=== PATIENT | male | born 1945 | race Caucasian/White ===

== ENCOUNTER 2016-11-24 21:11 | Emergency (ER) | payer OTHER, MEDICARE ==
[~2016-11-24] VITALS: Ht 175.3 cm; Wt 114.3 kg
[~2016-11-24 21:11] MED LIST: ALLO100T PO; CHOL100028 PO; COR3.125 PO; CYAN250010 PO; MELO15TA13 PO; MULT-1117; SERT50TA12 PO; TAMS0.4C96 PO; [UNRECOGNIZED DRUG - CODE] PO
[2016-11-24 21:14] VITALS: BP_SYST 100
--- NOTE | 2016-11-24 21:14 | NUR ---
Patient triaged and placed in waiting room. VSS and patient appears in no acute distress at this time. Accompanied by spouse, awaiting available bed, and MD notified of need for MSE. Patient in wheelchair.
--- NOTE | 2016-11-24 21:22 | NUR ---
Patient to ER bed 4 to gown for evaluation. Side rails up. Report given to Patrick MAE.
--- NOTE | 2016-11-24 21:30 | NUR ---
Pt aayush to ED by tyrone dizziness and low blood pressure at home after his PCP increased coreg from 12.5 to 25 mg. Ambulatory, gait unstable, A&Ox4, denies SOb or chestpain, denies N/V/D. Skin intact. Will continue to monitor
--- NOTE | 2016-11-24 21:40 | NUR ---
MD Mata at bedside examining pt
[2016-11-24] MEDS ORDERED: NACL 0.9% 1,000 ML IV ONE (21:45)
[2016-11-24 22:21] LABS: BASOPHILS % (AUTO) 0.5 % (0.0-2.0); EOSINOPHILS # (AUTO) 0.4 K/uL (0.0-0.4); EOSINOPHILS % (AUTO) 3.9 % (0.0-4.0); HEMATOCRIT 37.6 % (36-54); HEMOGLOBIN 12.6 g/dL (14.0-18.0); LYMPHOCYTES # (AUTO) 1.2 K/uL (1.0-5.5); LYMPHOCYTES % (AUTO) 12.6 % (20.5-51.5); MEAN CORPUSCULAR HEMOGLOBIN 29 pg (27-31); MEAN CORPUSCULAR HGB CONC 33 % (32-36); MEAN CORPUSCULAR VOLUME 87 fL (79.0-98.0); MONOCYTES # (AUTO) 0.5 K/uL (0.0-1.0); MONOCYTES % (AUTO) 5.4 % (1.7-9.3); NEUTROPHILS # (AUTO) 7.3 K/uL (1.8-7.7); NEUTROPHILS % (AUTO) 77.6 % (40.0-70.0); PLATELET COUNT (AUTO) 265 K/uL (130-430); RED BLOOD CELL COUNT(AUTO) 4.32 MIL/uL (4.2-6.2); RED CELL DISTRIBUTION WIDTH 17.5 % (9.0-15.0); WHITE BLOOD COUNT (AUTO) 9.4 K/uL (4.8-10.8)
[2016-11-24 22:22] LABS: CALCIUM 9.3 mg/dL (8.4-11.0); CREATININE 1.98 mg/dL (0.55-1.30)
[2016-11-24 22:25] LABS: PROTHROMBIN TIME 10.6 SECS (9.5-12.5)
[2016-11-24 22:27] LABS: ALBUMIN 3.8 g/dL (3.4-4.8); TOTAL BILIRUBIN 0.4 mg/dL (0.0-1.0); TOTAL PROTEIN, SERUM 8.2 g/dL (6.4-8.3)
--- NOTE | 2016-11-24 23:15 | NUR ---
at bedside, pt appeared resting comfortably. VSS
[2016-11-25 00:40] VITALS: BP_SYST 110
--- NOTE | 2016-11-25 00:40 | NUR ---
Patient given written and verbal discharge instructions and verbalizes understanding. ER MD Mata discussed with patient the results and treatment provided. Given copies of tests performed in ER. Patient in stable condition. ID arm band removed. IV catheter removed intact and dressing applied, no active bleeding. No Rx given. Patient educated on pain management and to follow up with PMD. Pain Scale . Opportunity for questions provided and answered.
== END 2016-11-25 00:40 | disposition home or self-care (01) ==
LOC: SED 21:11
DX: I95.9 Hypotension, unspecified (principal); T44.7X5A Adverse effect of beta-adrenoreceptor antagonists, initial encounter; I50.9 Heart failure, unspecified; I10 Essential (primary) hypertension; Z96.659 Presence of unspecified artificial knee joint; Y92.89 Other specified places as the place of occurrence of the external cause
CPT/HCPCS: 36415; 71010; 80053; 84484; 85025; 85610; 85730; 87040; 93005; 96360; 96361; 99285; J7030

== ENCOUNTER 2022-03-25 14:26 | Inpatient (IN) | payer OTHER, MEDICARE ==
[2022-03-25] VITALS (8 sets, daily range): BP systolic 88–160
[~2022-03-25] VITALS: Ht 175.3 cm; Wt 117.9 kg
[~2022-03-25 14:26] MED LIST changes: +CALC-1085 PO; -CHOL100028 PO; +CHOL100034 PO; +SERT-436 PO; -SERT50TA12 PO; -[UNRECOGNIZED DRUG - CODE] PO
--- NOTE | 2022-03-25 14:30 | NUR ---
BROUGHT IN BY [facility], PLACED IN BED #2 AND TRIAGED. REPORT GIVEN TO VANNESSA
[2022-03-25] MEDS ORDERED: NACL 0.9% 1,000 ML IV ONE ×2 (14:45→15:45)
[2022-03-25 15:21] LABS: HEMATOCRIT 33.5 % (36-54); HEMOGLOBIN 10.7 g/dL (14.0-18.0); LYMPHOCYTES # (AUTO) 0.6 K/uL (1.0-5.5); LYMPHOCYTES % (AUTO) 8.2 % (20.5-51.5); MEAN CORPUSCULAR HEMOGLOBIN 30 pg (27-31); MEAN CORPUSCULAR HGB CONC 32 % (32-36); MONOCYTES # (AUTO) 0.4 K/uL (0.0-1.0); NEUTROPHILS # (AUTO) 6.1 K/uL (1.8-7.7); WHITE BLOOD COUNT (AUTO) 7.1 K/uL (4.8-10.8)
--- NOTE | 2022-03-25 15:21 | NUR ---
Pt present to ED via EMS with report of AMS, hypotension and elevated ammonia levels. Pt placed in bed 2 on monitor. ED physician at [facility]. Pressure ulcer noted to sacral region and posterior region of feet. Will continue to monitor pt
[2022-03-25 15:33] LABS: BASOPHILS % (AUTO) 0.4 % (0.0-2.0); EOSINOPHILS % (AUTO) 0.6 % (0.0-4.0); MEAN CORPUSCULAR VOLUME 95 fL (79.0-98.0); MONOCYTES % (AUTO) 5.4 % (1.7-9.3); NEUTROPHILS % (AUTO) 85.4 % (40.0-70.0); RED BLOOD CELL COUNT(AUTO) 3.52 MIL/uL (4.2-6.2); RED CELL DISTRIBUTION WIDTH 21.9 % (9.0-15.0)
[2022-03-25 15:42] LABS: PLATELET COUNT (AUTO) 70 K/uL (130-430)
[2022-03-25 15:51] LABS: ALANINE AMINOTRANSFERASE 68 U/L (12-78); ALBUMIN 2.4 g/dL (3.4-4.8); ANION GAP 13 (5-15); ASPARTATE AMINOTRANSFERASE 53 U/L (10-37); CALCIUM 10.2 mg/dL (8.4-11.0); CHLORIDE 94 mmol/L (98-107); CREATININE 4.82 mg/dL (0.55-1.30); GLUCOSE 88 mg/dL (70-99); TOTAL BILIRUBIN 1.5 mg/dL (0.0-1.0)
[2022-03-25 16:09] LABS: UREA NITROGEN, BLOOD 125 mg/dL (8-21)
[2022-03-25] MEDS ORDERED: INSULIN REGULAR, HUMAN 10 UNITS/0.1 ML, 3 ML VIAL IVP ONE (16:45)
[2022-03-25] MEDS ORDERED: DEXTROSE 50% JECT 50 ML DISP.SYRIN IVP ONE (16:45)
[2022-03-25] MEDS ORDERED: D5/0.45 NS 1,000 ML IV ONE (17:00)
--- NOTE | 2022-03-25 17:16 | NUR ---
Telephone report called to ICU. Spoke to Eli MAE.
--- NOTE | 2022-03-25 17:26 | NUR ---
Admit bed requested Patient will be admitted to care of . Admitted to ICU unit. Diagnosis METABOLIC ENCEPHALOPATHY, RENAL FAILURE, DEHYDRATION Inpatient (Yes or No) Y Observation (Yes or No) N Orientation concerns or request close to nursing station (Yes or No) Y Covid Status PENDING On vent or bipap N Isolation requirements N Needs a sitter N From Home (Yes or if No enter name of facility) [facility] Requires Dialysis (Yes or No) N Med Rec Completed (Yes of No) Y
[2022-03-25] MEDS ORDERED: CARV3.1246 PO (17:43)
[2022-03-25] MEDS ORDERED: DOCU-144 PO (17:43)
[2022-03-25] MEDS ORDERED: EPOE4000 IJ (17:43)
[2022-03-25] MEDS ORDERED: NEPH PO (17:43)
[2022-03-25] MEDS ORDERED: MIDO5TAB4 PO (17:43)
[2022-03-25] MEDS ORDERED: APIX5TAB PO (17:43)
[2022-03-25] MEDS ORDERED: LACT10SO6 PO (17:43)
[2022-03-25] MEDS ORDERED: AMIO200T66 PO (17:43)
[2022-03-25] MEDS ORDERED: LEVO50CA4 (17:43)
[2022-03-25] MEDS ORDERED: VITD400 PO (17:43)
[2022-03-25] MEDS ORDERED: BISA-79 PO (17:43)
[2022-03-25] MEDS ORDERED: ZINC50TA69 PO (17:43)
--- NOTE | 2022-03-25 17:53 | NUR ---
Pt transported to ICU by ED RN accompanied by EMT and on monitor and 02 at 3L via NC. No change in mentation from previous documentation. IV access in place. IV fluids infusing at 150mls/hr.
[2022-03-25] MEDS: D5/0.45 NS 1,000 ML IV SCH ×2 (18:00→21:22)
[2022-03-25] MEDS ORDERED: NOREPINEPHRINE BITARTRATE 4 MG in D5W 246 ML IV PRN (18:00)
--- NOTE | 2022-03-25 18:00 | NUR ---
RN NOTES ADMITTED FROM ER FOR SEPSIS, ADMISSION CARE DONE. PLACED COMFORTABLY ON BED. INITIAL VITAL SIGNS CHECKED AND RECORDED. O2 @ 4L/MIN VIA NC. IVF INFUSING VIA LEFT ARM IV LOCK. PATIENT MADE COMFORTABLE. WILL CONTINUE TO MONITOR.
--- NOTE | 2022-03-25 19:10 | NUR ---
OPENING NOTES: RECEIVED BEDSIDE REPORT FROM SWATARA. PATIENT IS LETHARGIC AND AGITATED, DOES NOT OPEN HIS EYES, WILL ANSWER TO HIS NAME BUT DOES NOT FOLLOW COMMANDS. IS AT THE BED SIDE AND INFORMED ME OF OTHER CONDITIONS. PATIENT WAS TRANSFERRED FROM ER AT 1800, CAME FROM [facility] BECAUSE OF ALOC. PATIENT IS ON 4 L NC AND STATING AT 98%. PATIENT HAS A LEFT FOREARM 20 g WITH D5 1/2 NS RUNNING AT 250 ML/HR. PATIENT HAS A WOUND ON SACRAL, DAY SHIFT CLEANED PATIENT AND PLACED A FOAM DRESSING, DID NOT TAKE PICTURES. PATIENT HAS EDEMA IN ALL EXTREMITIES, RIGHT ARM HAS SKIN TEAR THAT WAS WRAPPED, PATIENT HAS SCABS ON LEGS AND ARMS FROM PAST ISSUES STATED BY THE . DEFIBRILLATE WAS PLACED FEBRUARY 21, GOT A COPY FROM OF THE TYPE. BED IS AT THE LOWEST LEVEL, BRAKES ARE LOCKED, APPROPRIATE SIDE RAILS UP, SUCTION WORKING, AND CALL LIGHT WITHIN REACH.
[2022-03-25] MEDS ORDERED: cefTRIAXone 1 GM in D5W 50 ML IV SCH (20:00)
[2022-03-25] MEDS ORDERED: DOPamine PREMIX 250 ML IV PRN (20:15)
[2022-03-25 20:20] LABS: ANION GAP 13 (5-15); CALCIUM 9.2 mg/dL (8.4-11.0); CHLORIDE 97 mmol/L (98-107); CREATININE 4.85 mg/dL (0.55-1.30); GLUCOSE 82 mg/dL (70-99); POTASSIUM 5.4 mmol/L (3.5-5.1)
[2022-03-25] MEDS ORDERED: cefTRIAXone 1 GM VIAL ONE (20:20)
[2022-03-25 20:33] LABS: UREA NITROGEN, BLOOD 121 mg/dL (8-21)
--- NOTE | 2022-03-25 20:40 | NUR ---
CALLED DOCTOR NADEEM WITH [facility]. ORDERS GIVEN TO START DOPAMINE IF THE BP GOES BELOW 90. TO DO A BLADDER SCAN Q6 AND TO PLACE A TERRAZAS CATH IF MORE THEN 500 ML OF URINE IS FOUND, AND TO HOLD MEDICATIONS TILL THE MORNING. INFORMED THAT [facility] CALLED TO REQUEST TO HOLD ELIQUIS DUE TO LOW PLT OF 90. OK OKAYED ALL REQUESTS.
[2022-03-25] MEDS: BISACODYL 5 MG TABLET.DR (DULCOLAX) PO SCH (21:00)
[2022-03-25] MEDS ORDERED: APIXABAN 2.5 MG TABLET PO SCH ×2 (21:00)
[2022-03-25] MEDS: MIDODRINE HCL 5 MG TABLET (PROAMATINE) PO SCH (21:00)
[2022-03-25] MEDS: TAMSULOSIN HCL 0.4 MG CAP PO SCH (21:00)
[2022-03-25] MEDS: DOCUSATE SODIUM 100 MG CAPSULE PO SCH (21:00)
[2022-03-26] VITALS (32 sets, daily range): BP systolic 72–164
--- NOTE | 2022-03-26 00:19 | NUR ---
DID BLADDER SCAN ON PATIENT. ONLY 40 ML WAS FOUND, PATIENT HAS NOT URINATED IN BED.
--- NOTE | 2022-03-26 00:53 | NUR ---
DR. NADEEM MANZO MADE AWARE THAT BLADDER SCAN IN SHOWING 100CC RESIDUAL AND PT IS RECEIVING 250CC/HR IV FLUID WITH NO UOP SINCE BEGINNING OF SHIFT. PER GIVE LASIX 80 MG IVP X1 NOW AND DO NOT INSERT FC UNLESS RESIDUAL IS >200 CC. WILL CARRY OUT ORDERED. Addendum: 03/26/22 at 0056 by Emiliana Waters RN ALSO MADE AWARE THAT PT IS HAVING FREQUENT PVCS, NO NEW ORDERS RECEIVED AT THIS TIME.
[2022-03-26] MEDS ORDERED: FUROSEMIDE 40 MG/4 ML VIAL IVP ONE (01:00)
[2022-03-26] MEDS: D5/0.45 NS 1,000 ML IV SCH ×4 (02:42→14:00)
--- NOTE | 2022-03-26 05:31 | NUR ---
DR. NADEEM MANZO MADE AWARE THAT PT HAS NOT VOIDED SINCE BEGINNING OF SHIFT DESPITE RECEIVING 250 CC/HR IVF AND LASIX IVP. PER MD INSERT FC, IF NO UOP DECREASE IVF TO 100 CC/HR. WILL CARRY OUT ORDERED.
--- NOTE | 2022-03-26 06:05 | NUR ---
INSERTED TERRAZAS CATHETER AND BLOOD STARTED TO DRAIN. CALLED DR SILVER AND INFORMED FO THE BLOOD, GAVE ORDERS OF BUMEX 1 MG IV ONCE AND TO DECREASE IV FLUID TO 100 CC/HR.
--- NOTE | 2022-03-26 06:45 | NUR ---
PATIENTS CALLED AND INFORMED PATIENT WAS STABLE ALL NIGHT, WAS UNABLE TO GET URINE FROM HIM ALL NIGHT AND THE DOCTOR ORDERED FOR THE TERRAZAS TO BE INSERTED. STATED SHE WAS GETTING DRESSED AND WILL BE ON HER WAY.
[2022-03-26 06:54] LABS: BASOPHILS # (AUTO) 0.1 K/uL (0.0-0.2); BASOPHILS % (AUTO) 0.7 % (0.0-2.0); EOSINOPHILS # (AUTO) 0.2 K/uL (0.0-0.4); HEMOGLOBIN 10.1 g/dL (14.0-18.0); LYMPHOCYTES # (AUTO) 0.7 K/uL (1.0-5.5); LYMPHOCYTES % (AUTO) 9.7 % (20.5-51.5); MEAN CORPUSCULAR HEMOGLOBIN 31 pg (27-31); MEAN CORPUSCULAR HGB CONC 33 % (32-36); MEAN CORPUSCULAR VOLUME 96 fL (79.0-98.0); MONOCYTES # (AUTO) 0.5 K/uL (0.0-1.0); MONOCYTES % (AUTO) 6.9 % (1.7-9.3); NEUTROPHILS % (AUTO) 80.7 % (40.0-70.0); PLATELET COUNT (AUTO) 62 K/uL (130-430); RED BLOOD CELL COUNT(AUTO) 3.23 MIL/uL (4.2-6.2); RED CELL DISTRIBUTION WIDTH 22.5 % (9.0-15.0); WHITE BLOOD COUNT (AUTO) 7.5 K/uL (4.8-10.8)
[2022-03-26] MEDS: BUMEX 1 MG/4 ML VIAL IVP ONE ×2 (07:00→10:17)
[2022-03-26 08:45] LABS: ALANINE AMINOTRANSFERASE 56 U/L (12-78); ALBUMIN 2.1 g/dL (3.4-4.8); ANION GAP 14 (5-15); ASPARTATE AMINOTRANSFERASE 52 U/L (10-37); CALCIUM 8.8 mg/dL (8.4-11.0); CHLORIDE 93 mmol/L (98-107); CREATININE 4.95 mg/dL (0.55-1.30); GLUCOSE 109 mg/dL (70-99); PHOSPHORUS 6.6 mg/dL (2.7-4.5); POTASSIUM 5.5 mmol/L (3.5-5.1); TOTAL BILIRUBIN 1.5 mg/dL (0.0-1.0)
[2022-03-26 08:50] LABS: UREA NITROGEN, BLOOD 114 mg/dL (8-21)
[2022-03-26] MEDS: MIDODRINE HCL 5 MG TABLET (PROAMATINE) PO SCH ×4 (09:00→20:50)
[2022-03-26] MEDS ORDERED: TAMSULOSIN HCL 0.4 MG CAP PO SCH (09:00)
[2022-03-26] MEDS: AMIODARONE HCL 200 MG TABLET PO SCH (09:00)
[2022-03-26] MEDS: NEPHROVITE, (FOLIC ACID/VITAMIN B COMP W-C 1 TAB) PO SCH (09:00)
[2022-03-26] MEDS: DOCUSATE SODIUM 100 MG CAPSULE PO SCH ×2 (09:00→20:50)
[2022-03-26] MEDS: BISACODYL 5 MG TABLET.DR (DULCOLAX) PO SCH ×2 (09:00→22:05)
[2022-03-26] MEDS: CHOLECALCIFEROL (VITAMIN D3) 2,000 UNIT TABLET PO SCH (09:00)
[2022-03-26] MEDS: TAMSULOSIN HCL 0.4 MG CAP PO SCH ×2 (09:00→20:50)
[2022-03-26] MEDS ORDERED: NOREPINEPHRINE BITARTRATE 4 MG in D5W 246 ML IV PRN (10:00)
--- NOTE | 2022-03-26 11:12 | NUR ---
Dr Márquez was here at 1030 and held bumex due to low BP and ordered to start on Levophed drip and dopamine at fixed rate of 2 mcg/kg/min. Lunsford drainage remains bloody and is aware of it. Urine culture was sent. Bp is more stable
--- NOTE | 2022-03-26 11:15 | NUR ---
consent for picc line was signed by and explained the procedure
[2022-03-26] MEDS: cefTRIAXone 1 GM in D5W 50 ML IV SCH ×2 (12:00→23:51)
[2022-03-26 12:25] LABS: BILIRUBIN,URINE 3+ (NEGATIVE); BLOOD, URINE 3+ (NEGATIVE); GLUCOSE,URINE 1+ (NEGATIVE); KETONES,URINE TRACE (NEGATIVE); LEUKOCYTE ESTERASE ,URINE NEGATIVE (NEGATIVE); NITRITE, URINE NEGATIVE (NEGATIVE); PROTEIN URINE 3+ (NEGATIVE)
[2022-03-26 12:27] LABS: CLARITY/URINE BLOODY (CLEAR); COLOR,URINE RED (YELLOW)
[2022-03-26 12:31] LABS: BACTERIA,URINE RARE /HPF (None Seen); MUCUS,URINE None Seen /LPF (None Seen); RBC,URINE >100 /HPF (0-3); WBC,URINE 0-3 /HPF (0-3)
--- NOTE | 2022-03-26 13:00 | NUR ---
Right upper arm double lumen PICC line started by Bharathi PICC RN. PICC line OK to use.
[2022-03-26 14:25] LABS: BASOPHILS % (AUTO) 0.4 % (0.0-2.0); EOSINOPHILS # (AUTO) 0.2 K/uL (0.0-0.4); EOSINOPHILS % (AUTO) 2.7 % (0.0-4.0); LYMPHOCYTES # (AUTO) 0.8 K/uL (1.0-5.5); LYMPHOCYTES % (AUTO) 9.2 % (20.5-51.5); MEAN CORPUSCULAR HEMOGLOBIN 31 pg (27-31); MEAN CORPUSCULAR HGB CONC 32 % (32-36); MEAN CORPUSCULAR VOLUME 96 fL (79.0-98.0); MONOCYTES # (AUTO) 0.3 K/uL (0.0-1.0); MONOCYTES % (AUTO) 4.1 % (1.7-9.3); NEUTROPHILS % (AUTO) 83.6 % (40.0-70.0); PLATELET COUNT (AUTO) 72 K/uL (130-430); RED BLOOD CELL COUNT(AUTO) 2.04 MIL/uL (4.2-6.2); RED CELL DISTRIBUTION WIDTH 21.8 % (9.0-15.0); WHITE BLOOD COUNT (AUTO) 8.4 K/uL (4.8-10.8)
--- NOTE | 2022-03-26 14:27 | NUR ---
RN NOTES 1420 CRITICAL H&H RESULT: Hgb 6.3 , Hct 19.[address] Silver, with orders carried out. 1430 1ST UNIT PRBC OF 2 UNITS STARTED, SEE TRANSFUSION SHEET FOR DOCUMENTATION. [address]40 DR[address] CHOUDHARY CALLED FOR CONSULT, RE: VENT MANAGEMENT DR. RODRIGUEZ CALLED FOR CONSULT, RE: UROLOGY INTERVENTION/SEVERE HEMATURIA 1530 K+ 6.4, SPOKE TO DR. SILVER, WITH ORDERS CARRIED OUT. [address] DR[address] SILVER AND DR. CASTELLANO HERE TO SEE PATIENT, SPOKE TO PT FOR THE PLAN OF CARE.
[2022-03-26 14:28] LABS: HEMATOCRIT 19.6 % (36-54); HEMOGLOBIN 6.3 g/dL (14.0-18.0)
--- NOTE | 2022-03-26 14:30 | NUR ---
PATIENT INTUBATED BY DR. AHUJA, PATIENT PREMEDICATED WITH ROCURONIUM 100 MG IVP INTUBATED WITH 7.5 ET TUBE, 24cm LIP LINE. VENT SETTIN%, VT 550, AC 14, PEEP 5.
--- NOTE | 2022-03-26 14:40 | NUR ---
Called Dr. Carter with a consult,spoke with Amanda from the exchange
--- NOTE | 2022-03-26 14:40 | NUR ---
Dr. Jim Chavira is aware of consult
[2022-03-26 14:54] LABS: ANION GAP 8 (5-15); CHLORIDE 96 mmol/L (98-107); CREATININE 4.91 mg/dL (0.55-1.30); GLUCOSE 136 mg/dL (70-99)
[2022-03-26 15:06] LABS: POTASSIUM 6.4 mmol/L (3.5-5.1)
[2022-03-26 15:07] LABS: CALCIUM 6.6 mg/dL (8.4-11.0); UREA NITROGEN, BLOOD 115 mg/dL (8-21)
[2022-03-26] MEDS ORDERED: CALCIUM CHLORIDE 1 GM in NS 100 ML IV ONE (15:15)
[2022-03-26] MEDS ORDERED: CALCIUM CHLORIDE 1 GM/10 ML DISP.SYRIN (14 mEq Ca++/SYR) ONE (15:21)
[2022-03-26] MEDS ORDERED: INSULIN REGULAR, HUMAN 100 UNITS/ML, 3 ML VIAL IVP ONE (15:30)
[2022-03-26] MEDS ORDERED: DEXTROSE 50% JECT 50 ML DISP.SYRIN IVP ONE (15:30)
--- NOTE | 2022-03-26 15:30 | NUR ---
HIGH ALERT NOTE: Called Dr. Márquez back at [phone], identified within the medical roster to verify physician authenticity.
[2022-03-26] MEDS ORDERED: DEXTROSE 50% JECT 50 ML DISP.SYRIN ONE (15:36)
--- NOTE | 2022-03-26 15:37 | NUR ---
Called Dr. Harmon with a consult, spoke with Sarabjit from the exchange
[2022-03-26] MEDS ORDERED: NS IV ONE (16:00)
[2022-03-26] MEDS ORDERED: AMINOCAPROIC ACID IV ONE (16:00)
[2022-03-26] MEDS ORDERED: ROCURONIUM BROMIDE 10 MG/ML (ZEMURON) ONE (16:30)
[2022-03-26] MEDS: D5W IV PRN (16:34)
[2022-03-26] MEDS: NOREPINEPHRINE BITARTRATE IV PRN (16:34)
--- NOTE | 2022-03-26 17:26 | NUR ---
rt notes 1425Pt Hb low. Pt became unresponsive, pt BP was low, pulse unpalpable, code blue was called.CPR started and lasted for 1-3 minutes, pt came back. 1430 Pt got intubated by ER MD Reuben Tejeda, AC14,550VT, PEEP 5, 100% FIO2, 7.5/25CM LL. Pt saturating 100%. CO2 color changed, Bilateral chest rise seen. will cont to monitor pt. 1458 Per ABG results, PO2 400's. decreased FIO2 to 50%. pt saturating 99%.
[2022-03-26 18:04] LABS: INR 2.8 (0.80-1.20); PROTHROMBIN TIME 27.3 SECS (9.5-12.5)
--- NOTE | 2022-03-26 19:27 | NUR ---
Recd obtunded, on off agitation, and still moaning and restless, siderails are up. Dopamine at 2 mcg/kg/min and levophed was started after Dr. márquez called at 1 mcg/kg/min. t 1403 pt became unconscious for few mins and became bradycardeic. CPR was only performed less than a min and pt was intubated orally by ER MD and pt was placed in trendelenberg positioGisela RN communicated with Dr. Márquez always
[2022-03-26] MEDS: PANTOPRAZOLE SODIUM 40 MG/VIAL (PROTONIX) IVP SCH (20:51)
[2022-03-26 20:52] LABS: PLATELET COUNT (AUTO) 82 K/uL (130-430)
[2022-03-26 21:32] LABS: BASOPHILS % (AUTO) 0.2 % (0.0-2.0); EOSINOPHILS # (AUTO) 0.2 K/uL (0.0-0.4); EOSINOPHILS % (AUTO) 1.4 % (0.0-4.0); HEMATOCRIT 23.4 % (36-54); HEMOGLOBIN 7.7 g/dL (14.0-18.0); LYMPHOCYTES # (AUTO) 0.5 K/uL (1.0-5.5); LYMPHOCYTES % (AUTO) 4.4 % (20.5-51.5); MEAN CORPUSCULAR HEMOGLOBIN 30 pg (27-31); MEAN CORPUSCULAR HGB CONC 33 % (32-36); MEAN CORPUSCULAR VOLUME 93 fL (79.0-98.0); MONOCYTES # (AUTO) 0.4 K/uL (0.0-1.0); MONOCYTES % (AUTO) 3.3 % (1.7-9.3); NEUTROPHILS # (AUTO) 10.6 K/uL (1.8-7.7); NEUTROPHILS % (AUTO) 90.7 % (40.0-70.0); RED BLOOD CELL COUNT(AUTO) 2.52 MIL/uL (4.2-6.2); RED CELL DISTRIBUTION WIDTH 18.7 % (9.0-15.0); WHITE BLOOD COUNT (AUTO) 11.7 K/uL (4.8-10.8)
[2022-03-26] MEDS ORDERED: VASOPRESSIN 20 UNITS/ML VIAL IV ONE (22:35)
[2022-03-26 22:43] LABS: ANION GAP 11 (5-15); CHLORIDE 94 mmol/L (98-107); CREATININE 4.81 mg/dL (0.55-1.30); GLUCOSE 218 mg/dL (70-99); POTASSIUM 5.2 mmol/L (3.5-5.1)
[2022-03-26] MEDS ORDERED: ALBUMIN HUMAN 25% 150 ML IV ONE ×2 (23:00)
[2022-03-26 23:06] LABS: UREA NITROGEN, BLOOD 112 mg/dL (8-21)
[2022-03-27] VITALS (32 sets, daily range): BP systolic 43–151
[2022-03-27 06:32] LABS: BASOPHILS % (AUTO) 0.2 % (0.0-2.0); EOSINOPHILS # (AUTO) 0.1 K/uL (0.0-0.4); EOSINOPHILS % (AUTO) 0.5 % (0.0-4.0); LYMPHOCYTES # (AUTO) 0.5 K/uL (1.0-5.5); LYMPHOCYTES % (AUTO) 3.5 % (20.5-51.5); MEAN CORPUSCULAR HEMOGLOBIN 31 pg (27-31); MEAN CORPUSCULAR HGB CONC 33 % (32-36); MEAN CORPUSCULAR VOLUME 94 fL (79.0-98.0); MONOCYTES # (AUTO) 0.5 K/uL (0.0-1.0); MONOCYTES % (AUTO) 4.2 % (1.7-9.3); NEUTROPHILS # (AUTO) 11.9 K/uL (1.8-7.7); NEUTROPHILS % (AUTO) 91.6 % (40.0-70.0); PLATELET COUNT (AUTO) 93 K/uL (130-430); RED BLOOD CELL COUNT(AUTO) 2.09 MIL/uL (4.2-6.2); RED CELL DISTRIBUTION WIDTH 17.9 % (9.0-15.0)
[2022-03-27] MEDS: D5W IV PRN ×4 (07:13→23:08)
[2022-03-27] MEDS: NOREPINEPHRINE BITARTRATE IV PRN ×4 (07:13→23:08)
[2022-03-27 07:17] LABS: INR 2.1 (0.80-1.20); PROTHROMBIN TIME 21.3 SECS (9.5-12.5)
[2022-03-27 08:05] LABS: HEMATOCRIT 19.5 % (36-54); HEMOGLOBIN 6.5 g/dL (14.0-18.0)
[2022-03-27 08:26] LABS: ALANINE AMINOTRANSFERASE 27 U/L (12-78); ALBUMIN 1.8 g/dL (3.4-4.8); ANION GAP 10 (5-15); ASPARTATE AMINOTRANSFERASE 41 U/L (10-37); CALCIUM 7.9 mg/dL (8.4-11.0); CHLORIDE 98 mmol/L (98-107); CREATININE 3.59 mg/dL (0.55-1.30); GLUCOSE 182 mg/dL (70-99); PHOSPHORUS 5.2 mg/dL (2.7-4.5); POTASSIUM 4.5 mmol/L (3.5-5.1); TOTAL BILIRUBIN 1.8 mg/dL (0.0-1.0); UREA NITROGEN, BLOOD 74 mg/dL (8-21)
[2022-03-27] MEDS ORDERED: EPOETIN ALFA 4,000 UNITS/ML VIAL SUBCUT SCH (09:00)
[2022-03-27] MEDS: AMIODARONE HCL 200 MG TABLET PO SCH (09:00)
[2022-03-27] MEDS: DOCUSATE SODIUM 100 MG CAPSULE PO SCH ×2 (09:16→20:41)
[2022-03-27] MEDS: NEPHROVITE, (FOLIC ACID/VITAMIN B COMP W-C 1 TAB) PO SCH (09:16)
[2022-03-27] MEDS: CHOLECALCIFEROL (VITAMIN D3) 2,000 UNIT TABLET PO SCH (09:16)
[2022-03-27] MEDS: BISACODYL 5 MG TABLET.DR (DULCOLAX) PO SCH ×2 (09:17→20:41)
[2022-03-27] MEDS: TAMSULOSIN HCL 0.4 MG CAP PO SCH ×2 (09:22→20:41)
[2022-03-27] MEDS: PANTOPRAZOLE SODIUM 40 MG/VIAL (PROTONIX) IVP SCH ×2 (09:23→20:40)
[2022-03-27] MEDS: MIDODRINE HCL 5 MG TABLET (PROAMATINE) PO SCH ×4 (09:25→20:41)
[2022-03-27] MEDS ORDERED: PANTOPRAZOLE SODIUM 40 MG/VIAL (PROTONIX) IVP ONE (10:15)
--- NOTE | 2022-03-27 10:29 | NUR ---
received pt in bedwith hob up to 15 degree, on vasopressin and levophed drip max. observed to be responding to pain and shaking his head but no grimacing, Jonn winklerans bloody and irrigatedm with saline every 2 hours, Dr Márquez was here at 0900 and relayed the low hgb. of 6.5 and ordered 2 units of Prbc to be transfused chito
--- NOTE | 2022-03-27 11:02 | NUR ---
dr. naranjo was called and okeyed the nephro feeding as the only available instead of 2 florina HN that he ordered
--- NOTE | 2022-03-27 11:03 | NUR ---
gillian , the was called and updated of pt. condition
[2022-03-27] MEDS: ACETAMINOPHEN 650 MG/20.3 ML UDC PO PRN ×3 (11:17→23:06)
--- NOTE | 2022-03-27 11:56 | NUR ---
Dr Márquez do not want any sedation noir narcotics but only tylenol
[2022-03-27] MEDS: cefTRIAXone 1 GM in D5W 50 ML IV SCH ×2 (12:17→23:06)
--- NOTE | 2022-03-27 14:08 | NUR ---
Dialysis not done due to Resvan ordered to hold it today
[2022-03-27] MEDS: VASOPRESSIN 40 UNITS in NS 38 ML IV PRN (14:11)
--- NOTE | 2022-03-27 18:18 | NUR ---
Dr Márquez was here and saw systolic BP of 140 and oredered to call dialysis right now but when we call the dialysis they said they will do it tommorow bec pt. Bp is unstabel upp and down so Dr márquez was informed that dialysis will be done tommorow and he agreed
[2022-03-27 19:52] LABS: TOTAL IRON BIND. CAPACITY 227 ug/dL (250-450)
[2022-03-27 20:25] LABS: BASOPHILS % (AUTO) 0.1 % (0.0-2.0); EOSINOPHILS % (AUTO) 0.1 % (0.0-4.0); HEMATOCRIT 23.3 % (36-54); HEMOGLOBIN 7.5 g/dL (14.0-18.0); LYMPHOCYTES # (AUTO) 0.3 K/uL (1.0-5.5); LYMPHOCYTES % (AUTO) 1.4 % (20.5-51.5); MEAN CORPUSCULAR HEMOGLOBIN 29 pg (27-31); MEAN CORPUSCULAR HGB CONC 32 % (32-36); MONOCYTES # (AUTO) 0.8 K/uL (0.0-1.0); MONOCYTES % (AUTO) 3.5 % (1.7-9.3); NEUTROPHILS # (AUTO) 21.8 K/uL (1.8-7.7); NEUTROPHILS % (AUTO) 94.9 % (40.0-70.0); PLATELET COUNT (AUTO) 100 K/uL (130-430); RED BLOOD CELL COUNT(AUTO) 2.56 MIL/uL (4.2-6.2); RED CELL DISTRIBUTION WIDTH 16.9 % (9.0-15.0)
[2022-03-27 20:27] LABS: MEAN CORPUSCULAR VOLUME 91 fL (79.0-98.0)
[2022-03-27] MEDS ORDERED: ACETAMINOPHEN 650 MG/20.3 ML UDC ONE (22:23)
[2022-03-28] VITALS (34 sets, daily range): BP systolic 81–149
[2022-03-28] MEDS: VASOPRESSIN 40 UNITS in NS 38 ML IV PRN (06:06)
[2022-03-28 06:07] LABS: BASOPHILS % (AUTO) 0.3 % (0.0-2.0); EOSINOPHILS % (AUTO) 0.1 % (0.0-4.0); HEMATOCRIT 24.3 % (36-54); HEMOGLOBIN 8.3 g/dL (14.0-18.0); LYMPHOCYTES # (AUTO) 0.5 K/uL (1.0-5.5); LYMPHOCYTES % (AUTO) 3.1 % (20.5-51.5); MEAN CORPUSCULAR HEMOGLOBIN 30 pg (27-31); MEAN CORPUSCULAR HGB CONC 34 % (32-36); MEAN CORPUSCULAR VOLUME 89 fL (79.0-98.0); MONOCYTES # (AUTO) 0.8 K/uL (0.0-1.0); MONOCYTES % (AUTO) 4.5 % (1.7-9.3); NEUTROPHILS # (AUTO) 15.7 K/uL (1.8-7.7); PLATELET COUNT (AUTO) 112 K/uL (130-430); RED BLOOD CELL COUNT(AUTO) 2.72 MIL/uL (4.2-6.2); RED CELL DISTRIBUTION WIDTH 17.3 % (9.0-15.0); WHITE BLOOD COUNT (AUTO) 17.1 K/uL (4.8-10.8)
[2022-03-28] MEDS: NOREPINEPHRINE BITARTRATE IV PRN ×2 (07:09→14:23)
[2022-03-28] MEDS: D5W IV PRN ×2 (07:09→14:23)
[2022-03-28 07:10] LABS: ALANINE AMINOTRANSFERASE 33 U/L (12-78); ALBUMIN 1.9 g/dL (3.4-4.8); ANION GAP 12 (5-15); ASPARTATE AMINOTRANSFERASE 39 U/L (10-37); CALCIUM 7.7 mg/dL (8.4-11.0); CHLORIDE 95 mmol/L (98-107); CREATININE 4.27 mg/dL (0.55-1.30); GLUCOSE 138 mg/dL (70-99); POTASSIUM 4.6 mmol/L (3.5-5.1); TOTAL BILIRUBIN 1.2 mg/dL (0.0-1.0); UREA NITROGEN, BLOOD 80 mg/dL (8-21)
[2022-03-28] MEDS ORDERED: ALBUMIN HUMAN 25% 200 ML IV ONE (07:45)
[2022-03-28] MEDS: TAMSULOSIN HCL 0.4 MG CAP PO SCH ×2 (09:21→20:33)
[2022-03-28] MEDS: CHOLECALCIFEROL (VITAMIN D3) 2,000 UNIT TABLET PO SCH (09:21)
[2022-03-28] MEDS: PANTOPRAZOLE SODIUM 40 MG/VIAL (PROTONIX) IVP SCH ×2 (09:23→20:32)
[2022-03-28] MEDS: BISACODYL 5 MG TABLET.DR (DULCOLAX) PO SCH ×2 (09:24→20:33)
[2022-03-28] MEDS: AMIODARONE HCL 200 MG TABLET PO SCH (09:24)
[2022-03-28] MEDS: MIDODRINE HCL 5 MG TABLET (PROAMATINE) PO SCH ×4 (09:25→20:33)
[2022-03-28] MEDS: NEPHROVITE, (FOLIC ACID/VITAMIN B COMP W-C 1 TAB) PO SCH (09:26)
[2022-03-28] MEDS: cefTRIAXone 1 GM in D5W 50 ML IV SCH ×2 (12:13→12:17)
--- NOTE | 2022-03-28 14:45 | NUR ---
HIGH ALERT NOTE: Called Dr. Harmon back at [phone] for the Heparin order, identified within the medical roster to verify physician authenticity.
[2022-03-28] MEDS ORDERED: HEPARIN SODIUM,PORCINE 5,000 UNITS/ML VIAL MC ONE (15:00)
[2022-03-28] MEDS ORDERED: CEFEPIME 1 GM in D5W 50 ML IV SCH (15:00)
[2022-03-28] MEDS: ACETAMINOPHEN 650 MG/20.3 ML UDC PO PRN ×2 (15:01→16:56)
--- NOTE | 2022-03-28 15:10 | NUR ---
at 1455 John our shelter monitor paged Dr García consult for infection
--- NOTE | 2022-03-28 15:12 | NUR ---
Temp. was 100 F, warm to touch and removed all covers and applied ice packs
[2022-03-28] MEDS ORDERED: EPOETIN ALFA-EPBX 4,000 UNITS/ML VIAL SUBCUT ONE (18:00)
[2022-03-28] MEDS ORDERED: AMIODARONE HCL 200 MG TABLET ONE (18:13)
[2022-03-28] MEDS ORDERED: AMIODARONE HCL 200 MG TABLET NG ONE (18:15)
--- NOTE | 2022-03-28 19:00 | NUR ---
OPENING NOTES: RECEIVED BEDSIDE REPORT FROM [place]. PATIENT IS OBTUNDED WITH NO SEDATION, IS AT THE BEDSIDE. PATIENT IS INTUBATED AC 30%, 14, 550, 5. PATIENT HAD DIALYSIS TODAY AND 1.5 L WAS REMOVED, PATIENT IS IN RAPID A-FIB. PATIENT HAS A RIGHT NARE NG TUBE WITH NEPRO RUNNING AT 40 ML/HR. PATIENT HAS A TERRAZAS CATH THAT IS PATENT. PATIENT HAS WOUND ON LEFT SACRAL COVERED WITH FOAM DRESSING. RIGHT UPPER ARM PICC WITH LEVO RUNNING AT 1.0 MCG/KG/MIN AND VASOPRESSIN AT 0.03 MCG/KG/MIN. BED IS AT THE LOWEST LEVEL, BRAKES ARE LOCKED, SUCTION WORKING, 3 SIDE RAILS UP, AND CALL LIGHT WITHIN REACH.
--- NOTE | 2022-03-28 19:29 | NUR ---
Nutrition Assessment Nutritional Screening High Risk Screening Admitting Diagnosis: Renal Failure, Metabolic Encephalopathy, Dehydration Reviewed Pertinent Medical/Surgical Hx Medical Record Significant Other Medical History Comment: Per EMR: 76yM with pmh CHF, liver dz, CKD w/ prev brief HD. Patient completed 3hr HD today. Subjective Information Patient presented to ED on 03/27 from [facility] with concerns of altered mental status, elevated ammonia, and hypotension. Pt had cardiopulmonary arrest requiring intubation; pt was found to be severely anemic with hemorrhagic shock, metabolic acidosis, and worsening renal failure. Pt noted with severe PEM; per ED notes, pressure ulcer on sacral region and foot.Pt transferred to ICU and started on Nepro via ngt 03/27. Pt noted to have abd distention on 03/27 with no BM noted since admit 03/25. Spoke with patient's bedside. 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 stated patient was hospitalized 01/13/22 and since then pt has had poor appetite and poor PO with weight loss. Per , patient c/o taste changes causing patient to lose interest in eating. 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 denies chewing/swallowing issues mine captain and patient has normal dentition Current Diet Order/Nutrition Support: Nepro @ 40mL/hr x 24hr; 100mL FWF q8h Patient/Significant Other Able To Verbalize Education Provided Not Indicated Pertinent Medications Protonix, norepi, vasopressin, B-complex, D3, amiodarone, flomax, dulcolax Pertinent Labs WBC , RBC L, H/H L, Na L, Cl L, BUN. Cr H, Ca L, glu H, Phos H, Bili H Height (Feet) 5 feet Height (Inches) 9.00 inches Weight (Pounds) 154 pounds Weight (Calculated Kilograms) 69.728646 kilograms Patient Weight 69.853 kg Body Mass Index 22.74 kg/m2 Usual Weight 189 lbs %UBW 81 %IBW 96 [place]/Adjusted Body Weight 160lbs/ 72.7kg Recent Weight Change Yes - per , 30-40lbs/13-18kg x 2 months = 18-21% wt loss; Severe Weight Status Appropriate Gastrointestinal Symptoms None Difficulty With: Swallowing - intubated/vent Food Allergies Unable to Verify Cultural/Ethnic/Buddhist Belief Unable to Veify Usual Diet At Home Unable to Veify Skin Integrity Comment: Earle 10: Pressure Ulcer sacrum and posterior foot. 3+ pitting edema noted per patient assessment coordinator 03/27 Current % PO n/a; tube feeding Estimated Energy Expenditure (kcals/day) 8699-1763 (30-35 kcal/kg CBW d/t vent, wounds) Estimated Protein Required (g/day) 70-84 (1-1.2 g/kg CBW d/t wounds, CKD on HD) Estimated Fluid Required (l/day) per MD (d/t renal dz) Problem/Etiology/Signs/Symptoms * Altered nutrition-related lab values r/t renal dysfunction AEB elevated BUN, Glucose, Creatinine, Phosphorus; lowered RBC, Hgb, hematocrit, Calcium, Sodium * Increased energy and protein needs r/t vent, wound healing AEB 30-35 kcal/kg est energy needs; 1-1.2 g/kg est protein needs Expected Outcomes/Goals Pt tolerating EN at goal w/ EN meeting >85% est energy needs, nutrition related labs trending WNL, improvement in skin integrity, wt stable, BM q 1-3 days Dietitian Recommendations * Continue current EN regimen as tolerated: Nepro @ 40mL/hr x 24hr; 100mL FWF q8h - This provides 2208 kcal, 78g protein, and 998 total FW (698mL FW + 300mL FWF) - This regimen equals 105% lower range est energy; 93% higher range of est pro * Rec daily renavite, 250mg VIT C, 220mg zincate, for wound healing * Rec Fly BID when sepsis resolves Follow Up High Risk: F/U in 2-3days Follow Up By Mar 31, 2022 Alert Indicated Interpretation Of Weight Loss (Severe) >5% in 1 month: Pt reports ~18-21% wt loss x 2 months Fluid Accumulation (Severe) Moderate Fluid Retention: 3+ pitting edema per nursing notes Is there a minimum of two criteria selected? Yes Malnutrition Recommendations by RD Increase Calorie Intake Addendum: 03/28/22 at [address] Amended: Links added.
[2022-03-28] MEDS: SOD FERRIC GLUC COMPLEX/SUC 125 MG in NS 100 ML IV SCH (19:35)
--- NOTE | 2022-03-28 19:36 | NUR ---
Dietitian Recommendations * Continue current EN regimen as tolerated: Nepro @ 40mL/hr x 24hr; 100mL FWF q8h via NGT - This provides 2208 kcal, 78g protein, and 998 total FW (698mL FW + 300mL FWF) - This regimen equals 105% lower range est energy; 93% higher range of est pro * Rec daily renavite, 250mg VIT C, 220mg zincate, for wound healing * Rec Fly BID when sepsis resolves Please refer to Nutrition Assessment for details, thanks! CC, MPH, RDN
[2022-03-28] MEDS: DOCUSATE SODIUM 100 MG/10 ML UDC PO SCH (20:33)
[2022-03-28] MEDS: metroNIDAZOLE 500 mg/NS 100 ML IV SCH (20:33)
[2022-03-29] VITALS (49 sets, daily range): BP systolic 84–128
[2022-03-29] MEDS ORDERED: EPINEPHrine JECT 0.1 MG/ML SYR ONE
[2022-03-29] MEDS ORDERED: SODIUM BICARBONATE 8.4% JECT 50 MEQ/50 ML SYRINGE ONE
[2022-03-29] MEDS: D5W IV PRN ×2 (00:23→08:41)
[2022-03-29] MEDS: NOREPINEPHRINE BITARTRATE IV PRN ×2 (00:23→08:41)
--- NOTE | 2022-03-29 04:17 | NUR ---
Called Dr Márquez for orders in regard to increased heart rate.
[2022-03-29] MEDS: ACETAMINOPHEN 650 MG/20.3 ML UDC PO PRN ×2 (05:06→12:05)
--- NOTE | 2022-03-29 05:15 | NUR ---
Dr Márquez returned call and gave orders.
[2022-03-29] MEDS ORDERED: NS 500 ML IV ONE (05:30)
[2022-03-29] MEDS ORDERED: AMIODARONE HCL 200 MG TABLET PO ONE (05:30)
[2022-03-29] MEDS ORDERED: AMIODARONE HCL 200 MG TABLET ONE (05:30)
[2022-03-29 06:30] LABS: BASOPHILS % (AUTO) 0.2 % (0.0-2.0); EOSINOPHILS % (AUTO) 0.1 % (0.0-4.0); HEMATOCRIT 22.6 % (36-54); HEMOGLOBIN 7.6 g/dL (14.0-18.0); LYMPHOCYTES # (AUTO) 0.5 K/uL (1.0-5.5); LYMPHOCYTES % (AUTO) 5.6 % (20.5-51.5); MEAN CORPUSCULAR HEMOGLOBIN 30 pg (27-31); MEAN CORPUSCULAR HGB CONC 34 % (32-36); MEAN CORPUSCULAR VOLUME 90 fL (79.0-98.0); MONOCYTES # (AUTO) 0.8 K/uL (0.0-1.0); NEUTROPHILS # (AUTO) 8.2 K/uL (1.8-7.7); NEUTROPHILS % (AUTO) 86.1 % (40.0-70.0); PLATELET COUNT (AUTO) 102 K/uL (130-430); WHITE BLOOD COUNT (AUTO) 9.5 K/uL (4.8-10.8)
[2022-03-29 06:41] LABS: ALANINE AMINOTRANSFERASE 27 U/L (12-78); ALBUMIN 2.5 g/dL (3.4-4.8); ANION GAP 13 (5-15); ASPARTATE AMINOTRANSFERASE 41 U/L (10-37); CALCIUM 7.8 mg/dL (8.4-11.0); CHLORIDE 97 mmol/L (98-107); CREATININE 3.57 mg/dL (0.55-1.30); GLUCOSE 139 mg/dL (70-99); POTASSIUM 3.9 mmol/L (3.5-5.1); TOTAL BILIRUBIN 1.2 mg/dL (0.0-1.0); UREA NITROGEN, BLOOD 58 mg/dL (8-21)
[2022-03-29] MEDS ORDERED: NS 1000 ML IV.SOLN IV ONE (08:00)
[2022-03-29] MEDS: PHENYLEPHRINE HCL 100 MG in NS 240 ML IV PRN (08:38)
[2022-03-29] MEDS: BISACODYL 5 MG TABLET.DR (DULCOLAX) PO SCH ×2 (09:00→20:41)
[2022-03-29] MEDS: NACL 0.9% 1,000 ML IV SCH (09:30)
[2022-03-29] MEDS ORDERED: AMIODARONE HCL 450 MG in D5W 241 ML IV SCH (09:30)
[2022-03-29] MEDS: CHOLECALCIFEROL (VITAMIN D3) 2,000 UNIT TABLET PO SCH (11:56)
[2022-03-29] MEDS: MIDODRINE HCL 5 MG TABLET (PROAMATINE) PO SCH ×4 (11:57→20:41)
[2022-03-29] MEDS: NEPHROVITE, (FOLIC ACID/VITAMIN B COMP W-C 1 TAB) PO SCH (11:57)
[2022-03-29] MEDS: TAMSULOSIN HCL 0.4 MG CAP PO SCH ×2 (11:57→20:41)
[2022-03-29] MEDS: PANTOPRAZOLE SODIUM 40 MG/VIAL (PROTONIX) IVP SCH ×2 (11:57→20:41)
[2022-03-29] MEDS: AMIODARONE HCL 200 MG TABLET PO SCH (11:58)
[2022-03-29] MEDS: DOCUSATE SODIUM 100 MG/10 ML UDC PO SCH ×2 (11:58→20:41)
[2022-03-29] MEDS ORDERED: CEFEPIME 2 GM in D5W 100 ML IV SCH (12:00)
--- NOTE | 2022-03-29 12:34 | NUR ---
CORRECTED Nutrition F/U Admitting Diagnosis: Renal Failure, Metabolic Encephalopathy, Dehydration Reviewed Pertinent Medical/Surgical Hx Medical Record; Significant Other; ICU Rounds Medical Hx: Per EMR - 76yM with pmh CHF, liver dz, CKD w/ prev brief HD. Patient completed 3hr HD 03/28 with 1.5L removed. Per ICU rounds, HD scheduled for 03/30. Subjective Information 03/29: Spoke with primary RN during ICU rounds. Per RN, patient is on max levo and vasopressin @ 0.03 so TF currently held d/t high bowel ischemia risk. Verbally discussed with RN switching TF formulary to Vital AF, only holding TF if head of pt bed reqd below 30 degrees/ flat. While reviewing patient chart, RD noticed a discrepancy between chart wt (152lb/ 69kg) and patient appearance. A new bed scale wt was obtained from patient room with RN (290lb/ 132kg). Nutrition F/U assessment completed to adjust wt and to correct nutrition calculations and enteral recommendations. 03/28: Patient presented to ED on 03/27 from [facility] with concerns of altered mental status, elevated ammonia, and hypotension. Pt had cardiopulmonary arrest requiring intubation; pt was found to be severely anemic with hemorrhagic shock, metabolic acidosis, and worsening renal failure. Pt noted with severe PEM; per ED notes, pressure ulcer on sacral region and foot. Pt transferred to ICU and started on Nepro @ 40mL via ngt 03/27. Pt noted to have abd distention on 03/27 with no BM noted since admit 03/25. Spoke with patient's bedside. 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 stated patient was hospitalized 01/13/22 and since then pt has had poor appetite, poor PO and weight loss. Per , patient c/o taste changes causing patient to lose interest in eating. 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 denies chewing/swallowing issues group captain and patient has normal dentition. Current Diet Order/Nutrition Support NPO: Nepro @ 40mL/hr x 24hr; 100mL FWF q8h via NGT Patient/Significant Other : Able to Verbalize. Education Provided Not Indicated Pertinent Medications Protonix, norepi, vasopressin, B-complex, D3, amiodarone, flomax, dulcolax Pertinent Labs WBC H, RBC L, H/H L, Na L, Cl L, BUN. Cr H, Ca L, glu H, Phos H, Bili H Height (Feet) 5 feet Height (Inches) 9.00 inches NEW* Weight (Pounds) - 290lbs (bed scale 03/29) - Calculating wt used: 270 pounds; fluid overload; per 270lbs last known wt NEW* Weight (Calculated Kilograms) 122.727 kilograms NEW* Patient Weight 122.7 kg NEW* Body Mass Index 39.9 kg/m2 NEW* Usual Weight 295lbs/ 134kg %UBW 91.5 %IBW 169 [place]/Adjusted Body Weight 160lbs/ 72.7kg Recent Weight Change Yes - per , 30-40lbs/13-18kg x 2 months = 9-13% wt loss; Severe NEW* Weight Status Obese Gastrointestinal Symptoms None Difficulty With: Swallowing - intubated Food Allergies Unable to Verify Cultural/Ethnic/Quaker Belief Unable to Veify Usual Diet At Home Regular Skin Integrity Comment: Earle 10: Pressure Ulcer sacrum and posterior foot. 3+ pitting edema noted per inbound telemarketer 03/27 Current % PO n/a; tube feeding NEW* Estimated Energy Expenditure (kcals/day) 2314 (Modified PSU d/t obese BMI; >60y; on vent) - RD recd [id number] (25-30 kcal/kg IBW d/t vent, wounds) NEW* Estimated Protein Required (g/day) 87-109 (1.2-1.5 g/kg IBW d/t wounds, CKD on HD) NEW* Estimated Fluid Required (l/day) per MD (d/t renal dz) Problem/Etiology/Signs/Symptoms * Altered nutrition-related lab values r/t renal dysfunction AEB elevated BUN, Glucose, Creatinine, Phosphorus; lowered RBC, Hgb, hematocrit, Calcium, Sodium (Ongoing) * Increased energy and protein needs r/t vent, wound healing AEB 25-30 kcal/kg estimated energy needs; 1.2-1.5 g/kg estimated protein needs (Ongoing) Expected Outcomes/Goals Pt tolerating EN at goal w/ EN meeting at least 80% estimated energy needs, nutrition related labs trending WNL, improvement in skin integrity, wt stable, BM q 1-3 days NEW* Dietitian Recommendations * Adjust EN regimen to better support pt needs: Vital AF @ 60mL x 24h; 100mL FWF q8h via NGT - This provides 1728 kcal, 108g protein, and 1467 total FW (1167mL FW + 300mL FWF) - This regimen equals 92% lower range est energy; 99% higher range of est pro * Rec daily renavite, 250mg VIT C, 220mg zincate, for wound healing * Rec Fly BID when sepsis resolves High Risk: F/U in 2-3days; Apr 01, 2022
--- NOTE | 2022-03-29 12:42 | NUR ---
Dietitian Recommendations * Adjust EN regimen to better support pt needs: Vital AF @ 60mL x 24h; 100mL FWF q8h via NGT - This provides 1728 kcal, 108g protein, and 1467 total FW (1167mL FW + 300mL FWF) - This regimen equals 92% lower range est energy; 99% higher range of est pro * Rec daily renavite, 250mg VIT C, 220mg zincate, for wound healing * Rec Fly BID when sepsis resolves Please refer to corrected Nutrition F/U for details, thanks! CC, MPH, RDN
[2022-03-29] MEDS: metroNIDAZOLE 500 mg/NS 100 ML IV SCH ×2 (15:24→20:41)
[2022-03-29] MEDS: FLUCONAZOLE 200 mg/ NS 100 ML IV SCH (15:25)
--- NOTE | 2022-03-29 17:35 | NUR ---
RT NOTES Pt appears agitated now, is currently holding his hand since his right hand came close to the ET tube. Pt appears to be pushing ET tube with his tongue. Rn made aware.
[2022-03-29] MEDS: EPOETIN ALFA 4,000 UNITS/ML VIAL SUBCUT SCH (18:00)
[2022-03-29] MEDS: PIPERACILLIN/TAZO 2.25G/DEX-IS 50 ML IV SCH (18:00)
[2022-03-29] MEDS ORDERED: LACTULOSE 20 GM/30 ML UDC PO ONE (18:15)
[2022-03-29] MEDS: MIDAZOLAM IN NACL,ISO-OSMOT/PF 100 ML IV PRN (18:52)
--- NOTE | 2022-03-29 19:05 | NUR ---
OPENING NOTES: RECEIVED BEDSIDE REPORT FROM MARK. PATIENT IS OBTUNDED. PATIENT IS INTUBATED AC 30%, 14, 500, 5. PATIENT WILL HAVE DIALYSIS TOMORROW. PATIENT HAS A RIGHT NARE NG TUBE WITH NO TUBE FEEDING RUNNING, MARK STATED THE PATIENT WAS SWITCHED TO VITAL AF AND DID NOT HAVE THE TIME TO HANG IT. PATIENT HAS A TERRAZAS CATH THAT IS PATENT. PATIENT HAS WOUND ON LEFT SACRAL COVERED WITH FOAM DRESSING. RIGHT UPPER ARM PICC WITH LEVO RUNNING AT 0.07 MCG/KG/MIN, VASOPRESSIN AT 0.03 MCG/KG/MIN, NORSYNEPHRINE AT 3 MCG/KG/MIN, AND NS AT 50 ML/HR. MARK JUST STARTED VERSED AT 0.25. BED IS AT THE LOWEST LEVEL, BRAKES ARE LOCKED, SUCTION WORKING, 3 SIDE RAILS UP, AND CALL LIGHT WITHIN REACH.
[2022-03-29] MEDS: SOD FERRIC GLUC COMPLEX/SUC 125 MG in NS 100 ML IV SCH (19:54)
[2022-03-29] MEDS: LACTULOSE 20 GM/30 ML UDC PO SCH (20:42)
[2022-03-29] MEDS ORDERED: LACTULOSE 20 GM/30 ML UDC ONE (20:42)
[2022-03-30] VITALS (39 sets, daily range): BP systolic 84–127
[2022-03-30] MEDS: PIPERACILLIN/TAZO 2.25G/DEX-IS 50 ML IV SCH ×5 (00:01→23:44)
[2022-03-30] MEDS: PHENYLEPHRINE HCL 100 MG in NS 240 ML IV PRN ×3 (04:26→18:16)
[2022-03-30] MEDS: NACL 0.9% 1,000 ML IV SCH (05:12)
[2022-03-30 06:31] LABS: BASOPHILS % (AUTO) 0.4 % (0.0-2.0); EOSINOPHILS # (AUTO) 0.1 K/uL (0.0-0.4); EOSINOPHILS % (AUTO) 0.5 % (0.0-4.0); HEMATOCRIT 24.5 % (36-54); HEMOGLOBIN 8.3 g/dL (14.0-18.0); LYMPHOCYTES # (AUTO) 0.7 K/uL (1.0-5.5); LYMPHOCYTES % (AUTO) 5.9 % (20.5-51.5); MEAN CORPUSCULAR HEMOGLOBIN 31 pg (27-31); MEAN CORPUSCULAR HGB CONC 34 % (32-36); MEAN CORPUSCULAR VOLUME 91 fL (79.0-98.0); MONOCYTES # (AUTO) 0.9 K/uL (0.0-1.0); MONOCYTES % (AUTO) 7.6 % (1.7-9.3); NEUTROPHILS % (AUTO) 85.6 % (40.0-70.0); PLATELET COUNT (AUTO) 97 K/uL (130-430); RED BLOOD CELL COUNT(AUTO) 2.69 MIL/uL (4.2-6.2); RED CELL DISTRIBUTION WIDTH 18.8 % (9.0-15.0); WHITE BLOOD COUNT (AUTO) 11.7 K/uL (4.8-10.8)
[2022-03-30 06:45] LABS: ALANINE AMINOTRANSFERASE 26 U/L (12-78); ALBUMIN 2.1 g/dL (3.4-4.8); ANION GAP 13 (5-15); ASPARTATE AMINOTRANSFERASE 50 U/L (10-37); CALCIUM 7.5 mg/dL (8.4-11.0); CHLORIDE 101 mmol/L (98-107); GLUCOSE 111 mg/dL (70-99); PHOSPHORUS 4.5 mg/dL (2.7-4.5); TOTAL BILIRUBIN 1.3 mg/dL (0.0-1.0); UREA NITROGEN, BLOOD 58 mg/dL (8-21)
[2022-03-30] MEDS ORDERED: KCL 40 mEq in 100 mL (PREMIX) 100 ML IV ONE (08:30)
[2022-03-30] MEDS: VASOPRESSIN 40 UNITS in NS 38 ML IV PRN (08:41)
[2022-03-30] MEDS: TAMSULOSIN HCL 0.4 MG CAP PO SCH ×2 (09:00→20:39)
[2022-03-30] MEDS: AMIODARONE HCL 200 MG TABLET PO SCH (09:00)
[2022-03-30] MEDS: LACTULOSE 20 GM/30 ML UDC PO SCH ×2 (09:00→20:36)
[2022-03-30] MEDS: BISACODYL 5 MG TABLET.DR (DULCOLAX) PO SCH ×2 (09:00→20:39)
[2022-03-30] MEDS: metroNIDAZOLE 500 mg/NS 100 ML IV SCH (09:56)
[2022-03-30] MEDS: NEPHROVITE, (FOLIC ACID/VITAMIN B COMP W-C 1 TAB) PO SCH (10:00)
[2022-03-30] MEDS: DOCUSATE SODIUM 100 MG/10 ML UDC PO SCH ×2 (10:00→20:38)
[2022-03-30] MEDS: MIDODRINE HCL 5 MG TABLET (PROAMATINE) PO SCH ×4 (10:00→20:39)
[2022-03-30] MEDS: PANTOPRAZOLE SODIUM 40 MG/VIAL (PROTONIX) IVP SCH ×2 (11:46→20:38)
[2022-03-30] MEDS: CHOLECALCIFEROL (VITAMIN D3) 2,000 UNIT TABLET PO SCH (11:46)
[2022-03-30] MEDS: FLUCONAZOLE 200 mg/ NS 100 ML IV SCH (12:00)
--- NOTE | 2022-03-30 12:34 | NUR ---
Dietitian Recommendations * Vital AF @ 60mL x 24h; 100mL FWF q8h via NGT - This provides 1728 kcal, 108g protein, and 1467 total FW (1167mL FW + 300mL FWF) - This regimen equals 92% lower range est energy; 99% higher range of est pro * Rec daily renavite, 250mg VIT C, 220mg zincate, for wound healing * Rec Fly BID when sepsis resolves Please refer to corrected Nutrition F/U for details, thanks! LP, MS, RD
[2022-03-30 13:51] LABS: BASOPHILS % (AUTO) 0.4 % (0.0-2.0); EOSINOPHILS # (AUTO) 0.3 K/uL (0.0-0.4); EOSINOPHILS % (AUTO) 2.2 % (0.0-4.0); HEMATOCRIT 26.1 % (36-54); HEMOGLOBIN 8.7 g/dL (14.0-18.0); LYMPHOCYTES # (AUTO) 0.6 K/uL (1.0-5.5); LYMPHOCYTES % (AUTO) 5.3 % (20.5-51.5); MEAN CORPUSCULAR HEMOGLOBIN 30 pg (27-31); MEAN CORPUSCULAR HGB CONC 33 % (32-36); MEAN CORPUSCULAR VOLUME 91 fL (79.0-98.0); MONOCYTES # (AUTO) 0.6 K/uL (0.0-1.0); MONOCYTES % (AUTO) 5.3 % (1.7-9.3); NEUTROPHILS # (AUTO) 10.4 K/uL (1.8-7.7); NEUTROPHILS % (AUTO) 86.8 % (40.0-70.0); PLATELET COUNT (AUTO) 82 K/uL (130-430); RED BLOOD CELL COUNT(AUTO) 2.87 MIL/uL (4.2-6.2); RED CELL DISTRIBUTION WIDTH 18.4 % (9.0-15.0); WHITE BLOOD COUNT (AUTO) 11.9 K/uL (4.8-10.8)
[2022-03-30 14:08] LABS: INR 1.6 (0.80-1.20); PROTHROMBIN TIME 16.2 SECS (9.5-12.5)
[2022-03-30 14:15] LABS: ANION GAP 9 (5-15); CALCIUM 7.5 mg/dL (8.4-11.0); CHLORIDE 103 mmol/L (98-107); GLUCOSE 100 mg/dL (70-99); POTASSIUM 3.6 mmol/L (3.5-5.1); UREA NITROGEN, BLOOD 40 mg/dL (8-21)
--- NOTE | 2022-03-30 15:06 | NUR ---
Called and spoke to Dr Márquez to update him with critical PTT >150 and the rest of the blood works resulted. Orders noted and carried out.
[2022-03-30] MEDS ORDERED: PHYTONADIONE 10 MG/ML AMP SUBCUT ONE (15:15)
[2022-03-30] MEDS ORDERED: HEPARIN SODIUM,PORCINE 5,000 UNITS/ML VIAL ONE (15:26)
[2022-03-30] MEDS ORDERED: HEPARIN SODIUM,PORCINE 5,000 UNITS/ML VIAL SUBCUT ONE (15:30)
--- NOTE | 2022-03-30 19:05 | NUR ---
OPENING NOTES: RECEIVED BEDSIDE REPORT FROM MARK. PATIENT IS OBTUNDED, IS AT THE BEDSIDE. PATIENT IS INTUBATED AC 30%, 14, 500, 5. PATIENT HAD DIALYSIS TODAY AND 2 L WAS REMOVED. PATIENT HAS A RIGHT NARE NG TUBE WITH NEPRO RUNNING AT 20 ML/HR. PATIENT HAS A TERRAZAS CATH AND FLEXSEAL THAT ARE PATENT. PATIENT HAS WOUND ON LEFT SACRAL BUTTOCKS COVERED WITH FOAM DRESSING, RIGHT ARM SKIN TEARS ALL COVERED WITH FOAM DRESSING, RIGHT LEG WHERE PATIENT HAS SURGERY FOR HIS BROKEN LEG WAS CLEANED AND DRESSED BY MARK. RIGHT UPPER ARM PICC WITH LEVO RUNNING AT 0.07 MCG/KG/MIN VASOPRESSIN AT 0.03 MCG/KG/MIN, NORSYNEPHRINE AT 3MCH/KG/MIN, AND VERSED AT 3 MG/HR . BED IS AT THE LOWEST LEVEL, BRAKES ARE LOCKED, SUCTION WORKING, 3 SIDE RAILS UP, AND CALL LIGHT WITHIN REACH.
[2022-03-30] MEDS: SOD FERRIC GLUC COMPLEX/SUC 125 MG in NS 100 ML IV SCH (19:35)
[2022-03-30] MEDS: MICAFUNGIN SODIUM 100 MG in NS 100 ML IV SCH (20:36)
[2022-03-30] MEDS: MIDAZOLAM IN NACL,ISO-OSMOT/PF 100 ML IV PRN (23:06)
[2022-03-31] VITALS (31 sets, daily range): BP systolic 87–142
[2022-03-31] MEDS: NACL 0.9% 1,000 ML IV SCH ×2 (01:30→11:20)
[2022-03-31] MEDS: PIPERACILLIN/TAZO 2.25G/DEX-IS 50 ML IV SCH ×3 (05:07→17:30)
[2022-03-31] MEDS: PHENYLEPHRINE HCL 100 MG in NS 240 ML IV PRN ×3 (05:08→18:46)
[2022-03-31] MEDS: VASOPRESSIN 40 UNITS in NS 38 ML IV PRN (05:29)
[2022-03-31 06:23] LABS: BASOPHILS % (AUTO) 0.3 % (0.0-2.0); EOSINOPHILS # (AUTO) 0.2 K/uL (0.0-0.4); EOSINOPHILS % (AUTO) 1.9 % (0.0-4.0); HEMATOCRIT 24.8 % (36-54); HEMOGLOBIN 8.5 g/dL (14.0-18.0); LYMPHOCYTES # (AUTO) 0.7 K/uL (1.0-5.5); LYMPHOCYTES % (AUTO) 7.1 % (20.5-51.5); MEAN CORPUSCULAR HEMOGLOBIN 31 pg (27-31); MEAN CORPUSCULAR HGB CONC 34 % (32-36); MEAN CORPUSCULAR VOLUME 91 fL (79.0-98.0); MONOCYTES # (AUTO) 0.7 K/uL (0.0-1.0); MONOCYTES % (AUTO) 7.3 % (1.7-9.3); NEUTROPHILS # (AUTO) 7.9 K/uL (1.8-7.7); NEUTROPHILS % (AUTO) 83.4 % (40.0-70.0); PLATELET COUNT (AUTO) 88 K/uL (130-430); RED BLOOD CELL COUNT(AUTO) 2.72 MIL/uL (4.2-6.2); WHITE BLOOD COUNT (AUTO) 9.5 K/uL (4.8-10.8)
[2022-03-31 07:56] LABS: ALANINE AMINOTRANSFERASE 26 U/L (12-78); ANION GAP 13 (5-15); ASPARTATE AMINOTRANSFERASE 45 U/L (10-37); CALCIUM 7.2 mg/dL (8.4-11.0); CHLORIDE 103 mmol/L (98-107); CREATININE 2.75 mg/dL (0.55-1.30); GLUCOSE 147 mg/dL (70-99); PHOSPHORUS 3.6 mg/dL (2.7-4.5); POTASSIUM 3.1 mmol/L (3.5-5.1); TOTAL BILIRUBIN 1.2 mg/dL (0.0-1.0); UREA NITROGEN, BLOOD 38 mg/dL (8-21)
[2022-03-31] MEDS: LACTULOSE 20 GM/30 ML UDC PO SCH ×2 (08:48→21:02)
[2022-03-31] MEDS: DOCUSATE SODIUM 100 MG/10 ML UDC PO SCH ×2 (08:48→21:01)
[2022-03-31] MEDS: BISACODYL 5 MG TABLET.DR (DULCOLAX) PO SCH ×2 (08:48→21:02)
[2022-03-31] MEDS: PANTOPRAZOLE SODIUM 40 MG/VIAL (PROTONIX) IVP SCH ×2 (09:09→21:01)
[2022-03-31] MEDS: AMIODARONE HCL 200 MG TABLET PO SCH (09:10)
[2022-03-31] MEDS: NEPHROVITE, (FOLIC ACID/VITAMIN B COMP W-C 1 TAB) PO SCH (09:10)
[2022-03-31] MEDS: MIDODRINE HCL 5 MG TABLET (PROAMATINE) PO SCH ×4 (09:10→21:05)
[2022-03-31] MEDS: TAMSULOSIN HCL 0.4 MG CAP PO SCH ×2 (09:10→21:02)
[2022-03-31] MEDS: CHOLECALCIFEROL (VITAMIN D3) 2,000 UNIT TABLET PO SCH (09:10)
[2022-03-31] MEDS ORDERED: POTASSIUM CHLORIDE 20 MEQ/PKT PACKET PO ONE (09:15)
[2022-03-31] MEDS ORDERED: FLUCONAZOLE 100 mg/ NS 50 ML IV SCH (09:30)
--- NOTE | 2022-03-31 13:40 | NUR ---
LOC PT MECHANICALLY INTUBATED, ORAL ARE DONE, EDEMA TO ALL EXTREMITIES, ARMS WITH SOILED FOAM DRESSINGS AND REMOVED, SKIN TEARS, WASHED WITH SALINE PAT DRY, COVERED WITH ABD PADS TO ABSORB MOISTURE, ARMS ELEVATED ON PILLOWS. RIGHT LEG WITH DRESSINGS AND REMOVED. WOUND TO RIGHT BLACKMON/KNEE, RIGHT LATERAL KNEE, RIGHT LOWER LEG, RIGHT ANKLE. WOUNDS WASHED WITH SALINE. PAT DRY.
--- NOTE | 2022-03-31 15:45 | NUR ---
WOUND EVALUATION: Wound Consult received from Dr. Márquez. Thank you, Dr. Márquez, for the consult. Patient received in a Lor Bed with an IsoFlex FELICIA mattress, nonverbal, nonresponsive to verbal commands. Patient is unable to turn in bed independently. Earle Score is an 11. Past Medical History: Chronic Atrial-Fibrillation, liver disease, recent AICD Implant, chronic anticoagulation, chronic CHF, chronic kidney disease, morbid obesity, recent compound fracture of right ankle (status post ORIF), bilateral Total Knee Replacement. Recent Labs: WBC 9.5, RBC 2.72, hemoglobin 8.5, hematocrit 24.8, potassium 3.1, BUN 38, creatinine 2.75, glucose 147, calcium 7.2, AST 45, BNP 3340, serum total protein 4.7, albumin 2.0, PT 16.2, INR 1.6, PTT > 150, D-dimer 645. Microbiology: Blood culture results x2 negative. Urine culture results negative. Endotracheal sputum culture results positive for Acinetobacter Baumannii/Haemol (MDRO/CORONARY CLINICAL SPECIALIST). Urine culture results positive for yeast. Second blood culture results x2 in progress. Second urine culture results in progress. Wound culture results in progress. Intrinsic factors that delay wound healing: Chronic Atrial-Fibrillation, liver disease, chronic CHF, chronic kidney disease. Extrinsic factors that delay wound healing: Decreased mobility. Wound Assessment: 1. Left Sacral area: Unstageable pressure ulcer, present on admission. Wound bed has 80% black leathery eschar, 10% red tissue, 10% pink tissue at perimeters of periwound. No odor, scant sanguineous drainage. Wound measures 7.3 cm x 6.5 cm. 2. Right Sacral area: Stage II pressure ulcer, present on admission. Wound bed has 90% red tissue, 10% pink tissue. No odor, scant sanguineous drainage. Periwound intact. Wound measures 1.4 cm x 0.5. 3. Right Sacral area, Right Lateral to Site 2: Stage II pressure ulcer, present on admission. Wound bed has 90% pink tissue, 10% red tissue. No odor, scant sanguineous drainage. Periwound intact. Wound measures 0.5 cm x 1.0 cm. Recommend: Cleanse wounds with normal saline. Apply moisture barrier cream to periwounds. Apply Venelex ointment to wound beds. Cover with Sacral foam dressing. Perform wound care daily, and as needed for dressing soiling or dislodgment. 4. Sacral and outer Sacral/Buttocks areas: Multiple areas of scar tissue, present on admission. Recommend: No dressings needed. Continue to monitor sites every shift. 5. Right Posterior Heel: Unstageable pressure ulcer, present on admission. Wound bed has 70% light brown leathery eschar, 30% hard brown eschar. No odor, no drainage. Periwound intact. Wound measures 1.5 cm x 3.3 cm. Recommend: [place] site with Betadine. Allow Betadine to air dry. Cover site with foam dressing. Do not allow heels or feet to touch bed or other surfaces at any time. Float heels at all times. 6. Right Lateral Malleolus: Unstageable pressure ulcer, present on admission. Wound bed has 90% yellow slough, 10% black eschar. No odor, no drainage. Periwound intact. Wound measures 2.4 cm x 0.9 cm x 0.5 cm. Recommend: Cleanse wound with normal saline. Apply moisture barrier cream to periwound. Apply Venelex ointment to wound bed. Cover with foam dressing. Perform wound care daily, and as needed for dressing soiling or dislodgment. 7. Right Medial Heel: Unstageable pressure ulcer, present on admission. Wound bed has 80% yellow slough, 10% red tissue, 10% black tissue. No odor, scant yellow drainage. Periwound intact. Wound measures 1.8 cm x 2.8 cm. Recommend: Cleanse wound with normal saline. Apply moisture barrier cream to periwound. Apply Venelex ointment to wound bed. Cover with foam dressing. Perform wound care daily, and as needed for dressing soiling or dislodgment. 8. Left Dorsal Foot over Fifth Metatarsal Bone: Area of nonblanchable red skin, present on admission. Reddened area has a circular shape. No odor, no drainage. Recommend: No dressing needed. Continue to monitor site every shift. 9. Right Distal Lateral Lower Extremity: Stage II pressure ulcer, present on admission. Wound bed has 100% red tissue. No odor, no drainage. Periwound intact. Dark discoloration present superior to wound site. Wound measures 0.8 cm x 0.5 cm. Recommend: Cleanse wound with normal saline. Apply moisture barrier cream to periwound. Apply Venelex ointment to wound bed. Cover with foam dressing. Perform wound care daily, and as needed for dressing soiling or dislodgment. 10. Right Lateral Proximal Lower Extremity, Lateral and Inferior to Knee: Unstageable pressure ulcer, present on admission. Wound bed has 100% yellow slough. No odor, no drainage. Periwound intact. Wound measures 2.5 cm x 0.6 cm x 0.5 cm. Recommend: Cleanse wound with normal saline. Apply moisture barrier cream to periwound. Apply Venelex ointment to wound bed. Cover with foam dressing. Perform wound care daily, and as needed for dressing soiling or dislodgment. 11. Right Anterior Knee: Stage III pressure ulcer, present on admission. Wound bed has 90% pink tissue, 10% red tissue. No odor, no drainage. Periwound intact. Wound measures 4.6 cm x 5.7 cm. Recommend: Cleanse wound with normal saline. Apply moisture barrier cream to periwound. Apply Venelex ointment to wound bed. Cover with foam dressing. Perform wound care daily, and as needed for dressing soiling or dislodgment. 12. Right Third Toe, Dorsal Aspect: Chronic wound of unknown etiology, present on admission. Wound bed has 100% black eschar. No odor, no drainage. Periwound intact. Wound measures 1.0 cm x 0.8 cm. Recommend: [place] site with Betadine daily. No dressing needed. 13. Right Medial AC Joint: Skin tear. Skin tear has 100% pink tissue. No odor, no drainage. Perimeter of skin tear intact. Skin tear measures 3.5 cm x 0.7 cm. 14. Right Distal Posterior Forearm: Skin tear. Skin tear has 90% pink tissue, 10% red tissue. No odor, no drainage. Perimeter of skin tear intact. Skin tear measures 1.2 cm x 1.4 cm. 15. Left Proximal Forearm: Skin tear. Skin tear has 90% light red tissue, 10% red scab. No odor, no drainage. Perimeter of skin tear intact. Skin tear measures 1.9 cm x 1.8 cm. Recommend: Cleanse skin tears with normal saline. Apply Sureprep to periwounds. Cover skin tears with oil emulsion dressings, then foam dressings. Perform skin tear care daily, and as needed for dressing soiling or dislodgment. 16. Right Upper Extremity: Multiple areas of ecchymosis, present on admission. 16. Left Upper Extremity: Multiple areas of ecchymosis, present on admission. Recommend: No dressings needed. Continue to monitor sites every shift. Also recommend: Reposition patient side to side only every 2 hours with one pillow underneath trunk and 1 pillow underneath pelvis, and off-load pressure areas with pillows for pressure re-distribution. Offload, elevate and float bilateral heels with 1 pillow lengthwise under each extremity at all times. Perform skin care and monitor skin integrity Q shift. Use moisture barrier cream on buttocks and other moisture susceptible areas QID and as needed for soiling. Place patient on a P500 low air-loss mattress.
[2022-03-31] MEDS: EPOETIN ALFA 4,000 UNITS/ML VIAL SUBCUT SCH (17:00)
[2022-03-31] MEDS: SOD FERRIC GLUC COMPLEX/SUC 125 MG in NS 100 ML IV SCH (18:39)
[2022-03-31] MEDS: MICAFUNGIN SODIUM 100 MG in NS 100 ML IV SCH (21:01)
[2022-04-01] VITALS (34 sets, daily range): BP systolic 94–143
[2022-04-01] MEDS: PIPERACILLIN/TAZO 2.25G/DEX-IS 50 ML IV SCH ×4 (00:48→18:22)
[2022-04-01 07:04] LABS: BASOPHILS % (AUTO) 0.4 % (0.0-2.0); EOSINOPHILS # (AUTO) 0.3 K/uL (0.0-0.4); EOSINOPHILS % (AUTO) 3.1 % (0.0-4.0); HEMATOCRIT 25.1 % (36-54); HEMOGLOBIN 8.5 g/dL (14.0-18.0); LYMPHOCYTES % (AUTO) 11.4 % (20.5-51.5); MEAN CORPUSCULAR HEMOGLOBIN 31 pg (27-31); MEAN CORPUSCULAR HGB CONC 34 % (32-36); MEAN CORPUSCULAR VOLUME 93 fL (79.0-98.0); MONOCYTES # (AUTO) 0.5 K/uL (0.0-1.0); MONOCYTES % (AUTO) 6.4 % (1.7-9.3); NEUTROPHILS # (AUTO) 6.6 K/uL (1.8-7.7); NEUTROPHILS % (AUTO) 78.7 % (40.0-70.0); PLATELET COUNT (AUTO) 93 K/uL (130-430); RED BLOOD CELL COUNT(AUTO) 2.71 MIL/uL (4.2-6.2); RED CELL DISTRIBUTION WIDTH 20.1 % (9.0-15.0); WHITE BLOOD COUNT (AUTO) 8.4 K/uL (4.8-10.8)
[2022-04-01 07:09] LABS: INR 1.3 (0.80-1.20); PROTHROMBIN TIME 13.5 SECS (9.5-12.5)
[2022-04-01 07:29] LABS: ALANINE AMINOTRANSFERASE 25 U/L (12-78); ALBUMIN 1.8 g/dL (3.4-4.8); ANION GAP 11 (5-15); ASPARTATE AMINOTRANSFERASE 35 U/L (10-37); CALCIUM 7.6 mg/dL (8.4-11.0); CHLORIDE 104 mmol/L (98-107); GLUCOSE 113 mg/dL (70-99); PHOSPHORUS 3.4 mg/dL (2.7-4.5); POTASSIUM 3.1 mmol/L (3.5-5.1); TOTAL BILIRUBIN 1.1 mg/dL (0.0-1.0); UREA NITROGEN, BLOOD 43 mg/dL (8-21)
[2022-04-01] MEDS: MIDAZOLAM IN NACL,ISO-OSMOT/PF 100 ML IV PRN (08:16)
[2022-04-01] MEDS: AMIODARONE HCL 200 MG TABLET PO SCH (09:36)
[2022-04-01] MEDS: CHOLECALCIFEROL (VITAMIN D3) 2,000 UNIT TABLET PO SCH (09:36)
[2022-04-01] MEDS: NEPHROVITE, (FOLIC ACID/VITAMIN B COMP W-C 1 TAB) PO SCH (09:36)
[2022-04-01] MEDS: MIDODRINE HCL 5 MG TABLET (PROAMATINE) PO SCH ×4 (09:36→21:57)
[2022-04-01] MEDS: BISACODYL 5 MG TABLET.DR (DULCOLAX) PO SCH ×2 (09:36→21:57)
[2022-04-01] MEDS: LACTULOSE 20 GM/30 ML UDC PO SCH ×2 (09:36→21:57)
[2022-04-01] MEDS: DOCUSATE SODIUM 100 MG/10 ML UDC PO SCH ×2 (09:36→21:57)
[2022-04-01] MEDS: TAMSULOSIN HCL 0.4 MG CAP PO SCH ×2 (09:36→21:57)
[2022-04-01] MEDS: PANTOPRAZOLE SODIUM 40 MG/VIAL (PROTONIX) IVP SCH ×2 (09:36→21:56)
[2022-04-01] MEDS: BALSAM PERU/CASTOR OIL 56.7 GM OINT...G. TP SCH (09:36)
--- NOTE | 2022-04-01 10:00 | NUR ---
Nutrition F/U Nutrition consult generated 03/31/22 at 1745 as part of wound RN consultation for multiple pressure ulcers. Admitting Diagnosis: Renal Failure, Metabolic Encephalopathy, Dehydration Reviewed Pertinent Medical/Surgical Hx Medical record, primary RN, patient (RD visual assessment) Medical Hx: Per EMR - 76yM with pmh CHF, liver dz, CKD w/ prev brief HD Subjective Information The patient remains in ICU, intubated, sedated (Versed), 1 pressor for pressure support. The patient was having HD at time of visit. NGTF of Vital AF infusing @ 20 ml/h (total TF volume provided 03/31 260 ml). Discussed w/ primary RN and plan is to increase TF, tolerating well, no GRV on 04/01. Per EMR review, abdomen is soft/nondistended, LBM 03/30 x2. Per wound director of medical education, multiple wounds identified (see note below). Previous RD assessment note on 03/29: Spoke with primary RN during ICU rounds. Per RN, patient is on max levo and vasopressin @ 0.03 so TF currently held d/t high bowel ischemia risk. Verbally discussed with RN switching TF formulary to Vital AF, only holding TF if head of pt bed reqd below 30 degrees/ flat. While reviewing patient chart, RD noticed a discrepancy between, chart wt (152lb/ 69kg) and patient appearance. A new bed scale wt was obtained from patient room with RN (290lb/ 132kg). Nutrition F/U assessment completed to adjust wt and to correct nutrition calculations and enteral recommendations. Per previous RD assessment/note on 03/28: Patient presented to ED on 03/27 from [facility] with concerns of altered mental status, elevated ammonia, and hypotension. Pt had cardiopulmonary arrest requiring intubation; pt was found to be severely anemic with hemorrhagic shock, metabolic acidosis, and worsening renal failure. Pt noted with severe PEM; per ED notes, pressure ulcer on sacral region and foot. Pt transferred to ICU and started on Nepro @ 40mL via ngt 03/27. Pt noted to have abd distention on 03/27 with no BM noted since admit 03/25. Spoke with patient's bedside. 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 stated patient was hospitalized 01/13/22 and since then pt has had poor appetite, poor PO and weight loss. Per , patient c/o taste changes causing patient to lose interest in eating. explained patient c/o stomach pain x 1 week it application administrator. denies chewing/swallowing issues it application administrator and patient has normal dentition. Current Diet Order/Nutrition Support 03/30 NGTF Vital AF 1.2 @ 20 ml/h per MD order; 100mL FWF q8h via NGT per MD order - TF order x2 days Education Provided: not Indicated Pertinent Medications Protonix, levophed, Nephrovite, B-complex, D3, Colace, Lactulose, Dulcolax Pertinent Labs BUN 43(H), creatinine 2.8(H), glucose 113(H), K+ 3.1(L) Height (Feet) 5 feet Height (Inches) 9.00 inches Weight (Pounds) - 290lbs (bed scale 03/29) - Calculating wt used: 270 pounds; fluid overload; per (03/28) 270lbs last known wt Weight (Calculated Kilograms) 122.727 kilograms Patient Weight 122.7 kg Body Mass Index 39.9 kg/m2 Usual Weight 295lbs/ 134kg %UBW 91.5 %IBW 169 [place]/Adjusted Body Weight 160lbs/ 72.7kg Recent Weight Change Yes - per (03/28), 30-40lbs/13-18kg x 2 months = 9-13% wt loss; Severe Weight Status Obese Gastrointestinal Symptoms None Difficulty With: Swallowing - intubated Food Allergies Unable to Verify Usual Diet At Home Regular Skin Integrity Comment: Earle Rivas 04/01/22 @ 0800 Per wound RN note on 03/31/22 @ 1545: Wound Assessment 1. Left Sacral area: Unstageable pressure ulcer, present on admission. Wound bed has 80% black leathery eschar, 10% red tissue, 10% pink tissue at perimeters of periwound. No odor, scant sanguineous drainage. Wound measures 7.3 cm x 6.5 cm. 2. Right Sacral area: Stage II pressure ulcer, present on admission. Wound bed has 90% red tissue, 10% pink tissue. No odor, scant sanguineous drainage. Periwound intact. Wound measures 1.4 cm x 0.5. 3. Right Sacral area, Right Lateral to Site 2: Stage II pressure ulcer, present on admission. Wound bed has 90% pink tissue, 10% red tissue. No odor, scant sanguineous drainage. Periwound intact. Wound measures 0.5 cm x 1.0 cm. 4. Sacral and outer Sacral/Buttocks areas: Multiple areas of scar tissue, present on admission. 5. Right Posterior Heel: Unstageable pressure ulcer, present on admission. Wound bed has 70% light brown leathery eschar, 30% hard brown eschar. No odor, no drainage. Periwound intact. Wound measures 1.5 cm x 3.3 cm. 6. Right Lateral Malleolus: Unstageable pressure ulcer, present on admission. Wound bed has 90% yellow slough, 10% black eschar. No odor, no drainage. Periwound intact. Wound measures 2.4 cm x 0.9 cm x 0.5 cm. 7. Right Medial Heel: Unstageable pressure ulcer, present on admission. Wound bed has 80% yellow slough, 10% red tissue, 10% black tissue. No odor, scant yellow drainage. Periwound intact. Wound measures 1.8 cm x 2.8 cm. 8. Left Dorsal Foot over Fifth Metatarsal Bone: Area of nonblanchable red skin, present on admission. Reddened area has a circular shape. No odor, no drainage. 9. Right Distal Lateral Lower Extremity: Stage II pressure ulcer, present on admission. Wound bed has 100% red tissue. No odor, no drainage. Periwound intact. Dark discoloration present superior to wound site. Wound measures 0.8 cm x 0.5 cm. 10. Right Lateral Proximal Lower Extremity, Lateral and Inferior to Knee: Unstageable pressure ulcer, present on admission. Wound bed has 100% yellow slough. No odor, no drainage. Periwound intact. Wound measures 2.5 cm x 0.6 cm x 0.5 cm. 11. Right Anterior Knee: Stage III pressure ulcer, present on admission. Wound bed has 90% pink tissue, 10% red tissue. No odor, no drainage. Periwound intact. Wound measures 4.6 cm x 5.7 cm. 12. Right Third Toe, Dorsal Aspect: Chronic wound of unknown etiology, present on admission. Wound bed has 100% black eschar. No odor, no drainage. Periwound intact. Wound measures 1.0 cm x 0.8 cm. 13. Right Medial AC Joint: Skin tear. Skin tear has 100% pink tissue. No odor, no drainage. Perimeter of skin tear intact. Skin tear measures 3.5 cm x 0.7 cm. 14. Right Distal Posterior Forearm: Skin tear. Skin tear has 90% pink tissue, 10% red tissue. No odor, no drainage. Perimeter of skin tear intact. Skin tear measures 1.2 cm x 1.4 cm. 15. Left Proximal Forearm: Skin tear. Skin tear has 90% light red tissue, 10% red scab. No odor, no drainage. Perimeter of skin tear intact. Skin tear measures 1.9 cm x 1.8 cm. 16. Right Upper Extremity: Multiple areas of ecchymosis, present on admission. 16. Left Upper Extremity: Multiple areas of ecchymosis, present on admission. Estimated Energy Expenditure (kcals/day) 2314 (Modified PSU d/t obese BMI; >60y; on vent) - RD recd 4137-1718 (25-30 kcal/kg IBW d/t vent, wounds) Estimated Protein Required (g/day) 87-109 (1.2-1.5 g/kg IBW d/t wounds, CKD on HD) Estimated Fluid Required (l/day) per MD (d/t renal dz) Problem/Etiology/Signs/Symptoms * Altered nutrition-related lab values r/t renal dysfunction AEB elevated BUN, Glucose, Creatinine, Phosphorus; lowered RBC, Hgb, hematocrit, Calcium, Sodium (Ongoing) * Increased energy and protein needs r/t vent, wound healing AEB 25-30 kcal/kg estimated energy needs; 1.2-1.5 g/kg estimated protein needs (Ongoing) * Inadequate enteral nutrition provision AEB NGTF infusing @ 20 ml/h Expected Outcomes/Goals Pt tolerating EN at goal w/ EN meeting at least 80% estimated energy needs, nutrition related labs trending WNL, improvement in skin integrity, wt stable, BM q 1-3 days Dietitian Recommendations * Continue to progress NGTF of Vital AF to goal rate of 60mL x 24h; 100mL FWF q8h via NGT - This provides 1728 kcal, 108g protein, and 1467 total FW (1167mL FW + 300mL FWF) - This regimen equals 92% lower range est energy; 99% higher range of est pro * Continue Nephrovite 250mg VIT C, 220mg zincate, for wound healing * Rec Fly BID when sepsis resolves High Risk: F/U in 2-3days; Apr 04, 2022 Addendum: 04/01/22 at [address] Dietitian Recommendations * Continue to progress NGTF of Vital AF to goal rate of 60mL x 24h; 100mL FWF q8h via NGT - This provides 1728 kcal, 108g protein, and 1467 total FW (1167mL FW + 300mL FWF) - This regimen equals 92% lower range est energy; 99% higher range of est pro * Continue Nephrovite * Suggest 250mg VIT C, 220mg zincate, for wound healing * Rec Fly BID when sepsis resolves
--- NOTE | 2022-04-01 10:34 | NUR ---
Dietitian Recommendations * Continue to progress NGTF of Vital AF to goal rate of 60mL x 24h; 100mL FWF q8h via NGT - This provides 1728 kcal, 108g protein, and 1467 total FW (1167mL FW + 300mL FWF) - This regimen equals 92% lower range est energy; 99% higher range of est pro * Continue Nephrovite * Suggest 250mg VIT C, 220mg zincate, for wound healing * Rec Fly BID when sepsis resolves PS, RD
[2022-04-01] MEDS ORDERED: HEPARIN SODIUM,PORCINE 5,000 UNITS/ML VIAL MC ONE ×2 (10:45→11:00)
[2022-04-01] MEDS ORDERED: PHYTONADIONE 10 MG/ML AMP SUBCUT ONE (15:15)
--- NOTE | 2022-04-01 15:38 | NUR ---
RT NOTES Per CPAP trial, vent to cpap 5 ps 10, low spontaneous Vt and tachypnea noted almost immediately after the change. Pt did not follow any commands at this time. Rn titrated versed, will try again later.
[2022-04-01] MEDS: NACL 0.9% 1,000 ML IV SCH (18:21)
[2022-04-01] MEDS: SOD FERRIC GLUC COMPLEX/SUC 125 MG in NS 100 ML IV SCH (18:22)
[2022-04-01] MEDS: MICAFUNGIN SODIUM 100 MG in NS 100 ML IV SCH (21:56)
[2022-04-02] VITALS (32 sets, daily range): BP systolic 84–123
[2022-04-02] MEDS: PIPERACILLIN/TAZO 2.25G/DEX-IS 50 ML IV SCH ×5 (05:00→17:50)
[2022-04-02 06:47] LABS: INR 1.2 (0.80-1.20); PROTHROMBIN TIME 12.1 SECS (9.5-12.5)
[2022-04-02 07:00] LABS: BASOPHILS % (AUTO) 0.4 % (0.0-2.0); EOSINOPHILS # (AUTO) 0.4 K/uL (0.0-0.4); EOSINOPHILS % (AUTO) 3.9 % (0.0-4.0); HEMATOCRIT 25.5 % (36-54); HEMOGLOBIN 8.5 g/dL (14.0-18.0); LYMPHOCYTES % (AUTO) 11.2 % (20.5-51.5); MEAN CORPUSCULAR HEMOGLOBIN 31 pg (27-31); MEAN CORPUSCULAR HGB CONC 33 % (32-36); MEAN CORPUSCULAR VOLUME 94 fL (79.0-98.0); MONOCYTES # (AUTO) 0.4 K/uL (0.0-1.0); MONOCYTES % (AUTO) 4.2 % (1.7-9.3); NEUTROPHILS # (AUTO) 7.4 K/uL (1.8-7.7); NEUTROPHILS % (AUTO) 80.3 % (40.0-70.0); PLATELET COUNT (AUTO) 69 K/uL (130-430); RED BLOOD CELL COUNT(AUTO) 2.72 MIL/uL (4.2-6.2); RED CELL DISTRIBUTION WIDTH 22.4 % (9.0-15.0); WHITE BLOOD COUNT (AUTO) 9.2 K/uL (4.8-10.8)
[2022-04-02 07:02] LABS: ALANINE AMINOTRANSFERASE 19 U/L (12-78); ALBUMIN 1.6 g/dL (3.4-4.8); ANION GAP 7 (5-15); ASPARTATE AMINOTRANSFERASE 32 U/L (10-37); CALCIUM 7.7 mg/dL (8.4-11.0); CHLORIDE 106 mmol/L (98-107); CREATININE 2.35 mg/dL (0.55-1.30); GLUCOSE 99 mg/dL (70-99); PHOSPHORUS 2.4 mg/dL (2.7-4.5); POTASSIUM 3.2 mmol/L (3.5-5.1); TOTAL BILIRUBIN 1.1 mg/dL (0.0-1.0); UREA NITROGEN, BLOOD 31 mg/dL (8-21)
--- NOTE | 2022-04-02 08:00 | NUR ---
RT NOTES Cpap trials to be tried once pt is awake, RN will turn versed off.
[2022-04-02] MEDS: LACTULOSE 20 GM/30 ML UDC PO SCH ×2 (09:01→20:39)
[2022-04-02] MEDS: DOCUSATE SODIUM 100 MG/10 ML UDC PO SCH ×2 (09:02→20:38)
[2022-04-02] MEDS: NEPHROVITE, (FOLIC ACID/VITAMIN B COMP W-C 1 TAB) PO SCH (09:02)
[2022-04-02] MEDS: BISACODYL 5 MG TABLET.DR (DULCOLAX) PO SCH ×2 (09:02→20:39)
[2022-04-02] MEDS: PANTOPRAZOLE SODIUM 40 MG/VIAL (PROTONIX) IVP SCH ×2 (09:02→20:38)
[2022-04-02] MEDS: CHOLECALCIFEROL (VITAMIN D3) 2,000 UNIT TABLET PO SCH (09:03)
[2022-04-02] MEDS: TAMSULOSIN HCL 0.4 MG CAP PO SCH ×2 (09:03→20:39)
[2022-04-02] MEDS: AMIODARONE HCL 200 MG TABLET PO SCH (09:03)
[2022-04-02] MEDS: BALSAM PERU/CASTOR OIL 56.7 GM OINT...G. TP SCH (09:04)
[2022-04-02] MEDS: MIDODRINE HCL 5 MG TABLET (PROAMATINE) PO SCH ×4 (09:05→20:39)
--- NOTE | 2022-04-02 09:30 | NUR ---
RT NOTES Pt. is more awake, versed had been off for about an hour per RN. Vent to CPAP 5 PS 15. No adverse reactions noted. @ 0940 exh. CO2 27 H.R 90 R.R 21 Spontaneous Vt 478. No distress noted. Will monitor pt.
--- NOTE | 2022-04-02 10:59 | NUR ---
dr naranjo made aware of potassium 3.2 , no new orders.
--- NOTE | 2022-04-02 11:30 | NUR ---
RT NOTES Pt is about to undergo wound care, vent back to AC to avoid possible hypoventilation and tachypnea. Will switch back to cpap later.
[2022-04-02] MEDS: NACL 0.9% 1,000 ML IV SCH (12:50)
--- NOTE | 2022-04-02 12:50 | NUR ---
NOTIFIED OF CONSULT ORDERING PHY: REASON FOR CONSULT: AF SPOKE TO: EMERALD
[2022-04-02] MEDS ORDERED: COLISTIMETHATE SODIUM 150 MG VIAL INH ONE (13:00)
--- NOTE | 2022-04-02 13:27 | NUR ---
RT NOTES Per RN ok to put vent back to CPAP 5 PS 15. No distress noted. Will monitor pt. exh. CO2 on AC is 26.
[2022-04-02] MEDS ORDERED: ALBUMIN HUMAN 25% 200 ML IV ONE (14:00)
[2022-04-02] MEDS: SOD FERRIC GLUC COMPLEX/SUC 125 MG in NS 100 ML IV SCH (20:05)
[2022-04-02] MEDS: MICAFUNGIN SODIUM 100 MG in NS 100 ML IV SCH (20:38)
[2022-04-02] MEDS: APIXABAN 2.5 MG TABLET PO SCH (20:40)
[2022-04-03] VITALS (33 sets, daily range): BP systolic 78–115
[2022-04-03 06:26] LABS: BASOPHILS # (AUTO) 0.1 K/uL (0.0-0.2); BASOPHILS % (AUTO) 1.4 % (0.0-2.0); EOSINOPHILS # (AUTO) 0.4 K/uL (0.0-0.4); EOSINOPHILS % (AUTO) 4.8 % (0.0-4.0); HEMATOCRIT 24.5 % (36-54); HEMOGLOBIN 8.4 g/dL (14.0-18.0); LYMPHOCYTES # (AUTO) 1.2 K/uL (1.0-5.5); LYMPHOCYTES % (AUTO) 12.7 % (20.5-51.5); MEAN CORPUSCULAR HEMOGLOBIN 32 pg (27-31); MEAN CORPUSCULAR HGB CONC 34 % (32-36); MEAN CORPUSCULAR VOLUME 94 fL (79.0-98.0); MONOCYTES # (AUTO) 0.3 K/uL (0.0-1.0); MONOCYTES % (AUTO) 3.6 % (1.7-9.3); NEUTROPHILS # (AUTO) 7.2 K/uL (1.8-7.7); NEUTROPHILS % (AUTO) 77.5 % (40.0-70.0); PLATELET COUNT (AUTO) 96 K/uL (130-430); RED CELL DISTRIBUTION WIDTH 22.9 % (9.0-15.0); RETICULOCYTE COUNT 10.2 % (0.5-1.5); WHITE BLOOD COUNT (AUTO) 9.3 K/uL (4.8-10.8)
[2022-04-03] MEDS: PIPERACILLIN/TAZO 2.25G/DEX-IS 50 ML IV SCH ×2 (06:26)
[2022-04-03] MEDS: COLISTIMETHATE SODIUM 150 MG VIAL INH SCH ×2 (07:31→20:24)
--- NOTE | 2022-04-03 07:48 | NUR ---
rt notes 0748 Pt placed to CPAP 5, PS15, 35% FIO2. pt saturating 99%. CARMELITA baez.
[2022-04-03 07:49] LABS: ALANINE AMINOTRANSFERASE 19 U/L (12-78); ALBUMIN 2.2 g/dL (3.4-4.8); ANION GAP 10 (5-15); ASPARTATE AMINOTRANSFERASE 34 U/L (10-37); CHLORIDE 106 mmol/L (98-107); CREATININE 2.57 mg/dL (0.55-1.30); GLUCOSE 121 mg/dL (70-99); TOTAL BILIRUBIN 1.2 mg/dL (0.0-1.0); UREA NITROGEN, BLOOD 34 mg/dL (8-21)
[2022-04-03 08:00] LABS: POTASSIUM 2.9 mmol/L (3.5-5.1)
--- NOTE | 2022-04-03 08:00 | NUR ---
Received a critical value potassium 2. 9. Dr Tinsley at bedside. I updated MD of the potassium value. Orders noted and carried out.
[2022-04-03] MEDS: BISACODYL 5 MG TABLET.DR (DULCOLAX) PO SCH ×2 (09:00→20:38)
[2022-04-03] MEDS: DOCUSATE SODIUM 100 MG/10 ML UDC PO SCH ×2 (09:00→20:38)
[2022-04-03] MEDS ORDERED: KCL 40 mEq in 100 mL (PREMIX) 100 ML IV ONE (09:10)
[2022-04-03] MEDS: NACL 0.9% 1,000 ML IV SCH (09:30)
[2022-04-03] MEDS ORDERED: DEXMEDETOMIDINE HCL 200 MCG in NS 48 ML IV PRN (09:30)
[2022-04-03] MEDS: BALSAM PERU/CASTOR OIL 56.7 GM OINT...G. TP SCH (09:30)
[2022-04-03] MEDS: LACTULOSE 20 GM/30 ML UDC PO SCH ×2 (10:07→20:38)
[2022-04-03] MEDS: CHOLECALCIFEROL (VITAMIN D3) 2,000 UNIT TABLET PO SCH (10:07)
[2022-04-03] MEDS: TAMSULOSIN HCL 0.4 MG CAP PO SCH ×2 (10:07→20:38)
[2022-04-03] MEDS: PANTOPRAZOLE SODIUM 40 MG/VIAL (PROTONIX) IVP SCH ×2 (10:07→20:39)
[2022-04-03] MEDS: NEPHROVITE, (FOLIC ACID/VITAMIN B COMP W-C 1 TAB) PO SCH (10:08)
[2022-04-03] MEDS: AMIODARONE HCL 200 MG TABLET PO SCH (10:08)
[2022-04-03] MEDS: APIXABAN 2.5 MG TABLET PO SCH (10:08)
[2022-04-03] MEDS: MIDODRINE HCL 5 MG TABLET (PROAMATINE) PO SCH ×4 (10:21→20:34)
--- NOTE | 2022-04-03 10:30 | NUR ---
RT NOTES 1030 Placed pt back AC mode, pt volume was 200s and pt started to get tachypneic. RN Wilton baez.
[2022-04-03] MEDS ORDERED: HEPARIN SODIUM,PORCINE 5,000 UNITS/ML VIAL MC ONE (11:30)
[2022-04-03] MEDS ORDERED: TIGECYCLINE 100 MG in NS 100 ML IV ONE (12:00)
[2022-04-03] MEDS ORDERED: ALBUMIN HUMAN 25% 200 ML IV ONE (12:00)
[2022-04-03] MEDS: EPOETIN ALFA 4,000 UNITS/ML VIAL SUBCUT SCH (18:11)
--- NOTE | 2022-04-03 18:15 | NUR ---
HIGH ALERT NOTE: Called Dr. Rios back at the number identified within the medical roster to verify physician authenticity for Heparin intrcatheter dwell for HD cath.
--- NOTE | 2022-04-03 19:00 | NUR ---
Received pt RESP:ventilated settings A/C 14 V-500 FIO2-30% PEEP -5.0.VS Bps 108/54 HR-100 RR-20 SPO2-100% Temp 97.7.compliance monitor in AFIB.Neuro awake ,pupils reactive to light.skin :Has wounds to left lower leg ,oozing on bilateral arms and sacral region dressing applied. Vital .AF @60CC Via rt nare NG tube .RT upper PICC line is patent with N/S@50CC and Levo @0.07 mcg/kg/min running.[place] catheter and a R tube in place.Galo to rt IJ for dialysis.
[2022-04-03] MEDS: SOD FERRIC GLUC COMPLEX/SUC 125 MG in NS 100 ML IV SCH (20:09)
[2022-04-03] MEDS: MICAFUNGIN SODIUM 100 MG in NS 100 ML IV SCH (20:35)
[2022-04-03] MEDS: TIGECYCLINE 50 MG in NS 100 ML IV SCH (20:41)
--- NOTE | 2022-04-03 22:00 | NUR ---
patient sponge bathed, has small BM, linen changed and positioned to left side.vitals done see flow sheet
[2022-04-03] MEDS: NOREPINEPHRINE BITARTRATE 32 MG in D5W 218 ML IV PRN (23:50)
[2022-04-04] VITALS (56 sets, daily range): BP systolic 81–130
--- NOTE | 2022-04-04 | NUR ---
Accucheck done.100. positioned to left side.suctioned maintained hourly and prn Addendum: 04/04/22 at 0707 by One RegistryCARMELITA RN wrong accu check report
[2022-04-04] MEDS: NACL 0.9% 1,000 ML IV SCH (05:51)
--- NOTE | 2022-04-04 06:00 | NUR ---
bed bath given and linen changed.oral cares and suction done has thick white secretions .positioned on the right side
[2022-04-04 06:31] LABS: INR 1.3 (0.80-1.20); PROTHROMBIN TIME 13.3 SECS (9.5-12.5)
[2022-04-04 06:32] LABS: BASOPHILS # (AUTO) 0.1 K/uL (0.0-0.2); BASOPHILS % (AUTO) 1.2 % (0.0-2.0); EOSINOPHILS # (AUTO) 0.3 K/uL (0.0-0.4); EOSINOPHILS % (AUTO) 3.5 % (0.0-4.0); HEMATOCRIT 24.7 % (36-54); HEMOGLOBIN 8.3 g/dL (14.0-18.0); LYMPHOCYTES % (AUTO) 10.8 % (20.5-51.5); MEAN CORPUSCULAR HEMOGLOBIN 32 pg (27-31); MEAN CORPUSCULAR HGB CONC 34 % (32-36); MEAN CORPUSCULAR VOLUME 95 fL (79.0-98.0); MONOCYTES # (AUTO) 0.2 K/uL (0.0-1.0); MONOCYTES % (AUTO) 2.7 % (1.7-9.3); NEUTROPHILS # (AUTO) 7.7 K/uL (1.8-7.7); NEUTROPHILS % (AUTO) 81.8 % (40.0-70.0); RED BLOOD CELL COUNT(AUTO) 2.61 MIL/uL (4.2-6.2); RED CELL DISTRIBUTION WIDTH 23.4 % (9.0-15.0); WHITE BLOOD COUNT (AUTO) 9.4 K/uL (4.8-10.8)
[2022-04-04 06:42] LABS: ALANINE AMINOTRANSFERASE 21 U/L (12-78); ALBUMIN 2.5 g/dL (3.4-4.8); ANION GAP 7 (5-15); ASPARTATE AMINOTRANSFERASE 35 U/L (10-37); CALCIUM 8.1 mg/dL (8.4-11.0); CHLORIDE 106 mmol/L (98-107); CREATININE 2.31 mg/dL (0.55-1.30); FREE T4 (FREE THYROXINE) 0.9 ng/dl (0.8-1.5); GLUCOSE 135 mg/dL (70-99); POTASSIUM 3.9 mmol/L (3.5-5.1); THYROID STIMULATING HORMONE 10.05 uIu/mL (0.36-3.74); UREA NITROGEN, BLOOD 30 mg/dL (8-21)
[2022-04-04 07:40] LABS: PLATELET COUNT (AUTO) 41 K/uL (130-430)
[2022-04-04] MEDS: TIGECYCLINE 50 MG in NS 100 ML IV SCH ×2 (09:00→21:26)
[2022-04-04] MEDS: LACTULOSE 20 GM/30 ML UDC PO SCH ×3 (09:00→21:27)
[2022-04-04] MEDS: PANTOPRAZOLE SODIUM 40 MG/VIAL (PROTONIX) IVP SCH ×2 (09:00→21:27)
[2022-04-04] MEDS: CHOLECALCIFEROL (VITAMIN D3) 2,000 UNIT TABLET PO SCH (09:00)
[2022-04-04] MEDS: BALSAM PERU/CASTOR OIL 56.7 GM OINT...G. TP SCH (09:00)
[2022-04-04] MEDS: NEPHROVITE, (FOLIC ACID/VITAMIN B COMP W-C 1 TAB) PO SCH (09:00)
[2022-04-04] MEDS: MIDODRINE HCL 5 MG TABLET (PROAMATINE) PO SCH ×4 (09:00→21:28)
[2022-04-04] MEDS: AMIODARONE HCL 200 MG TABLET PO SCH (09:00)
[2022-04-04] MEDS: DOCUSATE SODIUM 100 MG/10 ML UDC PO SCH ×2 (09:00→21:27)
[2022-04-04] MEDS: BISACODYL 5 MG TABLET.DR (DULCOLAX) PO SCH ×2 (09:00→21:27)
[2022-04-04] MEDS: TAMSULOSIN HCL 0.4 MG CAP PO SCH ×2 (09:00→21:27)
[2022-04-04] MEDS ORDERED: ALBUMIN HUMAN 25% 100 ML IV ONE (10:15)
[2022-04-04] MEDS ORDERED: HEPARIN SODIUM,PORCINE 5,000 UNITS/ML VIAL SUBCUT ONE (10:30)
--- NOTE | 2022-04-04 10:48 | NUR ---
[id number] TRIED PT ON CPAP TRIAL. CPAP5 PS 15. PT TACHYPNEIC. PLACED BACK TO , WILL TRY CPAP POST DIALYSIS. Addendum: 04/04/22 at 1050 by Eva Moe RT Amended: Links added.
--- NOTE | 2022-04-04 12:43 | NUR ---
NOTIFIED OF CONSULT ORDERING PHY: REASON: LOW PLATELETS DIALED: [phone] SPOKE TO: PETRA
--- NOTE | 2022-04-04 15:14 | NUR ---
Pts sister Florence Yañez called to ask if her sister has been educated on the consequences of her declining to be turned or have hygeine performed. I asked the pts nurse, Jose and he said he spoke to her and he felt she was more awake and that she understood the consequences of her decisions. Florence informed.
[2022-04-04] MEDS: COLISTIMETHATE SODIUM 150 MG VIAL INH SCH ×2 (16:34→20:26)
--- NOTE | 2022-04-04 19:25 | NUR ---
Assumed pt care bedside report received from Wicho MAE, met pt with the at bedside, introduction education at the bedside she verbalized understanding, pt unable to follow, unresponsive, traces of movement in all extremities, oral care suctioned, ETT to Ventilator Fio2 30% TV 500 peep5, O2 sat 100% tolerating, NGT right nares,placement verified by auscultation ongoing tube feeding Vital 1.2 @60ml/hr no residual noted. Flexiseal rectal tube in place liquid stool and mendoza care done. Will continue to monitor and treat as per care plan.
[2022-04-04] MEDS: SOD FERRIC GLUC COMPLEX/SUC 125 MG in NS 100 ML IV SCH (21:24)
[2022-04-04] MEDS: MICAFUNGIN SODIUM 100 MG in NS 100 ML IV SCH (21:25)
--- NOTE | 2022-04-04 22:46 | NUR ---
ALLERGIES During chart review discovered that patient is allergic to some medicines DOXYCYCLINE, FENTANYL AND DILAUDID added to pt's profile and witnessed/verified by second RN GONZALES.
[2022-04-05] VITALS (33 sets, daily range): BP systolic 91–142
--- NOTE | 2022-04-05 03:30 | NUR ---
Complete bed bath with CHG, skin and wound care done. Oral, mendoza care suction and repositioned for comfort.
[2022-04-05] MEDS: NACL 0.9% 1,000 ML IV SCH ×2 (04:08→15:00)
[2022-04-05 06:28] LABS: BASOPHILS # (AUTO) 0.1 K/uL (0.0-0.2); EOSINOPHILS # (AUTO) 0.2 K/uL (0.0-0.4); EOSINOPHILS % (AUTO) 2.8 % (0.0-4.0); HEMATOCRIT 25.2 % (36-54); HEMOGLOBIN 8.2 g/dL (14.0-18.0); LYMPHOCYTES # (AUTO) 1.4 K/uL (1.0-5.5); LYMPHOCYTES % (AUTO) 16.2 % (20.5-51.5); MEAN CORPUSCULAR HEMOGLOBIN 31 pg (27-31); MEAN CORPUSCULAR HGB CONC 32 % (32-36); MEAN CORPUSCULAR VOLUME 96 fL (79.0-98.0); MONOCYTES # (AUTO) 0.3 K/uL (0.0-1.0); MONOCYTES % (AUTO) 3.1 % (1.7-9.3); NEUTROPHILS # (AUTO) 6.6 K/uL (1.8-7.7); NEUTROPHILS % (AUTO) 76.9 % (40.0-70.0); PLATELET COUNT (AUTO) 94 K/uL (130-430); RED BLOOD CELL COUNT(AUTO) 2.62 MIL/uL (4.2-6.2); WHITE BLOOD COUNT (AUTO) 8.6 K/uL (4.8-10.8)
[2022-04-05 06:54] LABS: ALANINE AMINOTRANSFERASE 17 U/L (12-78); ALBUMIN 2.5 g/dL (3.4-4.8); ANION GAP 12 (5-15); ASPARTATE AMINOTRANSFERASE 37 U/L (10-37); CALCIUM 8.6 mg/dL (8.4-11.0); CHLORIDE 107 mmol/L (98-107); CREATININE 2.85 mg/dL (0.55-1.30); GLUCOSE 100 mg/dL (70-99); TOTAL BILIRUBIN 1.1 mg/dL (0.0-1.0); UREA NITROGEN, BLOOD 40 mg/dL (8-21)
--- NOTE | 2022-04-05 07:25 | NUR ---
Change of shift report given to Eli RN as at this time pt's vitals signs stable, no changes in care plan and condition
[2022-04-05] MEDS: TIGECYCLINE 50 MG in NS 100 ML IV SCH ×2 (08:13→21:33)
[2022-04-05 08:45] LABS: TOTAL IRON BIND. CAPACITY 113 ug/dL (250-450)
[2022-04-05] MEDS: ACETAMINOPHEN 650 MG/20.3 ML UDC PO PRN ×2 (09:28→15:33)
[2022-04-05] MEDS: DOCUSATE SODIUM 100 MG/10 ML UDC PO SCH ×2 (09:29→21:33)
[2022-04-05] MEDS: LACTULOSE 20 GM/30 ML UDC PO SCH ×3 (09:29→21:33)
[2022-04-05] MEDS: PANTOPRAZOLE SODIUM 40 MG/VIAL (PROTONIX) IVP SCH ×2 (09:29→21:33)
[2022-04-05] MEDS: NEPHROVITE, (FOLIC ACID/VITAMIN B COMP W-C 1 TAB) PO SCH (09:30)
[2022-04-05] MEDS: TAMSULOSIN HCL 0.4 MG CAP PO SCH ×2 (09:30→21:34)
[2022-04-05] MEDS: CHOLECALCIFEROL (VITAMIN D3) 2,000 UNIT TABLET PO SCH (09:30)
[2022-04-05] MEDS: BISACODYL 5 MG TABLET.DR (DULCOLAX) PO SCH ×2 (09:30→21:33)
[2022-04-05] MEDS: COLISTIMETHATE SODIUM 150 MG VIAL INH SCH ×2 (09:56→20:31)
[2022-04-05] MEDS: AMIODARONE HCL 200 MG TABLET PO SCH (10:22)
[2022-04-05] MEDS: MIDODRINE HCL 5 MG TABLET (PROAMATINE) PO SCH ×4 (10:23→21:33)
[2022-04-05] MEDS: BALSAM PERU/CASTOR OIL 56.7 GM OINT...G. TP SCH (10:25)
[2022-04-05] MEDS: ALBUMIN HUMAN 25% 50 ML IV SCH ×3 (10:30→15:32)
[2022-04-05] MEDS: NOREPINEPHRINE BITARTRATE 32 MG in D5W 218 ML IV PRN (15:04)
--- NOTE | 2022-04-05 15:30 | NUR ---
UNABLE TO TRY DAILY CPAP TRIAL DUE TO PATIENT LOW B/P, RN CLEANING PATIENT, AND PATIENT ON DIALYSIS TODAY.
[2022-04-05] MEDS ORDERED: ALBUMIN HUMAN 25% 100 ML IV ONE (16:00)
[2022-04-05] MEDS ORDERED: HEPARIN SODIUM,PORCINE 5,000 UNITS/ML VIAL MC ONE (16:00)
--- NOTE | 2022-04-05 17:00 | NUR ---
HIGH ALERT NOTE: Called back at [phone], identified within the medical roster to verify physician authenticity.
[2022-04-05] MEDS: EPOETIN ALFA 4,000 UNITS/ML VIAL SUBCUT SCH (17:47)
[2022-04-05] MEDS: MICAFUNGIN SODIUM 100 MG in NS 100 ML IV SCH (21:32)
[2022-04-06] VITALS (33 sets, daily range): BP systolic 86–147
[2022-04-06] MEDS: NACL 0.9% 1,000 ML IV SCH (00:39)
[2022-04-06 06:07] LABS: HEMATOCRIT 26.8 % (36-54); HEMOGLOBIN 8.8 g/dL (14.0-18.0); MEAN CORPUSCULAR HEMOGLOBIN 32 pg (27-31); MEAN CORPUSCULAR HGB CONC 33 % (32-36); MEAN CORPUSCULAR VOLUME 97 fL (79.0-98.0); PLATELET COUNT (AUTO) 131 K/uL (130-430); RED BLOOD CELL COUNT(AUTO) 2.77 MIL/uL (4.2-6.2); RED CELL DISTRIBUTION WIDTH 24.9 % (9.0-15.0); WHITE BLOOD COUNT (AUTO) 8.2 K/uL (4.8-10.8)
[2022-04-06 07:23] LABS: ALANINE AMINOTRANSFERASE 17 U/L (12-78); ANION GAP 12 (5-15); ASPARTATE AMINOTRANSFERASE 35 U/L (10-37); CALCIUM 8.6 mg/dL (8.4-11.0); CHLORIDE 104 mmol/L (98-107); CREATININE 2.29 mg/dL (0.55-1.30); GLUCOSE 81 mg/dL (70-99); PHOSPHORUS 3.3 mg/dL (2.7-4.5); TOTAL BILIRUBIN 1.7 mg/dL (0.0-1.0); UREA NITROGEN, BLOOD 33 mg/dL (8-21)
--- NOTE | 2022-04-06 08:00 | NUR ---
PER MD GRANADOS, WANTS TO TITRATE PATIENT'S LEVOPHED DRIP. CURRENTLY AT 2MCG/KG/MIN, WANTS TITRATION AT 1.5MCG/KG/MIN AND IN 4 HOURS, ATTEMPT TO TITRATE DOWN TO 1MCG/KG/MIN AND SO FORTH. PT VSS. NAD NOTED. WILL CONT TO MONITOR PT.
[2022-04-06] MEDS: COLISTIMETHATE SODIUM 150 MG VIAL INH SCH ×2 (08:02→20:05)
[2022-04-06] MEDS: NOREPINEPHRINE BITARTRATE 32 MG in D5W 218 ML IV PRN (08:23)
[2022-04-06] MEDS: TIGECYCLINE 50 MG in NS 100 ML IV SCH ×2 (08:23→20:18)
[2022-04-06] MEDS: AMIODARONE HCL 200 MG TABLET PO SCH (08:24)
[2022-04-06] MEDS: BISACODYL 5 MG TABLET.DR (DULCOLAX) PO SCH ×2 (08:24→20:12)
[2022-04-06] MEDS: PANTOPRAZOLE SODIUM 40 MG/VIAL (PROTONIX) IVP SCH ×2 (08:24→20:18)
[2022-04-06] MEDS: DOCUSATE SODIUM 100 MG/10 ML UDC PO SCH ×2 (08:24→20:13)
[2022-04-06] MEDS: LACTULOSE 20 GM/30 ML UDC PO SCH ×3 (08:24→20:12)
[2022-04-06] MEDS: CHOLECALCIFEROL (VITAMIN D3) 2,000 UNIT TABLET PO SCH (08:25)
[2022-04-06] MEDS: NEPHROVITE, (FOLIC ACID/VITAMIN B COMP W-C 1 TAB) PO SCH (08:25)
[2022-04-06] MEDS: BALSAM PERU/CASTOR OIL 56.7 GM OINT...G. TP SCH (08:25)
[2022-04-06] MEDS: TAMSULOSIN HCL 0.4 MG CAP PO SCH ×2 (08:25→20:12)
[2022-04-06] MEDS: MIDODRINE HCL 5 MG TABLET (PROAMATINE) PO SCH ×4 (08:26→20:12)
--- NOTE | 2022-04-06 09:45 | NUR ---
MD SERRANO AT BEDSIDE, WANTS TO ATTEMPT SBT TODAY. RIGO DON ALSO AT BEDSIDE AND WILL ATTEMPT. ALSO, MD SERRANO D/C'D IVF NS@100CC/HR DUE TO ESRD AND ON HD. ALSO WANTS LEVOPHED CONVERTED TO VASOPRESSIN AT 0.03U/MIN. INSTRUCTED DOCTOR ON MD GRANADOS'S PLAN TO TITRATE PT OFF OF LEVOPHED. MD SERRANO STATES OK TO ATTEMPT BUT IF UNABLE TO, TRANSITION TO VASOPRESSIN TO "HELP PATIENTS HEART RATE LOWER."
--- NOTE | 2022-04-06 09:55 | NUR ---
RT NOTES Pt opens eyes when asked, but did not squeeze hand as instructed, tried CPAP for 5 minutes, pt. remained tachypneic with low spontaneous Vt. despite coaching. Vent back to AC, RN made aware. Will attempt CPAP again.
[2022-04-06] MEDS: MICAFUNGIN SODIUM 100 MG in NS 100 ML IV SCH (11:20)
--- NOTE | 2022-04-06 11:43 | NUR ---
RT NOTES Tried CPAP again, for the 5 minute on CPAP, pt was tachypneic with low spontaneous Vt. Vent back on AC @1148. RN aware.
--- NOTE | 2022-04-06 16:40 | NUR ---
Nutrition F/U Nutrition consult generated 03/31/22 at 1745 as part of wound RN consultation for multiple pressure ulcers. Admitting Diagnosis: Renal Failure, Metabolic Encephalopathy, Dehydration Reviewed Pertinent Medical/Surgical Hx Medical record, primary RN, patient (RD visual assessment) Medical Hx: Per EMR - 76yM with pmh CHF, liver dz, CKD w/ prev brief HD Subjective Information: RD attended ICU rounds this morning. Primary RN reported that pt will be undergoing CPAP trials today, tolerating TF Vital 1.2 at 60 ml/hr. Bedside visit deferred d/t high workload. 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 Current TF rate reflects RD rec from previous Nutrition F/Us 04/01 and 03/29, however, active TF order has not yet been changed to reflect this recommendation. Current Diet Order/Nutrition Support: Vital AF 1.2 at 20 ml/hr, Free Water Flush: 100 ml Q8h via NGT x7 days Education Provided: Not Indicated Pertinent Medications: lactulose, colace, protonix IV, nephrovite, VIT D3, dulcolax Pertinent Labs: BUN 33 H, CRE 2.29 H, BG 81 WNL, K 4 WNL, ALB 3 L, Ammonia 49 H Height (Feet) 5 feet Height (Inches) 9.00 inches Weight (Pounds) - 290# (bed scale 03/29) - Calculating wt used: 270#; fluid overload; per (03/28) 270# last known wt Patient Weight 122.7 kg Body Mass Index 39.9 kg/m2 Usual Weight 295#/134kg %UBW 91.5 %IBW [address] [place]/Adjusted Body Weight 160#/72.7kg; 188#/85.2 kg Recent Weight Change Yes - per (03/28), 30-40lbs/13-18kg x 2 months = 9-13% wt loss; Severe Weight Status Obese Gastrointestinal Symptoms None Difficulty With: Swallowing - intubated Food Allergies Unable to Verify Usual Diet At Home Regular Skin Integrity Comment: Earle 11; per Court Liaison note 03/31 --1. Left Sacral area: Unstageable pressure ulcer, present on admission. 2. Right Sacral area: Stage II pressure ulcer, present on admission. 3. Right Sacral area, Right Lateral to Site 2: Stage II pressure ulcer, present on admission. 4. Sacral and outer Sacral/Buttocks areas: Multiple areas of scar tissue, present on admission. 5. Right Posterior Heel: Unstageable pressure ulcer, present on admission. 6. Right Lateral Malleolus: Unstageable pressure ulcer, present on admission. 7. Right Medial Heel: Unstageable pressure ulcer, present on admission. 8. Left Dorsal Foot over Fifth Metatarsal Bone: Area of nonblanchable red skin, present on admission. 9. Right Distal Lateral Lower Extremity: Stage II pressure ulcer, present on admission. 10. Right Lateral Proximal Lower Extremity, Lateral and Inferior to Knee: Unstageable pressure ulcer, present on admission. 11. Right Anterior Knee: Stage III pressure ulcer, present on admission. 12. Right Third Toe, Dorsal Aspect: Chronic wound of unknown etiology, present on admission. 13. Right Medial AC Joint: Skin tear. Skin tear has 100% pink tissue. 14. Right Distal Posterior Forearm: Skin tear. 15. Left Proximal Forearm: Skin tear. 16. Right Upper Extremity: Multiple areas of ecchymosis, present on admission. 17. Left Upper Extremity: Multiple areas of ecchymosis, present on admission. Estimated Energy Expenditure (kcals/day) 8962-0239 (25-30 kcal/kg IBW d/t vent, wounds) Estimated Protein Required (g/day) 87-109 (1.2-1.5 g/kg IBW d/t wounds, CKD on HD) Estimated Fluid Required (l/day) per MD (d/t renal dz) Problem/Etiology/Signs/Symptoms Altered nutrition-related lab values r/t renal dysfunction AEB elevated BUN, Glucose, Creatinine, Phosphorus; lowered RBC, Hgb, hematocrit, Calcium, Sodium. *Ongoing Increased energy and protein needs r/t vent, wound healing AEB 25-30 kcal/kg estimated energy needs; 1.2-1.5 g/kg estimated protein needs. *Ongoing Inadequate enteral nutrition provision AEB NGTF infusing @ 20 ml/hr. *No longer applicable Expected Outcomes/Goals Pt tolerating EN at goal w/ EN meeting at least 80% estimated energy needs, nutrition related labs trending WNL, improvement in skin integrity, wt stable, BM q 1-3 days Dietitian Recommendations * Vital AF at 60 ml/hr, Fly BID, Water Flush: 100 ml Q8h via NGT Provides 1888 kcal/day, 113 gm protein/day, and 1467 ml free water/day Meets: 101% lower end of estimated caloric needs and 104% of upper end of estimated protein needs * Continue Nephrovite * Consider VIT C and zincate for wound healing High Risk: F/U in 2-3 days
--- NOTE | 2022-04-06 16:52 | NUR ---
Dietitian Recommendations * Vital AF at 60 ml/hr, Fly BID, Water Flush: 100 ml Q8h via NGT Provides 1888 kcal/day, 113 gm protein/day, and 1467 ml free water/day Meets: 101% lower end of estimated caloric needs and 104% of upper end of estimated protein needs * Continue Nephrovite * Consider VIT C and zincate for wound healing LP, MS, RD Please refer to Nutrition F/U for details.
[2022-04-07] VITALS (32 sets, daily range): BP systolic 86–153
[2022-04-07 00:08] LABS: BAND % (MANUAL) 1 % (0-6); LYMPHOCYTES % (MANUAL) 18 % (20-46)
[2022-04-07 00:09] LABS: ATYPICAL LYMPHOCYTES % 4 % (0-0); BASOPHILS % (MANUAL) 0 % (0-2); CORRECTED WHITE BLOOD COUNT 7.1 K/uL (4.5-11.0); EOSINOPHILS % (MANUAL) 0 % (0-7); MONOCYTES % (MANUAL) 5 % (0-11)
[2022-04-07 06:42] LABS: BASOPHILS # (AUTO) 0.1 K/uL (0.0-0.2); BASOPHILS % (AUTO) 1.4 % (0.0-2.0); EOSINOPHILS # (AUTO) 0.1 K/uL (0.0-0.4); EOSINOPHILS % (AUTO) 1.2 % (0.0-4.0); HEMATOCRIT 28.9 % (36-54); HEMOGLOBIN 9.3 g/dL (14.0-18.0); LYMPHOCYTES # (AUTO) 1.4 K/uL (1.0-5.5); LYMPHOCYTES % (AUTO) 18.6 % (20.5-51.5); MEAN CORPUSCULAR HEMOGLOBIN 32 pg (27-31); MEAN CORPUSCULAR HGB CONC 32 % (32-36); MEAN CORPUSCULAR VOLUME 99 fL (79.0-98.0); MONOCYTES # (AUTO) 0.5 K/uL (0.0-1.0); MONOCYTES % (AUTO) 6.9 % (1.7-9.3); NEUTROPHILS # (AUTO) 5.4 K/uL (1.8-7.7); NEUTROPHILS % (AUTO) 71.9 % (40.0-70.0); PLATELET COUNT (AUTO) 118 K/uL (130-430); RED BLOOD CELL COUNT(AUTO) 2.92 MIL/uL (4.2-6.2); RED CELL DISTRIBUTION WIDTH 26.1 % (9.0-15.0); WHITE BLOOD COUNT (AUTO) 7.6 K/uL (4.8-10.8)
--- NOTE | 2022-04-07 07:30 | NUR ---
Opening Received report on pt. Pt intubated on vent fiO2 30%. Pt drowsy, able to sometimes follow simple commands. Pt on levophed drip currently to right PICC line. Unknown NGT placement, CXR ordered to check placement. Lunsford in place with urine draining to gravity. Flexiseal in place with liquid brown stool.
--- NOTE | 2022-04-07 07:45 | NUR ---
RT NOTES Per daily trial, vent to CPAP 5 PS 10. No immediate adverse reactions noted. Will monitor pt. RN aware.
[2022-04-07 07:56] LABS: ALANINE AMINOTRANSFERASE 21 U/L (12-78); ALBUMIN 2.9 g/dL (3.4-4.8); ANION GAP 13 (5-15); ASPARTATE AMINOTRANSFERASE 53 U/L (10-37); CALCIUM 9.2 mg/dL (8.4-11.0); CHLORIDE 105 mmol/L (98-107); CREATININE 2.55 mg/dL (0.55-1.30); GLUCOSE 76 mg/dL (70-99); POTASSIUM 4.3 mmol/L (3.5-5.1); TOTAL BILIRUBIN 1.8 mg/dL (0.0-1.0); UREA NITROGEN, BLOOD 43 mg/dL (8-21)
--- NOTE | 2022-04-07 08:00 | NUR ---
Pt's at bedside
[2022-04-07] MEDS: BISACODYL 5 MG TABLET.DR (DULCOLAX) PO SCH ×2 (08:16→21:03)
[2022-04-07] MEDS: NEPHROVITE, (FOLIC ACID/VITAMIN B COMP W-C 1 TAB) PO SCH (08:16)
[2022-04-07] MEDS: DOCUSATE SODIUM 100 MG/10 ML UDC PO SCH ×2 (08:16→21:03)
[2022-04-07] MEDS: CHOLECALCIFEROL (VITAMIN D3) 2,000 UNIT TABLET PO SCH (08:16)
[2022-04-07] MEDS: LACTULOSE 20 GM/30 ML UDC PO SCH ×3 (08:16→21:04)
[2022-04-07] MEDS: AMIODARONE HCL 200 MG TABLET PO SCH (08:17)
[2022-04-07] MEDS: BALSAM PERU/CASTOR OIL 56.7 GM OINT...G. TP SCH (08:18)
[2022-04-07] MEDS: MIDODRINE HCL 5 MG TABLET (PROAMATINE) PO SCH ×4 (08:18→21:04)
[2022-04-07] MEDS: TAMSULOSIN HCL 0.4 MG CAP PO SCH ×2 (08:23→21:04)
[2022-04-07] MEDS: PANTOPRAZOLE SODIUM 40 MG/VIAL (PROTONIX) IVP SCH ×2 (08:23→21:03)
--- NOTE | 2022-04-07 09:25 | NUR ---
RT NOTES Tachypnea and low spont. Vt noted, vent back to AC. Rn made aware.
[2022-04-07] MEDS: TIGECYCLINE 50 MG in NS 100 ML IV SCH ×2 (09:34→21:03)
[2022-04-07] MEDS: COLISTIMETHATE SODIUM 150 MG VIAL INH SCH ×2 (09:39→21:06)
[2022-04-07 09:46] LABS: FERRITIN 2660 ng/mL (30-400)
--- NOTE | 2022-04-07 10:00 | NUR ---
Dr. Tinsley rounding on pt.
[2022-04-07] MEDS ORDERED: DIGOXIN 0.5 MG/2 ML AMP IVP ONE ×2 (10:45→20:45)
--- NOTE | 2022-04-07 11:25 | NUR ---
Pt off unit to CT with continuous O2 and monitoring
--- NOTE | 2022-04-07 11:40 | NUR ---
RT NOTES Back in ICU and vent. @1127 Took pt to and from CT, bagged with 100% O2 via BV to ETT during transport, once in the CT @1130, placed pt on vent with same AC settings. A/w remains secure/patent.
--- NOTE | 2022-04-07 11:40 | NUR ---
Pt return from CT, situated to room. Tolerated well
[2022-04-07] MEDS: MICAFUNGIN SODIUM 100 MG in NS 100 ML IV SCH (11:52)
--- NOTE | 2022-04-07 12:27 | NUR ---
Hemodialysis being done at bedside.
[2022-04-07] MEDS ORDERED: HEPARIN SODIUM,PORCINE 5,000 UNITS/ML VIAL ONE (14:12)
[2022-04-07] MEDS ORDERED: HEPARIN SODIUM,PORCINE 5,000 UNITS/ML VIAL IVP ONE (14:15)
--- NOTE | 2022-04-07 17:30 | NUR ---
CHG bath and wound dressing change done on pt. Advanced NGT 25 cm per MD order, waiting for confirmation of placement
--- NOTE | 2022-04-07 18:00 | NUR ---
Pt's at bedside, updated with plan of care
[2022-04-07] MEDS: EPOETIN ALFA 4,000 UNITS/ML VIAL SUBCUT SCH (18:06)
[2022-04-08] VITALS (28 sets, daily range): BP systolic 93–128
[2022-04-08 06:50] LABS: BASOPHILS # (AUTO) 0.1 K/uL (0.0-0.2); BASOPHILS % (AUTO) 1.3 % (0.0-2.0); EOSINOPHILS # (AUTO) 0.1 K/uL (0.0-0.4); EOSINOPHILS % (AUTO) 1.3 % (0.0-4.0); HEMATOCRIT 27.4 % (36-54); HEMOGLOBIN 8.9 g/dL (14.0-18.0); LYMPHOCYTES # (AUTO) 1.1 K/uL (1.0-5.5); MEAN CORPUSCULAR HEMOGLOBIN 32 pg (27-31); MEAN CORPUSCULAR HGB CONC 33 % (32-36); MEAN CORPUSCULAR VOLUME 99 fL (79.0-98.0); MONOCYTES # (AUTO) 0.5 K/uL (0.0-1.0); MONOCYTES % (AUTO) 7.6 % (1.7-9.3); NEUTROPHILS # (AUTO) 4.2 K/uL (1.8-7.7); NEUTROPHILS % (AUTO) 70.8 % (40.0-70.0); PLATELET COUNT (AUTO) 118 K/uL (130-430); RED BLOOD CELL COUNT(AUTO) 2.77 MIL/uL (4.2-6.2); RED CELL DISTRIBUTION WIDTH 25.5 % (9.0-15.0)
[2022-04-08 07:14] LABS: ALANINE AMINOTRANSFERASE 19 U/L (12-78); ALBUMIN 2.5 g/dL (3.4-4.8); ANION GAP 11 (5-15); ASPARTATE AMINOTRANSFERASE 44 U/L (10-37); CALCIUM 8.8 mg/dL (8.4-11.0); CHLORIDE 106 mmol/L (98-107); CREATININE 2.42 mg/dL (0.55-1.30); GLUCOSE 75 mg/dL (70-99); PHOSPHORUS 4.4 mg/dL (2.7-4.5); POTASSIUM 4.1 mmol/L (3.5-5.1); TOTAL BILIRUBIN 1.9 mg/dL (0.0-1.0); UREA NITROGEN, BLOOD 45 mg/dL (8-21)
[2022-04-08 07:15] LABS: INR 1.4 (0.80-1.20); PROTHROMBIN TIME 14.1 SECS (9.5-12.5)
[2022-04-08] MEDS: COLISTIMETHATE SODIUM 150 MG VIAL INH SCH ×2 (09:00→20:00)
[2022-04-08] MEDS: DOCUSATE SODIUM 100 MG/10 ML UDC PO SCH ×2 (09:29→21:19)
[2022-04-08] MEDS: TIGECYCLINE 50 MG in NS 100 ML IV SCH ×2 (09:29→21:19)
[2022-04-08] MEDS: PANTOPRAZOLE SODIUM 40 MG/VIAL (PROTONIX) IVP SCH ×2 (09:29→21:19)
[2022-04-08] MEDS: NEPHROVITE, (FOLIC ACID/VITAMIN B COMP W-C 1 TAB) PO SCH (09:30)
[2022-04-08] MEDS: LACTULOSE 20 GM/30 ML UDC PO SCH ×3 (09:30→21:19)
[2022-04-08] MEDS: BISACODYL 5 MG TABLET.DR (DULCOLAX) PO SCH ×2 (09:30→21:19)
[2022-04-08] MEDS: TAMSULOSIN HCL 0.4 MG CAP PO SCH ×2 (09:30→21:19)
[2022-04-08] MEDS: MIDODRINE HCL 5 MG TABLET (PROAMATINE) PO SCH ×4 (09:30→21:21)
[2022-04-08] MEDS: BALSAM PERU/CASTOR OIL 56.7 GM OINT...G. TP SCH (09:30)
[2022-04-08] MEDS: CHOLECALCIFEROL (VITAMIN D3) 2,000 UNIT TABLET PO SCH (09:30)
--- NOTE | 2022-04-08 09:40 | NUR ---
0838 PT PLACED ON CPAP TRIAL . CPAP5 PS 10 RN AWARE. WILL MONITOR. Addendum: 04/08/22 at 0941 by Eva Moe RT Amended: Links added.
[2022-04-08] MEDS ORDERED: NS 500 ML IV ONE (11:00)
[2022-04-08] MEDS: ACETAMINOPHEN 650 MG/20.3 ML UDC PO PRN (11:14)
[2022-04-08] MEDS: AMIODARONE HCL 200 MG TABLET PO SCH (11:15)
[2022-04-08] MEDS: MICAFUNGIN SODIUM 100 MG in NS 100 ML IV SCH (11:17)
[2022-04-08] MEDS ORDERED: HEPARIN SODIUM,PORCINE 5,000 UNITS/ML VIAL ONE ×2 (12:13→12:39)
--- NOTE | 2022-04-08 13:04 | NUR ---
PT PLACED ON CPAP AT 0838. TOLERATED WELL WITHOUT RESP DISTRESS. PT AT TIMES WITH RR 31-32, BUT OVERALL TOLERATING CPAP. DR. SERRANO ROUNDED AND WANTS PT TO BE PLACED BACK ON FULL SUPPORT. PAGED RT.
--- NOTE | 2022-04-08 14:01 | NUR ---
1310 PT PLACED BACK TO AC. PER DR. ORDER. MAE AWARE. Addendum: 04/08/22 at 1402 by Eva Moe RT Amended: Links added.
[2022-04-08] MEDS ORDERED: DIGOXIN 0.5 MG/2 ML AMP IVP ONE (16:30)
[2022-04-09] VITALS (34 sets, daily range): BP systolic 100–135
[2022-04-09 06:42] LABS: BASOPHILS # (AUTO) 0.1 K/uL (0.0-0.2); BASOPHILS % (AUTO) 0.9 % (0.0-2.0); EOSINOPHILS # (AUTO) 0.1 K/uL (0.0-0.4); EOSINOPHILS % (AUTO) 1.9 % (0.0-4.0); HEMOGLOBIN 9.4 g/dL (14.0-18.0); LYMPHOCYTES # (AUTO) 0.9 K/uL (1.0-5.5); LYMPHOCYTES % (AUTO) 13.7 % (20.5-51.5); MEAN CORPUSCULAR HEMOGLOBIN 33 pg (27-31); MEAN CORPUSCULAR HGB CONC 33 % (32-36); MEAN CORPUSCULAR VOLUME 101 fL (79.0-98.0); MONOCYTES # (AUTO) 0.5 K/uL (0.0-1.0); MONOCYTES % (AUTO) 8.2 % (1.7-9.3); NEUTROPHILS # (AUTO) 4.9 K/uL (1.8-7.7); NEUTROPHILS % (AUTO) 75.3 % (40.0-70.0); PLATELET COUNT (AUTO) 85 K/uL (130-430); RED BLOOD CELL COUNT(AUTO) 2.88 MIL/uL (4.2-6.2); RED CELL DISTRIBUTION WIDTH 27.7 % (9.0-15.0); WHITE BLOOD COUNT (AUTO) 6.5 K/uL (4.8-10.8)
--- NOTE | 2022-04-09 07:30 | NUR ---
Opening Received report on pt. Pt awake and alert, follows commands. Pt indicated no pain, no signs of distress noted, intubated on ventilator. Remains on levophed drip. Multiple skin issues present. On low air loss mattress, heels offloaded with pillows. Lunsford in place draining urine to gravity. Rectal tube with large amount of brown liquid stool.
[2022-04-09 07:33] LABS: ALANINE AMINOTRANSFERASE 18 U/L (12-78); ALBUMIN 2.4 g/dL (3.4-4.8); ANION GAP 6 (5-15); ASPARTATE AMINOTRANSFERASE 52 U/L (10-37); CALCIUM 8.6 mg/dL (8.4-11.0); CHLORIDE 107 mmol/L (98-107); CREATININE 2.08 mg/dL (0.55-1.30); GLUCOSE 105 mg/dL (70-99); POTASSIUM 3.6 mmol/L (3.5-5.1); TOTAL BILIRUBIN 1.9 mg/dL (0.0-1.0); UREA NITROGEN, BLOOD 37 mg/dL (8-21)
[2022-04-09] MEDS: COLISTIMETHATE SODIUM 150 MG VIAL INH SCH ×2 (07:50→20:00)
--- NOTE | 2022-04-09 08:15 | NUR ---
Vent setting change to CPAP by RT
[2022-04-09] MEDS: TIGECYCLINE 50 MG in NS 100 ML IV SCH ×2 (08:42→20:42)
[2022-04-09] MEDS: CHOLECALCIFEROL (VITAMIN D3) 2,000 UNIT TABLET PO SCH (08:43)
[2022-04-09] MEDS: AMIODARONE HCL 200 MG TABLET PO SCH (08:43)
[2022-04-09] MEDS: LACTULOSE 20 GM/30 ML UDC PO SCH ×3 (08:43→20:41)
[2022-04-09] MEDS: NEPHROVITE, (FOLIC ACID/VITAMIN B COMP W-C 1 TAB) PO SCH (08:43)
[2022-04-09] MEDS: PANTOPRAZOLE SODIUM 40 MG/VIAL (PROTONIX) IVP SCH ×2 (08:43→20:41)
[2022-04-09] MEDS: BISACODYL 5 MG TABLET.DR (DULCOLAX) PO SCH ×2 (08:43→20:40)
[2022-04-09] MEDS: DOCUSATE SODIUM 100 MG/10 ML UDC PO SCH ×2 (08:43→20:41)
[2022-04-09] MEDS: TAMSULOSIN HCL 0.4 MG CAP PO SCH ×2 (08:43→20:40)
[2022-04-09] MEDS: MIDODRINE HCL 5 MG TABLET (PROAMATINE) PO SCH ×4 (08:44→20:40)
--- NOTE | 2022-04-09 08:48 | NUR ---
Nutrition F/U Nutrition consult generated 03/31/22 at 1745 as part of wound RN consultation for multiple pressure ulcers. Admitting Diagnosis: Renal Failure, Metabolic Encephalopathy, Dehydration Reviewed Pertinent Medical/Surgical Hx EMR review Medical Hx: Per EMR - 76yM with pmh CHF, liver dz, CKD w/ prev brief HD Subjective Information: Per EMR review, the patient remains intubated (03/26- ), not sedated, pressors for pressure support, following some commands per MD note although likely not able to extubate. Also per MD note, pt's has declined tracheostomy. S/p CT head (04/07): per radiologist note: no acute abnormalities. TF Vital 1.2 at 60 ml/hr (goal) + Fly BID, (04/08) total intake of TF: 840 ml, no GRV; stool output: 500 ml 04/08; last HD 04/08. Current Diet Order/Nutrition Support: Vital AF 1.2 at 60 ml/hr, Fly BID, Free Water Flush: 100 ml Q8h via NGT x3 days Education Provided: Not Indicated Pertinent Medications: lactulose, colace, dulcolax, protonix IV, nephrovite, VIT D3, levophed, vasopressin Pertinent Labs: BUN 37 H, CRE 2.08 H, BG 105 H Height (Feet) 5 feet Height (Inches) 9.00 inches Weight (Pounds) - 290# (bed scale 03/29) - Calculating wt used: 270#; fluid overload; per (03/28) 270# last known wt Patient Weight 122.7 kg Body Mass Index 39.9 kg/m2 Usual Weight 295#/134kg %UBW 91.5 %IBW 169 [place]/Adjusted Body Weight 160#/72.7kg; 188#/85.2 kg Recent Weight Change Yes - per (03/28), 30-40lbs/13-18kg x 2 months = 9-13% wt loss; Severe Weight Status Obese Gastrointestinal Symptoms None Difficulty With: Swallowing - intubated Food Allergies Unable to Verify Usual Diet At Home Regular Skin Integrity Comment: Earle Pimentel ON 04/09 @ 0400. Per Pre Parole Counseling Aide note 03/31: 1. Left Sacral area:Unstageable pressure ulcer, present on admission. 2. Right Sacral area: Stage II pressure ulcer, present on admission. 3. Right Sacral area, Right Lateral to Site 2: Stage II pressure ulcer, present on admission. 4. Sacral and outer Sacral/Buttocks areas: Multiple areas of scar tissue, present on admission. 5. Right Posterior Heel: Unstageable pressure ulcer, present on admission. 6. Right Lateral Malleolus: Unstageable pressure ulcer, present on admission. 7. Right Medial Heel: Unstageable pressure ulcer, present on admission. 8. Left Dorsal Foot over Fifth Metatarsal Bone: Area of nonblanchable red skin, present on admission. 9. Right Distal Lateral Lower Extremity: Stage II pressure ulcer, present on admission. 10. Right Lateral Proximal Lower Extremity, Lateral and Inferior to Knee: Unstageable pressure ulcer, present on admission. 11. Right Anterior Knee: Stage III pressure ulcer, present on admission. 12. Right Third Toe, Dorsal Aspect: Chronic wound of unknown etiology, present on admission. 13. Right Medial AC Joint: Skin tear. Skin tear has 100% pink tissue. 14. Right Distal Posterior Forearm: Skin tear. 15. Left Proximal Forearm: Skin tear. 16. Right Upper Extremity: Multiple areas of ecchymosis, present on admission. 17. Left Upper Extremity: Multiple areas of ecchymosis, present on admission. Estimated Energy Expenditure (kcals/day) 3765-8880 (25-30 kcal/kg IBW d/t vent, wounds) Estimated Protein Required (g/day) 87-109 (1.2-1.5 g/kg IBW d/t wounds, CKD on HD) Estimated Fluid Required (l/day) per MD (d/t renal dz) Problem/Etiology/Signs/Symptoms Altered nutrition-related lab values r/t renal dysfunction AEB elevated BUN, Glucose, Creatinine, Phosphorus; lowered RBC, Hgb, hematocrit, Calcium, Sodium. *Ongoing Increased energy and protein needs r/t HD, vent, wound healing AEB 25-30 kcal/kg estimated energy needs; 1.2-1.5 g/kg estimated protein needs. *Ongoing Inadequate enteral nutrition provision AEB NGTF infusing @ 20 ml/hr. *Resolved, TF ordered @ goal rate of 60 ml/h on 04/06 Expected Outcomes/Goals Pt tolerating EN at goal w/ EN meeting at least 80% estimated energy needs, nutrition related labs trending WNL, improvement in skin integrity, wt stable, BM q 1-3 days Dietitian Recommendations * Vital AF at 60 ml/hr, Fly BID, Water Flush: 100 ml Q8h via NGT Provides 1888 kcal/day, 113 gm protein/day, and 1467 ml free water/day Meets: 101% lower end of estimated caloric needs and 104% of upper end of estimated protein needs * Continue Nephrovite * Consider VIT C and zincate x14 days for wound healing High Risk: F/U in 2-3 days
--- NOTE | 2022-04-09 09:11 | NUR ---
Dietitian Recommendations * Continue Vital AF at 60 ml/hr, Fly BID, Water Flush: 100 ml Q8h via NGT Provides 1888 kcal/day, 113 gm protein/day, and 1467 ml free water/day Meets: 101% lower end of estimated caloric needs and 104% of upper end of estimated protein needs * Continue Nephrovite * Consider VIT C and zincate x14 days for wound healing Please refer to nutrition follow up for details. LINH RD
[2022-04-09] MEDS: BALSAM PERU/CASTOR OIL 56.7 GM OINT...G. TP SCH (09:32)
[2022-04-09] MEDS: MICAFUNGIN SODIUM 100 MG in NS 100 ML IV SCH (12:19)
[2022-04-09] MEDS: ACETAMINOPHEN 650 MG/20.3 ML UDC PO PRN ×2 (12:34→15:48)
--- NOTE | 2022-04-09 16:12 | NUR ---
rt notes 1612 Per MD Márquez, placed pt back to CPAP 5, PS10 30% FIO2. Pt saturating 100%. Goal is pt to be on CPAP trial as tolerated til 1900 tonight. will cont to monitor pt.
[2022-04-10] VITALS (40 sets, daily range): BP systolic 48–137
[2022-04-10 07:06] LABS: BASOPHILS # (AUTO) 0.1 K/uL (0.0-0.2); BASOPHILS % (AUTO) 1.1 % (0.0-2.0); EOSINOPHILS # (AUTO) 0.1 K/uL (0.0-0.4); EOSINOPHILS % (AUTO) 1.6 % (0.0-4.0); HEMATOCRIT 29.4 % (36-54); HEMOGLOBIN 9.5 g/dL (14.0-18.0); LYMPHOCYTES # (AUTO) 0.8 K/uL (1.0-5.5); LYMPHOCYTES % (AUTO) 12.1 % (20.5-51.5); MEAN CORPUSCULAR HEMOGLOBIN 33 pg (27-31); MEAN CORPUSCULAR HGB CONC 32 % (32-36); MEAN CORPUSCULAR VOLUME 102 fL (79.0-98.0); MONOCYTES # (AUTO) 0.5 K/uL (0.0-1.0); MONOCYTES % (AUTO) 7.5 % (1.7-9.3); NEUTROPHILS # (AUTO) 5.2 K/uL (1.8-7.7); NEUTROPHILS % (AUTO) 77.7 % (40.0-70.0); PLATELET COUNT (AUTO) 80 K/uL (130-430); RED BLOOD CELL COUNT(AUTO) 2.88 MIL/uL (4.2-6.2); RED CELL DISTRIBUTION WIDTH 28.2 % (9.0-15.0); WHITE BLOOD COUNT (AUTO) 6.6 K/uL (4.8-10.8)
[2022-04-10 07:53] LABS: ANION GAP 7 (5-15); CALCIUM 8.6 mg/dL (8.4-11.0); CHLORIDE 111 mmol/L (98-107); CREATININE 2.29 mg/dL (0.55-1.30); GLUCOSE 103 mg/dL (70-99); PHOSPHORUS 4.1 mg/dL (2.7-4.5); POTASSIUM 3.7 mmol/L (3.5-5.1); UREA NITROGEN, BLOOD 47 mg/dL (8-21)
[2022-04-10] MEDS: COLISTIMETHATE SODIUM 150 MG VIAL INH SCH ×2 (07:58→20:05)
[2022-04-10] MEDS: TIGECYCLINE 50 MG in NS 100 ML IV SCH ×2 (10:59→21:55)
[2022-04-10] MEDS: PANTOPRAZOLE SODIUM 40 MG/VIAL (PROTONIX) IVP SCH (11:00)
[2022-04-10] MEDS: DOCUSATE SODIUM 100 MG/10 ML UDC PO SCH ×2 (11:02→21:54)
[2022-04-10] MEDS: AMIODARONE HCL 200 MG TABLET PO SCH (11:02)
[2022-04-10] MEDS: LACTULOSE 20 GM/30 ML UDC PO SCH ×3 (11:03→21:54)
[2022-04-10] MEDS: TAMSULOSIN HCL 0.4 MG CAP PO SCH ×2 (11:03→21:56)
[2022-04-10] MEDS: BISACODYL 5 MG TABLET.DR (DULCOLAX) PO SCH ×2 (11:03→21:56)
[2022-04-10] MEDS: MIDODRINE HCL 5 MG TABLET (PROAMATINE) PO SCH ×4 (11:04→21:56)
[2022-04-10] MEDS: NEPHROVITE, (FOLIC ACID/VITAMIN B COMP W-C 1 TAB) PO SCH (11:04)
[2022-04-10] MEDS: CHOLECALCIFEROL (VITAMIN D3) 2,000 UNIT TABLET PO SCH (11:05)
[2022-04-10] MEDS: BALSAM PERU/CASTOR OIL 56.7 GM OINT...G. TP SCH (11:05)
[2022-04-10] MEDS: MICAFUNGIN SODIUM 100 MG in NS 100 ML IV SCH (11:07)
[2022-04-10] MEDS ORDERED: HEPARIN SODIUM,PORCINE 5,000 UNITS/ML VIAL ONE (13:06)
[2022-04-10 15:48] LABS: INR 1.3 (0.80-1.20); PROTHROMBIN TIME 13.3 SECS (9.5-12.5)
--- NOTE | 2022-04-10 15:51 | NUR ---
WE ARE OUT OF DRESSINGS SO I AM USING 4X4S ETC. TO DRESS HIS WOUNDS//PT STILL DOING WELL ON CPAP ALL DAY/RR IS 25, SAT 98//MW
[2022-04-10] MEDS: EPOETIN ALFA 4,000 UNITS/ML VIAL SUBCUT SCH (17:01)
[2022-04-10] MEDS ORDERED: DIGOXIN 0.5 MG/2 ML AMP IVP ONE (17:30)
[2022-04-10] MEDS ORDERED: DIGOXIN 0.5 MG/2 ML AMP ONE (17:33)
[2022-04-10] MEDS: ACETAMINOPHEN 650 MG/20.3 ML UDC PO PRN (17:33)
--- NOTE | 2022-04-10 19:33 | NUR ---
RECEIVED PATIENT FROM DAY SHIFT RN MARIA DEL CARMEN. PATIENT TACHYCARDIC AT 106, AFEBRILE 98.3F TEMPORAL, ON AC RATE 14 PEEP 5 VOLUME 500 30% RESPIRATIONS EASY AND UNLABORED SATURATION 100% BLOOD PRESSURE 102/66 (73) AT BEDSIDE. INFORMED PATIENT WAS NOT EXTUBATED TODAY PULMONOLOGY DID NOT FEEL HE WAS READY, DIALYSIS WAS COMPLETED WITH 2L REMOVED, PATIENT HAD 1L OF URINE OUT AND ANOTHER 2L OF EFFLUENT IN HIS DIGNISHIELD RECTAL TUBE. WILL CONTINUE TO MONITOR PATIENT PRESENTS MILDLY STABLE AT THIS TIME.
--- NOTE | 2022-04-10 20:35 | NUR ---
RT NOTES PT IS AWAKE AND ALERT. PLACED PT ON CPAP PER DR SILVER. PT LOOKS COMFORTABLE WITH NO SIGNS OF DISTRESS. 30 MINUTES POST VENT CHANGE PT IS LETHARGIC AND BRADYPNIC AT 8 BREATHS PER MINUTE AND SETTING OFF APNEIC ALARM. PT IS AROUSABLE BUT LETHARGIC. PLACED BACK ON AC PT DID NOT TOLERATE CPAP TRIAL AT THIS TIME. RN GONZALES, CARMELITA STEPHENSON
--- NOTE | 2022-04-10 20:37 | NUR ---
PATIENT PLACED ON CPAP TRIAL STARTING AT [address] SILVER BY RESPIRATORY RICHARD BRAVO. AT 2030 RICHARD FOXP INFORMED THIS RN THAT PATIENT WAS BRADYPNEIC/APNEIC AT 8 BREATHS PER MINUTE AND NOT TOLERATING THIS SPONTANEOUS BREATHING TRIAL. PATIENT ALERT TO VERBAL STIMULUS AND SHOOK HEAD "YES" TO BEING TIRED AND BEING PUT BACK ON AC MODE FOR THE NIGHT. VITAL SIGNS STABLE, NO SIGNS OR SYMPTOMS OF DISTRESS. WILL CONTINUE TO MONITOR.
[2022-04-10] MEDS: NOREPINEPHRINE BITARTRATE 32 MG in D5W 218 ML IV PRN (23:22)
--- NOTE | 2022-04-10 23:25 | NUR ---
ENTERED PATIENTS ROOM FOUND HIS BLOOD 2300 PRESSURE READING AT 48/25 (28) HEART RATE 89 OXYGEN SATURATION 99% AND UNAROUSABLE. RECHECKED BLOOD PRESSURE AND REPEAT READING WAS 86/61 (72) HEART RATE 94 OXYGEN SATURATION 100%, PATIENT INITIALLY NOT RESPONDING TO COMMANDS BUT SHAKING HEAD BACK AND FORTH. THIS RN PERFORMED STERNAL RUB AND PATIENT BECAME ALERT AND LOOKED AT THIS RN TO HIS NAME. PATIENT MORE RESPONSIVE. THIS RN RESTARTED PATIENT ON LEVOPHED AT STARTING DOSE OF 0.1MCG/KG/MIN REPEAT PRESSURE 105/44 (86) HEART RATE 77 OXYGEN SATURATION 100% PATIENT MORE ALERT AND RESPONSIVE AT THIS TIME THAN PRIOR, OPENING EYES TO NAME AND GIVING THUMBS UP. WILL CONTINUE TO CLOSELY MONITOR AND TITRATE MEDICATION TO ORDERED PARAMETERS.
[2022-04-11] VITALS (29 sets, daily range): BP systolic 84–126
[2022-04-11 07:35] LABS: BASOPHILS % (AUTO) 0.2 % (0.0-2.0); EOSINOPHILS # (AUTO) 0.2 K/uL (0.0-0.4); HEMATOCRIT 28.3 % (36-54); HEMOGLOBIN 9.4 g/dL (14.0-18.0); LYMPHOCYTES % (AUTO) 15.8 % (20.5-51.5); MEAN CORPUSCULAR HEMOGLOBIN 33 pg (27-31); MEAN CORPUSCULAR HGB CONC 33 % (32-36); MEAN CORPUSCULAR VOLUME 101 fL (79.0-98.0); MONOCYTES # (AUTO) 0.6 K/uL (0.0-1.0); MONOCYTES % (AUTO) 9.1 % (1.7-9.3); NEUTROPHILS # (AUTO) 4.4 K/uL (1.8-7.7); NEUTROPHILS % (AUTO) 71.9 % (40.0-70.0); PLATELET COUNT (AUTO) 81 K/uL (130-430); RED BLOOD CELL COUNT(AUTO) 2.81 MIL/uL (4.2-6.2); RED CELL DISTRIBUTION WIDTH 27.8 % (9.0-15.0); WHITE BLOOD COUNT (AUTO) 6.2 K/uL (4.8-10.8)
[2022-04-11 08:04] LABS: ALANINE AMINOTRANSFERASE 20 U/L (12-78); ALBUMIN 2.1 g/dL (3.4-4.8); ANION GAP 9 (5-15); ASPARTATE AMINOTRANSFERASE 47 U/L (10-37); CALCIUM 8.5 mg/dL (8.4-11.0); CHLORIDE 109 mmol/L (98-107); CREATININE 2.05 mg/dL (0.55-1.30); GLUCOSE 116 mg/dL (70-99); TOTAL BILIRUBIN 1.9 mg/dL (0.0-1.0); UREA NITROGEN, BLOOD 43 mg/dL (8-21)
[2022-04-11] MEDS: BISACODYL 5 MG TABLET.DR (DULCOLAX) PO SCH ×2 (08:37→20:58)
[2022-04-11] MEDS: PANTOPRAZOLE SODIUM 40 MG/VIAL (PROTONIX) IVP SCH (08:37)
[2022-04-11] MEDS: DOCUSATE SODIUM 100 MG/10 ML UDC PO SCH ×2 (08:37→20:58)
[2022-04-11] MEDS: LACTULOSE 20 GM/30 ML UDC PO SCH ×3 (08:37→20:59)
[2022-04-11] MEDS: NEPHROVITE, (FOLIC ACID/VITAMIN B COMP W-C 1 TAB) PO SCH (08:38)
[2022-04-11] MEDS: TAMSULOSIN HCL 0.4 MG CAP PO SCH ×2 (08:38→20:58)
[2022-04-11] MEDS: BALSAM PERU/CASTOR OIL 56.7 GM OINT...G. TP SCH (08:38)
[2022-04-11] MEDS: CHOLECALCIFEROL (VITAMIN D3) 2,000 UNIT TABLET PO SCH (08:38)
[2022-04-11] MEDS: MIDODRINE HCL 5 MG TABLET (PROAMATINE) PO SCH ×4 (08:40→21:01)
--- NOTE | 2022-04-11 08:49 | NUR ---
RT NOTES Per daily CPAP, vent to CPAP 5 PS 10. No adverse reactions noted. Pt. is awake, reeducated on CPAP trials. Will monitor pt.
[2022-04-11] MEDS: COLISTIMETHATE SODIUM 150 MG VIAL INH SCH ×2 (08:52→19:52)
[2022-04-11] MEDS: TIGECYCLINE 50 MG in NS 100 ML IV SCH ×2 (09:20→21:00)
[2022-04-11] MEDS: AMIODARONE HCL 200 MG TABLET PO SCH (09:50)
[2022-04-11] MEDS: MICAFUNGIN SODIUM 100 MG in NS 100 ML IV SCH (10:52)
--- NOTE | 2022-04-11 14:45 | NUR ---
RT NOTES NIF 20.66
--- NOTE | 2022-04-11 15:19 | NUR ---
RT NOTES Pt was extubated and placed on 3L NC. Oral sxn was performed before cuff deflation. Pt. was re-educated on deep breathing exercises.
--- NOTE | 2022-04-11 15:59 | NUR ---
RT NOTES Pt cont. to tolerated O2 via NC, sat 99% RR 24 HR 103. No distress noted. at bedside.
[2022-04-11] MEDS: ACETAMINOPHEN 650 MG/20.3 ML UDC PO PRN (18:58)
--- NOTE | 2022-04-11 19:30 | NUR ---
Opening Received report on pt. Pt AAOx3, on 2L O2 nasal cannula. Pt states no pain or distress at this time. NGT in place with tube feeding. Lunsford and flexiseal in place.
[2022-04-11] MEDS: NOREPINEPHRINE BITARTRATE 32 MG in D5W 218 ML IV PRN (22:00)
--- NOTE | 2022-04-11 22:40 | NUR ---
Updates given to pt's Edel
[2022-04-12] VITALS (22 sets, daily range): BP systolic 101–144
[2022-04-12 07:06] LABS: ALANINE AMINOTRANSFERASE 18 U/L (12-78); ANION GAP 8 (5-15); ASPARTATE AMINOTRANSFERASE 38 U/L (10-37); CALCIUM 8.5 mg/dL (8.4-11.0); CHLORIDE 110 mmol/L (98-107); GLUCOSE 121 mg/dL (70-99); POTASSIUM 3.8 mmol/L (3.5-5.1); TOTAL BILIRUBIN 1.6 mg/dL (0.0-1.0); UREA NITROGEN, BLOOD 57 mg/dL (8-21)
--- NOTE | 2022-04-12 07:12 | NUR ---
Endorsement Pt in no signs of acute distress. Pt also on levophed for BP support. Endorsed plan of care to RN.
--- NOTE | 2022-04-12 07:14 | NUR ---
received report from endorsing cage shift manager RN for continuity of care, patient lying on bed awake, on Levophed at 0.1 mcg/kg/min= 5.15 ml/hr, on Tube feeding of vital AF @ 60 ml/hr .mendoza catheter in place, draining to gravity and rectal tube @ 100 cc. no signs of acute distress noted at this time, will continue to monitor.
[2022-04-12] MEDS: COLISTIMETHATE SODIUM 150 MG VIAL INH SCH ×2 (07:24→20:42)
[2022-04-12 07:50] LABS: BASOPHILS # (AUTO) 0.1 K/uL (0.0-0.2); EOSINOPHILS # (AUTO) 0.1 K/uL (0.0-0.4); EOSINOPHILS % (AUTO) 1.5 % (0.0-4.0); HEMOGLOBIN 9.9 g/dL (14.0-18.0); LYMPHOCYTES # (AUTO) 0.9 K/uL (1.0-5.5); LYMPHOCYTES % (AUTO) 14.9 % (20.5-51.5); MEAN CORPUSCULAR HEMOGLOBIN 33 pg (27-31); MEAN CORPUSCULAR HGB CONC 33 % (32-36); MEAN CORPUSCULAR VOLUME 101 fL (79.0-98.0); MONOCYTES # (AUTO) 0.5 K/uL (0.0-1.0); MONOCYTES % (AUTO) 8.7 % (1.7-9.3); NEUTROPHILS # (AUTO) 4.7 K/uL (1.8-7.7); NEUTROPHILS % (AUTO) 73.9 % (40.0-70.0); PLATELET COUNT (AUTO) 101 K/uL (130-430); RED BLOOD CELL COUNT(AUTO) 2.96 MIL/uL (4.2-6.2); RED CELL DISTRIBUTION WIDTH 27.7 % (9.0-15.0); WHITE BLOOD COUNT (AUTO) 6.3 K/uL (4.8-10.8)
[2022-04-12] MEDS: LACTULOSE 20 GM/30 ML UDC PO SCH ×3 (09:52→21:25)
[2022-04-12] MEDS: TIGECYCLINE 50 MG in NS 100 ML IV SCH ×2 (09:52→21:25)
[2022-04-12] MEDS: BISACODYL 5 MG TABLET.DR (DULCOLAX) PO SCH ×2 (09:53→21:25)
[2022-04-12] MEDS: NEPHROVITE, (FOLIC ACID/VITAMIN B COMP W-C 1 TAB) PO SCH (09:53)
[2022-04-12] MEDS: CHOLECALCIFEROL (VITAMIN D3) 2,000 UNIT TABLET PO SCH (09:53)
[2022-04-12] MEDS: DOCUSATE SODIUM 100 MG/10 ML UDC PO SCH ×2 (09:53→21:25)
[2022-04-12] MEDS: TAMSULOSIN HCL 0.4 MG CAP PO SCH ×2 (09:53→21:25)
[2022-04-12] MEDS: AMIODARONE HCL 200 MG TABLET PO SCH (09:54)
[2022-04-12] MEDS: PANTOPRAZOLE SODIUM 40 MG/VIAL (PROTONIX) IVP SCH (09:54)
[2022-04-12] MEDS: MIDODRINE HCL 5 MG TABLET (PROAMATINE) PO SCH ×3 (10:00→21:25)
[2022-04-12] MEDS: MICAFUNGIN SODIUM 100 MG in NS 100 ML IV SCH (11:15)
[2022-04-12] MEDS: BALSAM PERU/CASTOR OIL 56.7 GM OINT...G. TP SCH (11:29)
--- NOTE | 2022-04-12 13:00 | NUR ---
bedside care rendered, oral care given , wound dressings changed and wound pictures taken.
[2022-04-12] MEDS: ACETAMINOPHEN 650 MG/20.3 ML UDC PO PRN (14:10)
--- NOTE | 2022-04-12 16:19 | NUR ---
Nutrition F/U RDN reviewed pt's current EMR including diet hx, phsyician notes, nursing notes, pertinent labs/meds/procedures, care trends, and care activity. Shortened note d/t high workload. Current Diet Order/ Nutrition Support: Vital AF @ 60 mL/hr, Fly BID, free water flush: 100mL Q8h via NGT x 6 days Subjective Information: Per chart review/ ICU rounds/ RN: Patient was successfully extubated 04/10. Pt tolerating TF @ goal rate with 0mL residuals. Pt seen at bedside receiving HD; last HD 04/10 with 2L removed. LBM 04/12 - 200mL via rectal tube. Pt with multiple wounds, RN endorses providing Fly BID. 2+ BLE putting present 04/12. Earle 12 04/12 Estimated Energy Expenditure (kcal/day): 5299-6904 (25-30 kcal/kg IBW d/t CKD on HD, wounds) Estimated Protein Required (g/day) 87-109 (1.2-1.5 g/kg IBW d/t CKD on HD, wounds) Estimated Fluid Required (L/day) per MD d/t CKD Dietitian Recommendations * If/ when medically appropriate, consider advance diet per MD or RUBBING BED OPERATOR/ST * If patient unable to tolerate PO and is stable, consider adjusting TF order: Nepro @ 50mL x 24h + fwf per MD - This provides 2160 kcal, 97g protein, and 872mL * Continue Nephrovite; consider 220mg ZnSO4 BID x 14d and 250mg VIT C for wound healing High Risk F/U: 2-3 days - 04/15/22
--- NOTE | 2022-04-12 16:37 | NUR ---
Dietitian Recommendations * If/ when medically appropriate, consider advance diet per MD or BUS MONITOR/ST * If patient unable to tolerate PO and is stable, consider adjusting TF order: Nepro @ 50mL x 24h + fwf per MD - This provides 2160 kcal, 97g protein, and 872mL; 99% upper end of kcal and 114% lower end of protein needs * Continue Nephrovite; consider 220mg ZnSO4 BID x 14d and 250mg VIT C for wound healing Please refer to Nutrition F/U for details, thanks! CC, MPH, RDN
[2022-04-12] MEDS ORDERED: HEPARIN SODIUM, PORCINE 10,000 UNITS/ 10 ML VIAL MC ONE (17:15)
--- NOTE | 2022-04-12 18:07 | NUR ---
HD ended at 1807, 2.1L out. Heparin 5000 in each port with a total of 10,000 units given by the HD RN.
[2022-04-12] MEDS: EPOETIN ALFA 4,000 UNITS/ML VIAL SUBCUT SCH (18:10)
[2022-04-13] VITALS (23 sets, daily range): BP systolic 90–123
[2022-04-13] MEDS: ACETAMINOPHEN 650 MG/20.3 ML UDC PO PRN (06:31)
[2022-04-13 06:40] LABS: BASOPHILS # (AUTO) 0.1 K/uL (0.0-0.2); BASOPHILS % (AUTO) 1.3 % (0.0-2.0); EOSINOPHILS # (AUTO) 0.1 K/uL (0.0-0.4); EOSINOPHILS % (AUTO) 1.1 % (0.0-4.0); HEMATOCRIT 31.7 % (36-54); HEMOGLOBIN 10.4 g/dL (14.0-18.0); LYMPHOCYTES # (AUTO) 1.3 K/uL (1.0-5.5); LYMPHOCYTES % (AUTO) 19.1 % (20.5-51.5); MEAN CORPUSCULAR HEMOGLOBIN 33 pg (27-31); MEAN CORPUSCULAR HGB CONC 33 % (32-36); MEAN CORPUSCULAR VOLUME 101 fL (79.0-98.0); MONOCYTES # (AUTO) 0.7 K/uL (0.0-1.0); MONOCYTES % (AUTO) 9.8 % (1.7-9.3); NEUTROPHILS # (AUTO) 4.6 K/uL (1.8-7.7); NEUTROPHILS % (AUTO) 68.7 % (40.0-70.0); PLATELET COUNT (AUTO) 107 K/uL (130-430); RED BLOOD CELL COUNT(AUTO) 3.15 MIL/uL (4.2-6.2); RED CELL DISTRIBUTION WIDTH 26.6 % (9.0-15.0); WHITE BLOOD COUNT (AUTO) 6.7 K/uL (4.8-10.8)
[2022-04-13 06:50] LABS: ALANINE AMINOTRANSFERASE 18 U/L (12-78); ANION GAP 9 (5-15); ASPARTATE AMINOTRANSFERASE 43 U/L (10-37); CALCIUM 8.7 mg/dL (8.4-11.0); CHLORIDE 108 mmol/L (98-107); CREATININE 1.71 mg/dL (0.55-1.30); GLUCOSE 106 mg/dL (70-99); PHOSPHORUS 3.8 mg/dL (2.7-4.5); POTASSIUM 3.8 mmol/L (3.5-5.1); UREA NITROGEN, BLOOD 45 mg/dL (8-21)
--- NOTE | 2022-04-13 07:03 | NUR ---
received report from endorsing mold shifter RN for continuity of care, patient lying on bed on Levophed @ 0.1 mcg/kg/min, on NC 2L of oxygen, mendoza catheter in place, wiley urine in color draining to gravity rectal tube in place. no signs of acute distress noted at this time, patient is at bedside. will continue to monitor.
[2022-04-13] MEDS: COLISTIMETHATE SODIUM 150 MG VIAL INH SCH ×2 (07:12→21:00)
[2022-04-13] MEDS: PANTOPRAZOLE SODIUM 40 MG/VIAL (PROTONIX) IVP SCH (08:14)
[2022-04-13] MEDS: TAMSULOSIN HCL 0.4 MG CAP PO SCH ×2 (08:15→21:02)
[2022-04-13] MEDS: LACTULOSE 20 GM/30 ML UDC PO SCH ×3 (08:16→21:02)
[2022-04-13] MEDS: BISACODYL 5 MG TABLET.DR (DULCOLAX) PO SCH ×2 (08:18→21:02)
[2022-04-13] MEDS: NEPHROVITE, (FOLIC ACID/VITAMIN B COMP W-C 1 TAB) PO SCH (08:18)
[2022-04-13] MEDS: CHOLECALCIFEROL (VITAMIN D3) 2,000 UNIT TABLET PO SCH (08:18)
[2022-04-13] MEDS: AMIODARONE HCL 200 MG TABLET PO SCH (08:18)
[2022-04-13] MEDS: DOCUSATE SODIUM 100 MG/10 ML UDC PO SCH ×2 (08:19→21:01)
[2022-04-13] MEDS: MIDODRINE HCL 5 MG TABLET (PROAMATINE) PO SCH ×3 (08:22→21:02)
[2022-04-13] MEDS: BALSAM PERU/CASTOR OIL 56.7 GM OINT...G. TP SCH (10:12)
[2022-04-13] MEDS: MICAFUNGIN SODIUM 100 MG in NS 100 ML IV SCH (10:12)
[2022-04-13] MEDS: NOREPINEPHRINE BITARTRATE 32 MG in D5W 218 ML IV PRN (10:15)
[2022-04-13] MEDS: TIGECYCLINE 50 MG in NS 100 ML IV SCH ×2 (10:25→21:01)
--- NOTE | 2022-04-13 15:30 | NUR ---
patient pulls out NG tube, Dr. Schmidt and Dr. Márquez is at the bedisde assessing the patient. will continue to monitor.
--- NOTE | 2022-04-13 16:28 | NUR ---
ST EVALUATION COMPLETED. ST TX NOT INDICATED AT THIS TIME. RECOMMEND PO DIET OF PUREE/NECTAR THICK LIQUID WITH 1:1 FEEDER AND FULL ASPIRATION PRECAUTIONS.
--- NOTE | 2022-04-13 18:22 | NUR ---
patient is at the bedside, informed her that the patient removed the NG tube , swallow evaluation is done and explained to the patient refused meds. patient heart rate 104, respiratory rate 24, oxygen saturation 100 and blood pressure 100/41.
[2022-04-13] MEDS ORDERED: APIXABAN 2.5 MG TABLET PO SCH (21:00)
[2022-04-14] VITALS (23 sets, daily range): BP systolic 90–124
[2022-04-14] MEDS: COLISTIMETHATE SODIUM 150 MG VIAL INH SCH ×2 (07:45→20:51)
[2022-04-14 07:53] LABS: BASOPHILS # (AUTO) 0.1 K/uL (0.0-0.2); BASOPHILS % (AUTO) 2.1 % (0.0-2.0); EOSINOPHILS # (AUTO) 0.1 K/uL (0.0-0.4); EOSINOPHILS % (AUTO) 1.1 % (0.0-4.0); HEMATOCRIT 29.7 % (36-54); HEMOGLOBIN 9.5 g/dL (14.0-18.0); LYMPHOCYTES # (AUTO) 1.2 K/uL (1.0-5.5); LYMPHOCYTES % (AUTO) 20.1 % (20.5-51.5); MEAN CORPUSCULAR HEMOGLOBIN 33 pg (27-31); MEAN CORPUSCULAR HGB CONC 32 % (32-36); MEAN CORPUSCULAR VOLUME 102 fL (79.0-98.0); MONOCYTES # (AUTO) 0.5 K/uL (0.0-1.0); NEUTROPHILS # (AUTO) 3.9 K/uL (1.8-7.7); NEUTROPHILS % (AUTO) 67.7 % (40.0-70.0); PLATELET COUNT (AUTO) 97 K/uL (130-430); RED BLOOD CELL COUNT(AUTO) 2.91 MIL/uL (4.2-6.2); RED CELL DISTRIBUTION WIDTH 26.1 % (9.0-15.0); WHITE BLOOD COUNT (AUTO) 5.7 K/uL (4.8-10.8)
[2022-04-14] MEDS: CHOLECALCIFEROL (VITAMIN D3) 2,000 UNIT TABLET PO SCH (08:24)
[2022-04-14 08:25] LABS: ALANINE AMINOTRANSFERASE 23 U/L (12-78); ALBUMIN 1.7 g/dL (3.4-4.8); ANION GAP 9 (5-15); CALCIUM 8.6 mg/dL (8.4-11.0); CHLORIDE 112 mmol/L (98-107); CREATININE 2.05 mg/dL (0.55-1.30); GLUCOSE 67 mg/dL (70-99); PHOSPHORUS 3.9 mg/dL (2.7-4.5); POTASSIUM 3.9 mmol/L (3.5-5.1); TOTAL BILIRUBIN 1.7 mg/dL (0.0-1.0); UREA NITROGEN, BLOOD 56 mg/dL (8-21)
[2022-04-14] MEDS: NEPHROVITE, (FOLIC ACID/VITAMIN B COMP W-C 1 TAB) PO SCH (08:25)
[2022-04-14] MEDS: DOCUSATE SODIUM 100 MG/10 ML UDC PO SCH ×2 (08:25→20:38)
[2022-04-14] MEDS: BISACODYL 5 MG TABLET.DR (DULCOLAX) PO SCH ×2 (08:25→20:38)
[2022-04-14] MEDS: LACTULOSE 20 GM/30 ML UDC PO SCH ×3 (08:25→20:39)
[2022-04-14] MEDS: AMIODARONE HCL 200 MG TABLET PO SCH (08:25)
[2022-04-14] MEDS: TAMSULOSIN HCL 0.4 MG CAP PO SCH ×2 (08:25→20:38)
[2022-04-14] MEDS: MIDODRINE HCL 5 MG TABLET (PROAMATINE) PO SCH ×3 (08:27→20:39)
[2022-04-14] MEDS: PANTOPRAZOLE SODIUM 40 MG/VIAL (PROTONIX) IVP SCH (08:43)
--- NOTE | 2022-04-14 09:00 | NUR ---
Transfer order on hold per Dr. Craft, patient blood pressure is still unstable.
[2022-04-14] MEDS ORDERED: NACL 0.9% 1,000 ML IV SCH (09:15)
[2022-04-14 09:43] LABS: ASPARTATE AMINOTRANSFERASE 51 U/L (10-37)
[2022-04-14] MEDS: BALSAM PERU/CASTOR OIL 56.7 GM OINT...G. TP SCH (10:15)
[2022-04-14] MEDS: TIGECYCLINE 50 MG in NS 100 ML IV SCH ×2 (10:16→20:38)
--- NOTE | 2022-04-14 10:30 | NUR ---
DR. Márquez is at the bedside assessing the patient, asked me if the patient is receiving an IV fluids and told him only TKO. There is an order from Dr. Mcguire of NS @ 50 ml/hr and Dr. Márquez told me to DC it.Patient still on 1L of oxygen via nasal cannula saturating 100 percent.Lunsford catheter in place wiley urine in color draining to gravity. Rectal tube in place.no signs of acute distress . will continue to monitor.
[2022-04-14] MEDS: MICAFUNGIN SODIUM 100 MG in NS 100 ML IV SCH (11:45)
[2022-04-14] MEDS ORDERED: ALBUMIN HUMAN 25% 100 ML IV ONE ×2 (16:38→16:45)
--- NOTE | 2022-04-14 16:45 | NUR ---
dialysis nurse communicated with Dr. Harmon requesting order of albumin 25% 100 ml. for Blood pressure support during hemodialysis.
[2022-04-14] MEDS: EPOETIN ALFA-EPBX 4,000 UNITS/ML VIAL SUBCUT SCH (17:03)
[2022-04-15] VITALS (18 sets, daily range): BP systolic 90–120
[2022-04-15 08:14] LABS: INR 1.4 (0.80-1.20); PROTHROMBIN TIME 14.2 SECS (9.5-12.5)
[2022-04-15 08:34] LABS: ALANINE AMINOTRANSFERASE 21 U/L (12-78); ALBUMIN 2.2 g/dL (3.4-4.8); ANION GAP 7 (5-15); ASPARTATE AMINOTRANSFERASE 51 U/L (10-37); CALCIUM 8.8 mg/dL (8.4-11.0); CHLORIDE 110 mmol/L (98-107); CREATININE 1.76 mg/dL (0.55-1.30); GLUCOSE 71 mg/dL (70-99); PHOSPHORUS 3.2 mg/dL (2.7-4.5); POTASSIUM 4.1 mmol/L (3.5-5.1); TOTAL BILIRUBIN 2.1 mg/dL (0.0-1.0); UREA NITROGEN, BLOOD 41 mg/dL (8-21)
[2022-04-15 08:58] LABS: BASOPHILS # (AUTO) 0.1 K/uL (0.0-0.2); BASOPHILS % (AUTO) 2.3 % (0.0-2.0); EOSINOPHILS # (AUTO) 0.1 K/uL (0.0-0.4); EOSINOPHILS % (AUTO) 1.2 % (0.0-4.0); HEMATOCRIT 29.7 % (36-54); HEMOGLOBIN 9.7 g/dL (14.0-18.0); LYMPHOCYTES # (AUTO) 0.8 K/uL (1.0-5.5); LYMPHOCYTES % (AUTO) 15.8 % (20.5-51.5); MEAN CORPUSCULAR HEMOGLOBIN 33 pg (27-31); MEAN CORPUSCULAR HGB CONC 33 % (32-36); MEAN CORPUSCULAR VOLUME 102 fL (79.0-98.0); MONOCYTES # (AUTO) 0.5 K/uL (0.0-1.0); MONOCYTES % (AUTO) 10.2 % (1.7-9.3); NEUTROPHILS # (AUTO) 3.4 K/uL (1.8-7.7); NEUTROPHILS % (AUTO) 70.5 % (40.0-70.0); PLATELET COUNT (AUTO) 138 K/uL (130-430); RED BLOOD CELL COUNT(AUTO) 2.91 MIL/uL (4.2-6.2); RED CELL DISTRIBUTION WIDTH 25.9 % (9.0-15.0); WHITE BLOOD COUNT (AUTO) 4.8 K/uL (4.8-10.8)
[2022-04-15] MEDS: COLISTIMETHATE SODIUM 150 MG VIAL INH SCH (10:08)
[2022-04-15] MEDS: CHOLECALCIFEROL (VITAMIN D3) 2,000 UNIT TABLET PO SCH ×2 (10:09→11:19)
[2022-04-15] MEDS: TAMSULOSIN HCL 0.4 MG CAP PO SCH ×4 (10:09→21:31)
[2022-04-15] MEDS: TIGECYCLINE 50 MG in NS 100 ML IV SCH ×2 (10:09→21:30)
[2022-04-15] MEDS: DOCUSATE SODIUM 100 MG/10 ML UDC PO SCH ×4 (10:09→21:29)
[2022-04-15] MEDS: BISACODYL 5 MG TABLET.DR (DULCOLAX) PO SCH ×4 (10:09→21:31)
[2022-04-15] MEDS: NEPHROVITE, (FOLIC ACID/VITAMIN B COMP W-C 1 TAB) PO SCH ×2 (10:09→11:19)
[2022-04-15] MEDS: AMIODARONE HCL 200 MG TABLET PO SCH ×2 (10:10→11:18)
[2022-04-15] MEDS: PANTOPRAZOLE SODIUM 40 MG/VIAL (PROTONIX) IVP SCH (10:11)
[2022-04-15] MEDS: MIDODRINE HCL 5 MG TABLET (PROAMATINE) PO SCH ×4 (10:11→21:29)
[2022-04-15] MEDS: LACTULOSE 20 GM/30 ML UDC PO SCH ×4 (10:11→21:30)
[2022-04-15] MEDS: MICAFUNGIN SODIUM 100 MG in NS 100 ML IV SCH (10:12)
[2022-04-15] MEDS: NACL 0.9% 1,000 ML IV SCH (10:56)
[2022-04-15] MEDS: BALSAM PERU/CASTOR OIL 56.7 GM OINT...G. TP SCH (11:20)
[2022-04-15] MEDS: ACETAMINOPHEN 650 MG/20.3 ML UDC PO PRN ×2 (12:24→18:26)
--- NOTE | 2022-04-15 16:15 | NUR ---
ICU TRANSFER NOTE Received patient from ICU, vital sign within normal limits of patient's, denies pain, noted patient on oxygen at 1 liter, multiple wound noted with intact dressing to right lower leg, Patient noted with central line to right jugular, states it's the dialysis access, last dialysis 04/14/2022, 1500ml out per , patient does not have scheduled dialysis day, states Doctor inform that he could get one tomorrow or Sunday04/17/2022, Patient also noted with Mendoza catheter, scant dark yellow urine noted of about 50 cc, mendoza draining by gravity, patient also noted with Flexiseal pouch connected with loose fecal matter, Patient also has sacral wound with intact dressing. Picc line double lumen to right arm with NS infusing at 40cc/ hour. In no acute distress, able to make needs known, call light and belonging to reach, bed in low position. Addendum: 04/15/22 at 1708 by [employer] CARMELITA Rice RN patient is oriented x 3, able to make needs known.
--- NOTE | 2022-04-15 19:40 | NUR ---
INITIAL NOTE AT INITIAL ASSESSMENT, PATIENT IS RESTING IN BED, STABLE, NO SIGNS OF RESPIRATORY DISTRESS. PATIENT VERBALIZES NO PAIN. PLAN OF CARE FOR THE EVENING IS COMMUNICATED WITH THE PATIENT, ALTHOUGH HE IS CONFUSED. HE IS ON 1L NASAL CANNULA WITH OXYGEN SATURATION AT 98%, HE IS TOLERATING THE OXYGEN WELL. BED IS LOCKED, ALARMED, AND AT THE LOWEST LEVEL. ASPIRATION, RESPIRATORY, FALL, AND SAFETY PRECAUTIONS WILL BE IN PLACE THROUGHOUT THE SHIFT. PATIENT WILL BE TURNED [id number] DURING THE SHIFT.
--- NOTE | 2022-04-15 22:05 | NUR ---
HYGIENE CARE HYGIENE CARE PROVIDED AT THIS TIME. HE IS PROVIDED WITH FRESH LINENS AND REPOSITIONED FOR COMFORT.
[2022-04-16] VITALS: BP_SYST 96
--- NOTE | 2022-04-16 05:20 | NUR ---
HYGIENE CARE HYGIENE CARE PROVIDED AT THIS TIME. HE IS PROVIDED WITH FRESH LINENS AND REPOSITIONED FOR COMFORT. PATIENT TOLERATED WELL.
--- NOTE | 2022-04-16 07:25 | NUR ---
CLOSING NOTE PATIENT TITRATED DOWN TO ROOM AIR WITH OXYGEN SATURATION AT 100%. HE REMAINS CONFUSED AND REFUSES MEDICATIONS AND CARE AT TIMES. HE SLEPT WELL DURING THE SHIFT, AND STATED HE HAD NO PAIN. FALL, SAFETY, RESPIRATORY, AND ASPIRATION PRECAUTIONS HAVE BEEN IN PLACE THROUGHOUT THE SHIFT. WILL CONTINUE TO MONITOR UNTIL SHIFT REPORT IS GIVEN AT BEDSIDE TO AM NURSE.
--- NOTE | 2022-04-16 08:20 | NUR ---
Received patient in bed aaox2, patient's vital signs taken, HR noted in the low 100's, patient appear irritated, offered to feed patient, patient declines at this time, offered to turn patient, patient declined, offered pain medication, patient decline, bed , Picc line intact infusing Normal Saline at 40cc/hour, central line to right jugular intact,patient flexiseal in place with minimal fecal matter, Lunsford catheter in place with scant yellow urine, made comfortable, RN and team will continue to make patient comfortable. Call light placed to reach, belongings also at the reach of patient, bed l=in low position, will continue to monitor.
[2022-04-16 09:01] VITALS: BP_SYST 115
[2022-04-16 11:32] VITALS: BP_SYST 104
--- NOTE | 2022-04-16 12:00 | NUR ---
Patient refused medication, wound care and care earlier before arrived, [atient was uncooperative, patient meds was passed late when came, patient was reported agitated last night and also non cooperative this morning. RN passed meds and helped CHEESE SUPERVISOR to change patient. made aware of patient's progress. Call light placed to reach.
[2022-04-16] MEDS: LACTULOSE 20 GM/30 ML UDC PO SCH ×2 (12:50→22:52)
[2022-04-16] MEDS: ACETAMINOPHEN 650 MG/20.3 ML UDC PO PRN (12:51)
[2022-04-16] MEDS: DOCUSATE SODIUM 100 MG/10 ML UDC PO SCH ×2 (12:51→22:52)
[2022-04-16] MEDS: TAMSULOSIN HCL 0.4 MG CAP PO SCH (12:52)
[2022-04-16] MEDS: MIDODRINE HCL 5 MG TABLET (PROAMATINE) PO SCH ×2 (12:52→22:52)
[2022-04-16] MEDS: NEPHROVITE, (FOLIC ACID/VITAMIN B COMP W-C 1 TAB) PO SCH (12:53)
[2022-04-16] MEDS: CHOLECALCIFEROL (VITAMIN D3) 2,000 UNIT TABLET PO SCH (12:53)
[2022-04-16] MEDS: BISACODYL 5 MG TABLET.DR (DULCOLAX) PO SCH ×2 (12:53→22:53)
[2022-04-16] MEDS: BALSAM PERU/CASTOR OIL 56.7 GM OINT...G. TP SCH (12:54)
[2022-04-16] MEDS: TIGECYCLINE 50 MG in NS 100 ML IV SCH (13:23)
[2022-04-16] MEDS: AMIODARONE HCL 200 MG TABLET PO SCH (13:46)
[2022-04-16] MEDS: MICAFUNGIN SODIUM 100 MG in NS 100 ML IV SCH (13:47)
[2022-04-16] MEDS: NACL 0.9% 1,000 ML IV SCH (13:49)
--- NOTE | 2022-04-16 16:00 | NUR ---
patient in bed with , in no acute distress, patient in better mood and cooperative, in no acute distress, will continue to monitor.
[2022-04-16 16:02] VITALS: BP_SYST 108
[2022-04-16] MEDS ORDERED: DIGOXIN 0.25 MG TABLET PO ONE (17:00)
[2022-04-16] MEDS ORDERED: MEGESTROL ACETATE 400 MG/10 ML UDC PO ONE (17:15)
[2022-04-16 20:00] VITALS: BP_SYST 107
[2022-04-17] VITALS: BP_SYST 110
[2022-04-17 01:25] VITALS: BP_SYST 96
[2022-04-17 08:00] VITALS: BP_SYST 116
[2022-04-17] MEDS: PANTOPRAZOLE SODIUM 40 MG/VIAL (PROTONIX) IVP SCH (09:49)
[2022-04-17] MEDS: AMIODARONE HCL 200 MG TABLET PO SCH (09:50)
[2022-04-17] MEDS: NEPHROVITE, (FOLIC ACID/VITAMIN B COMP W-C 1 TAB) PO SCH (09:51)
[2022-04-17] MEDS: BISACODYL 5 MG TABLET.DR (DULCOLAX) PO SCH ×2 (09:51→21:43)
[2022-04-17] MEDS: TAMSULOSIN HCL 0.4 MG CAP PO SCH (09:51)
[2022-04-17] MEDS: MIDODRINE HCL 5 MG TABLET (PROAMATINE) PO SCH ×3 (09:51→21:44)
[2022-04-17] MEDS: LACTULOSE 20 GM/30 ML UDC PO SCH ×2 (09:52→21:45)
[2022-04-17] MEDS: CHOLECALCIFEROL (VITAMIN D3) 2,000 UNIT TABLET PO SCH (09:53)
[2022-04-17] MEDS: DOCUSATE SODIUM 100 MG/10 ML UDC PO SCH ×2 (09:53→21:44)
[2022-04-17] MEDS: MEGESTROL ACETATE 400 MG/10 ML UDC PO SCH (10:00)
[2022-04-17] MEDS: BALSAM PERU/CASTOR OIL 56.7 GM OINT...G. TP SCH (11:00)
[2022-04-17 11:36] VITALS: BP_SYST 100
[2022-04-17] MEDS: MICAFUNGIN SODIUM 100 MG in NS 100 ML IV SCH (12:02)
[2022-04-17 14:50] LABS: BASOPHILS # (AUTO) 0.1 K/uL (0.0-0.2); BASOPHILS % (AUTO) 1.5 % (0.0-2.0); EOSINOPHILS # (AUTO) 0.1 K/uL (0.0-0.4); HEMATOCRIT 31.2 % (36-54); HEMOGLOBIN 9.8 g/dL (14.0-18.0); LYMPHOCYTES % (AUTO) 13.7 % (20.5-51.5); MEAN CORPUSCULAR HEMOGLOBIN 32 pg (27-31); MEAN CORPUSCULAR HGB CONC 32 % (32-36); MEAN CORPUSCULAR VOLUME 102 fL (79.0-98.0); MONOCYTES # (AUTO) 0.2 K/uL (0.0-1.0); MONOCYTES % (AUTO) 3.4 % (1.7-9.3); NEUTROPHILS # (AUTO) 5.5 K/uL (1.8-7.7); NEUTROPHILS % (AUTO) 79.4 % (40.0-70.0); PLATELET COUNT (AUTO) 220 K/uL (130-430); RED BLOOD CELL COUNT(AUTO) 3.05 MIL/uL (4.2-6.2)
[2022-04-17 14:58] LABS: RED CELL DISTRIBUTION WIDTH 25.6 % (9.0-15.0)
[2022-04-17 15:40] LABS: ALANINE AMINOTRANSFERASE 20 U/L (12-78); ALBUMIN 1.7 g/dL (3.4-4.8); ANION GAP 10 (5-15); ASPARTATE AMINOTRANSFERASE 50 U/L (10-37); CHLORIDE 112 mmol/L (98-107); CREATININE 2.35 mg/dL (0.55-1.30); GLUCOSE 106 mg/dL (70-99); POTASSIUM 3.5 mmol/L (3.5-5.1); TOTAL BILIRUBIN 2.1 mg/dL (0.0-1.0); UREA NITROGEN, BLOOD 55 mg/dL (8-21)
[2022-04-17] MEDS ORDERED: ALBUMIN HUMAN 25% 200 ML IV ONE (16:30)
[2022-04-17 17:32] VITALS: BP_SYST 104
[2022-04-17] MEDS: EPOETIN ALFA-EPBX 4,000 UNITS/ML VIAL SUBCUT SCH (18:03)
[2022-04-17] MEDS ORDERED: DIGOXIN 0.125 MG TABLET PO ONE (19:30)
--- NOTE | 2022-04-17 19:30 | NUR ---
OPENING NOTES: Patient received from AM shift. Patient is resting with no s/s of distress noted at this time. Chest rise is even and unlabored. Normal heart sounds present on auscultation. BS active x4 and no pain noted with palpation. Call light is within reach and safety protocol is in place. Will resume care and continue to monitor throughout the shift.
[2022-04-17 20:00] VITALS: BP_SYST 90
--- NOTE | 2022-04-18 | NUR ---
PATIENT RESTING: Patient resting quietly. No acute distress noted. Vital signs within normal range.
[2022-04-18 01:18] VITALS: BP_SYST 105
--- NOTE | 2022-04-18 07:05 | NUR ---
OPENING NOTE RECEIVED SBAR FROM NIGHT RN, PATIENT IN BED, RESPIRATIONS EVEN, NON LABORED BED IN LOW AND LOCKED POSITION CALL LIGHT WITHIN REACH. BED ALARM ON.
[2022-04-18 08:00] VITALS: BP_SYST 90
[2022-04-18] MEDS: PANTOPRAZOLE SODIUM 40 MG/VIAL (PROTONIX) IVP SCH (09:00)
[2022-04-18] MEDS: AMIODARONE HCL 200 MG TABLET PO SCH (09:00)
[2022-04-18] MEDS: BALSAM PERU/CASTOR OIL 56.7 GM OINT...G. TP SCH (09:00)
--- NOTE | 2022-04-18 09:56 | NUR ---
pain patient is complaining of pain in abdomen. 05/22. paged Dr Márquez
[2022-04-18] MEDS: LACTULOSE 20 GM/30 ML UDC PO SCH ×2 (09:58→21:47)
[2022-04-18] MEDS: DOCUSATE SODIUM 100 MG/10 ML UDC PO SCH ×2 (09:58→21:47)
[2022-04-18] MEDS: MEGESTROL ACETATE 400 MG/10 ML UDC PO SCH (09:58)
[2022-04-18 10:00] VITALS: BP_SYST 118
[2022-04-18] MEDS: MIDODRINE HCL 5 MG TABLET (PROAMATINE) PO SCH ×3 (10:00→21:47)
[2022-04-18] MEDS: NEPHROVITE, (FOLIC ACID/VITAMIN B COMP W-C 1 TAB) PO SCH (10:00)
[2022-04-18] MEDS: TAMSULOSIN HCL 0.4 MG CAP PO SCH (10:00)
[2022-04-18] MEDS: CHOLECALCIFEROL (VITAMIN D3) 2,000 UNIT TABLET PO SCH (10:00)
[2022-04-18] MEDS: BISACODYL 5 MG TABLET.DR (DULCOLAX) PO SCH ×2 (10:00→21:47)
--- NOTE | 2022-04-18 10:00 | NUR ---
informed Dr Márquez of patients pain per dr Márquez give tylenol as ordered
[2022-04-18] MEDS: ACETAMINOPHEN 650 MG/20.3 ML UDC PO PRN (10:06)
--- NOTE | 2022-04-18 11:58 | NUR ---
I spoke to Dr Harmon-Patient to dialyze at [facility]-out patient- Order for TB Gold and Hepatitis panel entered.
--- NOTE | 2022-04-18 12:08 | NUR ---
INFORMED DR SILVER THAT PATIENT IS VOMITING. NEW ORDERS RECEIVED
--- NOTE | 2022-04-18 12:55 | NUR ---
Discharge Planning: DCP faxed pt referral to [facility] [phone] DCP to follow up
[2022-04-18] MEDS: ONDANSETRON HCL 4 MG/2 ML VIAL IVP PRN (12:58)
[2022-04-18] MEDS: MICAFUNGIN SODIUM 100 MG in NS 100 ML IV SCH (12:59)
[2022-04-18] MEDS ORDERED: D5W 500 ML IV ONE (14:15)
[2022-04-18 15:25] LABS: AMYLASE 38 U/L (0-100); LIPASE 112 U/L (73-393)
--- NOTE | 2022-04-18 15:45 | NUR ---
BED BATH PROVIDED BED BATH FOR PATIENT , CHANGED LINENS, PROVIDED ABI CARE REPOSTIONED WITH PILLOWS
[2022-04-18] MEDS ORDERED: METOCLOPRAMIDE HCL 10 MG/2 ML VIAL IVP ONE ×2 (16:15→22:00)
[2022-04-18] MEDS ORDERED: QUEtiapine FUMARATE 25 MG TABLET PO SCH ×2 (18:00)
[2022-04-18 18:59] VITALS: BP_SYST 103
--- NOTE | 2022-04-18 19:10 | NUR ---
CLOSING NOTE PROVIDED SBAR TO NIGHT RN. PATIENT IN BED, RESPIRATIONS EVEN, NON LABORED, BED IN LOW AND LOCKED POSITION, CALL LIGHT WITHIN REACH. BED ALARM ON. ENDORSED WOUND CARE TO NIGHT RN
[2022-04-18 20:00] VITALS: BP_SYST 86
[2022-04-19] VITALS (16 sets, daily range): BP systolic 87–129
--- NOTE | 2022-04-19 05:37 | NUR ---
CONSULTATION PAGED/CALLED Reason for Consultation: WEAKNESS AND ALOC Person Who was Notified: DR ALCANTARA Consulting Physician: DR ALCANTARA Shipmaster Specialty: Ordering Physician: NADEEM
[2022-04-19 06:59] LABS: BASOPHILS # (AUTO) 0.1 K/uL (0.0-0.2); BASOPHILS % (AUTO) 0.5 % (0.0-2.0); EOSINOPHILS % (AUTO) 0.1 % (0.0-4.0); HEMATOCRIT 30.5 % (36-54); HEMOGLOBIN 9.7 g/dL (14.0-18.0); LYMPHOCYTES # (AUTO) 0.9 K/uL (1.0-5.5); LYMPHOCYTES % (AUTO) 5.4 % (20.5-51.5); MEAN CORPUSCULAR HEMOGLOBIN 32 pg (27-31); MEAN CORPUSCULAR HGB CONC 32 % (32-36); MEAN CORPUSCULAR VOLUME 101 fL (79.0-98.0); MONOCYTES # (AUTO) 0.6 K/uL (0.0-1.0); MONOCYTES % (AUTO) 3.8 % (1.7-9.3); NEUTROPHILS # (AUTO) 14.9 K/uL (1.8-7.7); NEUTROPHILS % (AUTO) 90.2 % (40.0-70.0); PLATELET COUNT (AUTO) 227 K/uL (130-430); RED BLOOD CELL COUNT(AUTO) 3.01 MIL/uL (4.2-6.2); RED CELL DISTRIBUTION WIDTH 24.3 % (9.0-15.0); RETICULOCYTE COUNT 2.1 % (0.5-1.5); WHITE BLOOD COUNT (AUTO) 16.6 K/uL (4.8-10.8)
[2022-04-19 07:13] LABS: ALANINE AMINOTRANSFERASE 19 U/L (12-78); ALBUMIN 2.1 g/dL (3.4-4.8); ANION GAP 7 (5-15); ASPARTATE AMINOTRANSFERASE 52 U/L (10-37); CALCIUM 9.1 mg/dL (8.4-11.0); CHLORIDE 109 mmol/L (98-107); CREATININE 2.53 mg/dL (0.55-1.30); GLUCOSE 99 mg/dL (70-99); PHOSPHORUS 2.8 mg/dL (2.7-4.5); POTASSIUM 3.5 mmol/L (3.5-5.1); TOTAL BILIRUBIN 2.9 mg/dL (0.0-1.0); UREA NITROGEN, BLOOD 40 mg/dL (8-21)
--- NOTE | 2022-04-19 07:38 | NUR ---
OPENING NOTE RECEIVED SBAR FROM NIGHT RN. PATIENT IN BED, RESPIRATIONS EVEN, NON LABORED. BED IN LOW AND LOCKED POSITION, CALL LIGHT WITHIN REACH. IV RUNNING ORDERED, TERRAZAS DRAINING BY GRAVITY. FLEXASEAL DRAINING.
--- NOTE | 2022-04-19 08:00 | NUR ---
DIALYSIS DIALYSIS STARTED
--- NOTE | 2022-04-19 08:09 | NUR ---
DECREASED BP INFORMED DR SILVER THAT BP IS 87/41 NO NEW ORDERS
[2022-04-19] MEDS ORDERED: ALBUMIN HUMAN 25% 100 ML IV ONE (08:30)
--- NOTE | 2022-04-19 08:56 | NUR ---
MD DR CABRERA CONSULT DR CONNOR REGARDING DIALYSIS PORT INFECTION. TOLD OPERATIONS ENGINEER TO REMOVE AFTER TODAYS DIALYSIS, POSSIBLE REPLACEMENT WHEN WBC GOES DOWN
[2022-04-19] MEDS: DOCUSATE SODIUM 100 MG/10 ML UDC PO SCH ×2 (09:00→20:56)
[2022-04-19] MEDS: PANTOPRAZOLE SODIUM 40 MG/VIAL (PROTONIX) IVP SCH (09:00)
[2022-04-19] MEDS: MIDODRINE HCL 5 MG TABLET (PROAMATINE) PO SCH ×3 (09:00→20:56)
[2022-04-19] MEDS: AMIODARONE HCL 200 MG TABLET PO SCH (09:00)
[2022-04-19] MEDS: CHOLECALCIFEROL (VITAMIN D3) 2,000 UNIT TABLET PO SCH (09:00)
[2022-04-19] MEDS: BALSAM PERU/CASTOR OIL 56.7 GM OINT...G. TP SCH (09:00)
[2022-04-19] MEDS: BISACODYL 5 MG TABLET.DR (DULCOLAX) PO SCH ×2 (09:00→20:56)
[2022-04-19] MEDS: TAMSULOSIN HCL 0.4 MG CAP PO SCH (09:00)
[2022-04-19] MEDS: NEPHROVITE, (FOLIC ACID/VITAMIN B COMP W-C 1 TAB) PO SCH (09:00)
[2022-04-19] MEDS: LACTULOSE 20 GM/30 ML UDC PO SCH ×2 (09:00→20:55)
[2022-04-19] MEDS: MEGESTROL ACETATE 400 MG/10 ML UDC PO SCH (09:00)
[2022-04-19 09:06] LABS: HEPATITIS A AB, IgM Negative (Negative); HEPATITIS B CORE AB, IgM Negative (Negative); HEPATITIS B SURFACE AG Negative (Negative)
--- NOTE | 2022-04-19 09:50 | NUR ---
TRANSFER INFORMED DR SILVER OF DECREASED BP. NEW ORDERS RECEIVED TO TRANSFER PATIENT TO ICU
[2022-04-19] MEDS ORDERED: NOREPINEPHRINE 4 MG/4 ML VIAL IV ONE (10:13)
--- NOTE | 2022-04-19 10:15 | NUR ---
FAMILY INFORMED THAT PATIENT IS BEING TRANSFERED TO ICU. VERBALIZED UNDERSTANDING
--- NOTE | 2022-04-19 10:20 | NUR ---
RN NOTES TRANSFER FROM [facility] DUE TO LOW BP WHILE ON DIALYSIS. PATIENT IS NOT IN ANY DISTRESS, A. FIB OON THE MONITOR. VITALS CHECKED AND RECORDED. BP - 79/34 , STARTED ON LEVOPHED DRIP @ 0.1 mcg/Kg/ min. O2 @ 3L/MIN VIA NC
--- NOTE | 2022-04-19 10:25 | NUR ---
TRANSFER OF CARE SBAR GIVEN TO STATIONARY ENGINEER. PATIENT TRANSFERRED TO ICU ENDORSED CARE TO RN
[2022-04-19] MEDS: NOREPINEPHRINE BITARTRATE 4 MG in D5W 246 ML IV PRN ×3 (10:38→19:00)
[2022-04-19] MEDS: MICAFUNGIN SODIUM 100 MG in NS 100 ML IV SCH (11:02)
[2022-04-19] MEDS: ACETAMINOPHEN 650 MG/20.3 ML UDC PO PRN (11:16)
[2022-04-19] MEDS ORDERED: ACETAMINOPHEN 650 MG/20.3 ML UDC ONE (11:18)
--- NOTE | 2022-04-19 11:30 | NUR ---
received report from charge Nurse using SBAR method, patient lying on bed,on Levophed @ 0.13 mcg/kg/min.no signs of acute distress noted at this time, heart rate 119, respiratory rate 37, blood pressure 129/82. Mendoza on 3 L of oxygen via nasal cannula saturating at 96 %, mendoza catheter in place wiley urine in color draining to gravity, rectal tube in place, patient is at the bedside. will continue to monitor.
--- NOTE | 2022-04-19 12:06 | NUR ---
Physical Therapy was held today because the patient was transferred to the ICU. Plan: await order to resume treatment.
--- NOTE | 2022-04-19 12:49 | NUR ---
Nutrition F/U RDN reviewed pt's current EMR including diet hx, phsyician notes, nursing notes, pertinent labs/meds/procedures, care trends, and care activity. Shortened note d/t high RD workload. Current Diet Order/ Nutrition Support: Mechanical soft + Ensure High Protein TID (Provides additional 480kcal + 48g protein per day) x 3 days Subjective Information: Per chart review/ ICU rounds/ RN: Patient was successfully extubated on 04/10. On 04/18, RD visit patient room and patient was seen at bedside with present. Patient appeared confused/ disoriented. Per , patient appetite has not been well, she endorses altered taste causing patient not to want foods. On 04/18 patient was receiving HD and became hypotensive so was transferred back to ICU. Patient currently on levo @ 0.07 and D5w @ 60mL/hr (provides additional 245 kcal/day). Patient noted with +3 pitting edema BLE/ BUE. Multiple wounds still present, (stage2 coccyx; skin tear; r-arm, geiger, and low r-leg wounds per EMR). Average PO very poor at 21% x 4 meals. LBM 04/19 +rectal tube: 300mL output Estimated Energy Expenditure (kcal/day): 2495-5743 (25-30 kcal/kg IBW d/t CKD on HD, wounds) Estimated Protein Required (g/day) 87-109 (1.2-1.5 g/kg IBW d/t CKD on HD, wounds) Estimated Fluid Required (L/day) per MD d/t CKD Dietitian Recommendations * Continue mechanical soft diet, as tolerated. Limit diet restrictions for now d/t altered taste and poor PO * Rec adjust ONS: Nepro TID * Continue MVI * Hold Fly until sepsis resolves * Consult RD if nutrition support is necessary High Risk F/U: 2-3 days - 04/22/22
--- NOTE | 2022-04-19 13:16 | NUR ---
Dietitian Recommendations * Continue mechanical soft diet, as tolerated. Limit diet restrictions for now d/t altered taste and poor PO * Rec adjust ONS: Nepro TID * Continue MVI * Hold Fly until sepsis resolves * Consult RD if nutrition support is necessary Please refer to Nutritional Assessment for details, thanks! CC, MPH, RDN
--- NOTE | 2022-04-19 16:23 | NUR ---
wound dressings changed and wound pictures taken.
[2022-04-19] MEDS: EPOETIN ALFA-EPBX 4,000 UNITS/ML VIAL SUBCUT SCH (17:16)
[2022-04-19] MEDS: D5W 1,000 ML IV SCH (19:21)
[2022-04-19] MEDS ORDERED: VANCOMYCIN HCL 1,000 MG in NS 250 ML IV SCH ×2 (20:00→21:00)
[2022-04-19] MEDS: PIPERACILLIN/TAZO 2.25G/DEX-IS 50 ML IV SCH (20:54)
[2022-04-20] VITALS (24 sets, daily range): BP systolic 78–133
--- NOTE | 2022-04-20 07:04 | NUR ---
received report from endorsing warehouse worker 2nd shift RN for continuity of care, patient lying on bed with an IVF of D5 @ 60 mls/hr, on Levophed drip @ 0.07 mcg/kg/min, 5L of oxygen via nasal cannula saturation 87%, heart rate 103, respiratory rate 28, blood pressure 122/54, temperature 97.8.Lunsford catheter in place, wiley urine in color draining to gravity, rectal tube in place. no signs of acute distress noted at this time. will continue to monitor.
--- NOTE | 2022-04-20 07:20 | NUR ---
Pt report given to CARMELITA Eli. Pt easily awakened, no change in cognitive status. O2 at 5 LPM/NC, respirations even and non-labored. Levophed at 0.07 mcg/kg/min and D5W at 60 mL/hr to VANDANA PICC. Weeping to VANDANA noted, generalized 3+ pitting edema. F/C draining wiley urine and flexiseal secure draining dark brown and loose stool to bag. Dsgs remain clean, dry, intact to wounds. VSS, NAD.
[2022-04-20 07:36] LABS: ALANINE AMINOTRANSFERASE 21 U/L (12-78); ALBUMIN 2.3 g/dL (3.4-4.8); ANION GAP 11 (5-15); ASPARTATE AMINOTRANSFERASE 36 U/L (10-37); CALCIUM 8.5 mg/dL (8.4-11.0); CHLORIDE 99 mmol/L (98-107); GLUCOSE 290 mg/dL (70-99); PHOSPHORUS 2.4 mg/dL (2.7-4.5); POTASSIUM 3.2 mmol/L (3.5-5.1); TOTAL BILIRUBIN 3.1 mg/dL (0.0-1.0); UREA NITROGEN, BLOOD 31 mg/dL (8-21)
[2022-04-20] MEDS: BISACODYL 5 MG TABLET.DR (DULCOLAX) PO SCH ×2 (08:42→20:58)
[2022-04-20] MEDS: NEPHROVITE, (FOLIC ACID/VITAMIN B COMP W-C 1 TAB) PO SCH (08:42)
[2022-04-20] MEDS: AMIODARONE HCL 200 MG TABLET PO SCH (08:42)
[2022-04-20] MEDS: MEGESTROL ACETATE 400 MG/10 ML UDC PO SCH (08:43)
[2022-04-20] MEDS: LACTULOSE 20 GM/30 ML UDC PO SCH ×2 (08:43→20:58)
[2022-04-20] MEDS: DOCUSATE SODIUM 100 MG/10 ML UDC PO SCH ×2 (08:43→20:58)
[2022-04-20] MEDS: TAMSULOSIN HCL 0.4 MG CAP PO SCH (08:43)
[2022-04-20] MEDS: CHOLECALCIFEROL (VITAMIN D3) 2,000 UNIT TABLET PO SCH (08:43)
[2022-04-20] MEDS: PANTOPRAZOLE SODIUM 40 MG/VIAL (PROTONIX) IVP SCH (08:44)
[2022-04-20] MEDS: MIDODRINE HCL 5 MG TABLET (PROAMATINE) PO SCH ×3 (08:46→21:42)
[2022-04-20] MEDS: PIPERACILLIN/TAZO 2.25G/DEX-IS 50 ML IV SCH ×4 (09:04→19:49)
[2022-04-20] MEDS ORDERED: FUROSEMIDE 20 MG/2 ML VIAL IVP ONE (10:00)
--- NOTE | 2022-04-20 10:11 | NUR ---
Dr. Harmon is at the unit, informed him that the patient wants to discussed with him relating about the catheter placement. @ [id number]. Dr Moncada is at the unit also around 1011 and informed him also that the patient wants to talk to him pertaining to the catheter placement, able to talk to the patient thru phone call.
[2022-04-20] MEDS: BALSAM PERU/CASTOR OIL 56.7 GM OINT...G. TP SCH (10:15)
[2022-04-20] MEDS: KCL 20 mEq in 100 mL (PREMIX) 100 ML IV SCH ×2 (10:16→12:35)
[2022-04-20] MEDS: D5W 1,000 ML IV SCH (10:46)
[2022-04-20 11:48] LABS: HEMATOCRIT 27.5 % (36-54); HEMOGLOBIN 8.6 g/dL (14.0-18.0); MEAN CORPUSCULAR VOLUME 102 fL (79.0-98.0); RED BLOOD CELL COUNT(AUTO) 2.69 MIL/uL (4.2-6.2)
[2022-04-20 11:49] LABS: BASOPHILS % (AUTO) 0.6 % (0.0-2.0); EOSINOPHILS # (AUTO) 0.1 K/uL (0.0-0.4); EOSINOPHILS % (AUTO) 0.6 % (0.0-4.0); LYMPHOCYTES % (AUTO) 7.2 % (20.5-51.5); MEAN CORPUSCULAR HEMOGLOBIN 32 pg (27-31); MEAN CORPUSCULAR HGB CONC 31 % (32-36); MONOCYTES # (AUTO) 0.8 K/uL (0.0-1.0); MONOCYTES % (AUTO) 5.5 % (1.7-9.3); NEUTROPHILS % (AUTO) 86.1 % (40.0-70.0); PLATELET COUNT (AUTO) 212 K/uL (130-430); RED CELL DISTRIBUTION WIDTH 23.9 % (9.0-15.0)
[2022-04-20 11:50] LABS: WHITE BLOOD COUNT (AUTO) 13.9 K/uL (4.8-10.8)
[2022-04-20] MEDS: ACETAMINOPHEN 650 MG/20.3 ML UDC PO PRN (13:17)
[2022-04-20] MEDS: ONDANSETRON HCL 4 MG/2 ML VIAL IVP PRN ×2 (13:17→13:42)
[2022-04-20] MEDS ORDERED: METOCLOPRAMIDE HCL 10 MG/2 ML VIAL IVP ONE (13:30)
[2022-04-20] MEDS: NOREPINEPHRINE BITARTRATE 4 MG in D5W 246 ML IV PRN (14:47)
--- NOTE | 2022-04-20 16:00 | NUR ---
CHANGED WOUND DRESSING AND PROVIDED PARTIAL BED BATH.
--- NOTE | 2022-04-20 16:11 | NUR ---
RECEIVED A CALL FROM DR. LOZADA AND INFORMED HIM ABOUT THE BLOOD CULTURE RESULT (POSITIVE BLOOD CULTURE gRAM - rODS) AND HE ORDERED TO D/C THE VANCOMYCIN.
[2022-04-20] MEDS: FUROSEMIDE 20 MG/2 ML VIAL IVP SCH (21:45)
[2022-04-21] VITALS (32 sets, daily range): BP systolic 90–131
[2022-04-21] MEDS: PIPERACILLIN/TAZO 2.25G/DEX-IS 50 ML IV SCH ×4 (02:37→20:33)
[2022-04-21] MEDS: NOREPINEPHRINE BITARTRATE 4 MG in D5W 246 ML IV PRN (06:55)
[2022-04-21 07:30] LABS: BASOPHILS % (AUTO) 0.2 % (0.0-2.0); EOSINOPHILS # (AUTO) 0.2 K/uL (0.0-0.4); EOSINOPHILS % (AUTO) 1.8 % (0.0-4.0); HEMATOCRIT 27.1 % (36-54); LYMPHOCYTES # (AUTO) 1.2 K/uL (1.0-5.5); MEAN CORPUSCULAR VOLUME 102 fL (79.0-98.0); MONOCYTES # (AUTO) 0.7 K/uL (0.0-1.0); MONOCYTES % (AUTO) 4.9 % (1.7-9.3); NEUTROPHILS # (AUTO) 11.5 K/uL (1.8-7.7); NEUTROPHILS % (AUTO) 84.1 % (40.0-70.0); PLATELET COUNT (AUTO) 192 K/uL (130-430); RED BLOOD CELL COUNT(AUTO) 2.65 MIL/uL (4.2-6.2); RED CELL DISTRIBUTION WIDTH 23.9 % (9.0-15.0); WHITE BLOOD COUNT (AUTO) 13.7 K/uL (4.8-10.8)
[2022-04-21 07:50] LABS: ALANINE AMINOTRANSFERASE 21 U/L (12-78); ALBUMIN 1.9 g/dL (3.4-4.8); ANION GAP 10 (5-15); ASPARTATE AMINOTRANSFERASE 45 U/L (10-37); CALCIUM 9.2 mg/dL (8.4-11.0); CHLORIDE 102 mmol/L (98-107); GLUCOSE 200 mg/dL (70-99); TOTAL BILIRUBIN 2.6 mg/dL (0.0-1.0); UREA NITROGEN, BLOOD 36 mg/dL (8-21)
[2022-04-21] MEDS: CHOLECALCIFEROL (VITAMIN D3) 2,000 UNIT TABLET PO SCH (08:44)
[2022-04-21] MEDS: MIDODRINE HCL 5 MG TABLET (PROAMATINE) PO SCH ×3 (08:44→20:35)
[2022-04-21] MEDS: NEPHROVITE, (FOLIC ACID/VITAMIN B COMP W-C 1 TAB) PO SCH (08:44)
[2022-04-21] MEDS: PANTOPRAZOLE SODIUM 40 MG/VIAL (PROTONIX) IVP SCH (08:44)
[2022-04-21] MEDS: TAMSULOSIN HCL 0.4 MG CAP PO SCH (08:45)
[2022-04-21] MEDS: AMIODARONE HCL 200 MG TABLET PO SCH (08:45)
[2022-04-21] MEDS: BISACODYL 5 MG TABLET.DR (DULCOLAX) PO SCH ×2 (08:45→20:33)
[2022-04-21] MEDS: DOCUSATE SODIUM 100 MG/10 ML UDC PO SCH ×2 (08:46→20:33)
[2022-04-21] MEDS: MEGESTROL ACETATE 400 MG/10 ML UDC PO SCH (08:46)
[2022-04-21] MEDS: LACTULOSE 20 GM/30 ML UDC PO SCH ×2 (08:46→20:35)
[2022-04-21] MEDS: BALSAM PERU/CASTOR OIL 56.7 GM OINT...G. TP SCH (08:47)
[2022-04-21 09:07] LABS: INR 1.3 (0.80-1.20); PROTHROMBIN TIME 13.1 SECS (9.5-12.5)
[2022-04-21] MEDS: FUROSEMIDE 20 MG/2 ML VIAL IVP SCH ×2 (09:12→20:36)
[2022-04-21] MEDS ORDERED: POTASSIUM CHLORIDE 40 MEQ in NS 250 ML IV ONE (11:30)
[2022-04-21 12:45] LABS: HEMOGLOBIN 8.6 g/dL (14.0-18.0); MEAN CORPUSCULAR HEMOGLOBIN 32 pg (27-31); MEAN CORPUSCULAR HGB CONC 32 % (32-36)
--- NOTE | 2022-04-21 14:32 | NUR ---
dr tenorio aware about hgb7.1 and ordered to transfuse 1 unit prbc. Addendum: 04/21/22 at 1445 by oRzina iRce RN RN above entry is entered in wrong patient and is an error.
--- NOTE | 2022-04-21 14:38 | NUR ---
0900 spoke to at bedside and refused to sign a consent for hemodialysis access because she said she will only sign when the patient is clear with fungus and yeast then the will sign the consent and the she only want dr Patel to insert the HD cath she said she doesn't want DR CONNOR to do it.
[2022-04-21] MEDS: EPOETIN ALFA-EPBX 4,000 UNITS/ML VIAL SUBCUT SCH (16:29)
[2022-04-21] MEDS: D5W 1,000 ML IV SCH (20:36)
[2022-04-22] VITALS (23 sets, daily range): BP systolic 77–122
[2022-04-22] MEDS: PIPERACILLIN/TAZO 2.25G/DEX-IS 50 ML IV SCH ×4 (01:23→20:22)
--- NOTE | 2022-04-22 07:20 | NUR ---
received report from endorsing rn night RN for continuity of care, patient lying on bed with an IVF of D5 @ 30,Levophed @ 0.01 mcg/kg/min, 3L of oxygen via nasal cannula saturating at 98%. Lunsford catheter in place draining to gravity, rectal tube in place. vital signs heart rate 107, respiratory rate 13, saturation at 98 , blood pressure 103/57. temperature 95.7. no signs of acute distress noted at this time. will continue to monitor.
[2022-04-22 07:53] LABS: BASOPHILS # (AUTO) 0.1 K/uL (0.0-0.2); BASOPHILS % (AUTO) 0.8 % (0.0-2.0); EOSINOPHILS # (AUTO) 0.2 K/uL (0.0-0.4); EOSINOPHILS % (AUTO) 1.8 % (0.0-4.0); HEMATOCRIT 27.5 % (36-54); LYMPHOCYTES # (AUTO) 1.3 K/uL (1.0-5.5); LYMPHOCYTES % (AUTO) 10.3 % (20.5-51.5); MEAN CORPUSCULAR VOLUME 99 fL (79.0-98.0); MONOCYTES # (AUTO) 0.6 K/uL (0.0-1.0); MONOCYTES % (AUTO) 4.6 % (1.7-9.3); NEUTROPHILS # (AUTO) 10.3 K/uL (1.8-7.7); NEUTROPHILS % (AUTO) 82.5 % (40.0-70.0); PLATELET COUNT (AUTO) 233 K/uL (130-430); RED BLOOD CELL COUNT(AUTO) 2.77 MIL/uL (4.2-6.2); RED CELL DISTRIBUTION WIDTH 22.8 % (9.0-15.0); WHITE BLOOD COUNT (AUTO) 12.5 K/uL (4.8-10.8)
[2022-04-22 08:02] LABS: ALANINE AMINOTRANSFERASE 22 U/L (12-78); ALBUMIN 1.9 g/dL (3.4-4.8); ANION GAP 11 (5-15); ASPARTATE AMINOTRANSFERASE 40 U/L (10-37); CALCIUM 9.2 mg/dL (8.4-11.0); CHLORIDE 104 mmol/L (98-107); CREATININE 2.66 mg/dL (0.55-1.30); GLUCOSE 87 mg/dL (70-99); PHOSPHORUS 2.2 mg/dL (2.7-4.5); POTASSIUM 3.5 mmol/L (3.5-5.1); TOTAL BILIRUBIN 2.9 mg/dL (0.0-1.0); UREA NITROGEN, BLOOD 39 mg/dL (8-21)
[2022-04-22] MEDS: FUROSEMIDE 20 MG/2 ML VIAL IVP SCH ×2 (08:12→20:23)
[2022-04-22] MEDS: PANTOPRAZOLE SODIUM 40 MG/VIAL (PROTONIX) IVP SCH (09:09)
[2022-04-22] MEDS: TAMSULOSIN HCL 0.4 MG CAP PO SCH (09:13)
[2022-04-22] MEDS: MEGESTROL ACETATE 400 MG/10 ML UDC PO SCH (09:13)
[2022-04-22] MEDS: DOCUSATE SODIUM 100 MG/10 ML UDC PO SCH ×2 (09:13→20:23)
[2022-04-22] MEDS: LACTULOSE 20 GM/30 ML UDC PO SCH ×2 (09:13→20:23)
[2022-04-22] MEDS: CHOLECALCIFEROL (VITAMIN D3) 2,000 UNIT TABLET PO SCH (09:14)
[2022-04-22] MEDS: NEPHROVITE, (FOLIC ACID/VITAMIN B COMP W-C 1 TAB) PO SCH (09:14)
[2022-04-22] MEDS: BISACODYL 5 MG TABLET.DR (DULCOLAX) PO SCH ×2 (09:14→20:23)
[2022-04-22] MEDS: AMIODARONE HCL 200 MG TABLET PO SCH (09:15)
[2022-04-22] MEDS: MIDODRINE HCL 5 MG TABLET (PROAMATINE) PO SCH ×3 (09:19→20:23)
[2022-04-22] MEDS: BALSAM PERU/CASTOR OIL 56.7 GM OINT...G. TP SCH (09:20)
[2022-04-22] MEDS: D5W 1,000 ML IV SCH ×2 (10:46→17:17)
[2022-04-22] MEDS ORDERED: FOLIC ACID 1 MG TABLET PO ONE (12:45)
[2022-04-22] MEDS ORDERED: MAGNESIUM SULFATE/D5W 100 ML IV ONE (13:00)
--- NOTE | 2022-04-22 14:39 | NUR ---
wound dressing and bed linen changed, provided partial bed bath.
--- NOTE | 2022-04-22 17:00 | NUR ---
Nutrition F/U RDN reviewed pt's current EMR including diet hx, phsyician notes, nursing notes, pertinent labs/meds/procedures, care trends, and care activity. Shortened note d/t high RD workload. Current Diet Order/ Nutrition Support: Mechanical soft + Ensure High Protein TID (Provides additional 480kcal + 48g protein per day) x 3 days Subjective Information: RD rounded to ICU this afternoon. Primary RN reported pt is not eating much, and prefers an alternative flavor of Ensure -- tired of strawberry. RD visited pt at bedside. Pt was awake and present at bedside. reported pt does not want to eat and this has been an ongoing issues for the past 3 mo. She stated pt's UBW: 275-300# -- RD weighed pt w/ bedscale: 267#. She reported that she encourages pt to eat/drink, but pt takes minimal sips/bites. She also reported that pt does not want to chew and prefers softer foods/liquids like yogurt and ice cream (vanilla). RD offered texture-modified diet/downgrade to finely chopped or pureed, however, declined, stating pt will not want to eat that either. Per EMR review, refusing consent for HD access placement; negligible PO intakes noted; flexiseal in place w/ 500 ml stool output noted today; Earle scale: 10 -- Telephonic Case Manager note 03/31 revealed: 1. Left Sacral area:Unstageable pressure ulcer, present on admission. 2. Right Sacral area: Stage II pressure ulcer, present on admission. 3. Right Sacral area, Right Lateral to Site 2: Stage II pressure ulcer, present on admission. 4. Sacral and outer Sacral/Buttocks areas: Multiple areas of scar tissue, present on admission. 5. Right Posterior Heel: Unstageable pressure ulcer, present on admission. 6. Right Lateral Malleolus: Unstageable pressure ulcer, present on admission. 7. Right Medial Heel: Unstageable pressure ulcer, present on admission. 8. Left Dorsal Foot over Fifth Metatarsal Bone: Area of nonblanchable red skin, present on admission. 9. Right Distal Lateral Lower Extremity: Stage II pressure ulcer, present on admission. 10. Right Lateral Proximal Lower Extremity, Lateral and Inferior to Knee: Unstageable pressure ulcer, present on admission. 11. Right Anterior Knee: Stage III pressure ulcer, present on admission. 12. Right Third Toe, Dorsal Aspect: Chronic wound of unknown etiology, present on admission. 13. Right Medial AC Joint: Skin tear. Skin tear has 100% pink tissue. 14. Right Distal Posterior Forearm: Skin tear. 15. Left Proximal Forearm: Skin tear. 16. Right Upper Extremity: Multiple areas of ecchymosis, present on admission. 17. Left Upper Extremity: Multiple areas of ecchymosis, present on admission. Estimated Energy Expenditure (kcals/day) 4566-1375 (25-30 kcal/kg IBW d/t vent, wounds) Estimated Protein Required (g/day) 87-109 (1.2-1.5 g/kg IBW d/t wounds, CKD on HD) Estimated Fluid Required (l/day) per MD (d/t renal dz) Problem/Etiology/Signs/Symptoms Altered nutrition-related lab values r/t renal dysfunction AEB elevated BUN, Glucose, Creatinine, Phosphorus; lowered RBC, Hgb, hematocrit, Calcium, Sodium. *Ongoing Increased energy and protein needs r/t HD, vent, wound healing AEB 25-30 kcal/kg estimated energy needs; 1.2-1.5 g/kg estimated protein needs. *Ongoing Inadequate enteral nutrition provision AEB NGTF infusing @ 20 ml/hr. *Resolved, now on PO diet Dietitian Recommendations * Mechanical Soft diet, Nepro TID (ONS yields 1260 kcal/day, 57 gm protein/day) * Continue MVI * Consider Fly when sepsis resolves * Consult RD if nutrition support warranted High Risk F/U: 2-3 days
[2022-04-23] VITALS (24 sets, daily range): BP systolic 94–134
[2022-04-23] MEDS: PIPERACILLIN/TAZO 2.25G/DEX-IS 50 ML IV SCH ×4 (02:25→20:39)
[2022-04-23 06:56] LABS: BASOPHILS # (AUTO) 0.1 K/uL (0.0-0.2); BASOPHILS % (AUTO) 0.8 % (0.0-2.0); EOSINOPHILS # (AUTO) 0.3 K/uL (0.0-0.4); EOSINOPHILS % (AUTO) 2.2 % (0.0-4.0); HEMATOCRIT 27.6 % (36-54); LYMPHOCYTES # (AUTO) 1.4 K/uL (1.0-5.5); LYMPHOCYTES % (AUTO) 11.5 % (20.5-51.5); MEAN CORPUSCULAR VOLUME 99 fL (79.0-98.0); MONOCYTES % (AUTO) 8.3 % (1.7-9.3); NEUTROPHILS # (AUTO) 9.2 K/uL (1.8-7.7); NEUTROPHILS % (AUTO) 77.2 % (40.0-70.0); PLATELET COUNT (AUTO) 234 K/uL (130-430); RED BLOOD CELL COUNT(AUTO) 2.78 MIL/uL (4.2-6.2); RED CELL DISTRIBUTION WIDTH 22.6 % (9.0-15.0)
--- NOTE | 2022-04-23 07:13 | NUR ---
received report from endorsing third shift lieutenant RN for continuity of care,patient lying on bed with an IVF of D5 @ 30 ml/hr, on levophed at 0.01 mcg/kg/min.on room air, on room air saturating at 96. Lunsford catheter in place wiley urine in color draining to gravity, rectal tube in place, heart rate 114, respiratory rate 23, blood pressure 123/77 and temperature 97.1, no signs of acute distress noted at this time, will continue to monitor.
[2022-04-23 07:18] LABS: ALANINE AMINOTRANSFERASE 23 U/L (12-78); ALBUMIN 1.8 g/dL (3.4-4.8); ANION GAP 9 (5-15); ASPARTATE AMINOTRANSFERASE 50 U/L (10-37); CALCIUM 9.6 mg/dL (8.4-11.0); CHLORIDE 104 mmol/L (98-107); CREATININE 2.94 mg/dL (0.55-1.30); GLUCOSE 94 mg/dL (70-99); PHOSPHORUS 2.5 mg/dL (2.7-4.5); POTASSIUM 3.7 mmol/L (3.5-5.1); TOTAL BILIRUBIN 2.7 mg/dL (0.0-1.0); UREA NITROGEN, BLOOD 41 mg/dL (8-21)
[2022-04-23] MEDS: MEGESTROL ACETATE 400 MG/10 ML UDC PO SCH (09:00)
[2022-04-23] MEDS: FUROSEMIDE 20 MG/2 ML VIAL IVP SCH ×2 (09:00→21:14)
[2022-04-23] MEDS: LACTULOSE 20 GM/30 ML UDC PO SCH ×2 (09:04→21:12)
[2022-04-23] MEDS: NEPHROVITE, (FOLIC ACID/VITAMIN B COMP W-C 1 TAB) PO SCH (09:04)
[2022-04-23] MEDS: PANTOPRAZOLE SODIUM 40 MG/VIAL (PROTONIX) IVP SCH (09:04)
[2022-04-23] MEDS: FOLIC ACID 1 MG TABLET PO SCH (09:04)
[2022-04-23] MEDS: DOCUSATE SODIUM 100 MG/10 ML UDC PO SCH ×2 (09:05→21:12)
[2022-04-23] MEDS: BISACODYL 5 MG TABLET.DR (DULCOLAX) PO SCH ×2 (09:05→21:12)
[2022-04-23] MEDS: CHOLECALCIFEROL (VITAMIN D3) 2,000 UNIT TABLET PO SCH (09:05)
[2022-04-23] MEDS: AMIODARONE HCL 200 MG TABLET PO SCH (09:05)
[2022-04-23] MEDS: TAMSULOSIN HCL 0.4 MG CAP PO SCH (09:06)
[2022-04-23] MEDS: MIDODRINE HCL 5 MG TABLET (PROAMATINE) PO SCH ×3 (09:08→21:12)
[2022-04-23] MEDS: BALSAM PERU/CASTOR OIL 56.7 GM OINT...G. TP SCH (09:19)
[2022-04-23] MEDS ORDERED: NS 500 ML IV ONE (10:00)
[2022-04-23] MEDS: ACETAMINOPHEN 650 MG/20.3 ML UDC PO PRN (14:53)
--- NOTE | 2022-04-23 16:45 | NUR ---
Doctors Notes: Dr. Márquez is in the unit talking to the .Notes to change the dressing daily and ask Dr. Márquez first about the Galo cath.
[2022-04-24] VITALS (23 sets, daily range): BP systolic 91–126
[2022-04-24] MEDS: PIPERACILLIN/TAZO 2.25G/DEX-IS 50 ML IV SCH ×2 (02:07→08:34)
[2022-04-24] MEDS: D5W 1,000 ML IV SCH (06:00)
--- NOTE | 2022-04-24 06:25 | NUR ---
Pt resting quietly in bed. Afebrile overnight. Neurologically unchanged. 2lnc, 24RR, 100%SpO2. AF with VR 90s-100s, BP stable. Levo remains off. PO intake tolerated. Rectal tube in place -500ml watery brown stools. -305ml UOP after lasix 20mg IVP. RA BRAVO PICC, site unremarkable. Safety/aspiration precautions cont.
[2022-04-24 07:16] LABS: BASOPHILS # (AUTO) 0.1 K/uL (0.0-0.2); BASOPHILS % (AUTO) 0.7 % (0.0-2.0); EOSINOPHILS # (AUTO) 0.3 K/uL (0.0-0.4); EOSINOPHILS % (AUTO) 2.6 % (0.0-4.0); HEMATOCRIT 26.2 % (36-54); LYMPHOCYTES # (AUTO) 1.4 K/uL (1.0-5.5); LYMPHOCYTES % (AUTO) 13.7 % (20.5-51.5); MEAN CORPUSCULAR VOLUME 99 fL (79.0-98.0); MONOCYTES # (AUTO) 0.9 K/uL (0.0-1.0); MONOCYTES % (AUTO) 8.5 % (1.7-9.3); NEUTROPHILS # (AUTO) 7.7 K/uL (1.8-7.7); NEUTROPHILS % (AUTO) 74.5 % (40.0-70.0); PLATELET COUNT (AUTO) 248 K/uL (130-430); RED BLOOD CELL COUNT(AUTO) 2.64 MIL/uL (4.2-6.2); RED CELL DISTRIBUTION WIDTH 21.9 % (9.0-15.0); WHITE BLOOD COUNT (AUTO) 10.3 K/uL (4.8-10.8)
[2022-04-24 07:41] LABS: ALANINE AMINOTRANSFERASE 23 U/L (12-78); ALBUMIN 1.8 g/dL (3.4-4.8); ANION GAP 11 (5-15); ASPARTATE AMINOTRANSFERASE 46 U/L (10-37); CALCIUM 9.6 mg/dL (8.4-11.0); CHLORIDE 103 mmol/L (98-107); CREATININE 3.03 mg/dL (0.55-1.30); GLUCOSE 87 mg/dL (70-99); TOTAL BILIRUBIN 2.2 mg/dL (0.0-1.0); UREA NITROGEN, BLOOD 43 mg/dL (8-21)
[2022-04-24] MEDS: PANTOPRAZOLE SODIUM 40 MG/VIAL (PROTONIX) IVP SCH (08:30)
[2022-04-24] MEDS: NEPHROVITE, (FOLIC ACID/VITAMIN B COMP W-C 1 TAB) PO SCH (08:31)
[2022-04-24] MEDS: FUROSEMIDE 20 MG/2 ML VIAL IVP SCH ×2 (08:31→20:40)
[2022-04-24] MEDS: CHOLECALCIFEROL (VITAMIN D3) 2,000 UNIT TABLET PO SCH (08:32)
[2022-04-24] MEDS: TAMSULOSIN HCL 0.4 MG CAP PO SCH (08:32)
[2022-04-24] MEDS: MEGESTROL ACETATE 400 MG/10 ML UDC PO SCH (08:33)
[2022-04-24] MEDS: LACTULOSE 20 GM/30 ML UDC PO SCH ×2 (08:33→20:40)
[2022-04-24] MEDS: ACETAMINOPHEN 650 MG/20.3 ML UDC PO PRN (08:34)
[2022-04-24] MEDS: FOLIC ACID 1 MG TABLET PO SCH (08:36)
[2022-04-24] MEDS: MIDODRINE HCL 5 MG TABLET (PROAMATINE) PO SCH ×3 (08:36→20:40)
[2022-04-24] MEDS: AMIODARONE HCL 200 MG TABLET PO SCH (08:37)
[2022-04-24] MEDS: DOCUSATE SODIUM 100 MG/10 ML UDC PO SCH ×2 (08:40→20:40)
[2022-04-24] MEDS: BALSAM PERU/CASTOR OIL 56.7 GM OINT...G. TP SCH (08:41)
[2022-04-24] MEDS: BISACODYL 5 MG TABLET.DR (DULCOLAX) PO SCH ×2 (08:41→20:40)
--- NOTE | 2022-04-24 08:45 | NUR ---
AT 0800 , FED BY WITH POOR APPETITE , NO RESP DISTRESS, VITALS STABLE
[2022-04-24 10:14] LABS: POTASSIUM 2.9 mmol/L (3.5-5.1)
--- NOTE | 2022-04-24 10:32 | NUR ---
dR Miranda WAS PAGED FOR k2.9
[2022-04-24] MEDS ORDERED: POTASSIUM CHLORIDE 40 MEQ in D5W 250 ML IV ONE (13:00)
[2022-04-24] MEDS: metroNIDAZOLE 250 mg/NS 50 ML IV SCH ×2 (14:00→21:54)
[2022-04-24] MEDS: EPOETIN ALFA-EPBX 4,000 UNITS/ML VIAL SUBCUT SCH (17:17)
--- NOTE | 2022-04-24 19:00 | NUR ---
OPENING NOTES: RECEIVED BEDSIDE REPORT FROM WOOD. PATIENT IS A&O X1 ONLY RESPONDS TO NAME. GAMBLED SPEECH WHEN ASKED QUESTIONS, DOES NOT FOLLOW COMMANDS. PATIENT HAS A VANDANA PICC WITH 5% DEXTROSE RUNNING AT 30. PATIENT HAS A TERRAZAS CATHETER AND A FLEXSEAL. ON 2 L NC AND SR WITH CONTROLLED A FIB. PATIENT HAS SKIN ISSUES ON COCCYX AND BUTTOCK. PATIENT IS ON REG DIET BUT REFUSED TO EAT TONIGHT PER WOOD. PATIENT IS SCHEDULED FOR A HIDA SCAN TOMORROW. BED IS AT THE LOWEST LEVEL, SUCTION IS WORKING, BRAKES ARE LOCKED, APPROPRIATE SIDE RAILS UP, AND CALL LIGHT WITHIN REACH.
[2022-04-24] MEDS ORDERED: LIDOCAINE 1% 10 MG/ML, 20 ML MDV INJ ONE (19:30)
--- NOTE | 2022-04-24 22:20 | NUR ---
PATIENT CALLED AND I INFORMED HER THAT THE PATIENT WILL BE DOWNGRADED TONIGHT. SHE STATED SHE LOOKED UP A HIDA SCAN AND THAT MORPHIN IS USED FOR PAIN MANAGEMENT. SHE DOES NOT WANT THE PATIENT TO HAVE MORPHINE DUE TO SEVERE REACTIONS. IF ANY ALTERNATIVE MEDICATION IS TO BE GIVEN TO FIRST ALL DR. SILVER FOR APPROVAL.
--- NOTE | 2022-04-24 23:30 | NUR ---
Transfer patient to room 119-A. Gave report to Raphael. All questions answered at bedside.
--- NOTE | 2022-04-24 23:42 | NUR ---
2802 Late entry due to patient care Received transfer fro ICU. Awake, non-verbal. On 2l via nasal canula. No apparent distress. No s/s of pain noted.
[2022-04-25] MEDS: metroNIDAZOLE 250 mg/NS 50 ML IV SCH ×3 (06:00→21:37)
--- NOTE | 2022-04-25 07:55 | NUR ---
Flagyl is not available. Went to ICU and looked for the medication but could not find it. Checked pyxis medication is not listed on the patient profile. Will endorse.
[2022-04-25] MEDS: LACTULOSE 20 GM/30 ML UDC PO SCH ×2 (09:00→21:21)
[2022-04-25] MEDS: D5W 1,000 ML IV SCH (09:50)
[2022-04-25] MEDS: FUROSEMIDE 20 MG/2 ML VIAL IVP SCH ×2 (10:10→21:30)
[2022-04-25] MEDS: PANTOPRAZOLE SODIUM 40 MG/VIAL (PROTONIX) IVP SCH (10:11)
[2022-04-25] MEDS ORDERED: ACETAMINOPHEN 650 MG/20.3 ML UDC ONE (10:50)
[2022-04-25 13:25] VITALS: BP_SYST 118
--- NOTE | 2022-04-25 14:56 | NUR ---
1000 hour patient awake oxygen inhalation @ 3l/min. tolerated well patientonnpofor hida scan . but badly refused. medication ,po refused by patient. refused tuopen his mouth . heda will done@ bed side, requested.
--- NOTE | 2022-04-25 15:03 | NUR ---
Twitch. RECEIVED CALL BACK FROM [facility]. ESTIMATED TIME FOR HIDA IS BETWEEN 8316-5062
[2022-04-25 16:00] VITALS: BP_SYST 129
--- NOTE | 2022-04-25 18:13 | NUR ---
1700 hour-hida scan started.
[2022-04-25] MEDS ORDERED: LACTOBACILLUS RHAMNOSUS GG 1 CAP CAPSULE PO ONE (18:30)
[2022-04-25] MEDS: BISACODYL 5 MG TABLET.DR (DULCOLAX) PO SCH ×2 (21:22→21:33)
[2022-04-25] MEDS: DOCUSATE SODIUM 100 MG/10 ML UDC PO SCH (21:32)
[2022-04-26 01:15] VITALS: BP_SYST 118
[2022-04-26] MEDS: MIDODRINE HCL 5 MG TABLET (PROAMATINE) PO SCH ×3 (09:00→21:00)
[2022-04-26] MEDS: DOCUSATE SODIUM 100 MG/10 ML UDC PO SCH ×2 (10:32→21:00)
[2022-04-26] MEDS: LACTULOSE 20 GM/30 ML UDC PO SCH ×2 (10:33→21:00)
[2022-04-26] MEDS: BISACODYL 5 MG TABLET.DR (DULCOLAX) PO SCH ×2 (10:35→21:00)
[2022-04-26] MEDS: FUROSEMIDE 20 MG/2 ML VIAL IVP SCH ×2 (10:36→21:51)
[2022-04-26] MEDS: PANTOPRAZOLE SODIUM 40 MG/VIAL (PROTONIX) IVP SCH (10:36)
[2022-04-26] MEDS: NEPHROVITE, (FOLIC ACID/VITAMIN B COMP W-C 1 TAB) PO SCH (11:53)
[2022-04-26] MEDS: CHOLECALCIFEROL (VITAMIN D3) 2,000 UNIT TABLET PO SCH (11:53)
[2022-04-26] MEDS: FOLIC ACID 1 MG TABLET PO SCH (11:53)
[2022-04-26] MEDS: MEGESTROL ACETATE 400 MG/10 ML UDC PO SCH (11:53)
[2022-04-26] MEDS: LACTOBACILLUS RHAMNOSUS GG 1 CAP CAPSULE PO SCH ×3 (11:54→21:00)
[2022-04-26] MEDS: TAMSULOSIN HCL 0.4 MG CAP PO SCH (11:54)
[2022-04-26] MEDS: AMIODARONE HCL 200 MG TABLET PO SCH (11:55)
[2022-04-26] MEDS: BALSAM PERU/CASTOR OIL 56.7 GM OINT...G. TP SCH (11:56)
[2022-04-26 12:00] VITALS: BP_SYST 96
[2022-04-26] MEDS: ACETAMINOPHEN 650 MG/20.3 ML UDC PO PRN (12:25)
[2022-04-26] MEDS: D5W 1,000 ML IV SCH (12:26)
[2022-04-26 13:54] LABS: BASOPHILS # (AUTO) 0.1 K/uL (0.0-0.2); BASOPHILS % (AUTO) 0.7 % (0.0-2.0); EOSINOPHILS # (AUTO) 0.1 K/uL (0.0-0.4); EOSINOPHILS % (AUTO) 1.7 % (0.0-4.0); LYMPHOCYTES # (AUTO) 1.2 K/uL (1.0-5.5); LYMPHOCYTES % (AUTO) 14.1 % (20.5-51.5); MEAN CORPUSCULAR VOLUME 100 fL (79.0-98.0); MONOCYTES # (AUTO) 0.8 K/uL (0.0-1.0); MONOCYTES % (AUTO) 9.7 % (1.7-9.3); NEUTROPHILS # (AUTO) 6.3 K/uL (1.8-7.7); NEUTROPHILS % (AUTO) 73.8 % (40.0-70.0); PLATELET COUNT (AUTO) 304 K/uL (130-430); RED BLOOD CELL COUNT(AUTO) 2.79 MIL/uL (4.2-6.2); WHITE BLOOD COUNT (AUTO) 8.6 K/uL (4.8-10.8)
[2022-04-26 14:03] LABS: ANION GAP 10 (5-15); CALCIUM 9.4 mg/dL (8.4-11.0); CHLORIDE 101 mmol/L (98-107); CREATININE 2.93 mg/dL (0.55-1.30); GLUCOSE 97 mg/dL (70-99); POTASSIUM 3.1 mmol/L (3.5-5.1); UREA NITROGEN, BLOOD 42 mg/dL (8-21)
[2022-04-26 14:09] LABS: ALANINE AMINOTRANSFERASE 18 U/L (12-78); ALBUMIN 1.7 g/dL (3.4-4.8); ASPARTATE AMINOTRANSFERASE 29 U/L (10-37); PHOSPHORUS 3.6 mg/dL (2.7-4.5); TOTAL BILIRUBIN 1.4 mg/dL (0.0-1.0)
--- NOTE | 2022-04-26 15:20 | NUR ---
Nutrition F/U RDN reviewed pt's current EMR including diet hx, phsyician notes, nursing notes, pertinent labs/meds/procedures, care trends, and care activity. Shortened note d/t high RD workload. Current Diet Order/ Nutrition Support: Mechanical soft + Nepro TID (Provides additional 1300 kcal + 57g protein per day) x 4 days Subjective Information: -- 04/26: RDN rounded to patient room. Patient seen in bed awake and alert, but confused. Patient seen at bedside. Per , PO intake and appetite continues to be poor and patient is being uncooperative/ agitated with most meals. states patient is even having a hard time wanting the Nepro ONS. Per RD chart review, only 1 x documented meal this week: 25% breakfast on 04/24. Patient was transferred out of ICU on 04/24. LBM documented 04/26 x 1 and patient noted with a tender abdomen. Per EMR, Patient noted with coccyx wound - pink with no drainage or odor; Skin tears on lower right leg, right knee, and right geiger; dry scab noted on right arm. Earle score is 14. RDN discussed nutrition support with , however is unsure if patient would be cooperative as he previously pulled out NGT. -- 04/22: reported pt does not want to eat and this has been an ongoing issues for the past 3 mo. She stated pt's UBW: 275-300#. RD weighed pt w/ bedscale: 267#. She reported that she encourages pt to eat/drink, but pt takes minimal sips/bites. She also reported that pt does not want to chew and prefers softer foods/liquids like yogurt and ice cream (vanilla). RD offered texture-modified diet/downgrade to finely chopped or pureed, however, declined, stating pt will not want to eat that either. Per EMR review, refusing consent for HD access placement; negligible PO intakes noted Estimated Energy Expenditure (kcals/day) 8034-7502 (25-30 kcal/kg IBW d/t CKD on HD, wounds) Estimated Protein Required (g/day) 87-109 (1.2-1.5 g/kg IBW d/t wounds, CKD on HD) Estimated Fluid Required (l/day) per MD (d/t renal dz) Problem/Etiology/Signs/Symptoms Inadequate oral intake r/t agitation, lack of appetite a/e/b 25% po intake x 8 days * New Altered nutrition-related lab values r/t renal dysfunction AEB elevated BUN, Glucose, Creatinine, Phosphorus; lowered RBC, Hgb, hematocrit, Calcium, Sodium. *Ongoing Increased energy and protein needs r/t HD, vent, wound healing AEB 25-30 kcal/kg estimated energy needs; 1.2-1.5 g/kg estimated protein needs. *Ongoing Inadequate enteral nutrition provision AEB NGTF infusing @ 20 ml/hr. *Resolved, now on PO diet Dietitian Recommendations * Mechanical Soft diet, Nepro TID (ONS yields 1300 kcal + 57g protein/day) * Encourage good PO intake * Consider need for EN/PPN support -- consult RD if warranted High Risk F/U: 2-3 days
--- NOTE | 2022-04-26 15:30 | NUR ---
Dietitian Recommendations * Mechanical Soft diet, Nepro TID (ONS yields 1300 kcal + 57g protein/day) * Encourage good PO intake * Consider need for EN/PPN support -- consult RD if warranted Please refer to nutrition f/u for details, thanks! CC, MPH, RDN
[2022-04-26] MEDS: metroNIDAZOLE 250 mg/NS 50 ML IV SCH ×2 (16:01→21:52)
[2022-04-26] MEDS ORDERED: POTASSIUM CHLORIDE 40 MEQ in D5W 250 ML IV ONE (18:30)
[2022-04-26] MEDS: EPOETIN ALFA-EPBX 4,000 UNITS/ML VIAL SUBCUT SCH (18:40)
--- NOTE | 2022-04-26 20:00 | NUR ---
OPENING NOTES: PATIENT IS A&O X1 ONLY RESPONDS TO NAME. GAMBLED SPEECH WHEN ASKED QUESTIONS, DOES NOT FOLLOW COMMANDS. PATIENT HAS A R U/A PICC WITH 5% DEXTROSE RUNNING AT 30. PATIENT HAS A TERRAZAS CATHETER AND A FLEXSEAL. ON 3 L NC AND SR WITH CONTROLLED A FIB. PATIENT HAS SKIN ISSUES ON COCCYX AND BUTTOCK. PATIENT IS ON [facility] SOFT DIET. PATIENT REFUSED TO LET NURSE TOUCH FOR ASSESSMENT AND PT SWINGING AND PUSHING NURSE HAND. BED IS AT THE LOWEST LEVEL, SUCTION IS WORKING, BRAKES ARE LOCKED, APPROPRIATE SIDE RAILS UP, AND CALL LIGHT WITHIN REACH.
--- NOTE | 2022-04-26 21:30 | NUR ---
PT REFUSED MEDS CALLED TO ASK IF THERE WAS ANYTHING TO DO R/T PT REFUSING TO OPEN HIS MEDICATION. REPORTED DO NOT GIVE PT AN OPTION AND JUST TELL HIM HE HAS TO TAKE HIS MEDS.
--- NOTE | 2022-04-26 21:45 | NUR ---
PT REFUSED MEDICATIONS PT STILL REFUSED HIS MEDICSTION. PT WOULD NOT OPEN HIS MOUTH TO TAKE THE MEDICATIONS
--- NOTE | 2022-04-26 22:30 | NUR ---
WOUND CHANGED PT REFUSED WOUNDS CHANGED NURSE AND OPTOMETRIST ASSISTANT ATTEMPTED TO CHANGE WOUND DRESSING. PT YELLED SCREAMED AND WHEN TURNING PT OVER TO ATTEMPTED TO CHANGE THE COCCYX DRESSING PT WOULD CONTINUED TO PUSH BACK AGAINST THE BOTH OF US AND IT BECAME TO PHYSICALLY CHALLENGING TO CHANGE THE COCCYX DRESSING WITH CAUSING INJURY TO EITHER OF THE 2 NURSES.
[2022-04-27 00:42] VITALS: BP_SYST 111
--- NOTE | 2022-04-27 07:30 | NUR ---
OPENING NOTE PT IN BED RESPIRATIONS NON-LABORED AND REGULAR WITH O2 NC. IV RUNNING ORDERED, IV SITE REMAIN NO S/S INFILTRATION OR INFECTION. TERRAZAS CATHETER DRAINING BY GRAVITY. BED IS LOCK AND AT LOW POSITION. WILL CONT TO MONITOR Addendum: 04/27/22 at 1433 by Wilmar Barron RN RECTAL TUBE INTACT WITHOUT BLOCKAGE/KINK
[2022-04-27 08:00] VITALS: BP_SYST 110
[2022-04-27] MEDS: MEGESTROL ACETATE 400 MG/10 ML UDC PO SCH (08:54)
[2022-04-27] MEDS: LACTULOSE 20 GM/30 ML UDC PO SCH (08:54)
[2022-04-27] MEDS: DOCUSATE SODIUM 100 MG/10 ML UDC PO SCH ×2 (08:54→21:20)
[2022-04-27] MEDS: PANTOPRAZOLE SODIUM 40 MG/VIAL (PROTONIX) IVP SCH (08:55)
[2022-04-27] MEDS: TAMSULOSIN HCL 0.4 MG CAP PO SCH (08:55)
[2022-04-27] MEDS: CHOLECALCIFEROL (VITAMIN D3) 2,000 UNIT TABLET PO SCH (08:55)
[2022-04-27] MEDS: NEPHROVITE, (FOLIC ACID/VITAMIN B COMP W-C 1 TAB) PO SCH (08:56)
[2022-04-27] MEDS: LACTOBACILLUS RHAMNOSUS GG 1 CAP CAPSULE PO SCH ×4 (08:56→21:20)
[2022-04-27] MEDS: BISACODYL 5 MG TABLET.DR (DULCOLAX) PO SCH ×2 (08:56→21:19)
[2022-04-27] MEDS: FOLIC ACID 1 MG TABLET PO SCH (08:57)
[2022-04-27] MEDS: MIDODRINE HCL 5 MG TABLET (PROAMATINE) PO SCH ×4 (08:57→21:20)
[2022-04-27] MEDS: AMIODARONE HCL 200 MG TABLET PO SCH (08:58)
[2022-04-27] MEDS: FUROSEMIDE 20 MG/2 ML VIAL IVP SCH ×2 (08:59→21:24)
--- NOTE | 2022-04-27 09:00 | NUR ---
LOW AIR MATTRESS LOW AIR MATTRESS IS NOT WORKING. NOTIFIED CHANNEL LIP WETTER.
[2022-04-27] MEDS ORDERED: KCL 20 mEq in 100 mL (PREMIX) 100 ML IV SCH ×2 (09:45→13:00)
[2022-04-27 10:26] LABS: ALANINE AMINOTRANSFERASE 21 U/L (12-78); ALBUMIN 1.7 g/dL (3.4-4.8); ANION GAP 10 (5-15); ASPARTATE AMINOTRANSFERASE 22 U/L (10-37); CALCIUM 9.3 mg/dL (8.4-11.0); CHLORIDE 102 mmol/L (98-107); CREATININE 2.91 mg/dL (0.55-1.30); GLUCOSE 102 mg/dL (70-99); POTASSIUM 3.1 mmol/L (3.5-5.1); TOTAL BILIRUBIN 1.3 mg/dL (0.0-1.0); UREA NITROGEN, BLOOD 39 mg/dL (8-21)
[2022-04-27] MEDS: D5W 1,000 ML IV SCH ×2 (10:46→15:31)
[2022-04-27 10:58] LABS: BASOPHILS # (AUTO) 0.1 K/uL (0.0-0.2); BASOPHILS % (AUTO) 1.1 % (0.0-2.0); EOSINOPHILS # (AUTO) 0.2 K/uL (0.0-0.4); EOSINOPHILS % (AUTO) 1.7 % (0.0-4.0); HEMATOCRIT 30.3 % (36-54); LYMPHOCYTES # (AUTO) 1.5 K/uL (1.0-5.5); LYMPHOCYTES % (AUTO) 14.6 % (20.5-51.5); MEAN CORPUSCULAR VOLUME 101 fL (79.0-98.0); MONOCYTES # (AUTO) 1.1 K/uL (0.0-1.0); MONOCYTES % (AUTO) 11.2 % (1.7-9.3); NEUTROPHILS # (AUTO) 7.2 K/uL (1.8-7.7); NEUTROPHILS % (AUTO) 71.4 % (40.0-70.0); PLATELET COUNT (AUTO) 279 K/uL (130-430); RED BLOOD CELL COUNT(AUTO) 3.01 MIL/uL (4.2-6.2); RED CELL DISTRIBUTION WIDTH 21.7 % (9.0-15.0); WHITE BLOOD COUNT (AUTO) 10.1 K/uL (4.8-10.8)
[2022-04-27] MEDS: BALSAM PERU/CASTOR OIL 56.7 GM OINT...G. TP SCH (11:22)
[2022-04-27] MEDS ORDERED: POTASSIUM CHLORIDE 40 MEQ in D5W 250 ML IV ONE (11:30)
--- NOTE | 2022-04-27 11:30 | NUR ---
WOUND CARE PROVIDED WOUND TREATMENT. SEE MST SHIFT ASSESSMENT. PT TOLERATED WELL
[2022-04-27] MEDS: metroNIDAZOLE 250 mg/NS 50 ML IV SCH ×3 (13:59→21:38)
[2022-04-27 14:09] VITALS: BP_SYST 119
--- NOTE | 2022-04-27 16:00 | NUR ---
PICC LINE DRESSING CHANGE CHANGED PICC LINE TO RIGHT UPPER ARM CHANGED WITH USING STERILE TECHNIQUE. PT TOLERATED WELL. PICC REMIANS PATENT AND SECURELY ATTACHED. CONTINUE TO MONITOR ANY S/S OF INFECTION
--- NOTE | 2022-04-27 18:16 | NUR ---
LAB LAB CALLED FOR POSITIVE BLOOD CULTURE FOR YEAST. WAITING FOR THE RESULT TO BE SHOWN IN THE SYSTEM.
[2022-04-27 18:28] VITALS: BP_SYST 111
--- NOTE | 2022-04-27 19:19 | NUR ---
CLOSING NOTE PT IN BED, REFUSING DINNER. NO S/S PAIN OR DISCOMFORT. TERRAZAS CATHETER DRAINING BY GRAVITY. PICC LINE REMAIN PATENT AND CLEAN NO S/S IV RELATED COMPLICATION NOTED. RECTAL TUBE IS INTACT AND CHANGED THE BAG. ENDORSED BLOOD CULTURE POSITIVE FOR YEAST. ENDORSED CARE
[2022-04-27 20:00] VITALS: BP_SYST 119
--- NOTE | 2022-04-27 20:00 | NUR ---
OPENING NOTE Patient in bed awake. A&O x1. Patient mumbling incoherently and unable to answer questions. Patient on tele monitor with no events. Patient is on oxygen via NC 3L sats 97. Patient has rectal tube in place and draining to gravity. Patient has mendoza catheter draining to gravity. Dark wiley colored urine. Patient has R U/A PICC double lumen. Patient has infusing fluids in one line. Second line does not flush or withdraw blood. All safety measures in place. Will continue to monitor.
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
[2022-04-28 00:33] VITALS: BP_SYST 106
[2022-04-28] MEDS: metroNIDAZOLE 250 mg/NS 50 ML IV SCH ×3 (04:58→22:24)
[2022-04-28 08:04] VITALS: BP_SYST 116
[2022-04-28 08:34] LABS: BASOPHILS % (AUTO) 0.5 % (0.0-2.0); EOSINOPHILS # (AUTO) 0.1 K/uL (0.0-0.4); EOSINOPHILS % (AUTO) 0.8 % (0.0-4.0); HEMATOCRIT 27.4 % (36-54); LYMPHOCYTES # (AUTO) 1.1 K/uL (1.0-5.5); LYMPHOCYTES % (AUTO) 10.6 % (20.5-51.5); MEAN CORPUSCULAR VOLUME 101 fL (79.0-98.0); MONOCYTES # (AUTO) 0.8 K/uL (0.0-1.0); MONOCYTES % (AUTO) 7.3 % (1.7-9.3); NEUTROPHILS # (AUTO) 8.4 K/uL (1.8-7.7); NEUTROPHILS % (AUTO) 80.8 % (40.0-70.0); PLATELET COUNT (AUTO) 303 K/uL (130-430); RED BLOOD CELL COUNT(AUTO) 2.71 MIL/uL (4.2-6.2); RED CELL DISTRIBUTION WIDTH 21.4 % (9.0-15.0); WHITE BLOOD COUNT (AUTO) 10.4 K/uL (4.8-10.8)
[2022-04-28 08:47] LABS: ALANINE AMINOTRANSFERASE 19 U/L (12-78); ALBUMIN 1.7 g/dL (3.4-4.8); ANION GAP 12 (5-15); ASPARTATE AMINOTRANSFERASE 33 U/L (10-37); CALCIUM 9.5 mg/dL (8.4-11.0); CHLORIDE 102 mmol/L (98-107); GLUCOSE 91 mg/dL (70-99); POTASSIUM 3.6 mmol/L (3.5-5.1); TOTAL BILIRUBIN 1.4 mg/dL (0.0-1.0); UREA NITROGEN, BLOOD 39 mg/dL (8-21)
[2022-04-28] MEDS: LACTULOSE 20 GM/30 ML UDC PO SCH (09:07)
[2022-04-28] MEDS: MEGESTROL ACETATE 400 MG/10 ML UDC PO SCH (09:08)
[2022-04-28] MEDS: DOCUSATE SODIUM 100 MG/10 ML UDC PO SCH ×2 (09:08→20:26)
[2022-04-28] MEDS: FOLIC ACID 1 MG TABLET PO SCH (09:08)
[2022-04-28] MEDS: LACTOBACILLUS RHAMNOSUS GG 1 CAP CAPSULE PO SCH ×3 (09:09→20:34)
[2022-04-28] MEDS: AMIODARONE HCL 200 MG TABLET PO SCH (09:09)
[2022-04-28] MEDS: MIDODRINE HCL 5 MG TABLET (PROAMATINE) PO SCH ×3 (09:10→20:25)
[2022-04-28] MEDS: TAMSULOSIN HCL 0.4 MG CAP PO SCH (09:10)
[2022-04-28] MEDS: CHOLECALCIFEROL (VITAMIN D3) 2,000 UNIT TABLET PO SCH (09:10)
[2022-04-28] MEDS: BISACODYL 5 MG TABLET.DR (DULCOLAX) PO SCH ×2 (09:10→20:25)
[2022-04-28] MEDS: NEPHROVITE, (FOLIC ACID/VITAMIN B COMP W-C 1 TAB) PO SCH (09:10)
[2022-04-28] MEDS: FUROSEMIDE 20 MG/2 ML VIAL IVP SCH ×2 (09:11→20:33)
[2022-04-28] MEDS: PANTOPRAZOLE SODIUM 40 MG/VIAL (PROTONIX) IVP SCH (09:11)
--- NOTE | 2022-04-28 09:12 | NUR ---
NOTES; called Dr. Pickering exchange per nurse Richardson and left message.
--- NOTE | 2022-04-28 09:40 | NUR ---
DR BLANCHARD WAS HERE AND SEEN PT.
[2022-04-28] MEDS: MICAFUNGIN SODIUM 150 MG in NS 100 ML IV SCH (12:48)
--- NOTE | 2022-04-28 13:03 | NUR ---
PT GIVEN I SPOON OF YOGURT, PT DOES NOT WANT TO SWALLOW FOOD. OFFERED WATER OF SUPPLEMENT. REFUSED AGAIN.
--- NOTE | 2022-04-28 14:34 | NUR ---
WOUND CARE DONE, PT TOLERATED WELL.
[2022-04-28 17:18] VITALS: BP_SYST 101
[2022-04-28] MEDS: EPOETIN ALFA-EPBX 4,000 UNITS/ML VIAL SUBCUT SCH (17:34)
[2022-04-28 20:01] VITALS: BP_SYST 136
[2022-04-28 23:18] VITALS: BP_SYST 105
[2022-04-29] MEDS: metroNIDAZOLE 250 mg/NS 50 ML IV SCH ×3 (06:00→21:17)
[2022-04-29 07:44] VITALS: BP_SYST 123
[2022-04-29 08:42] LABS: BASOPHILS # (AUTO) 0.1 K/uL (0.0-0.2); BASOPHILS % (AUTO) 0.5 % (0.0-2.0); EOSINOPHILS # (AUTO) 0.2 K/uL (0.0-0.4); EOSINOPHILS % (AUTO) 1.5 % (0.0-4.0); HEMATOCRIT 26.3 % (36-54); LYMPHOCYTES # (AUTO) 1.2 K/uL (1.0-5.5); LYMPHOCYTES % (AUTO) 11.4 % (20.5-51.5); MEAN CORPUSCULAR VOLUME 100 fL (79.0-98.0); MONOCYTES # (AUTO) 0.8 K/uL (0.0-1.0); MONOCYTES % (AUTO) 7.9 % (1.7-9.3); NEUTROPHILS % (AUTO) 78.7 % (40.0-70.0); PLATELET COUNT (AUTO) 280 K/uL (130-430); RED BLOOD CELL COUNT(AUTO) 2.62 MIL/uL (4.2-6.2); RED CELL DISTRIBUTION WIDTH 21.5 % (9.0-15.0); WHITE BLOOD COUNT (AUTO) 10.2 K/uL (4.8-10.8)
[2022-04-29 09:07] LABS: ALANINE AMINOTRANSFERASE 16 U/L (12-78); ALBUMIN 1.6 g/dL (3.4-4.8); ANION GAP 11 (5-15); ASPARTATE AMINOTRANSFERASE 30 U/L (10-37); CALCIUM 9.1 mg/dL (8.4-11.0); CHLORIDE 105 mmol/L (98-107); CREATININE 2.96 mg/dL (0.55-1.30); GLUCOSE 95 mg/dL (70-99); TOTAL BILIRUBIN 1.2 mg/dL (0.0-1.0); UREA NITROGEN, BLOOD 38 mg/dL (8-21)
[2022-04-29] MEDS: FOLIC ACID 1 MG TABLET PO SCH (09:26)
[2022-04-29] MEDS: BISACODYL 5 MG TABLET.DR (DULCOLAX) PO SCH ×2 (09:26→21:15)
[2022-04-29] MEDS: TAMSULOSIN HCL 0.4 MG CAP PO SCH (09:26)
[2022-04-29] MEDS: MEGESTROL ACETATE 400 MG/10 ML UDC PO SCH (09:26)
[2022-04-29] MEDS: NEPHROVITE, (FOLIC ACID/VITAMIN B COMP W-C 1 TAB) PO SCH (09:26)
[2022-04-29] MEDS: PANTOPRAZOLE SODIUM 40 MG/VIAL (PROTONIX) IVP SCH (09:26)
[2022-04-29] MEDS: LACTOBACILLUS RHAMNOSUS GG 1 CAP CAPSULE PO SCH ×3 (09:26→21:15)
[2022-04-29] MEDS: LACTULOSE 20 GM/30 ML UDC PO SCH (09:26)
[2022-04-29] MEDS: CHOLECALCIFEROL (VITAMIN D3) 2,000 UNIT TABLET PO SCH (09:27)
[2022-04-29] MEDS: DOCUSATE SODIUM 100 MG/10 ML UDC PO SCH ×2 (09:27→21:15)
[2022-04-29] MEDS: MIDODRINE HCL 5 MG TABLET (PROAMATINE) PO SCH ×3 (09:27→21:16)
[2022-04-29] MEDS: AMIODARONE HCL 200 MG TABLET PO SCH (09:27)
[2022-04-29] MEDS: FUROSEMIDE 20 MG/2 ML VIAL IVP SCH ×2 (09:28→21:16)
[2022-04-29] MEDS ORDERED: POTASSIUM CHLORIDE 40 MEQ in D5W 250 ML IV ONE (11:30)
[2022-04-29] MEDS: MICAFUNGIN SODIUM 150 MG in NS 100 ML IV SCH (11:53)
[2022-04-29] MEDS: D5W 1,000 ML IV SCH (11:54)
[2022-04-29 12:00] VITALS: BP_SYST 99
[2022-04-29 16:00] VITALS: BP_SYST 81
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
--- NOTE | 2022-04-29 17:00 | NUR ---
WOUND CARE DONE, PT TOLERATED WELL. FAMILY AT BEDSIDE.
--- NOTE | 2022-04-29 18:16 | NUR ---
CONSULT: SURGERY REASON: WOUND DEBRIMENT DR. CASTELLANO [phone] S/W: EXCHANGE CHASTITY
--- NOTE | 2022-04-29 19:40 | NUR ---
ROUNDS PATIENT RESTING COMFORTABLY IN BED, CONFUSED, VITALS STABLE, NO SIGNS OF ANY PAIN NOTED. ASSESSMENT DONE AND DOCUMENTED. NEEDS ATTENDED TO. SAFETY MEASURES IN PLACED. CALL LIGHT WITHIN REACH.
[2022-04-29 20:00] VITALS: BP_SYST 107
--- NOTE | 2022-04-30 00:15 | NUR ---
ROUNDS PATIENT ASLEEP, VITALS STABLE, WILL CONTINUE TO MONITOR.
[2022-04-30 00:22] VITALS: BP_SYST 107
[2022-04-30] MEDS: metroNIDAZOLE 250 mg/NS 50 ML IV SCH ×3 (05:05→21:11)
[2022-04-30 07:00] VITALS: BP_SYST 122
[2022-04-30 07:27] LABS: ANION GAP 9 (5-15); CALCIUM 9.3 mg/dL (8.4-11.0); CHLORIDE 104 mmol/L (98-107); CREATININE 2.95 mg/dL (0.55-1.30); GLUCOSE 99 mg/dL (70-99); POTASSIUM 3.3 mmol/L (3.5-5.1); UREA NITROGEN, BLOOD 39 mg/dL (8-21)
[2022-04-30 08:00] VITALS: BP_SYST 122
[2022-04-30] MEDS: FUROSEMIDE 20 MG/2 ML VIAL IVP SCH ×2 (09:39→21:17)
[2022-04-30] MEDS: PANTOPRAZOLE SODIUM 40 MG/VIAL (PROTONIX) IVP SCH (09:39)
[2022-04-30] MEDS: AMIODARONE HCL 200 MG TABLET PO SCH (09:40)
[2022-04-30] MEDS: LACTULOSE 20 GM/30 ML UDC PO SCH (09:41)
[2022-04-30] MEDS: LACTOBACILLUS RHAMNOSUS GG 1 CAP CAPSULE PO SCH ×3 (09:41→21:10)
[2022-04-30] MEDS: TAMSULOSIN HCL 0.4 MG CAP PO SCH (09:41)
[2022-04-30] MEDS: DOCUSATE SODIUM 100 MG/10 ML UDC PO SCH ×2 (09:41→21:10)
[2022-04-30] MEDS: BISACODYL 5 MG TABLET.DR (DULCOLAX) PO SCH ×2 (09:41→21:10)
[2022-04-30] MEDS: MIDODRINE HCL 5 MG TABLET (PROAMATINE) PO SCH ×3 (09:42→21:10)
[2022-04-30] MEDS: NEPHROVITE, (FOLIC ACID/VITAMIN B COMP W-C 1 TAB) PO SCH (09:42)
[2022-04-30] MEDS: MEGESTROL ACETATE 400 MG/10 ML UDC PO SCH (09:42)
[2022-04-30] MEDS: FOLIC ACID 1 MG TABLET PO SCH (09:42)
[2022-04-30] MEDS: CHOLECALCIFEROL (VITAMIN D3) 2,000 UNIT TABLET PO SCH (09:43)
[2022-04-30] MEDS: MICAFUNGIN SODIUM 150 MG in NS 100 ML IV SCH (10:39)
[2022-04-30 11:38] VITALS: BP_SYST 106
[2022-04-30] MEDS ORDERED: KCL 40 mEq in 100 mL (PREMIX) 100 ML IV ONE (17:00)
[2022-04-30] MEDS ORDERED: *TPN PER PHARMACY XX PRN (17:00)
[2022-04-30 17:10] VITALS: BP_SYST 137
[2022-04-30] MEDS: ACETAMINOPHEN 650 MG/20.3 ML UDC PO PRN (18:24)
[2022-04-30 20:00] VITALS: BP_SYST 105
[2022-05-01 00:47] VITALS: BP_SYST 140
[2022-05-01] MEDS: D5W 1,000 ML IV SCH ×2 (02:51→10:46)
[2022-05-01] MEDS: metroNIDAZOLE 250 mg/NS 50 ML IV SCH ×3 (05:46→21:50)
--- NOTE | 2022-05-01 06:19 | NUR ---
TERRAZAS CATHETER TERRAZAS CATHETER CHANGED ORDERED, TOLERATED PROCEDURE WELL. WILL CONTINUE TO MONITOR.
[2022-05-01] MEDS: MIDODRINE HCL 5 MG TABLET (PROAMATINE) PO SCH ×3 (09:00→21:00)
[2022-05-01] MEDS: LACTOBACILLUS RHAMNOSUS GG 1 CAP CAPSULE PO SCH ×3 (09:00→21:00)
[2022-05-01] MEDS: FOLIC ACID 1 MG TABLET PO SCH (09:00)
[2022-05-01] MEDS: CHOLECALCIFEROL (VITAMIN D3) 2,000 UNIT TABLET PO SCH (09:00)
[2022-05-01] MEDS: LACTULOSE 20 GM/30 ML UDC PO SCH (09:00)
[2022-05-01] MEDS: AMIODARONE HCL 200 MG TABLET PO SCH (09:00)
[2022-05-01] MEDS: MEGESTROL ACETATE 400 MG/10 ML UDC PO SCH (09:00)
[2022-05-01] MEDS: DOCUSATE SODIUM 100 MG/10 ML UDC PO SCH ×2 (09:00→21:00)
[2022-05-01] MEDS: FUROSEMIDE 20 MG/2 ML VIAL IVP SCH ×2 (09:00→21:00)
[2022-05-01] MEDS: NEPHROVITE, (FOLIC ACID/VITAMIN B COMP W-C 1 TAB) PO SCH (09:00)
[2022-05-01] MEDS: BISACODYL 5 MG TABLET.DR (DULCOLAX) PO SCH ×2 (09:00→21:00)
[2022-05-01] MEDS: TAMSULOSIN HCL 0.4 MG CAP PO SCH (09:00)
[2022-05-01] MEDS: PANTOPRAZOLE SODIUM 40 MG/VIAL (PROTONIX) IVP SCH (09:49)
[2022-05-01 11:45] VITALS: BP_SYST 92
[2022-05-01 12:00] VITALS: BP_SYST 92
[2022-05-01] MEDS: MICAFUNGIN SODIUM 150 MG in NS 100 ML IV SCH (12:38)
[2022-05-01] MEDS: EPOETIN ALFA-EPBX 4,000 UNITS/ML VIAL SUBCUT SCH (16:08)
--- NOTE | 2022-05-01 16:09 | NUR ---
Pt refused AM V/S, and PO meds. Dr. Schmidt aware
[2022-05-01 16:15] VITALS: BP_SYST 94
--- NOTE | 2022-05-01 17:30 | NUR ---
at bedside, wound care done.
--- NOTE | 2022-05-01 19:30 | NUR ---
Opening note Received report from day nurse. Pt is awake lying in bed, on 3L nasal cannula. IVF infusing. Pt is refusing vital signs, keeps flailing arms around when RN attempts to put BP cuff on. Will try again later. Fall and safety precautions in place with bed in lowest position, bed alarm on, and call light within reach
[2022-05-01 20:00] VITALS: BP_SYST 93
--- NOTE | 2022-05-01 21:45 | NUR ---
Pt refused all PO meds. Was able to get vital signs. TPN started
[2022-05-01] MEDS: TPN CENTRAL 0.0001 ML, SODIUM ACETATE 40 MEQ, POTASSIUM CHLORIDE 30 MEQ, K PHOS 9 MM, M... IV SCH ×9 (21:53)
[2022-05-02] VITALS: BP_SYST 120
--- NOTE | 2022-05-02 00:15 | NUR ---
Rounds Pt lying in bed, eyes closed. No s/s of acute distress. Fall and safety checks in place
[2022-05-02 07:00] VITALS: BP_SYST 116
[2022-05-02 08:00] VITALS: BP_SYST 116
[2022-05-02] MEDS: TAMSULOSIN HCL 0.4 MG CAP PO SCH (09:00)
[2022-05-02] MEDS: FOLIC ACID 1 MG TABLET PO SCH (09:00)
[2022-05-02] MEDS: NEPHROVITE, (FOLIC ACID/VITAMIN B COMP W-C 1 TAB) PO SCH (09:00)
[2022-05-02] MEDS: AMIODARONE HCL 200 MG TABLET PO SCH (09:00)
[2022-05-02] MEDS: LACTOBACILLUS RHAMNOSUS GG 1 CAP CAPSULE PO SCH ×3 (09:00→21:00)
[2022-05-02] MEDS: CHOLECALCIFEROL (VITAMIN D3) 2,000 UNIT TABLET PO SCH (09:00)
[2022-05-02] MEDS: BISACODYL 5 MG TABLET.DR (DULCOLAX) PO SCH ×2 (09:00→21:00)
[2022-05-02] MEDS: MEGESTROL ACETATE 400 MG/10 ML UDC PO SCH (09:00)
[2022-05-02] MEDS: LACTULOSE 20 GM/30 ML UDC PO SCH (09:00)
[2022-05-02] MEDS: MIDODRINE HCL 5 MG TABLET (PROAMATINE) PO SCH ×3 (09:00→21:00)
[2022-05-02] MEDS: DOCUSATE SODIUM 100 MG/10 ML UDC PO SCH ×2 (09:00→21:00)
[2022-05-02] MEDS: FUROSEMIDE 20 MG/2 ML VIAL IVP SCH ×2 (09:10→21:15)
[2022-05-02] MEDS: PANTOPRAZOLE SODIUM 40 MG/VIAL (PROTONIX) IVP SCH (09:10)
[2022-05-02] MEDS: D5W 1,000 ML IV SCH (11:06)
[2022-05-02] MEDS: MICAFUNGIN SODIUM 150 MG in NS 100 ML IV SCH (11:11)
[2022-05-02 11:43] VITALS: BP_SYST 120
--- NOTE | 2022-05-02 17:55 | NUR ---
WOUND EVALUATION: Wound Consult received from Dr. Márquez. Thank you, Dr. Márquez, for the consult. Patient received in a Lor Bed with a P500 low air-loss mattress, awake, alert, talkative, gets upset quickly, confused. Patient is unable to turn in bed independently. Earle Score is a 13. Past Medical History: Chronic Atrial-Fibrillation, liver disease, recent AICD Implant, chronic anticoagulation, chronic CHF, chronic kidney disease, morbid obesity, recent compound fracture of right ankle (status post ORIF), bilateral Total Knee Replacement. Recent Labs: WBC 9.5, RBC 2.72, hemoglobin 8.5, hematocrit 24.8, potassium 3.1, BUN 38, creatinine 2.75, glucose 147, calcium 7.2, AST 45, BNP 3340, serum total protein 4.7, albumin 2.0, PT 16.2, INR 1.6, PTT > 150, D-dimer 645. Microbiology: Blood culture results x2 negative. Urine culture results negative. 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 Urine culture results positive for yeast. Second blood culture results x2 in progress. Second urine culture results in progress. Wound culture results in progress. Intrinsic factors that delay wound healing: Chronic Atrial-Fibrillation, liver disease, chronic CHF, chronic kidney disease. Extrinsic factors that delay wound healing: Decreased mobility. Per assessment by Dr. Schmidt: 1. COMPLICATED UTI 2. SEPTICEMIA 3. METABOLIC ENCEPHALOPATHY. 4. ESRF. 5. DEC ULCER OF COCCYX 6. SEVER MALNUTRITION Wound Assessment: 1. Left Sacral area: Unstageable pressure ulcer, present on admission. Site has merged with two right Sacral wounds and surrounding scar tissue. Wound bed has 20% black leathery eschar, 30% pink tissue, 50% yellow tissue. No odor, scant sanguineous drainage. Wound measures 10.9 cm x 16.0 cm x 2.0. Recommend: Cleanse wound with normal saline. Apply moisture barrier cream to periwound. Apply Venelex ointment to wound beds. Cover with Sacral foam dressing. Perform wound care daily, and as needed for dressing soiling or dislodgment. 2. Sacral and outer Sacral/Buttocks areas: Multiple areas of scar tissue, present on admission. Recommend: No dressings needed. Continue to monitor sites every shift. 3. Right Outer Buttock: Skin tear. Site has 100% pink tissue. No odor, no drainage. Perimeter of skin tear intact. Skin tear measures 1.0 cm x 1.5 cm. Commend: Cleanse site with normal saline. Gently pat dry. Apply Calmoseptine cream to site. Cover with foam dressing for protection. Perform site care daily, and as needed for dressing soiling or dislodgment. 4. 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 Open area has 80% red tissue, 20% yellow tissue. No odor, no drainage. No undermining or tunneling. Site measures 9.0 cm 8.0 cm. Cleanse site with normal saline. Apply Calmoseptine cream to site. Apply Venelex ointment to any open area not covered by Calmoseptine cream. Cover with foam dressing. Perform site care daily, and as needed for dressing soiling or dislodgment. 5. Left Tiana-Anal area: IAD/MASD. Open area has 100% pink tissue. No odor, no drainage. No undermining or tunneling. Site measures 1.5 cm 1.0 cm. Cleanse site with normal saline. Apply Calmoseptine cream to site. Apply Venelex ointment to any open area not covered by Calmoseptine cream. Cover with foam dressing. Perform site care daily, and as needed for dressing soiling or dislodgment. 6. Right Posterior Heel: Unstageable pressure ulcer, present on admission. Wound bed has 70% light brown leathery eschar, 30% hard brown eschar.. No odor, no drainage. Periwound intact. Wound measures 1.7 cm x 3.4 cm. Recommend: [place] site with Betadine. Allow Betadine to air dry. Cover site with foam dressing. Do not allow heels or feet to touch bed or other surfaces at any time. Float heels at all times. 7. Right Posterior Medial Heel: Unstageable pressure ulcer, present on admission. Wound bed has 80% yellow slough, 10% red tissue, 10% black tissue. No odor, scant yellow drainage. Periwound intact. Wound measures 1.8 cm x 2.8 cm. Recommend: Cleanse wound with normal saline. Apply Calmoseptine cream to periwound. Apply Venelex ointment to wound bed. Cover site with foam dressing. Perform wound care daily, and as needed for dressing soiling. Do not allow heels or feet to touch bed or other surfaces at any time. Float heels at all times. 8. Right Dorsal Foot over Fifth Metatarsal Bone: Area of nonblanchable red skin, present on admission. Site has now opened and has 100% dull red tissue. No odor, no drainage. Periwound intact. Site measures 2.0 cm x 0.4 cm. Recommend: Cleanse site with normal saline. Apply Calmoseptine cream to site. Cover site with foam dressing. Perform site care daily, and as needed for dressing soiling. 9. Right Distal Lateral Lower Extremity: Stage II pressure ulcer, present on admission, now a stage III. Wound bed has 75% red tissue, 25% yellow tissue. No odor, no drainage. Periwound intact. Dark discoloration present superior to wound site. Wound measures 2.3 cm x 1.5 cm x 0.5 cm. Recommend: Cleanse wound with normal saline. Apply Calmoseptine cream to periwound. Apply Venelex ointment to wound bed. Cover with foam dressing. Perform wound care daily, and as needed for dressing soiling or dislodgment. 10. Right Lateral Proximal Lower Extremity, Lateral and Inferior to Knee: Unstageable pressure ulcer, present on admission. Wound bed has 100% yellow slough. No odor, no drainage. Periwound intact. Wound measures 1.2 cm x 1.1 cm. Recommend: Cleanse wound with normal saline. Apply moisture barrier cream to periwound. Apply Venelex ointment to wound bed. Cover with foam dressing. Perform wound care daily, and as needed for dressing soiling or dislodgment. 11. Right Lateral Lower Extremity, Superior to Site 9: Chronic wound of unknown etiology. Site has 100% yellow eschar. No odor, no drainage. Periwound intact. Dry, stable. Wound measures 1.0 cm x 0.5 cm. 12. Right Lateral Lower Extremity, Superior to Site 10: Area of red discoloration. Site is not open. No odor, no drainage. Site measures 1.5 cm x 0.9 cm. Recommend: Cover sites with foam dressing for protection. Offload sites at all times. 13. Right Anterior Knee: Stage III pressure ulcer, present on admission. Wound bed has 85% pink tissue, 10% yellow tissue, 5% red tissue. No odor, no drainage. Periwound intact. Wound measures 1.4 cm x 2.0 cm. Recommend: Cleanse wound with normal saline. Apply moisture barrier cream to periwound. Apply Venelex ointment to wound bed. Cover with foam dressing. Perform wound care daily, and as needed for dressing soiling or dislodgment. 14. Left Medial Malleolus: Unstageable pressure ulcer, present on admission. Wound bed has 85% red tissue, 15% yellow slough. No odor, no drainage. Periwound intact. Wound measures 1.6 cm x 2.5 cm x 2.3 cm. Recommend: Cleanse wound with normal saline. Apply moisture barrier cream to periwound. Apply Venelex ointment to wound bed. Cover with foam dressing. Perform wound care daily, and as needed for dressing soiling or dislodgment. 15. Right Third Toe, Dorsal Aspect: Chronic wound of unknown etiology, present on admission. Wound bed has 100% black eschar. No odor, no drainage. Periwound intact. Wound measures 0.9 cm x 0.8 cm. Recommend continue: [place] site with Betadine daily. No dressing needed. 16. Left Medial Forearm, near AC Joint: Skin tear. Skin tear has 90% pink tissue, 10% red tissue. No odor, no drainage. Perimeter of skin tear intact. Ecchymosis present on surrounding tissue. Skin tear measures 6.0 cm x 2.5 cm. 17. Right Upper Extremity: Multiple areas of ecchymosis, present on admission. 18. Left Upper Extremity: Multiple areas of ecchymosis, present on admission. Recommend: No dressings needed. Continue to monitor sites every shift. Also recommend: Reposition patient side to side only every 2 hours with one pillow underneath trunk and 1 pillow underneath pelvis, and off-load pressure areas with pillows for pressure re-distribution. Offload, elevate and float bilateral heels with 1 pillow lengthwise under each extremity at all times. Perform skin care and monitor skin integrity Q shift. Use moisture barrier cream on buttocks and other moisture susceptible areas QID and as needed for soiling. Maintain patient on a P500 low air-loss mattress.
[2022-05-02] MEDS ORDERED: MENTHOL/ZINC OXIDE 113 GM OINT. TP PRN (19:00)
--- NOTE | 2022-05-02 20:30 | NUR ---
Opening notes Pt sleeping, easily awakens. VSS. O2 sat 99% on 3L O2 via NC. IVF infusing VANDANA PICC line dressing C/D/I. Lunsford catheter draining to gravity and flexiseal intact. Pt repositioned with pillow support. Call light within reach. Contact isolation maintained. To monitor.
[2022-05-02 20:35] VITALS: BP_SYST 100
--- NOTE | 2022-05-02 21:10 | NUR ---
Med pass/refused PO meds Pt asleep, easily awakens, no s/s distress. Pt refused PO meds, shaking head back and forth. New bag of TPN administered VANDANA PICC line, good blood return. Call light within within reach. To monitor
[2022-05-02] MEDS: metroNIDAZOLE 250 mg/NS 50 ML IV SCH (21:15)
[2022-05-02] MEDS: TPN CENTRAL 0.0001 ML, SODIUM ACETATE 40 MEQ, POTASSIUM CHLORIDE 30 MEQ, K PHOS 9 MM, M... IV SCH ×9 (21:40)
[2022-05-03 00:16] VITALS: BP_SYST 108
[2022-05-03] MEDS: metroNIDAZOLE 250 mg/NS 50 ML IV SCH ×3 (06:08→21:19)
--- NOTE | 2022-05-03 06:47 | NUR ---
Closing notes Pt sleeping, easily awakens. VSS. O2 sat 99% on 3L O2 via NC. IVF/antibiotic infusing VANDANA PICC line dressing C/D/I. Lunsford catheter draining to gravity and flexiseal intact. Pt repositioned with pillow support. Call light within reach. Contact isolation maintained. To endorse to AM nurse.
--- NOTE | 2022-05-03 07:18 | NUR ---
PHYSICAL THERAPY CO-SIGN The Physical Therapy Progress Notes documented by Continuous Crusher Operator have been reviewed. Reviewed/Co-Signed by: Oscar Pride Documentation Done by: ATUL HAIRSTON PTA Addendum: 05/03/22 at 0718 by Oscar Pride PT Amended: Links added.
[2022-05-03 07:57] LABS: BASOPHILS # (AUTO) 0.1 K/uL (0.0-0.2); BASOPHILS % (AUTO) 0.5 % (0.0-2.0); EOSINOPHILS # (AUTO) 0.4 K/uL (0.0-0.4); EOSINOPHILS % (AUTO) 3.4 % (0.0-4.0); HEMATOCRIT 26.1 % (36-54); LYMPHOCYTES # (AUTO) 1.1 K/uL (1.0-5.5); LYMPHOCYTES % (AUTO) 10.4 % (20.5-51.5); MEAN CORPUSCULAR VOLUME 99 fL (79.0-98.0); MONOCYTES # (AUTO) 0.9 K/uL (0.0-1.0); MONOCYTES % (AUTO) 8.6 % (1.7-9.3); NEUTROPHILS # (AUTO) 8.1 K/uL (1.8-7.7); NEUTROPHILS % (AUTO) 77.1 % (40.0-70.0); PLATELET COUNT (AUTO) 162 K/uL (130-430); RED BLOOD CELL COUNT(AUTO) 2.63 MIL/uL (4.2-6.2); RED CELL DISTRIBUTION WIDTH 20.5 % (9.0-15.0); WHITE BLOOD COUNT (AUTO) 10.6 K/uL (4.8-10.8)
[2022-05-03 08:00] VITALS: BP_SYST 89
[2022-05-03] MEDS: AMIODARONE HCL 200 MG TABLET PO SCH ×2 (08:03→16:20)
[2022-05-03 08:12] LABS: ANION GAP 9 (5-15); CHLORIDE 104 mmol/L (98-107)
[2022-05-03 08:34] LABS: ALBUMIN 1.5 g/dL (3.4-4.8); PHOSPHORUS 3.1 mg/dL (2.7-4.5); UREA NITROGEN, BLOOD 37 mg/dL (8-21)
[2022-05-03 08:39] LABS: ALANINE AMINOTRANSFERASE 14 U/L (12-78); ASPARTATE AMINOTRANSFERASE 28 U/L (10-37); CALCIUM 8.6 mg/dL (8.4-11.0); CREATININE 2.62 mg/dL (0.55-1.30); GLUCOSE 127 mg/dL (70-99); TOTAL BILIRUBIN 0.9 mg/dL (0.0-1.0)
[2022-05-03] MEDS: BISACODYL 5 MG TABLET.DR (DULCOLAX) PO SCH ×2 (09:00→20:50)
[2022-05-03] MEDS: NEPHROVITE, (FOLIC ACID/VITAMIN B COMP W-C 1 TAB) PO SCH (09:00)
[2022-05-03] MEDS: LACTOBACILLUS RHAMNOSUS GG 1 CAP CAPSULE PO SCH ×3 (09:00→20:50)
[2022-05-03] MEDS: MIDODRINE HCL 5 MG TABLET (PROAMATINE) PO SCH ×3 (09:00→20:50)
[2022-05-03] MEDS: TAMSULOSIN HCL 0.4 MG CAP PO SCH (09:00)
[2022-05-03] MEDS: FUROSEMIDE 20 MG/2 ML VIAL IVP SCH ×2 (09:00→20:49)
[2022-05-03] MEDS: LACTULOSE 20 GM/30 ML UDC PO SCH (09:00)
[2022-05-03] MEDS: DOCUSATE SODIUM 100 MG/10 ML UDC PO SCH ×2 (09:00→20:50)
[2022-05-03] MEDS: FOLIC ACID 1 MG TABLET PO SCH (09:00)
[2022-05-03] MEDS: CHOLECALCIFEROL (VITAMIN D3) 2,000 UNIT TABLET PO SCH (09:00)
[2022-05-03] MEDS: MEGESTROL ACETATE 400 MG/10 ML UDC PO SCH (09:00)
[2022-05-03] MEDS: PANTOPRAZOLE SODIUM 40 MG/VIAL (PROTONIX) IVP SCH (09:05)
[2022-05-03 09:29] LABS: POTASSIUM 2.9 mmol/L (3.5-5.1)
[2022-05-03] MEDS ORDERED: POTASSIUM CHLORIDE 20 MEQ/PKT PACKET PO ONE (10:30)
[2022-05-03] MEDS: D5W 1,000 ML IV SCH (10:46)
[2022-05-03] MEDS ORDERED: KCL 40 mEq in 100 mL (PREMIX) 100 ML IV ONE (11:00)
[2022-05-03 12:00] VITALS: BP_SYST 101
[2022-05-03] MEDS: MICAFUNGIN SODIUM 150 MG in NS 100 ML IV SCH (12:51)
[2022-05-03] MEDS: ACETAMINOPHEN 650 MG/20.3 ML UDC PO PRN (14:33)
[2022-05-03 16:00] VITALS: BP_SYST 96
[2022-05-03] MEDS: EPOETIN ALFA-EPBX 4,000 UNITS/ML VIAL SUBCUT SCH (16:59)
[2022-05-03 20:00] VITALS: BP_SYST 88
--- NOTE | 2022-05-03 20:49 | NUR ---
Pt refused all PO meds Explained to pt what medication is for and Pt yelled and stated "I don't want to take anything down!"
[2022-05-03] MEDS ORDERED: K PHOS IV SCH ×9 (21:00)
[2022-05-03] MEDS ORDERED: SODIUM ACETATE IV SCH ×9 (21:00)
[2022-05-03] MEDS ORDERED: TPN CENTRAL IV SCH ×9 (21:00)
[2022-05-03] MEDS ORDERED: POTASSIUM CHLORIDE IV SCH ×9 (21:00)
[2022-05-03] MEDS ORDERED: [UNRECOGNIZED DRUG - OTHER] IV SCH ×9 (21:00)
[2022-05-04] VITALS: BP_SYST 99
[2022-05-04] MEDS: D5W 1,000 ML IV SCH (04:01)
[2022-05-04] MEDS: metroNIDAZOLE 250 mg/NS 50 ML IV SCH ×3 (06:31→21:17)
[2022-05-04 07:34] LABS: ALANINE AMINOTRANSFERASE 15 U/L (12-78); ALBUMIN 1.5 g/dL (3.4-4.8); ANION GAP 6 (5-15); ASPARTATE AMINOTRANSFERASE 25 U/L (10-37); CALCIUM 9.3 mg/dL (8.4-11.0); CHLORIDE 105 mmol/L (98-107); CREATININE 2.53 mg/dL (0.55-1.30); GLUCOSE 124 mg/dL (70-99); PHOSPHORUS 2.2 mg/dL (2.7-4.5); POTASSIUM 4.5 mmol/L (3.5-5.1); TOTAL BILIRUBIN 0.9 mg/dL (0.0-1.0); UREA NITROGEN, BLOOD 40 mg/dL (8-21)
[2022-05-04 07:47] LABS: BASOPHILS # (AUTO) 0.1 K/uL (0.0-0.2); BASOPHILS % (AUTO) 0.8 % (0.0-2.0); EOSINOPHILS # (AUTO) 0.2 K/uL (0.0-0.4); EOSINOPHILS % (AUTO) 2.1 % (0.0-4.0); HEMATOCRIT 27.9 % (36-54); LYMPHOCYTES # (AUTO) 1.4 K/uL (1.0-5.5); LYMPHOCYTES % (AUTO) 12.4 % (20.5-51.5); MEAN CORPUSCULAR VOLUME 100 fL (79.0-98.0); MONOCYTES # (AUTO) 1.2 K/uL (0.0-1.0); MONOCYTES % (AUTO) 10.6 % (1.7-9.3); NEUTROPHILS # (AUTO) 8.5 K/uL (1.8-7.7); NEUTROPHILS % (AUTO) 74.1 % (40.0-70.0); PLATELET COUNT (AUTO) 194 K/uL (130-430); RED BLOOD CELL COUNT(AUTO) 2.78 MIL/uL (4.2-6.2); WHITE BLOOD COUNT (AUTO) 11.5 K/uL (4.8-10.8)
--- NOTE | 2022-05-04 07:53 | NUR ---
PHYSICAL THERAPY CO-SIGN The Physical Therapy Progress Notes documented by Founder And Chief Technical Officer have been reviewed. Reviewed/Co-Signed by: Oscar Pride Documentation Done by: ATUL HAIRSTON PTA Addendum: 05/04/22 at 0753 by Oscar Pride PT Amended: Links added.
[2022-05-04] MEDS: DOCUSATE SODIUM 100 MG/10 ML UDC PO SCH ×2 (09:00→21:00)
[2022-05-04] MEDS: LACTULOSE 20 GM/30 ML UDC PO SCH ×2 (09:00→12:58)
[2022-05-04] MEDS: FUROSEMIDE 20 MG/2 ML VIAL IVP SCH ×2 (09:00→21:16)
[2022-05-04] MEDS: BISACODYL 5 MG TABLET.DR (DULCOLAX) PO SCH ×2 (09:00→21:00)
[2022-05-04] MEDS: PANTOPRAZOLE SODIUM 40 MG/VIAL (PROTONIX) IVP SCH (10:26)
[2022-05-04] MEDS: LACTOBACILLUS RHAMNOSUS GG 1 CAP CAPSULE PO SCH ×3 (10:37→21:17)
[2022-05-04] MEDS: FOLIC ACID 1 MG TABLET PO SCH (10:37)
[2022-05-04] MEDS: MEGESTROL ACETATE 400 MG/10 ML UDC PO SCH (10:37)
[2022-05-04] MEDS: AMIODARONE HCL 200 MG TABLET PO SCH (10:38)
[2022-05-04] MEDS: TAMSULOSIN HCL 0.4 MG CAP PO SCH (10:39)
[2022-05-04] MEDS: CHOLECALCIFEROL (VITAMIN D3) 2,000 UNIT TABLET PO SCH (10:39)
[2022-05-04] MEDS: MIDODRINE HCL 5 MG TABLET (PROAMATINE) PO SCH ×3 (10:40→21:17)
[2022-05-04] MEDS: NEPHROVITE, (FOLIC ACID/VITAMIN B COMP W-C 1 TAB) PO SCH (10:41)
[2022-05-04] MEDS: MICAFUNGIN SODIUM 150 MG in NS 100 ML IV SCH (10:54)
[2022-05-04 13:23] VITALS: BP_SYST 156
--- NOTE | 2022-05-04 15:00 | NUR ---
DR CASTELLANO ROUNDPRANAV IN ROOM STATES POSSIBLE PLAN TO DEBRIDE WOUND ON COCCYX ON SUNDAY.
[2022-05-04 16:45] VITALS: BP_SYST 130
--- NOTE | 2022-05-04 16:55 | NUR ---
PT WITH MULTIPLE WOUNDS, WOUND CARE PERFORMED WITH THE EXCEPTION OF OINTMENTS DUE TO BEING REPORTED BY STAFF THAT PTS DOES NOT WANT OINTMENTS APPLIED TO WOUND WOULD PREFER ALGINATE INSTEAD. REQUEST NOTED AND WOUND CARE NOTIFIED OF REQUEST. WILL CONTINUE TO MONITOR PT.
[2022-05-04] MEDS: ACETAMINOPHEN 650 MG/20.3 ML UDC PO PRN (18:27)
[2022-05-04] MEDS ORDERED: [UNRECOGNIZED DRUG - OTHER] IV SCH ×9 (21:00)
[2022-05-04] MEDS ORDERED: K PHOS IV SCH ×9 (21:00)
[2022-05-04] MEDS ORDERED: SODIUM ACETATE IV SCH ×9 (21:00)
[2022-05-04] MEDS ORDERED: POTASSIUM CHLORIDE IV SCH ×9 (21:00)
[2022-05-04] MEDS ORDERED: TPN CENTRAL IV SCH ×9 (21:00)
[2022-05-05 01:14] VITALS: BP_SYST 105
[2022-05-05 08:00] VITALS: BP_SYST 106
[2022-05-05] MEDS: NEPHROVITE, (FOLIC ACID/VITAMIN B COMP W-C 1 TAB) PO SCH ×2 (09:00→09:17)
[2022-05-05] MEDS: FOLIC ACID 1 MG TABLET PO SCH ×2 (09:00→09:16)
[2022-05-05] MEDS: CHOLECALCIFEROL (VITAMIN D3) 2,000 UNIT TABLET PO SCH ×2 (09:00→09:17)
[2022-05-05] MEDS: MEGESTROL ACETATE 400 MG/10 ML UDC PO SCH ×2 (09:00→09:16)
[2022-05-05] MEDS: LACTULOSE 20 GM/30 ML UDC PO SCH ×2 (09:00→09:16)
[2022-05-05] MEDS: BISACODYL 5 MG TABLET.DR (DULCOLAX) PO SCH ×3 (09:00→21:00)
[2022-05-05] MEDS: LACTOBACILLUS RHAMNOSUS GG 1 CAP CAPSULE PO SCH ×4 (09:00→21:00)
[2022-05-05] MEDS: TAMSULOSIN HCL 0.4 MG CAP PO SCH ×2 (09:00→09:17)
[2022-05-05] MEDS: DOCUSATE SODIUM 100 MG/10 ML UDC PO SCH ×3 (09:00→21:00)
[2022-05-05] MEDS: FUROSEMIDE 20 MG/2 ML VIAL IVP SCH ×2 (09:14→21:00)
[2022-05-05] MEDS: PANTOPRAZOLE SODIUM 40 MG/VIAL (PROTONIX) IVP SCH (09:15)
[2022-05-05] MEDS: MIDODRINE HCL 5 MG TABLET (PROAMATINE) PO SCH ×3 (09:17→21:00)
[2022-05-05 09:48] LABS: ALANINE AMINOTRANSFERASE 14 U/L (12-78); ALBUMIN 1.3 g/dL (3.4-4.8); ANION GAP 6 (5-15); ASPARTATE AMINOTRANSFERASE 20 U/L (10-37); CHLORIDE 105 mmol/L (98-107); CREATININE 2.35 mg/dL (0.55-1.30); GLUCOSE 113 mg/dL (70-99); PHOSPHORUS 2.2 mg/dL (2.7-4.5); POTASSIUM 4.3 mmol/L (3.5-5.1); TOTAL BILIRUBIN 0.9 mg/dL (0.0-1.0); UREA NITROGEN, BLOOD 40 mg/dL (8-21)
[2022-05-05 12:00] VITALS: BP_SYST 99
[2022-05-05] MEDS: MICAFUNGIN SODIUM 150 MG in NS 100 ML IV SCH (15:50)
[2022-05-05] MEDS: D5W 1,000 ML IV SCH (15:52)
[2022-05-05 16:00] VITALS: BP_SYST 95
[2022-05-05] MEDS: EPOETIN ALFA-EPBX 4,000 UNITS/ML VIAL SUBCUT SCH (18:51)
[2022-05-05 19:41] LABS: BILIRUBIN,URINE NEGATIVE (NEGATIVE); BLOOD, URINE 1+ (NEGATIVE); COLOR,URINE YELLOW (YELLOW); GLUCOSE,URINE NEGATIVE (NEGATIVE); KETONES,URINE NEGATIVE (NEGATIVE); LEUKOCYTE ESTERASE ,URINE 2+ (NEGATIVE); NITRITE, URINE NEGATIVE (NEGATIVE); PH,URINE 5.5 (5.0-8.0); PROTEIN URINE NEGATIVE (NEGATIVE); UROBILINOGEN,URINE 0.2 (0.2-1.0)
[2022-05-05 20:04] LABS: CLARITY/URINE HAZY (CLEAR)
[2022-05-05 20:10] LABS: BACTERIA,URINE FEW /HPF (None Seen); MUCUS,URINE None Seen /LPF (None Seen); RBC,URINE 0-3 /HPF (0-3); YEAST,URINE Few /HPF (None Seen)
[2022-05-05] MEDS ORDERED: [UNRECOGNIZED DRUG - OTHER] IV SCH ×9 (21:00)
[2022-05-05] MEDS ORDERED: SODIUM ACETATE IV SCH ×9 (21:00)
[2022-05-05] MEDS ORDERED: TPN CENTRAL IV SCH ×9 (21:00)
[2022-05-05] MEDS ORDERED: POTASSIUM CHLORIDE IV SCH ×9 (21:00)
[2022-05-05] MEDS ORDERED: K PHOS IV SCH ×9 (21:00)
--- NOTE | 2022-05-05 21:20 | NUR ---
Refused vital signs to be taken Pt yelled and stated "Don't touch me!" while lifting up his left arm.
[2022-05-06 00:36] VITALS: BP_SYST 114
--- NOTE | 2022-05-06 06:45 | NUR ---
Closing notes Pt asleep, no s/s distress. IVF/TPN infusing at ordered rate VANDANA PICC line. Lunsford catheter draining to gravity. Call light within reach. Safety/isolation maintained. To endorse to AM nurse.
[2022-05-06 07:45] VITALS: BP_SYST 102
--- NOTE | 2022-05-06 08:00 | NUR ---
INITIAL NOTE RECEIVED PATIENT SLEEPING, AROUSE BY MILD CHEST STIMULATION, NO C/O DISTRESS. PICC LINE X2 LUMEN PATIENT WITH IVF/TPN INFUSING. TERRAZAS CATHETER DRAINING WITH BETO COLOR URINE, AND NOTED BROWN COLOR STOOL IN RECTAL TUBE DRANIAGE BAG. CONTINUE TO MAINTAIN SAFETY AND ISOLATION PRECAUTION.
[2022-05-06 08:32] LABS: ALANINE AMINOTRANSFERASE 9 U/L (12-78); ALBUMIN 1.3 g/dL (3.4-4.8); ANION GAP 8 (5-15); ASPARTATE AMINOTRANSFERASE 22 U/L (10-37); CALCIUM 8.9 mg/dL (8.4-11.0); CHLORIDE 104 mmol/L (98-107); CREATININE 2.23 mg/dL (0.55-1.30); GLUCOSE 119 mg/dL (70-99); PHOSPHORUS 2.4 mg/dL (2.7-4.5); POTASSIUM 4.2 mmol/L (3.5-5.1); UREA NITROGEN, BLOOD 39 mg/dL (8-21)
[2022-05-06] MEDS: FUROSEMIDE 20 MG/2 ML VIAL IVP SCH ×2 (09:00→21:00)
[2022-05-06] MEDS: AMIODARONE HCL 200 MG TABLET PO SCH (09:00)
[2022-05-06] MEDS: PANTOPRAZOLE SODIUM 40 MG/VIAL (PROTONIX) IVP SCH (09:47)
[2022-05-06] MEDS: FOLIC ACID 1 MG TABLET PO SCH (09:49)
[2022-05-06] MEDS: CHOLECALCIFEROL (VITAMIN D3) 2,000 UNIT TABLET PO SCH (09:49)
[2022-05-06] MEDS: MIDODRINE HCL 5 MG TABLET (PROAMATINE) PO SCH ×3 (09:49→21:29)
[2022-05-06] MEDS: NEPHROVITE, (FOLIC ACID/VITAMIN B COMP W-C 1 TAB) PO SCH (09:49)
[2022-05-06] MEDS: TAMSULOSIN HCL 0.4 MG CAP PO SCH (09:49)
[2022-05-06] MEDS: LACTOBACILLUS RHAMNOSUS GG 1 CAP CAPSULE PO SCH ×3 (09:49→21:29)
[2022-05-06] MEDS: DOCUSATE SODIUM 100 MG/10 ML UDC PO SCH ×2 (09:50→21:28)
[2022-05-06] MEDS: LACTULOSE 20 GM/30 ML UDC PO SCH (09:50)
[2022-05-06] MEDS: MEGESTROL ACETATE 400 MG/10 ML UDC PO SCH (09:50)
[2022-05-06] MEDS: BISACODYL 5 MG TABLET.DR (DULCOLAX) PO SCH ×2 (09:50→21:29)
[2022-05-06] MEDS: D5W 1,000 ML IV SCH (10:46)
[2022-05-06 11:26] VITALS: BP_SYST 91
[2022-05-06] MEDS: MICAFUNGIN SODIUM 150 MG in NS 100 ML IV SCH (11:45)
--- NOTE | 2022-05-06 12:00 | NUR ---
ROUNDING PATIENT AWAKE, NO SIGNS OF DISTRESS, CONTINUE TO MAINTAIN SAFETY AND ISOLATION PRECAUTION.
[2022-05-06 14:20] LABS: BASOPHILS # (AUTO) 0.1 K/uL (0.0-0.2); EOSINOPHILS # (AUTO) 0.3 K/uL (0.0-0.4); HEMATOCRIT 27.2 % (36-54); LYMPHOCYTES # (AUTO) 1.1 K/uL (1.0-5.5); LYMPHOCYTES % (AUTO) 12.1 % (20.5-51.5); MEAN CORPUSCULAR VOLUME 99 fL (79.0-98.0); MONOCYTES # (AUTO) 0.9 K/uL (0.0-1.0); MONOCYTES % (AUTO) 9.8 % (1.7-9.3); NEUTROPHILS # (AUTO) 6.5 K/uL (1.8-7.7); NEUTROPHILS % (AUTO) 74.1 % (40.0-70.0); PLATELET COUNT (AUTO) 179 K/uL (130-430); RED BLOOD CELL COUNT(AUTO) 2.75 MIL/uL (4.2-6.2); RED CELL DISTRIBUTION WIDTH 20.1 % (9.0-15.0); WHITE BLOOD COUNT (AUTO) 8.8 K/uL (4.8-10.8)
[2022-05-06 15:25] LABS: TRIGLYCERIDES 100 mg/dL (30-150)
[2022-05-06 15:36] VITALS: BP_SYST 101
--- NOTE | 2022-05-06 15:40 | NUR ---
Nutrition F/U RDN reviewed pt's current EMR including diet hx, phsyician notes, nursing notes, pertinent labs/meds/procedures, care trends, and care activity. Shortened note d/t high RD workload. Admitting Dx: Renal failure, metabolic encephalopathy, dehydration Current Diet Order/ Nutrition Support: Mechanical soft, Nepro TID x13 days & TPN D40%, AA8.5% at 52.792 ml/hr via central line TPN Provides: 1077 kcal/day, 54 gm protein/day, 1267 ml total volume/day, and GIR: 1.4 mg CHO/kg/min TPN Meets: 57% of lower end of estimated caloric needs and 62% of lower end of estimated protein needs Subjective Information: TPN notification received 04/30/[address] rounded to pt's bedside. Pt seen asleep w/ TPN infusing as per physician/pharmacy order. present. Evidence of lunch tray seen uneaten at bedside. attested to pt's consistent lack of appetite, drinking at most 1 container of Nepro/day. She stated she is also bringing in Pro-Stat and adding it to pt's water. Per EMR review, PO intakes reveal consistent negligible PO intakes since last RD visit 04/26; Earle scale: 12, Incident Response Analyst note 05/02 reviewed -- multiple wounds/skin breakdown noted. Additional supplementation warranted. Consider appetite stimulant. TPN support continues appropriate at this time. Estimated Energy Expenditure (kcals/day) 4813-3030 (25-30 kcal/kg IBW d/t CKD on HD, wounds) Estimated Protein Required (g/day) 87-109 (1.2-1.5 g/kg IBW d/t wounds, CKD on HD) Estimated Fluid Required (l/day) per MD (d/t renal dz) Problem/Etiology/Signs/Symptoms Inadequate oral intake r/t agitation, lack of appetite a/e/b persistent low PO intakes *Ongoing Altered nutrition-related lab values r/t renal dysfunction AEB elevated BUN, Glucose, Creatinine, Phosphorus; lowered RBC, Hgb, hematocrit, Calcium, Sodium. *Ongoing Increased energy and protein needs r/t HD, vent, wound healing AEB 25-30 kcal/kg estimated energy needs; 1.2-1.5 g/kg estimated protein needs. *Ongoing Inadequate enteral nutrition provision AEB NGTF infusing @ 20 ml/hr. *Resolved, now on PO diet and TPN support Dietitian Recommendations * Mechanical Soft diet, Nepro TID, Fly BID * Encourage good PO intake * TPN D40%, AA8.5% at 70 ml/hr (goal rate), IL20% at 10 ml/hr via central line Provides: 1908 kcal/day, 71 gm protein/day, 1920 ml total volume/day, and GIR: 2 mg CHO/kg/min Meets: 87% of upper end of estimated caloric needs and 82% of lower end of estimated protein needs High Risk F/U: 2-3 days
--- NOTE | 2022-05-06 15:50 | NUR ---
Dietitian Recommendations * Mechanical Soft diet, Nepro TID, Fly BID * Encourage good PO intake * TPN D40%, AA8.5% at 70 ml/hr (goal rate), IL20% at 10 ml/hr via central line Provides: 1908 kcal/day, 71 gm protein/day, 1920 ml total volume/day, and GIR: 2 mg CHO/kg/min Meets: 87% of upper end of estimated caloric needs and 82% of lower end of estimated protein needs LP, MS, RD Please refer to Nutrition F/U for details.
--- NOTE | 2022-05-06 18:12 | NUR ---
CLOSING NOTES Patient sleeping throughout shift intermittently, at bedside for support. Complain of generalizes pain medicated as requested by . Vital signs stable, 3L oxygen nasal cannula. IVF/TPN infusing to right upper arm PICC line. Catheter and rectal tube intact. Repositioned every 2 hours with pillows for comfort/support. Call light w/in reached, and bed in low position.
--- NOTE | 2022-05-06 19:00 | NUR ---
opening received pt from day nurse. pt in bed awake and stable at this time. pt able to make needs known and follow simple answers. vitals taken and within normal limits. resp even. skin warm to touch and clean and dry. pt has multiple wounds dressing intact and non draining at this time. picc line to right upper arm dressing intact with TPN running pt tolerating well. mendoza in place and patent with wiley color urine. rectal tube patent and intact. florina l light in reach bed to lowest position.
[2022-05-06 20:12] VITALS: BP_SYST 101
[2022-05-06] MEDS: POTASSIUM CHLORIDE IV SCH ×10 (22:08)
[2022-05-06] MEDS: K PHOS IV SCH ×10 (22:08)
[2022-05-06] MEDS: SODIUM ACETATE IV SCH ×10 (22:08)
[2022-05-06] MEDS: [UNRECOGNIZED DRUG - OTHER] IV SCH ×10 (22:08)
[2022-05-06] MEDS: TPN CENTRAL IV SCH ×10 (22:08)
[2022-05-07] VITALS: BP_SYST 112
[2022-05-07 08:00] VITALS: BP_SYST 103
--- NOTE | 2022-05-07 08:00 | NUR ---
INITIAL NOTE RECEIVED PATIENT SLEEPING EASILY AROUSED, ABLE TO VERBALIZES NEEDS AND FOLLOW SIMPLE DIRECTION. VITAL SIGNS WITHIN NORMAL LIMITS. RESPIRATION EVEN AND UNLABORED. SKIN CLEAN AND WARM TO TOUCH, AND REPOSITION Q2 HOURS. PICC LINE TO RIGHT UPPER ARM DRESSING PATENT WITH TPN INFUSING. TERRAZAS CATHETER AND RECTAL TUBE PATENT. CONTINUE TO MONITOR PATENT, CALL LIGHT W/IN REACHED AND BED IN LOW POSITION.
[2022-05-07] MEDS: MEGESTROL ACETATE 400 MG/10 ML UDC PO SCH (09:00)
[2022-05-07] MEDS: FUROSEMIDE 20 MG/2 ML VIAL IVP SCH ×2 (09:00→21:28)
[2022-05-07] MEDS: LACTULOSE 20 GM/30 ML UDC PO SCH (09:22)
[2022-05-07] MEDS: DOCUSATE SODIUM 100 MG/10 ML UDC PO SCH ×2 (09:23→21:27)
[2022-05-07] MEDS: AMIODARONE HCL 200 MG TABLET PO SCH (09:24)
[2022-05-07] MEDS: FOLIC ACID 1 MG TABLET PO SCH (09:25)
[2022-05-07] MEDS: TAMSULOSIN HCL 0.4 MG CAP PO SCH (09:25)
[2022-05-07] MEDS: NEPHROVITE, (FOLIC ACID/VITAMIN B COMP W-C 1 TAB) PO SCH (09:25)
[2022-05-07] MEDS: MIDODRINE HCL 5 MG TABLET (PROAMATINE) PO SCH ×3 (09:26→21:28)
[2022-05-07] MEDS: LACTOBACILLUS RHAMNOSUS GG 1 CAP CAPSULE PO SCH ×3 (09:26→21:27)
[2022-05-07] MEDS: BISACODYL 5 MG TABLET.DR (DULCOLAX) PO SCH ×2 (09:27→21:28)
[2022-05-07] MEDS: CHOLECALCIFEROL (VITAMIN D3) 2,000 UNIT TABLET PO SCH (09:27)
[2022-05-07] MEDS: PANTOPRAZOLE SODIUM 40 MG/VIAL (PROTONIX) IVP SCH (09:34)
--- NOTE | 2022-05-07 10:00 | NUR ---
ROUNDING PATIENT REPOSITIONED, LINEN CHANGED, NO C/O SOB
[2022-05-07 10:16] LABS: INR 1.2 (0.80-1.20); PROTHROMBIN TIME 11.6 SECS (9.5-12.5)
[2022-05-07 11:39] VITALS: BP_SYST 116
[2022-05-07] MEDS: MICAFUNGIN SODIUM 150 MG in NS 100 ML IV SCH (11:49)
[2022-05-07] MEDS: D5W 1,000 ML IV SCH (11:50)
[2022-05-07 11:56] LABS: ALBUMIN 1.3 g/dL (3.4-4.8); PHOSPHORUS 2.8 mg/dL (2.7-4.5)
--- NOTE | 2022-05-07 13:46 | NUR ---
ROUNDING PATIENT REPOSITIONED, NO C/O PAIN OR SOB. BED IN LOW POSITION AND CALL LIGHT W/IN REACHED
--- NOTE | 2022-05-07 14:40 | NUR ---
NOTIFIED BY DUMPSTER DRIVER (ASHLEY) PATIENT HAD ONE EPISODE OF EMESIS. ASSESS PATIENT, NO C/O N/V. AT BEDSIDE STATE "PATIENT VOMITED BUT FEEL BETTER". WILL CONTINUE TO MONITOR.
[2022-05-07 15:35] LABS: BASOPHILS # (AUTO) 0.1 K/uL (0.0-0.2); BASOPHILS % (AUTO) 0.8 % (0.0-2.0); EOSINOPHILS # (AUTO) 0.4 K/uL (0.0-0.4); EOSINOPHILS % (AUTO) 4.7 % (0.0-4.0); HEMATOCRIT 26.6 % (36-54); LYMPHOCYTES # (AUTO) 1.6 K/uL (1.0-5.5); LYMPHOCYTES % (AUTO) 17.2 % (20.5-51.5); MEAN CORPUSCULAR VOLUME 102 fL (79.0-98.0); MONOCYTES # (AUTO) 0.9 K/uL (0.0-1.0); MONOCYTES % (AUTO) 9.7 % (1.7-9.3); NEUTROPHILS # (AUTO) 6.3 K/uL (1.8-7.7); NEUTROPHILS % (AUTO) 67.6 % (40.0-70.0); PLATELET COUNT (AUTO) 180 K/uL (130-430); RED BLOOD CELL COUNT(AUTO) 2.62 MIL/uL (4.2-6.2); RED CELL DISTRIBUTION WIDTH 20.3 % (9.0-15.0); WHITE BLOOD COUNT (AUTO) 9.4 K/uL (4.8-10.8)
[2022-05-07 15:36] VITALS: BP_SYST 101
[2022-05-07] MEDS: ACETAMINOPHEN 650 MG/20.3 ML UDC PO PRN ×2 (15:49→15:53)
[2022-05-07 16:01] VITALS: BP_SYST 113
--- NOTE | 2022-05-07 16:15 | NUR ---
REPOSITION CHANGE RECTAL TUBE, PREVIOUS RECTAL TUBE LEAKING.
[2022-05-07 16:47] LABS: ALANINE AMINOTRANSFERASE 14 U/L (12-78); ANION GAP 12 (5-15); ASPARTATE AMINOTRANSFERASE 27 U/L (10-37); CALCIUM 9.1 mg/dL (8.4-11.0); CHLORIDE 102 mmol/L (98-107); CREATININE 1.99 mg/dL (0.55-1.30); GLUCOSE 110 mg/dL (70-99); POTASSIUM 4.3 mmol/L (3.5-5.1); TOTAL BILIRUBIN 0.9 mg/dL (0.0-1.0); UREA NITROGEN, BLOOD 40 mg/dL (8-21)
--- NOTE | 2022-05-07 17:30 | NUR ---
CLOSING NOTE PATIENT AWAKE RESTING COMFORTABLE IN BED, REPOSITION EVERY 2 HOURS WITH NO DISTRESS. VITAL SIGNS W/IN NORMAL LIMITS, SATURATION AT 100% ON 3L NC. PICC LINE X2 LUMEN PATENT, RECTAL TUBE PATENT. CALL LIGHT W/IN REACHED, BED IN LOW POSITION, WILL ENDORSE TO ONCOMING NURSE.
[2022-05-07] MEDS: METOCLOPRAMIDE HCL 10 MG/2 ML VIAL IVP SCH (18:04)
--- NOTE | 2022-05-07 18:53 | NUR ---
Patient is for 24 hour urine collection. Endorsed.
[2022-05-07 20:00] VITALS: BP_SYST 99
[2022-05-07] MEDS: [UNRECOGNIZED DRUG - OTHER] IV SCH ×10 (21:30)
[2022-05-07] MEDS: TPN CENTRAL IV SCH ×10 (21:30)
[2022-05-07] MEDS: POTASSIUM CHLORIDE IV SCH ×10 (21:30)
[2022-05-07] MEDS: SODIUM ACETATE IV SCH ×10 (21:30)
[2022-05-07] MEDS: K PHOS IV SCH ×10 (21:30)
[2022-05-08] VITALS: BP_SYST 121
[2022-05-08] MEDS: METOCLOPRAMIDE HCL 10 MG/2 ML VIAL IVP SCH ×3 (01:06→18:12)
[2022-05-08] MEDS: ACETAMINOPHEN 650 MG/20.3 ML UDC PO PRN ×2 (05:08→15:01)
--- NOTE | 2022-05-08 07:30 | NUR ---
OPENING NOTE: PATIENT RESTING IN BED. BREATHING EVEN AND UNLABORED TO O2 AT 3L/NC. PICC LINE PATENT AND IVF INFUSING WELL. FLEXI SEAL AND TERRAZAS CATHETER IN PLACED AND DRAINING BY GRAVITY. 24 HOUR URINE CONTAINER IN THE BUCKET W/ ICE AT BEDSIDE. FALL AND SAFETY MEASURES REINFORCED. CALL LIGHT WITHIN REACH.
[2022-05-08 08:00] VITALS: BP_SYST 107
[2022-05-08] MEDS: FUROSEMIDE 20 MG/2 ML VIAL IVP SCH ×2 (08:46→21:13)
[2022-05-08] MEDS: MEGESTROL ACETATE 400 MG/10 ML UDC PO SCH (08:47)
[2022-05-08] MEDS: DOCUSATE SODIUM 100 MG/10 ML UDC PO SCH ×3 (08:47→21:13)
[2022-05-08] MEDS: PANTOPRAZOLE SODIUM 40 MG/VIAL (PROTONIX) IVP SCH (08:47)
[2022-05-08] MEDS: AMIODARONE HCL 200 MG TABLET PO SCH (08:48)
[2022-05-08] MEDS: FOLIC ACID 1 MG TABLET PO SCH (08:48)
[2022-05-08] MEDS: TAMSULOSIN HCL 0.4 MG CAP PO SCH (08:48)
[2022-05-08] MEDS: NEPHROVITE, (FOLIC ACID/VITAMIN B COMP W-C 1 TAB) PO SCH (08:48)
[2022-05-08] MEDS: MIDODRINE HCL 5 MG TABLET (PROAMATINE) PO SCH ×3 (08:48→21:12)
[2022-05-08] MEDS: LACTOBACILLUS RHAMNOSUS GG 1 CAP CAPSULE PO SCH ×3 (08:49→21:12)
[2022-05-08] MEDS: LACTULOSE 20 GM/30 ML UDC PO SCH ×2 (08:49→09:00)
[2022-05-08] MEDS: BISACODYL 5 MG TABLET.DR (DULCOLAX) PO SCH ×2 (08:49→21:12)
[2022-05-08] MEDS: CHOLECALCIFEROL (VITAMIN D3) 2,000 UNIT TABLET PO SCH (08:49)
[2022-05-08] MEDS: D5W 1,000 ML IV SCH (09:47)
[2022-05-08] MEDS: MICAFUNGIN SODIUM 150 MG in NS 100 ML IV SCH (10:08)
[2022-05-08 12:14] LABS: ANION GAP 6 (5-15); CALCIUM 8.6 mg/dL (8.4-11.0); CHLORIDE 102 mmol/L (98-107); CREATININE 1.98 mg/dL (0.55-1.30); GLUCOSE 110 mg/dL (70-99); POTASSIUM 4.4 mmol/L (3.5-5.1); UREA NITROGEN, BLOOD 44 mg/dL (8-21)
[2022-05-08 12:28] LABS: ALANINE AMINOTRANSFERASE 15 U/L (12-78); ALBUMIN 1.3 g/dL (3.4-4.8); ASPARTATE AMINOTRANSFERASE 21 U/L (10-37); PHOSPHORUS 3.2 mg/dL (2.7-4.5); TOTAL BILIRUBIN 0.8 mg/dL (0.0-1.0)
[2022-05-08 12:30] VITALS: BP_SYST 117
--- NOTE | 2022-05-08 16:00 | NUR ---
RN NOTE: PATIENT RESTING IN BED. WOUND DRESSING DONE AT THE EXTREMITIES. DR. SILVER AT BEDSIDE. PATIENT IS CONFUSED. FALL AND SAFETY MEASURES PROVIDED.
[2022-05-08 16:30] VITALS: BP_SYST 108
[2022-05-08] MEDS: EPOETIN ALFA-EPBX 4,000 UNITS/ML VIAL SUBCUT SCH (18:20)
--- NOTE | 2022-05-08 19:05 | NUR ---
CLOSING NOTES: PATIENT RESTING IN BED. NO S/S OF ACUTE DISTRESS NOTED. NEEDS MET THROUGHOUT SHIFT. ENDORSED TO PSYCHOLOGIST COUNSELING RN.
[2022-05-08] MEDS ORDERED: NYSTATIN 500,000 UNITS/5 ML UDC PO ONE (19:15)
[2022-05-08 20:00] VITALS: BP_SYST 121
[2022-05-08 20:11] LABS: CREATININE 1.98 mg/dL (0.55-1.30); PATIENT WEIGHT 255 LBS
[2022-05-08] MEDS ORDERED: SODIUM ACETATE IV SCH ×10 (21:00)
[2022-05-08] MEDS ORDERED: TPN CENTRAL IV SCH ×10 (21:00)
[2022-05-08] MEDS ORDERED: POTASSIUM CHLORIDE IV SCH ×10 (21:00)
[2022-05-08] MEDS ORDERED: K PHOS IV SCH ×10 (21:00)
[2022-05-08] MEDS ORDERED: [UNRECOGNIZED DRUG - OTHER] IV SCH ×10 (21:00)
[2022-05-08] MEDS: NYSTATIN 15 GM TOPICAL POWDER TP SCH (21:13)
[2022-05-09] VITALS: BP_SYST 86
[2022-05-09] MEDS: METOCLOPRAMIDE HCL 10 MG/2 ML VIAL IVP SCH ×3 (01:07→17:18)
[2022-05-09] MEDS: ACETAMINOPHEN 650 MG/20.3 ML UDC PO PRN (01:07)
[2022-05-09 04:00] VITALS: BP_SYST 83
[2022-05-09] MEDS: NYSTATIN 500,000 UNITS/5 ML UDC PO SCH ×5 (06:00→23:20)
[2022-05-09 07:27] LABS: ALANINE AMINOTRANSFERASE 15 U/L (12-78); ALBUMIN 1.3 g/dL (3.4-4.8); ANION GAP 9 (5-15); ASPARTATE AMINOTRANSFERASE 31 U/L (10-37); CALCIUM 8.8 mg/dL (8.4-11.0); CHLORIDE 100 mmol/L (98-107); CREATININE 1.97 mg/dL (0.55-1.30); GLUCOSE 113 mg/dL (70-99); PHOSPHORUS 3.5 mg/dL (2.7-4.5); POTASSIUM 4.5 mmol/L (3.5-5.1); TOTAL BILIRUBIN 0.7 mg/dL (0.0-1.0); UREA NITROGEN, BLOOD 46 mg/dL (8-21)
[2022-05-09 08:00] VITALS: BP_SYST 108
[2022-05-09] MEDS: FOLIC ACID 1 MG TABLET PO SCH (09:50)
[2022-05-09] MEDS: NEPHROVITE, (FOLIC ACID/VITAMIN B COMP W-C 1 TAB) PO SCH (09:50)
[2022-05-09] MEDS: MIDODRINE HCL 5 MG TABLET (PROAMATINE) PO SCH ×3 (09:50→20:30)
[2022-05-09] MEDS: DOCUSATE SODIUM 100 MG/10 ML UDC PO SCH ×2 (09:50→20:29)
[2022-05-09] MEDS: AMIODARONE HCL 200 MG TABLET PO SCH (09:51)
[2022-05-09] MEDS: CHOLECALCIFEROL (VITAMIN D3) 2,000 UNIT TABLET PO SCH (09:51)
[2022-05-09] MEDS: TAMSULOSIN HCL 0.4 MG CAP PO SCH (09:51)
[2022-05-09] MEDS: MEGESTROL ACETATE 400 MG/10 ML UDC PO SCH (09:52)
[2022-05-09] MEDS: BISACODYL 5 MG TABLET.DR (DULCOLAX) PO SCH ×2 (09:52→20:29)
[2022-05-09] MEDS: LACTULOSE 20 GM/30 ML UDC PO SCH (09:52)
[2022-05-09] MEDS: PANTOPRAZOLE SODIUM 40 MG/VIAL (PROTONIX) IVP SCH (09:52)
[2022-05-09] MEDS: FUROSEMIDE 20 MG/2 ML VIAL IVP SCH ×2 (09:54→20:14)
[2022-05-09] MEDS: LACTOBACILLUS RHAMNOSUS GG 1 CAP CAPSULE PO SCH ×3 (10:01→20:29)
[2022-05-09] MEDS: MICAFUNGIN SODIUM 150 MG in NS 100 ML IV SCH (11:54)
[2022-05-09] MEDS: NYSTATIN 15 GM TOPICAL POWDER TP SCH ×2 (11:54→20:30)
--- NOTE | 2022-05-09 14:47 | NUR ---
DISCHARGE PLANNING Discussed dc planning with Dr Márquez, plan for dc back to [facility] tomorrow. Called & updated pt's Maryann Torres, ph [phone], is agreeable with plan to dc back to [facility], informed plan for tomorrow and agreeable.
[2022-05-09 15:06] VITALS: BP_SYST 96
[2022-05-09 15:40] LABS: TOTAL VOLUME 24HRS,URINE 500 mL
[2022-05-09 15:41] LABS: CREATININE CLEARANCE,URINE 8.4 ml/min (80-120); CREATININE,URINE 63.4 MG/DL (30-125); TPROTEIN U,24HR 373.5 mg/24HR (0-130)
[2022-05-09 18:39] VITALS: BP_SYST 96
[2022-05-09] MEDS ORDERED: METOCLOPRAMIDE HCL 10 MG/2 ML VIAL IVP ONE (18:45)
--- NOTE | 2022-05-09 19:30 | NUR ---
Opening note Received report from day shift. Pt is awake lying in bed, at bedside. No s/s of respiratory distress. Breathing even and unlabored on 3L nasal cannula, saturating 98-100%. VANDANA picc line dressing intact with TPN running at ordered rate. Lunsford catheter and flexiseal intact and draining by gravity. Fall and safety precautions in place with bed in lowest position, bed alarm on, and call light within reach
[2022-05-09 20:00] VITALS: BP_SYST 127
[2022-05-09] MEDS: SOD FERRIC GLUC COMPLEX/SUC 125 MG in NS 100 ML IV SCH (20:15)
[2022-05-09] MEDS ORDERED: POTASSIUM CHLORIDE IV SCH ×9 (21:00)
[2022-05-09] MEDS ORDERED: TPN CENTRAL IV SCH ×9 (21:00)
[2022-05-09] MEDS ORDERED: SODIUM ACETATE IV SCH ×9 (21:00)
[2022-05-09] MEDS ORDERED: [UNRECOGNIZED DRUG - OTHER] IV SCH ×9 (21:00)
[2022-05-09] MEDS ORDERED: K PHOS IV SCH ×9 (21:00)
--- NOTE | 2022-05-10 00:15 | NUR ---
Rounds Pt lying in bed watching tv. No s/s of acute distress. VSS. Fall and safety checks in place
[2022-05-10] MEDS: NYSTATIN 500,000 UNITS/5 ML UDC PO SCH ×3 (06:00→18:00)
[2022-05-10] MEDS: METOCLOPRAMIDE HCL 10 MG/2 ML VIAL IVP SCH ×3 (06:52→16:19)
--- NOTE | 2022-05-10 06:58 | NUR ---
Closing note Pt is awake lying in bed. No s/s of respiratory distress. Breathing even and unlabored on 3L nasal cannula, saturating 98-100%. VANDANA picc line dressing intact with TPN running at ordered rate. Lunsford catheter and flexiseal intact and draining by gravity. All needs met throughout shift. Fall and safety precautions in place with bed in lowest position, bed alarm on, and call light within reach.
--- NOTE | 2022-05-10 07:34 | NUR ---
PHYSICAL THERAPY CO-SIGN The Physical Therapy Progress Notes documented by Front End Loader Driver have been reviewed. Reviewed/Co-Signed by: Oscar Pride Documentation Done by: ATUL HAIRSTON PTA Addendum: 05/10/22 at 3534 by Oscar Pride PT Amended: Links added.
[2022-05-10 07:37] LABS: BASOPHILS # (AUTO) 0.1 K/uL (0.0-0.2); BASOPHILS % (AUTO) 0.8 % (0.0-2.0); EOSINOPHILS # (AUTO) 0.2 K/uL (0.0-0.4); EOSINOPHILS % (AUTO) 1.9 % (0.0-4.0); HEMATOCRIT 28.4 % (36-54); LYMPHOCYTES # (AUTO) 1.2 K/uL (1.0-5.5); LYMPHOCYTES % (AUTO) 14.7 % (20.5-51.5); MEAN CORPUSCULAR VOLUME 100 fL (79.0-98.0); MONOCYTES # (AUTO) 0.8 K/uL (0.0-1.0); MONOCYTES % (AUTO) 9.6 % (1.7-9.3); NEUTROPHILS # (AUTO) 6.1 K/uL (1.8-7.7); PLATELET COUNT (AUTO) 215 K/uL (130-430); RED BLOOD CELL COUNT(AUTO) 2.84 MIL/uL (4.2-6.2); RED CELL DISTRIBUTION WIDTH 19.7 % (9.0-15.0); WHITE BLOOD COUNT (AUTO) 8.4 K/uL (4.8-10.8)
[2022-05-10 08:28] LABS: INR 1.1 (0.80-1.20); PROTHROMBIN TIME 10.7 SECS (9.5-12.5)
--- NOTE | 2022-05-10 08:57 | NUR ---
Discharge Planning: [facility] faxed updated clinicals to [facility] DCP to follow up. Addendum: 05/10/22 at 1613 by Kia Leblanc DP DCP arrange transport with [facility] [phone] BLS 8:00pm to [facility] Acute/Rehab [phone] Rm 109. DCP made charge nurse and CM aware. Patient packet taken to nurse station. is okay with patient going to [facility].
[2022-05-10 08:58] LABS: ALANINE AMINOTRANSFERASE 14 U/L (12-78); ALBUMIN 1.3 g/dL (3.4-4.8); ANION GAP 10 (5-15); ASPARTATE AMINOTRANSFERASE 33 U/L (10-37); CALCIUM 9.3 mg/dL (8.4-11.0); CHLORIDE 100 mmol/L (98-107); CREATININE 2.01 mg/dL (0.55-1.30); GLUCOSE 97 mg/dL (70-99); PHOSPHORUS 3.6 mg/dL (2.7-4.5); POTASSIUM 4.6 mmol/L (3.5-5.1); TOTAL BILIRUBIN 0.9 mg/dL (0.0-1.0); UREA NITROGEN, BLOOD 47 mg/dL (8-21)
[2022-05-10] MEDS: FUROSEMIDE 20 MG/2 ML VIAL IVP SCH ×2 (09:00→21:00)
[2022-05-10 09:21] VITALS: BP_SYST 104
[2022-05-10] MEDS: MIDODRINE HCL 5 MG TABLET (PROAMATINE) PO SCH ×3 (09:23→22:08)
[2022-05-10] MEDS: NEPHROVITE, (FOLIC ACID/VITAMIN B COMP W-C 1 TAB) PO SCH (09:23)
[2022-05-10] MEDS: TAMSULOSIN HCL 0.4 MG CAP PO SCH (09:23)
[2022-05-10] MEDS: PANTOPRAZOLE SODIUM 40 MG/VIAL (PROTONIX) IVP SCH (09:23)
[2022-05-10] MEDS: LACTULOSE 20 GM/30 ML UDC PO SCH (09:24)
[2022-05-10] MEDS: BISACODYL 5 MG TABLET.DR (DULCOLAX) PO SCH ×2 (09:24→22:07)
[2022-05-10] MEDS: CHOLECALCIFEROL (VITAMIN D3) 2,000 UNIT TABLET PO SCH (09:24)
[2022-05-10] MEDS: DOCUSATE SODIUM 100 MG/10 ML UDC PO SCH ×2 (09:24→22:07)
[2022-05-10] MEDS: AMIODARONE HCL 200 MG TABLET PO SCH (09:24)
[2022-05-10] MEDS: MEGESTROL ACETATE 400 MG/10 ML UDC PO SCH (09:24)
[2022-05-10] MEDS: LACTOBACILLUS RHAMNOSUS GG 1 CAP CAPSULE PO SCH ×3 (09:24→22:07)
[2022-05-10] MEDS: NYSTATIN 15 GM TOPICAL POWDER TP SCH ×2 (09:25→22:09)
[2022-05-10] MEDS: FOLIC ACID 1 MG TABLET PO SCH (09:30)
[2022-05-10] MEDS: MICAFUNGIN SODIUM 150 MG in NS 100 ML IV SCH (10:55)
[2022-05-10 12:00] VITALS: BP_SYST 115; BP_SYST 117
--- NOTE | 2022-05-10 12:00 | NUR ---
ATTEMPTED TO TURN PT. PT CLINCHED FIST YELLING AND SCREAMING AT MYSELF AND HARNESS BUILDER TO NOT TURN HIM. WE ATTEMPTED TO REPOSITION PT AND HE BECAME MORE UPSET. WE LEFT PT ALONE AND DID NOT TURN PT. PT REFUSED TURN MULTIPLE TIMES
[2022-05-10 16:00] VITALS: BP_SYST 115
[2022-05-10] MEDS: EPOETIN ALFA-EPBX 4,000 UNITS/ML VIAL SUBCUT SCH (16:22)
--- NOTE | 2022-05-10 17:10 | NUR ---
PICTURES TAKEN FOR DC. NEW DRESSINGS PLACED ON DRESSINGS
--- NOTE | 2022-05-10 19:28 | NUR ---
PER DR SILVER PT NOT BEING DC. WILL DC PT TO [facility] MAYBE TOMORROW. PT MADE AWARE WHILE AT BEDSIDE
[2022-05-10 20:05] VITALS: BP_SYST 108
[2022-05-10] MEDS ORDERED: [UNRECOGNIZED DRUG - OTHER] IV SCH ×8 (21:00)
[2022-05-10] MEDS ORDERED: TPN CENTRAL IV SCH ×8 (21:00)
[2022-05-10] MEDS ORDERED: SODIUM ACETATE IV SCH ×8 (21:00)
[2022-05-10] MEDS ORDERED: K PHOS IV SCH ×8 (21:00)
[2022-05-10] MEDS ORDERED: POTASSIUM CHLORIDE IV SCH ×8 (21:00)
[2022-05-10] MEDS: SOD FERRIC GLUC COMPLEX/SUC 125 MG in NS 100 ML IV SCH (22:09)
[2022-05-11 01:28] VITALS: BP_SYST 99
[2022-05-11] MEDS: NYSTATIN 500,000 UNITS/5 ML UDC PO SCH ×4 (05:34→17:23)
[2022-05-11] MEDS: METOCLOPRAMIDE HCL 10 MG/2 ML VIAL IVP SCH ×3 (06:54→17:24)
[2022-05-11 07:11] LABS: ALANINE AMINOTRANSFERASE 15 U/L (12-78); ALBUMIN 1.4 g/dL (3.4-4.8); ANION GAP 8 (5-15); ASPARTATE AMINOTRANSFERASE 44 U/L (10-37); CALCIUM 9.6 mg/dL (8.4-11.0); CHLORIDE 101 mmol/L (98-107); CREATININE 1.94 mg/dL (0.55-1.30); GLUCOSE 116 mg/dL (70-99); PHOSPHORUS 4.2 mg/dL (2.7-4.5); POTASSIUM 5.1 mmol/L (3.5-5.1); TOTAL BILIRUBIN 0.9 mg/dL (0.0-1.0); UREA NITROGEN, BLOOD 51 mg/dL (8-21)
[2022-05-11 07:44] VITALS: BP_SYST 95
--- NOTE | 2022-05-11 08:00 | NUR ---
RECEIVED PT, PT IS AAOX1, VITALS WNL, NO FEVER. NO SOB. TPN STILL INFUSING , IV ACCESS INTACT AND PATENT. WILL CONT TO MONITOR.
[2022-05-11] MEDS: FUROSEMIDE 20 MG/2 ML VIAL IVP SCH ×2 (08:43→21:00)
[2022-05-11] MEDS: AMIODARONE HCL 200 MG TABLET PO SCH (08:44)
[2022-05-11] MEDS: PANTOPRAZOLE SODIUM 40 MG/VIAL (PROTONIX) IVP SCH (08:45)
[2022-05-11] MEDS: MIDODRINE HCL 5 MG TABLET (PROAMATINE) PO SCH ×3 (08:46→22:39)
[2022-05-11] MEDS: TAMSULOSIN HCL 0.4 MG CAP PO SCH (08:46)
[2022-05-11] MEDS: FOLIC ACID 1 MG TABLET PO SCH (08:53)
[2022-05-11] MEDS: LACTOBACILLUS RHAMNOSUS GG 1 CAP CAPSULE PO SCH ×3 (08:53→22:39)
[2022-05-11] MEDS: LACTULOSE 20 GM/30 ML UDC PO SCH (08:53)
[2022-05-11] MEDS: CHOLECALCIFEROL (VITAMIN D3) 2,000 UNIT TABLET PO SCH (08:53)
[2022-05-11] MEDS: BISACODYL 5 MG TABLET.DR (DULCOLAX) PO SCH ×2 (08:53→22:39)
[2022-05-11] MEDS: NEPHROVITE, (FOLIC ACID/VITAMIN B COMP W-C 1 TAB) PO SCH (08:53)
[2022-05-11] MEDS: MEGESTROL ACETATE 400 MG/10 ML UDC PO SCH (08:54)
[2022-05-11] MEDS: DOCUSATE SODIUM 100 MG/10 ML UDC PO SCH ×2 (08:55→22:38)
[2022-05-11] MEDS: NYSTATIN 15 GM TOPICAL POWDER TP SCH ×2 (08:59→22:40)
[2022-05-11 11:41] LABS: TRIGLYCERIDES 62 mg/dL (30-150)
[2022-05-11 12:00] VITALS: BP_SYST 96
--- NOTE | 2022-05-11 12:37 | NUR ---
DISCHARGE PLANNING Spoke with Dr Márquez this am and states pt is not stable to discharge to SNF, pt either can go to LTAC or stay here, pt not ready for lower level of care. Informed pt BPCI, states can stay here no snf. Informed and discussed pt in bed huddle. Spoke with at bedside and states has discussed with Dr Schmidt and Dr Márquez and does not want SNF, ok for pt to stay here or also agreeable with pt going to [facility]. Informed plan is for pt to say here per MD not stable to discharge to lower level of care.
[2022-05-11 12:44] LABS: BILIRUBIN,URINE NEGATIVE (NEGATIVE); COLOR,URINE YELLOW (YELLOW); GLUCOSE,URINE NEGATIVE (NEGATIVE); KETONES,URINE NEGATIVE (NEGATIVE); LEUKOCYTE ESTERASE ,URINE 1+ (NEGATIVE); NITRITE, URINE NEGATIVE (NEGATIVE); PROTEIN URINE TRACE (NEGATIVE); UROBILINOGEN,URINE 0.2 (0.2-1.0)
[2022-05-11 12:55] LABS: BLOOD, URINE TRACE (NEGATIVE); CLARITY/URINE HAZY (CLEAR)
--- NOTE | 2022-05-11 13:20 | NUR ---
CONSULTATION PAGED/CALLED Reason for Consultation: DEPRESSION Person Who was Notified: DR GARRETT Consulting Physician: LOVE GARRETT Ordering Physician: KAYLEEN TAYLOR
[2022-05-11] MEDS: MICAFUNGIN SODIUM 100 MG in NS 100 ML IV SCH (14:21)
[2022-05-11 14:24] LABS: BACTERIA,URINE MODERATE /HPF (None Seen); YEAST,URINE Moderate /HPF (None Seen)
[2022-05-11 16:00] VITALS: BP_SYST 116
[2022-05-11 19:50] VITALS: BP_SYST 83
--- NOTE | 2022-05-11 19:50 | NUR ---
PATIENT HAS BEEN STABBLE THE WHOLE SHIFT, STILL VERY POOR INTAKE, ON TPN. PT TAKES HIS MEDS WHOLE. ON AND OFF COOPERATIVBE. WOUND DRESSING DONE , PT TOLERATED WELL. TURNED Q2 HOURS.
--- NOTE | 2022-05-11 19:50 | NUR ---
PM ASSESSMENT; -Pt is lethargic, easily arousable upon light touch. Pt is on 3L nc oxy, VS low bp=83/50, 94,w9xkv=19%. VANDANA PICC line both ports patent. TPN @ 70ml/hr. No s/s any acute distress noted. Turned & repositioned and q 2hrs prn. Maintains contact isolation. Lunsford cath w/ gravity drains yellow urine output. Flexiseal in place drains dark loose stool. Generalized weakness. All extremities edematous elevates with pillows. Bed alarmed, side rails x3, call light w/in reach. Cont to monitor pt.
[2022-05-11] MEDS ORDERED: SODIUM ACETATE IV SCH ×8 (21:00)
[2022-05-11] MEDS ORDERED: TPN CENTRAL IV SCH ×8 (21:00)
[2022-05-11] MEDS ORDERED: NA PHOS IV SCH ×8 (21:00)
[2022-05-11] MEDS ORDERED: [UNRECOGNIZED DRUG - OTHER] IV SCH ×8 (21:00)
--- NOTE | 2022-05-11 22:39 | NUR ---
ROUNDS; -Pt took all routine po meds, pt tolerated well. No s/s any acute distress noted. Pt is on 3 L n/c oxy. Bed alarmed, side rails x3, call light w/in reach. Cont to monitor pt.
[2022-05-11] MEDS: SOD FERRIC GLUC COMPLEX/SUC 125 MG in NS 100 ML IV SCH (22:41)
--- NOTE | 2022-05-12 | NUR ---
ROUNDS; -Pt is asleep. No s/s any acute distress noted. Turned & repositioned and q 2hrs prn. Bed alarmed, side rails x3, call light w/in reach. Cont to monitor pt.
[2022-05-12 01:00] VITALS: BP_SYST 90
[2022-05-12 03:00] VITALS: BP_SYST 93
--- NOTE | 2022-05-12 03:00 | NUR ---
ROUNDS; -Pt is asleep. No s/s any acute distress noted. Took BP=93/51,63, 16, c9il=32% 3 L n/c oxy. Bed alarmed, side rails x3, call light w/in reach. Cont to monitor pt.
[2022-05-12] MEDS: METOCLOPRAMIDE HCL 10 MG/2 ML VIAL IVP SCH ×3 (06:47→16:12)
[2022-05-12] MEDS: NYSTATIN 500,000 UNITS/5 ML UDC PO SCH ×4 (06:47→17:02)
--- NOTE | 2022-05-12 07:24 | NUR ---
PHYSICAL THERAPY CO-SIGN The Physical Therapy Progress Notes documented by Collections Rep have been reviewed. Reviewed/Co-Signed by: Oscar Pride Documentation Done by: ATUL HAIRSTON PTA Addendum: 05/12/22 at 0725 by Oscar Pride PT Amended: Links added.
--- NOTE | 2022-05-12 07:26 | NUR ---
CLOSING NOTES; -Pt is resting in bed comfortably. No s/s any acute distress noted. VANDANA PICC line both ports patent. TPN @ 70ml/hr. No s/s any acute distress noted. Turned & repositioned and q 2hrs prn. Maintains contact isolation. Lunsford cath w/ gravity drains yellow urine output. Flexiseal in place drains dark loose stool. Generalized weakness. All extremities edematous elevates with pillows. Bed alarmed, side rails x3, call light w/in reach. Will endorse to next nurse to cont care.
[2022-05-12 08:00] VITALS: BP_SYST 122
[2022-05-12] MEDS: MIDODRINE HCL 5 MG TABLET (PROAMATINE) PO SCH ×3 (09:00→21:51)
[2022-05-12 09:11] LABS: BASOPHILS # (AUTO) 0.1 K/uL (0.0-0.2); EOSINOPHILS # (AUTO) 0.3 K/uL (0.0-0.4); EOSINOPHILS % (AUTO) 3.5 % (0.0-4.0); HEMATOCRIT 25.3 % (36-54); LYMPHOCYTES % (AUTO) 10.7 % (20.5-51.5); MEAN CORPUSCULAR VOLUME 100 fL (79.0-98.0); MONOCYTES # (AUTO) 0.7 K/uL (0.0-1.0); MONOCYTES % (AUTO) 7.8 % (1.7-9.3); NEUTROPHILS # (AUTO) 7.2 K/uL (1.8-7.7); PLATELET COUNT (AUTO) 266 K/uL (130-430); RED BLOOD CELL COUNT(AUTO) 2.53 MIL/uL (4.2-6.2); RED CELL DISTRIBUTION WIDTH 19.1 % (9.0-15.0); WHITE BLOOD COUNT (AUTO) 9.4 K/uL (4.8-10.8)
[2022-05-12 09:22] LABS: ALANINE AMINOTRANSFERASE 11 U/L (12-78); ALBUMIN 1.3 g/dL (3.4-4.8); ANION GAP 7 (5-15); ASPARTATE AMINOTRANSFERASE 30 U/L (10-37); CALCIUM 9.3 mg/dL (8.4-11.0); CHLORIDE 100 mmol/L (98-107); CREATININE 2.11 mg/dL (0.55-1.30); GLUCOSE 126 mg/dL (70-99); PHOSPHORUS 4.7 mg/dL (2.7-4.5); POTASSIUM 4.4 mmol/L (3.5-5.1); TOTAL BILIRUBIN 0.8 mg/dL (0.0-1.0); UREA NITROGEN, BLOOD 61 mg/dL (8-21)
[2022-05-12] MEDS: PANTOPRAZOLE SODIUM 40 MG/VIAL (PROTONIX) IVP SCH (09:29)
[2022-05-12] MEDS: FUROSEMIDE 20 MG/2 ML VIAL IVP SCH ×2 (09:29→21:00)
[2022-05-12] MEDS: FOLIC ACID 1 MG TABLET PO SCH (09:35)
[2022-05-12] MEDS: LACTOBACILLUS RHAMNOSUS GG 1 CAP CAPSULE PO SCH ×3 (09:35→21:51)
[2022-05-12] MEDS: DOCUSATE SODIUM 100 MG/10 ML UDC PO SCH ×2 (09:35→21:50)
[2022-05-12] MEDS: CHOLECALCIFEROL (VITAMIN D3) 2,000 UNIT TABLET PO SCH (09:35)
[2022-05-12] MEDS: NEPHROVITE, (FOLIC ACID/VITAMIN B COMP W-C 1 TAB) PO SCH (09:36)
[2022-05-12] MEDS: AMIODARONE HCL 200 MG TABLET PO SCH (09:36)
[2022-05-12] MEDS: BISACODYL 5 MG TABLET.DR (DULCOLAX) PO SCH ×2 (09:36→21:51)
[2022-05-12] MEDS: LACTULOSE 20 GM/30 ML UDC PO SCH (09:37)
[2022-05-12] MEDS: MEGESTROL ACETATE 400 MG/10 ML UDC PO SCH (09:37)
[2022-05-12] MEDS: TAMSULOSIN HCL 0.4 MG CAP PO SCH (09:42)
[2022-05-12] MEDS: NYSTATIN 15 GM TOPICAL POWDER TP SCH ×2 (09:44→21:52)
[2022-05-12] MEDS: MICAFUNGIN SODIUM 100 MG in NS 100 ML IV SCH (12:29)
[2022-05-12 12:35] VITALS: BP_SYST 102
[2022-05-12 15:17] LABS: TOTAL IRON BIND. CAPACITY 95 ug/dL (250-450)
[2022-05-12 16:00] VITALS: BP_SYST 99
[2022-05-12] MEDS: EPOETIN ALFA-EPBX 4,000 UNITS/ML VIAL SUBCUT SCH (16:13)
--- NOTE | 2022-05-12 19:30 | NUR ---
PM ASSESSMENT; -Pt is lethargic, easily arousable upon light touch. Pt is on 3L nc oxy, VS low 92/31, 18,97,w8dtv=753%, 97.1. VANDANA PICC line both ports patent. TPN @ 70ml/hr. No s/s any acute distress noted. Turned & repositioned and q 2hrs prn. Maintains contact isolation. Lunsford cath w/ gravity drains yellow urine output. Flexiseal in place drains dark loose stool. Generalized weakness. All extremities edematous elevates with pillows. Bed alarmed, side rails x3, call light w/in reach. Cont to monitor pt.
[2022-05-12] MEDS ORDERED: TPN CENTRAL IV SCH ×8 (21:00)
[2022-05-12] MEDS ORDERED: [UNRECOGNIZED DRUG - OTHER] IV SCH ×8 (21:00)
[2022-05-12] MEDS ORDERED: SODIUM ACETATE IV SCH ×8 (21:00)
[2022-05-12] MEDS ORDERED: NA PHOS IV SCH ×8 (21:00)
--- NOTE | 2022-05-12 21:50 | NUR ---
ROUNDS; -Pt took all routine crushed po meds with applesauce, pt tolerated well. No s/s any acute distress noted. Pt is on 3 L n/c oxy. Bed alarmed, side rails x3, call light w/in reach. Cont to monitor pt.
[2022-05-12 22:03] VITALS: BP_SYST 69
[2022-05-13] VITALS (7 sets, daily range): BP systolic 80–124
[2022-05-13] MEDS: NYSTATIN 500,000 UNITS/5 ML UDC PO SCH ×4 (01:24→18:46)
--- NOTE | 2022-05-13 01:24 | NUR ---
ROUNDS; -Pt took midnight med, pt tolerated well. No s/s any acute distress noted. Pt is on 3 L n/c oxy. Bed alarmed, side rails x3, call light w/in reach. Cont to monitor pt.
--- NOTE | 2022-05-13 04:03 | NUR ---
ROUNDS; -Pt is asleep. No s/s any acute distress noted. Pt is on 3 L n/c oxy. Bed alarmed, side rails x3, call light w/in reach. Cont to monitor pt.
--- NOTE | 2022-05-13 04:56 | NUR ---
NOTES; -Pt had an episode of VT(33.13 seconds). Assessed pt at bedside. Pt awakes, and responded immediately to my question. Pt denies any chest pain,pain,sob,or any acute distress. Pt's condition stable. Cont to monitor pt.
[2022-05-13] MEDS: METOCLOPRAMIDE HCL 10 MG/2 ML VIAL IVP SCH ×2 (06:01→11:30)
[2022-05-13 07:45] LABS: BASOPHILS # (AUTO) 0.1 K/uL (0.0-0.2); BASOPHILS % (AUTO) 0.8 % (0.0-2.0); EOSINOPHILS # (AUTO) 0.3 K/uL (0.0-0.4); EOSINOPHILS % (AUTO) 4.2 % (0.0-4.0); HEMATOCRIT 24.6 % (36-54); LYMPHOCYTES % (AUTO) 12.4 % (20.5-51.5); MEAN CORPUSCULAR VOLUME 100 fL (79.0-98.0); MONOCYTES # (AUTO) 0.8 K/uL (0.0-1.0); MONOCYTES % (AUTO) 9.7 % (1.7-9.3); NEUTROPHILS # (AUTO) 5.9 K/uL (1.8-7.7); NEUTROPHILS % (AUTO) 72.9 % (40.0-70.0); PLATELET COUNT (AUTO) 273 K/uL (130-430); RED BLOOD CELL COUNT(AUTO) 2.46 MIL/uL (4.2-6.2); RED CELL DISTRIBUTION WIDTH 18.9 % (9.0-15.0); WHITE BLOOD COUNT (AUTO) 8.1 K/uL (4.8-10.8)
[2022-05-13 07:49] LABS: ALANINE AMINOTRANSFERASE 15 U/L (12-78); ALBUMIN 1.2 g/dL (3.4-4.8); ANION GAP 5 (5-15); ASPARTATE AMINOTRANSFERASE 26 U/L (10-37); CHLORIDE 99 mmol/L (98-107); CREATININE 2.09 mg/dL (0.55-1.30); GLUCOSE 107 mg/dL (70-99); PHOSPHORUS 4.2 mg/dL (2.7-4.5); POTASSIUM 4.1 mmol/L (3.5-5.1); TOTAL BILIRUBIN 0.8 mg/dL (0.0-1.0); UREA NITROGEN, BLOOD 62 mg/dL (8-21)
--- NOTE | 2022-05-13 08:00 | NUR ---
Received patient in bed aao x 3, vital signs noted low, on oxygen at 3liter/ml, patient has hx. of low bp and on Amioderone, Doctor aware of his low bp issue. Picc line noted to right upper arm with TPN infusing at 73ml/hour. Patient noted with emndoza and flexiseal, in place, meds given as ordered, patient refused some of his meds, wound dressing to coccyx and r lower extremity intact, in no acute distress, call light placed to reach, bed in low position.
[2022-05-13] MEDS: FUROSEMIDE 20 MG/2 ML VIAL IVP SCH ×2 (09:00→20:18)
[2022-05-13] MEDS: MIDODRINE HCL 5 MG TABLET (PROAMATINE) PO SCH ×3 (09:00→20:19)
[2022-05-13] MEDS: PANTOPRAZOLE SODIUM 40 MG/VIAL (PROTONIX) IVP SCH (09:59)
[2022-05-13] MEDS: LACTULOSE 20 GM/30 ML UDC PO SCH (10:00)
[2022-05-13] MEDS: DOCUSATE SODIUM 100 MG/10 ML UDC PO SCH ×2 (10:00→20:11)
[2022-05-13] MEDS: LACTOBACILLUS RHAMNOSUS GG 1 CAP CAPSULE PO SCH ×3 (10:00→20:11)
[2022-05-13] MEDS: FOLIC ACID 1 MG TABLET PO SCH (10:00)
[2022-05-13] MEDS: AMIODARONE HCL 200 MG TABLET PO SCH (10:01)
[2022-05-13] MEDS: NEPHROVITE, (FOLIC ACID/VITAMIN B COMP W-C 1 TAB) PO SCH (10:01)
[2022-05-13] MEDS: BISACODYL 5 MG TABLET.DR (DULCOLAX) PO SCH ×2 (10:01→20:11)
[2022-05-13] MEDS: CHOLECALCIFEROL (VITAMIN D3) 2,000 UNIT TABLET PO SCH (10:01)
[2022-05-13] MEDS: TAMSULOSIN HCL 0.4 MG CAP PO SCH (10:04)
[2022-05-13] MEDS: NYSTATIN 15 GM TOPICAL POWDER TP SCH ×2 (10:05→20:23)
[2022-05-13] MEDS: MEGESTROL ACETATE 400 MG/10 ML UDC PO SCH (10:14)
--- NOTE | 2022-05-13 12:05 | NUR ---
Patient in bed resting well, helped VIRTUAL REALITY SPECIALIST to turn and change patient, at the beds side monitoring, patient appear comfortable , will continue to monitor.
[2022-05-13] MEDS: MICAFUNGIN SODIUM 100 MG in NS 100 ML IV SCH (12:27)
--- NOTE | 2022-05-13 14:31 | NUR ---
Gave patient's a medicare authorization form to sign per report given to RN. Patient's declines to signs it. She states the business office need to place the right date on it and business office should be talking to her about this form. RN will endorse to coming Nurse to relay message to business office when available. RN placed form back in the chart.
--- NOTE | 2022-05-13 18:56 | NUR ---
Patient in bed watching TV comfortably, in no acute distress, call light placed to reach, will endorse care to PM Shift Nurse.
[2022-05-13] MEDS ORDERED: [UNRECOGNIZED DRUG - OTHER] IV SCH ×9 (21:00)
[2022-05-13] MEDS ORDERED: NA PHOS IV SCH ×9 (21:00)
[2022-05-13] MEDS ORDERED: TPN CENTRAL IV SCH ×9 (21:00)
[2022-05-13] MEDS ORDERED: SODIUM CHLORIDE IV SCH ×9 (21:00)
[2022-05-14] VITALS: BP_SYST 97
[2022-05-14] MEDS: NYSTATIN 500,000 UNITS/5 ML UDC PO SCH ×4 (00:17→18:00)
[2022-05-14 07:52] LABS: ALANINE AMINOTRANSFERASE 17 U/L (12-78); ALBUMIN 1.2 g/dL (3.4-4.8); ANION GAP 5 (5-15); ASPARTATE AMINOTRANSFERASE 31 U/L (10-37); CALCIUM 9.4 mg/dL (8.4-11.0); CHLORIDE 100 mmol/L (98-107); CREATININE 2.22 mg/dL (0.55-1.30); GLUCOSE 125 mg/dL (70-99); PHOSPHORUS 3.8 mg/dL (2.7-4.5); POTASSIUM 3.8 mmol/L (3.5-5.1); TOTAL BILIRUBIN 0.6 mg/dL (0.0-1.0); UREA NITROGEN, BLOOD 74 mg/dL (8-21)
[2022-05-14 08:00] VITALS: BP_SYST 102
--- NOTE | 2022-05-14 08:00 | NUR ---
Received patient in bed aao x 3, vital signs within normal limits, pt. refused all his care this morning, refused medication, patient combative and used f words several times on Nurse and Aid. Keep comfortable, call light placed to reach, will continue to monitor.
[2022-05-14 08:18] VITALS: BP_SYST 102
[2022-05-14] MEDS: BISACODYL 5 MG TABLET.DR (DULCOLAX) PO SCH ×2 (09:00→21:00)
[2022-05-14] MEDS: MEGESTROL ACETATE 400 MG/10 ML UDC PO SCH (09:00)
[2022-05-14] MEDS: TAMSULOSIN HCL 0.4 MG CAP PO SCH (09:00)
[2022-05-14] MEDS: DOCUSATE SODIUM 100 MG/10 ML UDC PO SCH ×2 (09:00→21:00)
[2022-05-14] MEDS: NYSTATIN 15 GM TOPICAL POWDER TP SCH ×2 (09:00→21:01)
[2022-05-14] MEDS: AMIODARONE HCL 200 MG TABLET PO SCH (09:00)
[2022-05-14] MEDS: LACTOBACILLUS RHAMNOSUS GG 1 CAP CAPSULE PO SCH ×3 (09:00→21:00)
[2022-05-14] MEDS: NEPHROVITE, (FOLIC ACID/VITAMIN B COMP W-C 1 TAB) PO SCH (09:00)
[2022-05-14] MEDS: CHOLECALCIFEROL (VITAMIN D3) 2,000 UNIT TABLET PO SCH (09:00)
[2022-05-14] MEDS: MIDODRINE HCL 5 MG TABLET (PROAMATINE) PO SCH ×3 (09:00→21:00)
[2022-05-14] MEDS: LACTULOSE 20 GM/30 ML UDC PO SCH (09:00)
[2022-05-14] MEDS: FOLIC ACID 1 MG TABLET PO SCH (09:00)
--- NOTE | 2022-05-14 09:20 | NUR ---
Nutrition F/U RD reviewed pt's current EMR including diet Hx, physician notes, nursing notes, pertinent labs/meds/procedures, care trends, and care activity. Short note d/t high RD workload. Admitting Dx: Renal failure, metabolic encephalopathy, dehydration Current Diet Order/ Nutrition Support: Mechanical soft, Nepro TID, Fly BID, Prosource TID x8 days & TPN D40%, AA8.5% at 70 ml/hr via central line Subjective Information: Gayatri Odonnell, MPH, RD spoke w/ Dr. Schmidt yesterday, 05/13, and he asked for EN recs as he wants to place a GT and pt still has not been eating well, 3% average x12 meals since last RD F/U 05/06. Per EMR review, generalized weakness and appetite noted; pt has thrombocytopenia likely drug-induced, resolved; septic shock s/p vasopressors and ABX, renal failure off HD, heart failure, and metabolic encephalopathy; pt is on 3 L O2 via NC; TPN Intakes: 876 ml 05/13; abd is soft and non-distended w/ active bowel sounds; LBM x3 05/13; RN noted reported dark, loose stools 05/12; Earle scale: 10 -- Leisure Studies Professor note 05/02 reviewed -- multiple wounds/skin breakdown noted. Additional supplementation continues warranted. Appetite stimulant (megace) ordered. Insertion of GT and EN support is seemingly warranted d/t pt's prolonged lack of appetite/negligible PO intake records >1.5 mo/since admission (03/25). Ht: 5'9". Wt: 260#/117.9 kg (04/24). BMI: 38.4 kg/m2 (obesity class II). IBW: 160#/72.7 kg. 163% of IBW. Adj IBW (obesity): 185#/84 kg NEW Estimated Energy Expenditure (kcals/day) 6412-7835 (30-35 kcal/kg IBW d/t CKD, wounds, malnutrition risk) New Estimated Protein Required (g/day) 87-109 (1.2-1.5 g/kg IBW d/t wounds, CKD, GERIAT status, malnutrition risk) Estimated Fluid Required (l/day) Per MD d/t renal Dz Problem/Etiology/Signs/Symptoms *MODIFIED* Inadequate oral intake r/t agitation, lack of appetite a/e/b persistent low PO intakes *Ongoing Altered nutrition-related lab values r/t renal dysfunction AEB elevated BUN, Glucose, Creatinine, Phosphorus; lowered RBC, Hgb, hematocrit, Calcium, Sodium. *Ongoing Increased energy and protein needs r/t wound healing AEB estimated nutritional requirements for current condition. *Ongoing Inadequate enteral nutrition provision AEB NGTF infusing @ 20 ml/hr. *No longer applicable, now on PO diet and TPN support Dietitian Recommendations * Mechanical Soft diet, Nepro TID, Prosource TID (supplements yield an additional 1440 kcal/day, 102 gm protein/day) * Maximum encouragement of increased PO intakes * Continue TPN D40%, AA8.5% at 70 ml/hr (goal rate) via central line Provides: 1478 kcal/day, 76 gm protein/day, 1680 ml total volume/day, and GIR: 2 mg CHO/kg/min Meets: 68% of lower end of estimated caloric needs and 87% of lower end of estimated protein needs * Consider placement of GT and EN support for long-term primary source of nutrition as pt is at increased risk for malnutrition -- Nepro at 50 ml/hr (goal rate), Free Water Flush: per physician d/t renal Dz Provides: 2160 kcal/day, 97 gm protein/day, and 872 ml free water/day Meets: 99% of lower end of estimated caloric needs and 89% of upper end of estimated protein needs High Risk F/U: 2-3 days
--- NOTE | 2022-05-14 09:30 | NUR ---
Dietitian Recommendations * Mechanical Soft diet, Nepro TID, Prosource TID (supplements yield an additional 1440 kcal/day, 102 gm protein/day) * Maximum encouragement of increased PO intakes * Continue TPN D40%, AA8.5% at 70 ml/hr (goal rate) via central line Provides: 1478 kcal/day, 76 gm protein/day, 1680 ml total volume/day, and GIR: 2 mg CHO/kg/min Meets: 68% of lower end of estimated caloric needs and 87% of lower end of estimated protein needs * Consider placement of GT and EN support for long-term primary source of nutrition as pt is at increased risk for malnutrition -- Nepro at 50 ml/hr (goal rate), Free Water Flush: per physician d/t renal Dz Provides: 2160 kcal/day, 97 gm protein/day, and 872 ml free water/day Meets: 99% of lower end of estimated caloric needs and 89% of upper end of estimated protein needs LP, MS, RD Please refer to Nutrition F/U for details.
[2022-05-14] MEDS: PANTOPRAZOLE SODIUM 40 MG/VIAL (PROTONIX) IVP SCH (09:47)
[2022-05-14] MEDS: FUROSEMIDE 20 MG/2 ML VIAL IVP SCH (09:47)
[2022-05-14 12:00] VITALS: BP_SYST 125
--- NOTE | 2022-05-14 12:00 | NUR ---
Patient got some of his meds due to it being IV, notified of patient's refussal. Will continue to give care.
[2022-05-14] MEDS ORDERED: LEVOTHYROXINE SODIUM 0.1 MG VIAL IVP ONE (12:30)
[2022-05-14 12:31] LABS: FREE T4 (FREE THYROXINE) 1.1 ng/dl (0.8-1.5); THYROID STIMULATING HORMONE 14.57 uIu/mL (0.36-3.74)
[2022-05-14] MEDS ORDERED: FUROSEMIDE 40 MG/4 ML VIAL IVP ONE (13:45)
[2022-05-14] MEDS: MICAFUNGIN SODIUM 100 MG in NS 100 ML IV SCH (15:30)
[2022-05-14 16:00] VITALS: BP_SYST 137
[2022-05-14] MEDS: EPOETIN ALFA-EPBX 4,000 UNITS/ML VIAL SUBCUT SCH (16:27)
--- NOTE | 2022-05-14 16:35 | NUR ---
Total bed bath, linen change, flexiseal change, all wound care do-ne per order. Patient very uncooperative during care, at the bedside helping to encourage patient, patient care took over 1 hour due to patient being difficult and uncooperative. place call light to reach.
[2022-05-14 20:00] VITALS: BP_SYST 105
[2022-05-14] MEDS: FUROSEMIDE 40 MG/4 ML VIAL IVP SCH (21:01)
[2022-05-14] MEDS: SODIUM CHLORIDE IV SCH ×9 (21:17)
[2022-05-14] MEDS: NA PHOS IV SCH ×9 (21:17)
[2022-05-14] MEDS: TPN CENTRAL IV SCH ×9 (21:17)
[2022-05-14] MEDS: [UNRECOGNIZED DRUG - OTHER] IV SCH ×9 (21:17)
[2022-05-15 01:00] VITALS: BP_SYST 123
[2022-05-15] MEDS: NYSTATIN 500,000 UNITS/5 ML UDC PO SCH ×2 (05:55)
--- NOTE | 2022-05-15 07:13 | NUR ---
PHYSICAL THERAPY CO-SIGN The Physical Therapy Progress Notes documented by Industrial Machine Assembler have been reviewed. Reviewed/Co-Signed by: Oscar Pride Documentation Done by: ATUL HAIRSTON PTA Addendum: 05/15/22 at 0714 by Oscar Pride PT Amended: Links added.
[2022-05-15] MEDS: LACTULOSE 20 GM/30 ML UDC PO SCH (09:00)
[2022-05-15] MEDS: BISACODYL 5 MG TABLET.DR (DULCOLAX) PO SCH ×2 (09:00→21:08)
[2022-05-15] MEDS: MEGESTROL ACETATE 400 MG/10 ML UDC PO SCH (09:53)
[2022-05-15] MEDS: FUROSEMIDE 40 MG/4 ML VIAL IVP SCH (09:54)
[2022-05-15] MEDS: FOLIC ACID 1 MG TABLET PO SCH (09:54)
[2022-05-15] MEDS: TAMSULOSIN HCL 0.4 MG CAP PO SCH (09:55)
[2022-05-15] MEDS: MIDODRINE HCL 5 MG TABLET (PROAMATINE) PO SCH ×3 (09:55→20:51)
[2022-05-15] MEDS: CHOLECALCIFEROL (VITAMIN D3) 2,000 UNIT TABLET PO SCH (09:55)
[2022-05-15] MEDS: PANTOPRAZOLE SODIUM 40 MG/VIAL (PROTONIX) IVP SCH (09:55)
[2022-05-15] MEDS: NYSTATIN 15 GM TOPICAL POWDER TP SCH ×2 (09:57→20:57)
[2022-05-15] MEDS: AMIODARONE HCL 200 MG TABLET PO SCH (10:04)
[2022-05-15] MEDS: LEVOTHYROXINE SODIUM 0.1 MG VIAL IVP SCH (10:07)
[2022-05-15] MEDS: LACTOBACILLUS RHAMNOSUS GG 1 CAP CAPSULE PO SCH ×3 (10:09→21:08)
[2022-05-15] MEDS: DOCUSATE SODIUM 100 MG/10 ML UDC PO SCH ×2 (10:11→21:08)
[2022-05-15] MEDS: NEPHROVITE, (FOLIC ACID/VITAMIN B COMP W-C 1 TAB) PO SCH (10:28)
[2022-05-15 10:44] VITALS: BP_SYST 108
[2022-05-15 11:44] VITALS: BP_SYST 104
[2022-05-15] MEDS: MICAFUNGIN SODIUM 100 MG in NS 100 ML IV SCH (13:12)
[2022-05-15 16:25] VITALS: BP_SYST 108
[2022-05-15] MEDS ORDERED: ALBUMIN HUMAN 25% 200 ML IV ONE (17:45)
--- NOTE | 2022-05-15 19:30 | NUR ---
OPENING NOTES: Patient is in bed resting no s/s of distress is noted at this time. V/S noted to be low at this time at 89/52, Oxygen is at 3L and patient O2 is at 98%. PICC LINE noted to be in place, patent and infusing TPN and albumin at this time. Patient is tolerating it well. Safety measures are in place, bed is in lowest position with bed rails up, bed alarm on, and locked. Will resume care and continue to monitor throughout the shift.
[2022-05-15 20:00] VITALS: BP_SYST 94
[2022-05-15] MEDS: FUROSEMIDE 100 MG in D5W 90 ML IV SCH (20:44)
[2022-05-15] MEDS: [UNRECOGNIZED DRUG - OTHER] IV SCH ×9 (20:53)
[2022-05-15] MEDS: NA PHOS IV SCH ×9 (20:53)
[2022-05-15] MEDS: TPN CENTRAL IV SCH ×9 (20:53)
[2022-05-15] MEDS: SODIUM CHLORIDE IV SCH ×9 (20:53)
[2022-05-15] MEDS: HEPARIN SODIUM,PORCINE 5,000 UNITS/ML VIAL SUBCUT SCH (20:54)
--- NOTE | 2022-05-15 21:56 | NUR ---
PAGED DR SILVER
--- NOTE | 2022-05-15 22:30 | NUR ---
Spoke to Dr. Márquez about patient low BP and the Lasik IV that is ordered as a continuos drip at 5ML. Med states that he is aware of patient low BP and that he wants to continue with the Lasik as ordered. Noted and will carry out order.
[2022-05-16 00:41] VITALS: BP_SYST 126
[2022-05-16 07:18] LABS: BASOPHILS # (AUTO) 0.1 K/uL (0.0-0.2); BASOPHILS % (AUTO) 1.4 % (0.0-2.0); EOSINOPHILS # (AUTO) 0.5 K/uL (0.0-0.4); EOSINOPHILS % (AUTO) 5.4 % (0.0-4.0); HEMATOCRIT 23.9 % (36-54); LYMPHOCYTES % (AUTO) 11.5 % (20.5-51.5); MEAN CORPUSCULAR VOLUME 101 fL (79.0-98.0); MONOCYTES # (AUTO) 0.7 K/uL (0.0-1.0); MONOCYTES % (AUTO) 7.5 % (1.7-9.3); NEUTROPHILS # (AUTO) 6.8 K/uL (1.8-7.7); NEUTROPHILS % (AUTO) 74.2 % (40.0-70.0); PLATELET COUNT (AUTO) 245 K/uL (130-430); RED BLOOD CELL COUNT(AUTO) 2.38 MIL/uL (4.2-6.2); RED CELL DISTRIBUTION WIDTH 19.4 % (9.0-15.0); WHITE BLOOD COUNT (AUTO) 9.1 K/uL (4.8-10.8)
--- NOTE | 2022-05-16 07:30 | NUR ---
OPENING NOTE Patient in bed resting with eyes closed. No sign of distress or pain. Nasal cannula in place on 2L, oxygenation 97%. Lunsford catheter is in place draining yellow urine to gravity. Flexiseal in place. Patient has multiple wounds, dressings are all clean dry and intact. All needs met at this time and safety checks made.
[2022-05-16 08:00] VITALS: BP_SYST 106
[2022-05-16 08:07] LABS: ALANINE AMINOTRANSFERASE 14 U/L (12-78); ALBUMIN 1.9 g/dL (3.4-4.8); ANION GAP 8 (5-15); ASPARTATE AMINOTRANSFERASE 34 U/L (10-37); CALCIUM 9.9 mg/dL (8.4-11.0); CHLORIDE 103 mmol/L (98-107); CREATININE 2.04 mg/dL (0.55-1.30); GLUCOSE 113 mg/dL (70-99); PHOSPHORUS 3.6 mg/dL (2.7-4.5); POTASSIUM 3.1 mmol/L (3.5-5.1); TOTAL BILIRUBIN 0.7 mg/dL (0.0-1.0); UREA NITROGEN, BLOOD 78 mg/dL (8-21)
[2022-05-16] MEDS: BISACODYL 5 MG TABLET.DR (DULCOLAX) PO SCH ×3 (09:00→20:48)
[2022-05-16] MEDS: DOCUSATE SODIUM 100 MG/10 ML UDC PO SCH ×3 (09:00→20:48)
[2022-05-16] MEDS: AMIODARONE HCL 200 MG TABLET PO SCH ×2 (09:00→10:16)
[2022-05-16] MEDS: MEGESTROL ACETATE 400 MG/10 ML UDC PO SCH ×2 (09:00→10:14)
[2022-05-16] MEDS: NEPHROVITE, (FOLIC ACID/VITAMIN B COMP W-C 1 TAB) PO SCH ×2 (09:00→10:16)
[2022-05-16] MEDS: CHOLECALCIFEROL (VITAMIN D3) 2,000 UNIT TABLET PO SCH ×2 (09:00→10:15)
[2022-05-16] MEDS: LACTULOSE 20 GM/30 ML UDC PO SCH ×2 (09:00→10:14)
[2022-05-16] MEDS: NYSTATIN 15 GM TOPICAL POWDER TP SCH ×2 (09:00→21:08)
[2022-05-16] MEDS: TAMSULOSIN HCL 0.4 MG CAP PO SCH ×2 (09:00→10:14)
[2022-05-16] MEDS: FOLIC ACID 1 MG TABLET PO SCH ×2 (09:00→10:14)
[2022-05-16] MEDS: HEPARIN SODIUM,PORCINE 5,000 UNITS/ML VIAL SUBCUT SCH ×2 (09:00→10:40)
[2022-05-16] MEDS: PANTOPRAZOLE SODIUM 40 MG/VIAL (PROTONIX) IVP SCH (09:10)
[2022-05-16] MEDS: LEVOTHYROXINE SODIUM 0.1 MG VIAL IVP SCH (09:11)
[2022-05-16] MEDS ORDERED: POTASSIUM CHLORIDE 20 MEQ/PKT PACKET PO ONE (09:30)
[2022-05-16] MEDS: MIDODRINE HCL 5 MG TABLET (PROAMATINE) PO SCH ×3 (10:15→20:48)
[2022-05-16] MEDS: LACTOBACILLUS RHAMNOSUS GG 1 CAP CAPSULE PO SCH ×3 (10:16→20:48)
--- NOTE | 2022-05-16 10:54 | NUR ---
PATIENT REFUSED MEDICATIONS Patient adamantly refused medications. Attempted to educate patient, patient stated "I don't give a shit now get the hell away from me".
[2022-05-16 11:30] VITALS: BP_SYST 114
--- NOTE | 2022-05-16 13:00 | NUR ---
ROUNDS Patient in bed resting with at bedside. Patient denies pain unless he is being touched or turned. Patient and updated on the plan of care, verbalized understanding. Consent for Gtube placement signed and placed in the chart. All needs met at this time and safety checks made.
[2022-05-16] MEDS: MICAFUNGIN SODIUM 100 MG in NS 100 ML IV SCH (13:03)
[2022-05-16 15:04] VITALS: BP_SYST 119
[2022-05-16] MEDS: EPOETIN ALFA-EPBX 4,000 UNITS/ML VIAL SUBCUT SCH (17:58)
[2022-05-16] MEDS: FUROSEMIDE 100 MG in D5W 90 ML IV SCH (18:01)
[2022-05-16] MEDS ORDERED: FUROSEMIDE 100 MG in D5W 90 ML IV SCH (18:15)
[2022-05-16] MEDS ORDERED: KCL 40 mEq in 100 mL (PREMIX) 100 ML IV ONE (18:15)
[2022-05-16 18:31] VITALS: BP_SYST 114
--- NOTE | 2022-05-16 19:18 | NUR ---
OPENING NOTES: Patient received from AM shift nurse. Patient is awake and alert with no s/s of distress noted. Chest rise is even and unlabored on NC @3L with O2 at 99%. Patient is on tele monitoring. Patient has a VANDANA PICC line and TPN is infusing. IV LASIX is also noted to be infusing at 5ML/HR. Patient is tolerating it well. Patient BP is currently stable at this time at 127/73. Patient is currently stable at this time and safety measures are currently in place as per protocol. Will resume care and continue to monitor throughout the shift.
[2022-05-16 20:00] VITALS: BP_SYST 129
--- NOTE | 2022-05-16 20:00 | NUR ---
CLOSING NOTE Patient in bed resting with eyes closed. No sign of distress or pain. Patient aware he will be NPO for his procedure beginning at midnight. Patient turned q2h throughout shift. Patient has been noncompliant with his care and refused multiple medications. All needs met at this time and safety checks made. Endorsed to emergency planner nurse.
[2022-05-16] MEDS: POTASSIUM CHLORIDE 20 mEq in 100 mL (PREMIX) 100 ML x 2 doses IV SCH ×2 (20:55→23:12)
[2022-05-16] MEDS ORDERED: TPN CENTRAL IV SCH ×9 (21:00)
[2022-05-16] MEDS ORDERED: [UNRECOGNIZED DRUG - OTHER] IV SCH ×9 (21:00)
[2022-05-16] MEDS ORDERED: NA PHOS IV SCH ×9 (21:00)
[2022-05-16] MEDS ORDERED: SODIUM CHLORIDE IV SCH ×9 (21:00)
[2022-05-17 00:01] VITALS: BP_SYST 121
[2022-05-17] MEDS ORDERED: CEFAZOLIN 1 GM IVPB PREMIX 50 ML IV ONE (05:00)
[2022-05-17 07:11] LABS: BASOPHILS # (AUTO) 0.1 K/uL (0.0-0.2); BASOPHILS % (AUTO) 1.3 % (0.0-2.0); EOSINOPHILS # (AUTO) 0.2 K/uL (0.0-0.4); EOSINOPHILS % (AUTO) 2.8 % (0.0-4.0); HEMATOCRIT 25.6 % (36-54); HEMOGLOBIN 8.3 g/dL (14.0-18.0); LYMPHOCYTES # (AUTO) 1.1 K/uL (1.0-5.5); MEAN CORPUSCULAR HEMOGLOBIN 33 pg (27-31); MEAN CORPUSCULAR HGB CONC 33 % (32-36); MEAN CORPUSCULAR VOLUME 101 fL (79.0-98.0); MONOCYTES # (AUTO) 0.8 K/uL (0.0-1.0); MONOCYTES % (AUTO) 9.9 % (1.7-9.3); NEUTROPHILS # (AUTO) 5.9 K/uL (1.8-7.7); PLATELET COUNT (AUTO) 327 K/uL (130-430); RED BLOOD CELL COUNT(AUTO) 2.54 MIL/uL (4.2-6.2); RED CELL DISTRIBUTION WIDTH 18.9 % (9.0-15.0); WHITE BLOOD COUNT (AUTO) 8.1 K/uL (4.8-10.8)
[2022-05-17 07:43] LABS: PROTHROMBIN TIME 10.7 SECS (9.5-12.5)
--- NOTE | 2022-05-17 07:52 | NUR ---
PHYSICAL THERAPY CO-SIGN The Physical Therapy Progress Notes documented by Wool Shearing Supervisor have been reviewed. Reviewed/Co-Signed by: Oscar Pride Documentation Done by: ATUL HAIRSTON PTA Addendum: 05/17/22 at 2663 by Oscar Pride PT Amended: Links added.
[2022-05-17] MEDS: LACTOBACILLUS RHAMNOSUS GG 1 CAP CAPSULE PO SCH ×3 (09:00→21:42)
[2022-05-17] MEDS: NEPHROVITE, (FOLIC ACID/VITAMIN B COMP W-C 1 TAB) PO SCH (09:00)
[2022-05-17] MEDS: MIDODRINE HCL 5 MG TABLET (PROAMATINE) PO SCH ×3 (09:00→21:38)
[2022-05-17] MEDS: FOLIC ACID 1 MG TABLET PO SCH (09:00)
[2022-05-17] MEDS: CHOLECALCIFEROL (VITAMIN D3) 2,000 UNIT TABLET PO SCH (09:00)
[2022-05-17] MEDS: TAMSULOSIN HCL 0.4 MG CAP PO SCH (09:00)
[2022-05-17] MEDS: LACTULOSE 20 GM/30 ML UDC PO SCH (09:00)
[2022-05-17] MEDS: MEGESTROL ACETATE 400 MG/10 ML UDC PO SCH (09:00)
[2022-05-17] MEDS: AMIODARONE HCL 200 MG TABLET PO SCH (09:00)
[2022-05-17] MEDS ORDERED: LEVOTHYROXINE SODIUM 0.1 MG VIAL IVP SCH (09:00)
[2022-05-17] MEDS: DOCUSATE SODIUM 100 MG/10 ML UDC PO SCH ×2 (09:00→21:37)
[2022-05-17] MEDS: NYSTATIN 15 GM TOPICAL POWDER TP SCH ×2 (09:00→21:43)
[2022-05-17] MEDS: BISACODYL 5 MG TABLET.DR (DULCOLAX) PO SCH ×2 (09:00→21:41)
[2022-05-17] MEDS ORDERED: MEPERIDINE 100 MG INJ. 100 MG/ML VIAL ONE (09:10)
[2022-05-17] MEDS: MIDAZOLAM HCL 5 MG/5 ML VIAL ONE ×4 (09:16→09:26)
[2022-05-17] MEDS ORDERED: DIPHENHYDRAMINE INJ 50 MG/ML VIAL ONE (09:25)
[2022-05-17 09:26] LABS: ALANINE AMINOTRANSFERASE 20 U/L (12-78); ALBUMIN 1.8 g/dL (3.4-4.8); ANION GAP 9 (5-15); ASPARTATE AMINOTRANSFERASE 39 U/L (10-37); CALCIUM 9.4 mg/dL (8.4-11.0); CHLORIDE 104 mmol/L (98-107); CREATININE 2.14 mg/dL (0.55-1.30); GLUCOSE 120 mg/dL (70-99); PHOSPHORUS 3.3 mg/dL (2.7-4.5); POTASSIUM 3.7 mmol/L (3.5-5.1); TOTAL BILIRUBIN 0.7 mg/dL (0.0-1.0); UREA NITROGEN, BLOOD 80 mg/dL (8-21)
[2022-05-17] MEDS: PANTOPRAZOLE SODIUM 40 MG/VIAL (PROTONIX) IVP SCH (10:39)
[2022-05-17] MEDS: MICAFUNGIN SODIUM 100 MG in NS 100 ML IV SCH (12:36)
[2022-05-17] MEDS ORDERED: FUROSEMIDE IV SCH ×2 (14:00→17:00)
[2022-05-17] MEDS ORDERED: NS IV SCH ×2 (14:00→17:00)
[2022-05-17 14:41] VITALS: BP_SYST 111
[2022-05-17] MEDS: ACETAMINOPHEN 650 MG/20.3 ML UDC PO PRN (16:25)
[2022-05-17 17:09] VITALS: BP_SYST 124
--- NOTE | 2022-05-17 19:30 | NUR ---
OPENING NOTES: Patient received from AM shift nurse. Patient is resting with no s/s of distress noted at this time. Chest rise is even and unlabored on 3L via NC. Patient is on tele monitoring and is currently [facility] GT site is noted to the ABD. Patent and clamped at this time. Patient is stable at this time. Safety measures are in place will continue to monitor throughout the shift.
[2022-05-17 20:00] VITALS: BP_SYST 117
[2022-05-17] MEDS: FUROSEMIDE 40 MG TABLET GT SCH (21:41)
[2022-05-17] MEDS: HEPARIN SODIUM,PORCINE 5,000 UNITS/ML VIAL SUBCUT SCH (21:47)
[2022-05-18 01:40] VITALS: BP_SYST 98
--- NOTE | 2022-05-18 06:00 | NUR ---
SPOKE WITH Dr. SILVER due to MIDLINE not flushing. Order received for CATHFLO. Order noted and carried out.
[2022-05-18] MEDS ORDERED: ALTEPLASE 2 MG VIAL MC ONE (06:45)
[2022-05-18] MEDS: LEVOTHYROXINE SODIUM 0.075 MG TABLET GT SCH (07:04)
[2022-05-18 07:53] LABS: BASOPHILS # (AUTO) 0.1 K/uL (0.0-0.2); BASOPHILS % (AUTO) 1.1 % (0.0-2.0); EOSINOPHILS # (AUTO) 0.4 K/uL (0.0-0.4); EOSINOPHILS % (AUTO) 3.1 % (0.0-4.0); HEMATOCRIT 27.4 % (36-54); HEMOGLOBIN 8.8 g/dL (14.0-18.0); LYMPHOCYTES # (AUTO) 1.7 K/uL (1.0-5.5); LYMPHOCYTES % (AUTO) 14.8 % (20.5-51.5); MEAN CORPUSCULAR HEMOGLOBIN 33 pg (27-31); MEAN CORPUSCULAR HGB CONC 32 % (32-36); MEAN CORPUSCULAR VOLUME 103 fL (79.0-98.0); MONOCYTES % (AUTO) 8.7 % (1.7-9.3); NEUTROPHILS # (AUTO) 8.4 K/uL (1.8-7.7); NEUTROPHILS % (AUTO) 72.3 % (40.0-70.0); PLATELET COUNT (AUTO) 289 K/uL (130-430); RED BLOOD CELL COUNT(AUTO) 2.68 MIL/uL (4.2-6.2); RED CELL DISTRIBUTION WIDTH 19.1 % (9.0-15.0); WHITE BLOOD COUNT (AUTO) 11.6 K/uL (4.8-10.8)
[2022-05-18 07:57] LABS: ALANINE AMINOTRANSFERASE 17 U/L (12-78); ALBUMIN 1.7 g/dL (3.4-4.8); ANION GAP 11 (5-15); ASPARTATE AMINOTRANSFERASE 41 U/L (10-37); CALCIUM 9.8 mg/dL (8.4-11.0); CHLORIDE 107 mmol/L (98-107); CREATININE 2.14 mg/dL (0.55-1.30); GLUCOSE 107 mg/dL (70-99); POTASSIUM 3.9 mmol/L (3.5-5.1); TOTAL BILIRUBIN 0.6 mg/dL (0.0-1.0); UREA NITROGEN, BLOOD 84 mg/dL (8-21)
[2022-05-18 08:10] VITALS: BP_SYST 112
[2022-05-18] MEDS: PANTOPRAZOLE SODIUM 40 MG TAB PO SCH (09:00)
[2022-05-18] MEDS: MIDODRINE HCL 5 MG TABLET (PROAMATINE) PO SCH ×3 (09:00→21:04)
[2022-05-18] MEDS: DOCUSATE SODIUM 100 MG/10 ML UDC PO SCH ×2 (09:00→21:04)
[2022-05-18] MEDS: BISACODYL 5 MG TABLET.DR (DULCOLAX) PO SCH ×2 (09:00→21:03)
[2022-05-18] MEDS: TAMSULOSIN HCL 0.4 MG CAP PO SCH (09:00)
[2022-05-18] MEDS: LACTULOSE 20 GM/30 ML UDC PO SCH (09:00)
[2022-05-18] MEDS: LACTOBACILLUS RHAMNOSUS GG 1 CAP CAPSULE PO SCH ×3 (09:00→21:03)
[2022-05-18] MEDS: CHOLECALCIFEROL (VITAMIN D3) 2,000 UNIT TABLET PO SCH (09:00)
[2022-05-18] MEDS: NEPHROVITE, (FOLIC ACID/VITAMIN B COMP W-C 1 TAB) PO SCH (09:00)
[2022-05-18] MEDS: MEGESTROL ACETATE 400 MG/10 ML UDC GT SCH (09:30)
[2022-05-18] MEDS: FOLIC ACID 1 MG TABLET GT SCH (09:30)
[2022-05-18] MEDS: FUROSEMIDE 40 MG TABLET GT SCH ×2 (09:31→21:03)
[2022-05-18] MEDS: THIAMINE HCL 100 MG TABLET GT SCH (09:31)
[2022-05-18] MEDS: AMIODARONE HCL 200 MG TABLET GT SCH (09:32)
[2022-05-18] MEDS: NYSTATIN 15 GM TOPICAL POWDER TP SCH ×2 (09:33→21:06)
[2022-05-18] MEDS: HEPARIN SODIUM,PORCINE 5,000 UNITS/ML VIAL SUBCUT SCH ×2 (09:39→21:06)
[2022-05-18] MEDS ORDERED: APIXABAN 2.5 MG TABLET PO SCH (10:00)
--- NOTE | 2022-05-18 11:30 | NUR ---
Discharge Planning: DCP faxed pt update clinicals and peg placement notes to [facility] [phone]. DCP to follow up for room. Addendum: 05/18/22 at 1444 by Kia WEEMS DCP arranged transport with [facility] [phone] to [facility] [phone] RM 17. DCP made CM and nurse aware, patient packet taken to nurse station. Addendum: 05/18/22 at 1523 by Checo Ramirez RN Informed aldair Wolf that the patient is discharged back to [facility], ambulance pharmacy picking tech at 1700. She agreed with POC.
[2022-05-18 13:13] VITALS: BP_SYST 97
--- NOTE | 2022-05-18 13:43 | NUR ---
REQUESTED RN TO CONTACT MD FOR ORDERS TO RESUME PHYSICAL THERAPY SINCE THE PATIENT HAD SURGERY G-TUBE PROCEDURE YESTERDAY.
--- NOTE | 2022-05-18 14:30 | NUR ---
WOUND EVALUATION: Late note for 05/18/2022 at 1430 secondary to patient care. Wound Consult received from Dr. Márquez. Thank you, Dr. Márquez, for the consult. Patient received in a [place] Bed with a P500 low air-loss mattress, awake, alert, talkative, gets upset quickly, confused. Patient is unable to turn in bed independently. Earle Score is a 13. Past Medical History: Chronic Atrial-Fibrillation, liver disease, recent AICD Implant, chronic anticoagulation, chronic CHF, chronic kidney disease, morbid obesity, recent compound fracture of right ankle (status post ORIF), bilateral Total Knee Replacement. Intrinsic factors that delay wound healing: Chronic Atrial-Fibrillation, liver disease, chronic CHF, chronic kidney disease. Extrinsic factors that delay wound healing: Decreased mobility. Per assessment by Dr. Márquez: ACUTE RESPIRATORY FAILURE / INTUBATED 03/26/22 / EXTUBATED 04/11/22 ACUTE METABOLIC ENCEPHALOPATHY ACUTE HYPOVOLEMIC SHOCK DEHYDRATION HEPATIC ENCEPHALOPATHY BARRY / ATN HYPERKALEMIA CHRONIC AF S/P CHRONIC ANTICOAGULATION AICD IMPLANT ACUTE ON CHRONIC CHF / S+D CMP W / POOR LVEF CKD / NEPHROTIC SYNDROME MORBID OBESITY SEVER PROTEIN MALNUTRITION RECENT COMPOUND Fx OF RIGHT ANKLE S/P ORIF ANEMIA OF CHRONIC ILLNESS SEVER KRISTIN HEMATURIA REQUIRED TRANSFUSION WITH SEVERAL UNITS OF PRBC , FFP AND PLT HYPERCOAGULOPATHY SACRAL DECUB STAGE IV VAP / MDRO UTI / YEAST WOUND INFECTION / MDRO VAP / MDRO ANASARCA LINE SEPSIS HYPOKALEMIA CHOLELITHIASIS GT PLACED ON 05/17/22 Wound Assessment: 1. Left Sacral area: Stage IV pressure ulcer, present on admission. Wound bed has 40% black leathery eschar, 10% pink tissue, 10% red tissue, 40% yellow tissue. No odor, scant sanguineous drainage. Undermining present from 10-2 o'clock (1.5 cm at 10 o'clock; 2.0 cm at 12 o'clock; 2.2 cm at 2 o'clock). Wound measures 9.6 cm x 14.5 cm x 2.0 cm. Recommend: Cleanse wound with normal saline. Apply moisture barrier cream to periwound. Pack wound with saline moistened gauze. Cover with calcium alginate dressings, then non-adhesive foam dressings. Secure with transparent dressings. Perform wound care daily, and as needed for dressing soiling or dislodgment. 2. Sacral and outer Sacral/Buttocks areas: Multiple areas of scar tissue, present on admission. Recommend: No dressings needed. Continue to monitor sites every shift. 3. Right Outer Buttock: Skin tear. Site has 100% pink tissue. No odor, no drainage. Perimeter of skin tear intact. Commend: Cleanse site with normal saline. Gently pat dry. Apply Calmoseptine cream to site. Cover with foam dressing for protection. Perform site care daily, and as needed for dressing soiling or dislodgment. 4. 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 Open area has 80% red tissue, 20% yellow tissue. No odor, no drainage. No undermining or tunneling. Cleanse site with normal saline. Apply Calmoseptine cream to site. Apply Venelex ointment to any open area not covered by Calmoseptine cream. Cover with foam dressing. Perform site care daily, and as needed for dressing soiling or dislodgment. 5. Left Tiana-Anal area: IAD/MASD. Open area has 100% pink tissue. No odor, no drainage. No undermining or tunneling. Cleanse site with normal saline. Apply Calmoseptine cream to site. Apply Venelex ointment to any open area not covered by Calmoseptine cream. Cover with foam dressing. Perform site care daily, and as needed for dressing soiling or dislodgment. 6. Right Posterior Heel: Unstageable pressure ulcer, present on admission. Wound bed has 80% yellow slough, 10% red tissue, 10% black tissue. No odor, no drainage. Periwound intact. Recommend: Cleanse wound with normal saline. Apply Calmoseptine cream to periwound. Apply Venelex ointment to wound bed. Cover site with foam dressing. Perform wound care daily, and as needed for dressing soiling. Do not allow heels or feet to touch bed or other surfaces at any time. Float heels at all times. 7. Right Dorsal Foot over Fifth Metatarsal Bone: Area of nonblanchable red skin, present on admission. Site not assessed. Recommend continue: Cleanse site with normal saline. Apply Calmoseptine cream to site. Cover site with foam dressing. Perform site care daily, and as needed for dressing soiling. 8. Right Distal Lateral Lower Extremity: Stage III pressure ulcer. Wound bed has 100% pink tissue. No odor, no drainage. Periwound intact. Dark discoloration present superior to wound site. Wound measures 3.2 cm x 2.3 cm. Recommend: Cleanse wound with normal saline. Apply Calmoseptine cream to periwound. Apply Venelex ointment to wound bed. Cover with foam dressing. Perform wound care daily, and as needed for dressing soiling or dislodgment. 9. Right Lateral Proximal Lower Extremity, Lateral and Inferior to Knee: Unstageable pressure ulcer, present on admission. Wound bed has 100% pink tissue. No odor, no drainage. Periwound intact. Wound measures 2.0 cm x 1.5 cm. Recommend: Cleanse wound with normal saline. Apply moisture barrier cream to periwound. Apply Venelex ointment to wound bed. Cover with foam dressing. Perform wound care daily, and as needed for dressing soiling or dislodgment. 10. Right Lateral Lower Extremity, Superior to Site 9: Chronic wound of unknown etiology. Site not assessed. 11. Right Lateral Lower Extremity, Superior to Site 10: Area of red discoloration. Site not assessed. Recommend: Cover sites with foam dressing for protection. Offload sites at all times. 12. Right Anterior Knee: Stage III pressure ulcer, present on admission. Site not assessed. Recommend: Cleanse wound with normal saline. Apply moisture barrier cream to periwound. Apply Venelex ointment to wound bed. Cover with foam dressing. Perform wound care daily, and as needed for dressing soiling or dislodgment. 13. Left Medial Malleolus: Unstageable pressure ulcer, present on admission. Wound bed has 80% red tissue, 20% yellow slough. No odor, no drainage. Periwound intact. Wound measures 0.6 cm x 2.4 cm x 0.2 cm. Recommend: Cleanse wound with normal saline. Apply moisture barrier cream to periwound. Apply Venelex ointment to wound bed. Cover with foam dressing. Perform wound care daily, and as needed for dressing soiling or dislodgment. 14. Right Third Toe, Dorsal Aspect: Chronic wound of unknown etiology, present on admission. Wound bed has 100% black eschar. No odor, no drainage. Periwound intact. Recommend continue: [employer] site with Betadine daily. No dressing needed. 15. Left Medial Forearm, near AC Joint: Skin tear. Resolved. 16. Right Upper Extremity: Multiple areas of ecchymosis, present on admission. 17. Left Upper Extremity: Multiple areas of ecchymosis, present on admission. Recommend: No dressings needed. Continue to monitor sites every shift. Also recommend: Reposition patient side to side only every 2 hours with one pillow underneath trunk and 1 pillow underneath pelvis, and off-load pressure areas with pillows for pressure re-distribution. Offload, elevate and float bilateral heels with 1 pillow lengthwise under each extremity at all times. Perform skin care and monitor skin integrity Q shift. Use moisture barrier cream on buttocks and other moisture susceptible areas QID and as needed for soiling. Maintain patient on a P500 low air-loss mattress.
--- NOTE | 2022-05-18 15:34 | NUR ---
Dispo code 03
--- NOTE | 2022-05-18 16:30 | NUR ---
Nutrition Note RD was approached by Dr. Márquez earlier today in ICU nursing station regarding RD recs for bolus feeding. RD reviewed EMR and new TF order; PEG placed yesterday, 05/17. New TF order: Nepro 1 can bolus via GT q6h, Fly BID, Prosource TID, Free Water Flush: 100 ml q6h. Recommend decreasing Prosource TID to BID to avoid providing excessive protein intakes. Estimated Energy Expenditure (kcals/day) 0916-6759 (30-35 kcal/kg IBW d/t CKD, wounds, malnutrition risk) Estimated Protein Required (g/day) 87-109 (1.2-1.5 g/kg IBW d/t wounds, CKD, GERIAT status, malnutrition risk) Estimated Fluid Required (l/day) Per MD d/t renal Dz Dietitian Recommendations * Nepro 1 can bolus via GT q6h, Fly BID, Prosource BID, Free Water Flush: 100 ml q6h Provides: 1980 kcal/day, 111 gm protein/day, and 563 ml free water/day Meets: 91% of lower end of estimated caloric needs and 102% of upper end of estimated protein needs High Risk F/U: 2-3 days
--- NOTE | 2022-05-18 16:38 | NUR ---
Attending Md Dr Márquez was called, re: to inform Md that [facility] cannot accept pt IF is he has Flexi seal and if the HR is high.
--- NOTE | 2022-05-18 16:51 | NUR ---
1600: Called [facility] and spoke to Sherly and gave report. Per Sherly, "they don't accept pt with flexiseal and HR above 100. (Pt's HR 110-120s) Called Dr. Márquez and made him aware about [facility]'s concerns. Per Dr. Márquez may remove flexiseal and HR should be okay for dc. 1640: Received a call from [facility] director (Rocco) and made him aware about Dr. Márquez's order to dc flexiseal. Rocco stated they can't accept the pt today because they don't have bariatric bed for the pt. Charge nurse aware. Paged Dr. Márquez, waiting fro call back Addendum: 05/18/22 at 1828 by [facility], CARMELITA MAE Per Rocco, they can take the pt tomorrow morning. Dr. Márquez called back made him aware and per hold dc for today.
--- NOTE | 2022-05-18 17:01 | NUR ---
Attending Md Dr Márquez was called, re: to inform MD that [facility] cannot accept the pt today for our CM, Checo did not notify the facility that a Bariatric bed is needed. Spoke to Kareem.
--- NOTE | 2022-05-18 17:53 | NUR ---
PUT [facility] ON WILL CALL. SPOKE TO TIFF.
[2022-05-18 18:31] VITALS: BP_SYST 115
--- NOTE | 2022-05-18 20:00 | NUR ---
Patient received from AM shift nurse. Patient is awake and alert with no s/s of distress noted. Chest rise is even and unlabored on NC @3L with O2 at 99%. Patient is on tele monitoring. Patient has a VANDANA PICC line and TPN is infusing. Patient is tolerating it well. Patient BP is currently stable at this time at 107/73. Patient is currently stable at this time and safety measures are currently in place as per protocol. Will resume care and continue to monitor throughout the shift. Pt scheduled to be DCd in the AM to [facility]. H to be ,100 and dc flexiseal upon DC. Lunsford, PICC, and Peg intact for pt upon DC.
[2022-05-18 20:24] VITALS: BP_SYST 104
[2022-05-18 20:26] VITALS: BP_SYST 104
[2022-05-19 00:15] VITALS: BP_SYST 124
[2022-05-19] MEDS: ACETAMINOPHEN 650 MG/20.3 ML UDC GT PRN ×2 (00:59→09:19)
[2022-05-19] MEDS: METOCLOPRAMIDE HCL 10 MG/2 ML VIAL IVP PRN (01:00)
[2022-05-19] MEDS: LEVOTHYROXINE SODIUM 0.075 MG TABLET GT SCH (06:29)
[2022-05-19 07:57] LABS: BASOPHILS # (AUTO) 0.1 K/uL (0.0-0.2); BASOPHILS % (AUTO) 0.9 % (0.0-2.0); EOSINOPHILS % (AUTO) 0.3 % (0.0-4.0); HEMATOCRIT 27.1 % (36-54); HEMOGLOBIN 8.8 g/dL (14.0-18.0); LYMPHOCYTES # (AUTO) 0.9 K/uL (1.0-5.5); LYMPHOCYTES % (AUTO) 9.5 % (20.5-51.5); MEAN CORPUSCULAR HEMOGLOBIN 33 pg (27-31); MEAN CORPUSCULAR HGB CONC 32 % (32-36); MEAN CORPUSCULAR VOLUME 102 fL (79.0-98.0); MONOCYTES # (AUTO) 0.7 K/uL (0.0-1.0); MONOCYTES % (AUTO) 7.3 % (1.7-9.3); NEUTROPHILS # (AUTO) 7.9 K/uL (1.8-7.7); PLATELET COUNT (AUTO) 382 K/uL (130-430); RED BLOOD CELL COUNT(AUTO) 2.64 MIL/uL (4.2-6.2); RED CELL DISTRIBUTION WIDTH 19.2 % (9.0-15.0); WHITE BLOOD COUNT (AUTO) 9.6 K/uL (4.8-10.8)
[2022-05-19 08:00] VITALS: BP_SYST 117
[2022-05-19 08:32] LABS: ALANINE AMINOTRANSFERASE 20 U/L (12-78); ALBUMIN 1.8 g/dL (3.4-4.8); ANION GAP 10 (5-15); ASPARTATE AMINOTRANSFERASE 43 U/L (10-37); CALCIUM 10.8 mg/dL (8.4-11.0); CHLORIDE 104 mmol/L (98-107); CREATININE 2.64 mg/dL (0.55-1.30); GLUCOSE 109 mg/dL (70-99); POTASSIUM 4.4 mmol/L (3.5-5.1); TOTAL BILIRUBIN 0.7 mg/dL (0.0-1.0); UREA NITROGEN, BLOOD 99 mg/dL (8-21)
[2022-05-19] MEDS: MEGESTROL ACETATE 400 MG/10 ML UDC GT SCH (09:00)
[2022-05-19] MEDS: NYSTATIN 15 GM TOPICAL POWDER TP SCH ×3 (09:00→22:00)
[2022-05-19] MEDS: FUROSEMIDE 40 MG TABLET GT SCH (09:00)
[2022-05-19] MEDS: DOCUSATE SODIUM 100 MG/10 ML UDC PO SCH ×2 (09:17→21:17)
[2022-05-19] MEDS: LACTOBACILLUS RHAMNOSUS GG 1 CAP CAPSULE PO SCH ×3 (09:17→21:18)
[2022-05-19] MEDS: PANTOPRAZOLE SODIUM 40 MG TAB PO SCH (09:19)
[2022-05-19] MEDS: THIAMINE HCL 100 MG TABLET GT SCH (09:20)
[2022-05-19] MEDS: NEPHROVITE, (FOLIC ACID/VITAMIN B COMP W-C 1 TAB) PO SCH (09:31)
[2022-05-19] MEDS: BISACODYL 5 MG TABLET.DR (DULCOLAX) PO SCH ×2 (09:31→21:18)
[2022-05-19] MEDS: CHOLECALCIFEROL (VITAMIN D3) 2,000 UNIT TABLET PO SCH (09:31)
[2022-05-19] MEDS: AMIODARONE HCL 200 MG TABLET GT SCH (09:31)
[2022-05-19] MEDS: FOLIC ACID 1 MG TABLET GT SCH (09:31)
[2022-05-19] MEDS: MIDODRINE HCL 5 MG TABLET (PROAMATINE) PO SCH ×3 (09:31→21:18)
[2022-05-19] MEDS: TAMSULOSIN HCL 0.4 MG CAP PO SCH (09:31)
[2022-05-19] MEDS: HEPARIN SODIUM,PORCINE 5,000 UNITS/ML VIAL SUBCUT SCH ×2 (10:50→21:20)
[2022-05-19 12:20] VITALS: BP_SYST 119
[2022-05-19 15:22] VITALS: BP_SYST 105
[2022-05-19 16:00] VITALS: BP_SYST 106
--- NOTE | 2022-05-19 16:45 | NUR ---
Nutrition F/U RD reviewed pt's current EMR including diet Hx, physician notes, nursing notes, pertinent labs/meds/procedures, care trends, and care activity. Short note d/t high RD workload. Admitting Dx: Renal failure, metabolic encephalopathy, dehydration Current Diet Order/Nutrition Support: Nepro continuous feed at 45 ml/hr; check GRV Q6h, Fly BID, Prosource BID, Free Water Flush: 100 ml q6h via GT x0 days Subjective Information: RD rounded to pt's bedside. TF seen infusing as per physician order. 80 ml infused; [address] spoke w/ pt's primary RN -- he stated that pt had been tolerating bolus feeds this morning, however, GI MD wanted to have pt switched to continuous feeds this afternoon -- pt continues to tolerating TF well with minimal residuals. RD witnessed minimal stool output via rectal tube bag. RN also reported that pt's HR continues elevated and pt is still pending transfer to SNF/[facility]. Per EMR review, pt is s/p PEG placement 05/17. Pt was previously on a PO diet (Mechanical Soft diet w/ Nepro TID, Fly BID, Prosource TID -- pt may benefit from ST swallow eval to evaluate for safety/appropriateness of PO diet for oral grat. Ht: 5'9". Wt: 260#/117.9 kg (04/24). BMI: 38.4 kg/m2 (obesity class II). IBW: 160#/72.7 kg. 163% of IBW. Adj IBW (obesity): 185#/84 kg Estimated Energy Expenditure (kcals/day) 7449-4049 (30-35 kcal/kg IBW d/t CKD, wounds, malnutrition risk) Estimated Protein Required (g/day) 87-109 (1.2-1.5 g/kg IBW d/t wounds, CKD, GERIAT status, malnutrition risk) Estimated Fluid Required (l/day) Per MD d/t renal Dz Problem/Etiology/Signs/Symptoms *MODIFIED* Inadequate oral intake r/t agitation, lack of appetite a/e/b persistent low PO intakes *Ongoing Altered nutrition-related lab values r/t renal dysfunction AEB elevated BUN, Glucose, Creatinine, Phosphorus; lowered RBC, Hgb, hematocrit, Calcium, Sodium. *Ongoing Increased energy and protein needs r/t wound healing AEB estimated nutritional requirements for current condition. *Ongoing Inadequate enteral nutrition provision AEB NGTF infusing @ 20 ml/hr. *No longer applicable, now on PO diet and TPN support Dietitian Recommendations * Nepro at 50 ml/hr (goal rate), Fly BID, Free Water Flush: 100 ml Q6h (per physician d/t renal Dz) via GT Provides: 2320 kcal/day, 102 gm protein/day, and 1272 ml free water/day Meets: 91% of upper end of estimated caloric needs and 94% of upper end of estimated protein needs * Consider ST swallow re-reval for safety of PO diet for oral grat High Risk F/U: 2-3 days
--- NOTE | 2022-05-19 17:00 | NUR ---
Dietitian Recommendations * Nepro at 50 ml/hr (goal rate), Fly BID, Free Water Flush: 100 ml Q6h (per physician d/t renal Dz) via GT Provides: 2320 kcal/day, 102 gm protein/day, and 1272 ml free water/day Meets: 91% of upper end of estimated caloric needs and 94% of upper end of estimated protein needs * Consider ST swallow re-eval for safety of PO diet for oral grat LP, MS, RD Please refer to Nutrition F/U for details.
[2022-05-19] MEDS: EPOETIN ALFA-EPBX 4,000 UNITS/ML VIAL SUBCUT SCH (17:04)
[2022-05-19 20:44] VITALS: BP_SYST 107
[2022-05-20] VITALS (7 sets, daily range): BP systolic 105–151
[2022-05-20 06:42] LABS: BASOPHILS # (AUTO) 0.2 K/uL (0.0-0.2); BASOPHILS % (AUTO) 1.3 % (0.0-2.0); EOSINOPHILS # (AUTO) 0.1 K/uL (0.0-0.4); EOSINOPHILS % (AUTO) 0.6 % (0.0-4.0); HEMATOCRIT 27.4 % (36-54); HEMOGLOBIN 8.9 g/dL (14.0-18.0); LYMPHOCYTES # (AUTO) 0.9 K/uL (1.0-5.5); LYMPHOCYTES % (AUTO) 7.6 % (20.5-51.5); MEAN CORPUSCULAR HEMOGLOBIN 33 pg (27-31); MEAN CORPUSCULAR HGB CONC 33 % (32-36); MEAN CORPUSCULAR VOLUME 102 fL (79.0-98.0); MONOCYTES # (AUTO) 0.7 K/uL (0.0-1.0); MONOCYTES % (AUTO) 5.7 % (1.7-9.3); NEUTROPHILS # (AUTO) 10.5 K/uL (1.8-7.7); NEUTROPHILS % (AUTO) 84.8 % (40.0-70.0); PLATELET COUNT (AUTO) 432 K/uL (130-430); RED BLOOD CELL COUNT(AUTO) 2.68 MIL/uL (4.2-6.2); RED CELL DISTRIBUTION WIDTH 18.6 % (9.0-15.0); WHITE BLOOD COUNT (AUTO) 12.4 K/uL (4.8-10.8)
[2022-05-20] MEDS: LEVOTHYROXINE SODIUM 0.075 MG TABLET GT SCH (07:34)
--- NOTE | 2022-05-20 07:45 | NUR ---
Initial notes Received patient alert oriented x1, easily arouse with stimuli. Able to verbalize needs known. No c/o pain, SOB, or distress. PICC line x2 lumen to right upper arm patent. G-tube patent on continuous feeding. Lunsford catheter patent draining clear yellow urine, rectal tubing patent draining brown color stool in drainage bag. Addendum: 05/20/22 at 1202 by Vickie Warren RN Bed in low position, call light w/in reached, and continue to monitor patient
[2022-05-20 07:53] LABS: ALANINE AMINOTRANSFERASE 18 U/L (12-78); ALBUMIN 1.8 g/dL (3.4-4.8); ANION GAP 13 (5-15); ASPARTATE AMINOTRANSFERASE 39 U/L (10-37); CALCIUM 10.5 mg/dL (8.4-11.0); CHLORIDE 103 mmol/L (98-107); CREATININE 3.04 mg/dL (0.55-1.30); GLUCOSE 130 mg/dL (70-99); POTASSIUM 4.5 mmol/L (3.5-5.1); TOTAL BILIRUBIN 0.8 mg/dL (0.0-1.0)
[2022-05-20] MEDS ORDERED: NACL 0.9% 1,000 ML IV SCH (08:30)
[2022-05-20 08:37] LABS: UREA NITROGEN, BLOOD 110 mg/dL (8-21)
[2022-05-20] MEDS: DOCUSATE SODIUM 100 MG/10 ML UDC PO SCH ×2 (09:10→22:14)
[2022-05-20] MEDS: MEGESTROL ACETATE 400 MG/10 ML UDC GT SCH (09:11)
[2022-05-20] MEDS: MIDODRINE HCL 5 MG TABLET (PROAMATINE) PO SCH ×3 (09:11→22:14)
[2022-05-20] MEDS: NEPHROVITE, (FOLIC ACID/VITAMIN B COMP W-C 1 TAB) PO SCH (09:11)
[2022-05-20] MEDS: THIAMINE HCL 100 MG TABLET GT SCH (09:11)
[2022-05-20] MEDS: CHOLECALCIFEROL (VITAMIN D3) 2,000 UNIT TABLET PO SCH (09:12)
[2022-05-20] MEDS: TAMSULOSIN HCL 0.4 MG CAP PO SCH (09:13)
[2022-05-20] MEDS: AMIODARONE HCL 200 MG TABLET GT SCH (09:13)
[2022-05-20] MEDS: FOLIC ACID 1 MG TABLET GT SCH (09:14)
[2022-05-20] MEDS: PANTOPRAZOLE SODIUM 40 MG TAB PO SCH (09:14)
[2022-05-20] MEDS: LACTOBACILLUS RHAMNOSUS GG 1 CAP CAPSULE PO SCH ×3 (09:15→22:14)
[2022-05-20] MEDS: BISACODYL 5 MG TABLET.DR (DULCOLAX) PO SCH ×2 (09:15→22:14)
[2022-05-20] MEDS: HEPARIN SODIUM,PORCINE 5,000 UNITS/ML VIAL SUBCUT SCH (09:20)
[2022-05-20] MEDS: NYSTATIN 15 GM TOPICAL POWDER TP SCH ×2 (09:21→22:15)
[2022-05-20] MEDS: METOCLOPRAMIDE HCL 10 MG/2 ML VIAL IVP PRN (11:39)
--- NOTE | 2022-05-20 11:45 | NUR ---
Rounding Patient vomited emesis phlegm white in color per , medicated. Patient tolerating feeding no residual, reposition as order, continue to monitor.
[2022-05-20] MEDS ORDERED: IPRATROPIUM/ALBUTEROL SULFATE 3 ML AMPUL.NEB (DUONEB) INH PRN (12:45)
--- NOTE | 2022-05-20 13:00 | NUR ---
ROUNDS DR. SILVER AT BEDSIDE, TALKING TO .
[2022-05-20] MEDS ORDERED: DIGOXIN 0.5 MG/2 ML AMP IVP ONE (13:30)
[2022-05-20] MEDS: IPRATROPIUM/ALBUTEROL SULFATE 3 ML AMPUL.NEB (DUONEB) INH SCH ×2 (13:50→20:57)
--- NOTE | 2022-05-20 16:10 | NUR ---
Rounding notes Patient sleeping , easily awaken with stimuli. Reposition every 2 hours, at bedside, continue to monitor
[2022-05-20 16:49] LABS: ANION GAP 7 (5-15); CALCIUM 10.8 mg/dL (8.4-11.0); CHLORIDE 105 mmol/L (98-107); CREATININE 3.21 mg/dL (0.55-1.30); GLUCOSE 153 mg/dL (70-99); POTASSIUM 4.3 mmol/L (3.5-5.1)
[2022-05-20 17:01] LABS: UREA NITROGEN, BLOOD 112 mg/dL (8-21)
[2022-05-20] MEDS ORDERED: COMMUNICATION ORDER XX ONE (17:30)
--- NOTE | 2022-05-20 17:52 | NUR ---
CONSULTATION PAGED/CALLED Reason for Consultation: [] TUNNELLED HEMODIALYSIS CATHETER PLACEMENT Person Who was Notified: [] EVELIA Consulting Physician: [] DR KATHERINE CASTELLANO Lead Project Manager Specialty: [] GEN SURGEON Ordering Physician: [] DR SILVER
[2022-05-20] MEDS: PIPERACILLIN/TAZO 2.25G/DEX-IS 50 ML IV SCH (18:38)
--- NOTE | 2022-05-20 18:38 | NUR ---
Closing notes Patient reposition and resting comfortable in bed. Vital signs stable. IV Lasix and antibiotic infusing to Right upper. Rectal tube intact, Lunsford catheter clamped, endorse to oncoming nurse for urine culture. all safety measure in place.
[2022-05-20] MEDS: FUROSEMIDE 100 MG in D5W 90 ML IV SCH (18:40)
--- NOTE | 2022-05-20 19:00 | NUR ---
Received patient AOX1, easily arouse with stimuli. Afib on monitor.Not in respiratory distress noted . R upper arm PICC line x2 lumen noted. G-tube patent with ongoing nephro at 50 ml/hr. Lunsford catheter in place. Rectal tubing patent draining brown color stool in drainage bag.Repositioned pt.
[2022-05-20] MEDS: FLUCONAZOLE 100 mg/ NS 50 ML IV SCH (20:44)
--- NOTE | 2022-05-20 22:00 | NUR ---
Patient is asleep. Reposition every 2 hours.Not in respiratory distress noted.
--- NOTE | 2022-05-21 | NUR ---
Held feeding nephro at this time for Galo cath placement in the morning at 11 am.
[2022-05-21] MEDS: PIPERACILLIN/TAZO 2.25G/DEX-IS 50 ML IV SCH ×5 (00:31→23:59)
[2022-05-21 00:34] VITALS: BP_SYST 105
[2022-05-21] MEDS: IPRATROPIUM/ALBUTEROL SULFATE 3 ML AMPUL.NEB (DUONEB) INH SCH ×4 (03:19→20:26)
--- NOTE | 2022-05-21 05:00 | NUR ---
CHG bath done.Changed gown and linen and repositioned pt.
--- NOTE | 2022-05-21 05:30 | NUR ---
Wound care done,Dressing changed to the sacral and right leg and heel.
[2022-05-21] MEDS: LEVOTHYROXINE SODIUM 0.075 MG TABLET GT SCH (06:09)
[2022-05-21 06:54] LABS: ALANINE AMINOTRANSFERASE 8 U/L (12-78); ALBUMIN 1.4 g/dL (3.4-4.8); ANION GAP 15 (5-15); ASPARTATE AMINOTRANSFERASE 26 U/L (10-37); CALCIUM 9.2 mg/dL (8.4-11.0); CHLORIDE 102 mmol/L (98-107); CREATININE 3.35 mg/dL (0.55-1.30); POTASSIUM 3.8 mmol/L (3.5-5.1); TOTAL BILIRUBIN 0.7 mg/dL (0.0-1.0)
--- NOTE | 2022-05-21 06:59 | NUR ---
ENDORSED TO AM RN FOR CONTINUITY OF CARE.PT IS NOT IN RESPIRATORY DISTRESS NOTED.
[2022-05-21 07:02] LABS: BASOPHILS % (AUTO) 0.2 % (0.0-2.0); EOSINOPHILS % (AUTO) 0.2 % (0.0-4.0); HEMATOCRIT 24.9 % (36-54); HEMOGLOBIN 7.7 g/dL (14.0-18.0); LYMPHOCYTES # (AUTO) 0.4 K/uL (1.0-5.5); LYMPHOCYTES % (AUTO) 3.6 % (20.5-51.5); MEAN CORPUSCULAR HEMOGLOBIN 33 pg (27-31); MEAN CORPUSCULAR HGB CONC 31 % (32-36); MEAN CORPUSCULAR VOLUME 106 fL (79.0-98.0); MONOCYTES # (AUTO) 0.8 K/uL (0.0-1.0); MONOCYTES % (AUTO) 6.7 % (1.7-9.3); NEUTROPHILS # (AUTO) 10.9 K/uL (1.8-7.7); NEUTROPHILS % (AUTO) 89.3 % (40.0-70.0); PLATELET COUNT (AUTO) 364 K/uL (130-430); RED BLOOD CELL COUNT(AUTO) 2.35 MIL/uL (4.2-6.2); RED CELL DISTRIBUTION WIDTH 19.7 % (9.0-15.0); WHITE BLOOD COUNT (AUTO) 12.2 K/uL (4.8-10.8)
--- NOTE | 2022-05-21 07:30 | NUR ---
OPENING NOTES: RECEIVED PATIENT FROM TALENT BUYER RN. PATIENT RESTING IN BED. BREATHING EVEN AND UNLABORED TO O2 AT 3L/NC. FLEXISEAL AND TERRAZAS CATHETER IN PLACED AND DRAINING BY GRAVITY. FALL AND SAFETY MEASURES REINFORCED. BED LOCKED, ALARM ON AND IN LOWEST POSITION. CALL LIGHT WITHIN REACH.
[2022-05-21 08:00] VITALS: BP_SYST 98
[2022-05-21 08:12] LABS: GLUCOSE 451 mg/dL (70-99); UREA NITROGEN, BLOOD 110 mg/dL (8-21)
[2022-05-21] MEDS: BISACODYL 5 MG TABLET.DR (DULCOLAX) PO SCH ×2 (09:00→21:17)
[2022-05-21] MEDS: FOLIC ACID 1 MG TABLET GT SCH (09:00)
[2022-05-21] MEDS: THIAMINE HCL 100 MG TABLET GT SCH (09:00)
[2022-05-21] MEDS: CHOLECALCIFEROL (VITAMIN D3) 2,000 UNIT TABLET PO SCH (09:00)
[2022-05-21] MEDS: TAMSULOSIN HCL 0.4 MG CAP PO SCH (09:00)
[2022-05-21] MEDS: LACTOBACILLUS RHAMNOSUS GG 1 CAP CAPSULE PO SCH ×3 (09:00→21:17)
[2022-05-21] MEDS: MEGESTROL ACETATE 400 MG/10 ML UDC GT SCH (09:00)
[2022-05-21] MEDS: PANTOPRAZOLE SODIUM 40 MG TAB PO SCH (09:00)
[2022-05-21] MEDS: NEPHROVITE, (FOLIC ACID/VITAMIN B COMP W-C 1 TAB) PO SCH (09:00)
[2022-05-21] MEDS: DOCUSATE SODIUM 100 MG/10 ML UDC PO SCH ×2 (09:00→21:17)
[2022-05-21] MEDS: NYSTATIN 15 GM TOPICAL POWDER TP SCH ×2 (09:00→21:00)
--- NOTE | 2022-05-21 09:14 | NUR ---
Accucheck done: Accucheck done 106. No s/s of acute distress noted.
--- NOTE | 2022-05-21 09:30 | NUR ---
Spoke to Dr. Mcguire: Spoke to dr. Mcguire regarding the critical lab and the blood pressure (. Per Dr. Chavira Addendum: 05/21/22 at 1128 by [facility], CARMELITA RN Per Dr. Mcguire hold the Furosemide drip and can give Amiodarone and midodrine as ordered. Reported BUN and Glucose 451. Accucheck done ( 106). Patient is for placement of tunneled central venous dialysis catheter today at 12 -[address] Patel.
--- NOTE | 2022-05-21 10:00 | NUR ---
CHG pre op done: CHG PRE OP DONE. FLEXI-SEAL AND TERRAZAS CATHETER IN PLACED AND SECURED. NO S/S OF ACUTE DISTRESS NOTED. REPOSITIONED PATIENT.
[2022-05-21] MEDS: MIDODRINE HCL 5 MG TABLET (PROAMATINE) PO SCH ×3 (10:33→21:17)
[2022-05-21] MEDS: AMIODARONE HCL 200 MG TABLET GT SCH (10:33)
--- NOTE | 2022-05-21 12:10 | NUR ---
PATIENT BROUGHT TO OR: PATIENT BROUGHT TO OR VIA HOSPITAL BED FOR PERMCATH PLACEMENT. PATIENT IN STABLE CONDITION. STABLE VS. IS WITH PATIENT.
[2022-05-21 13:10] VITALS: BP_SYST 102
[2022-05-21] MEDS ORDERED: BUPIVACAINE /PF 0.5% 30 ML VIAL INJ ONE (14:00)
[2022-05-21] MEDS ORDERED: PROPOFOL 200MG/ 20ML VIAL (DIPRIVAN) IV ONE (14:00)
[2022-05-21] MEDS ORDERED: LIDOCAINE/EPI 1% 1:100000 20 ML VIAL INJ ONE (14:00)
[2022-05-21] MEDS ORDERED: HEPARIN SODIUM,PORCINE 5,000 UNITS/ML VIAL SUBCUT ONE (14:00)
[2022-05-21] MEDS ORDERED: NS 1000 ML IV.SOLN IV ONE (14:00)
[2022-05-21] MEDS ORDERED: METOCLOPRAMIDE HCL 10 MG/2 ML VIAL IVP PRN (15:00)
[2022-05-21] MEDS ORDERED: ONDANSETRON HCL 4 MG/2 ML VIAL IVP PRN (15:00)
--- NOTE | 2022-05-21 16:30 | NUR ---
PATIENT BACK TO ROOM: PATIENT BACK TO ROOM FROM OR. S/P PERMACATH PLACEMENT. STABLE VS. NO S/S OF ACUTE DISTRESS NOTED.
--- NOTE | 2022-05-21 16:41 | NUR ---
Spoke to Heather (HD nurse): Spoke to Heather that permacath placement is done. Per Heather, she will do the hemodialysis today.
[2022-05-21] MEDS: FUROSEMIDE 100 MG in D5W 90 ML IV SCH (18:15)
--- NOTE | 2022-05-21 18:16 | NUR ---
Dr. Márquez at bedside: Dr. Márquez at bedside. Per Dr. Márquez, Continue Furosemide drip as ordered.
--- NOTE | 2022-05-21 19:10 | NUR ---
Closing notes: Patient resting in bed. Hemodialysis at bedside. Flexiseal and Lunsford catheter in placed and draining by gravity. G tube in placed and infusing well. Needs met throughout shift. Endorsed to night shift supervisor RN.
[2022-05-21] MEDS ORDERED: ALBUMIN HUMAN 25% 100 ML IV ONE (20:30)
[2022-05-21] MEDS ORDERED: HEPARIN SODIUM,PORCINE 5,000 UNITS/ML VIAL MC ONE ×2 (20:30)
--- NOTE | 2022-05-21 21:08 | NUR ---
HIGH ALERT NOTE: Called back at [phone] identified within the medical roster to verify physician authenticity.
[2022-05-21] MEDS: HEPARIN SODIUM,PORCINE 5,000 UNITS/ML VIAL SUBCUT SCH (21:15)
[2022-05-21] MEDS: FLUCONAZOLE 100 mg/ NS 50 ML IV SCH (21:17)
[2022-05-21 21:23] VITALS: BP_SYST 111
[2022-05-22 00:07] VITALS: BP_SYST 104
[2022-05-22 04:18] VITALS: BP_SYST 101
[2022-05-22] MEDS: PIPERACILLIN/TAZO 2.25G/DEX-IS 50 ML IV SCH ×3 (05:09→18:19)
[2022-05-22] MEDS: IPRATROPIUM/ALBUTEROL SULFATE 3 ML AMPUL.NEB (DUONEB) INH SCH ×4 (06:12→19:03)
[2022-05-22 08:18] LABS: BASOPHILS % (AUTO) 0.4 % (0.0-2.0); EOSINOPHILS # (AUTO) 0.2 K/uL (0.0-0.4); EOSINOPHILS % (AUTO) 1.9 % (0.0-4.0); HEMATOCRIT 26.6 % (36-54); HEMOGLOBIN 8.7 g/dL (14.0-18.0); LYMPHOCYTES # (AUTO) 0.8 K/uL (1.0-5.5); LYMPHOCYTES % (AUTO) 6.6 % (20.5-51.5); MEAN CORPUSCULAR HEMOGLOBIN 33 pg (27-31); MEAN CORPUSCULAR HGB CONC 33 % (32-36); MEAN CORPUSCULAR VOLUME 103 fL (79.0-98.0); MONOCYTES # (AUTO) 0.9 K/uL (0.0-1.0); MONOCYTES % (AUTO) 7.9 % (1.7-9.3); NEUTROPHILS # (AUTO) 9.5 K/uL (1.8-7.7); NEUTROPHILS % (AUTO) 83.2 % (40.0-70.0); PLATELET COUNT (AUTO) 309 K/uL (130-430); RED CELL DISTRIBUTION WIDTH 19.1 % (9.0-15.0); RETICULOCYTE COUNT 5.7 % (0.5-1.5); WHITE BLOOD COUNT (AUTO) 11.4 K/uL (4.8-10.8)
[2022-05-22 08:36] LABS: TOTAL IRON BIND. CAPACITY 113 ug/dL (250-450)
[2022-05-22 09:06] LABS: ALANINE AMINOTRANSFERASE 7 U/L (12-78); ALBUMIN 2.2 g/dL (3.4-4.8); ANION GAP 11 (5-15); ASPARTATE AMINOTRANSFERASE 26 U/L (10-37); CALCIUM 9.6 mg/dL (8.4-11.0); CHLORIDE 100 mmol/L (98-107); CREATININE 3.21 mg/dL (0.55-1.30); FREE T4 (FREE THYROXINE) 0.9 ng/dl (0.8-1.5); GLUCOSE 100 mg/dL (70-99); POTASSIUM 3.9 mmol/L (3.5-5.1); THYROID STIMULATING HORMONE 11.65 uIu/mL (0.36-3.74); TOTAL BILIRUBIN 0.8 mg/dL (0.0-1.0); UREA NITROGEN, BLOOD 87 mg/dL (8-21)
[2022-05-22] MEDS: DOCUSATE SODIUM 100 MG/10 ML UDC PO SCH ×2 (10:15→23:57)
[2022-05-22] MEDS: MEGESTROL ACETATE 400 MG/10 ML UDC GT SCH (10:15)
[2022-05-22] MEDS: HEPARIN SODIUM,PORCINE 5,000 UNITS/ML VIAL SUBCUT SCH (10:16)
[2022-05-22] MEDS: THIAMINE HCL 100 MG TABLET GT SCH (10:17)
[2022-05-22] MEDS: PANTOPRAZOLE SODIUM 40 MG TAB PO SCH (10:17)
[2022-05-22] MEDS: BISACODYL 5 MG TABLET.DR (DULCOLAX) PO SCH (10:17)
[2022-05-22] MEDS: AMIODARONE HCL 200 MG TABLET GT SCH (10:18)
[2022-05-22] MEDS: MIDODRINE HCL 5 MG TABLET (PROAMATINE) PO SCH ×3 (10:18→23:58)
[2022-05-22] MEDS: NEPHROVITE, (FOLIC ACID/VITAMIN B COMP W-C 1 TAB) PO SCH (10:19)
[2022-05-22] MEDS: LACTOBACILLUS RHAMNOSUS GG 1 CAP CAPSULE PO SCH ×3 (10:19→23:59)
[2022-05-22] MEDS: CHOLECALCIFEROL (VITAMIN D3) 2,000 UNIT TABLET PO SCH (10:19)
[2022-05-22] MEDS: FOLIC ACID 1 MG TABLET GT SCH (10:19)
[2022-05-22] MEDS: TAMSULOSIN HCL 0.4 MG CAP PO SCH (10:20)
[2022-05-22] MEDS: NYSTATIN 15 GM TOPICAL POWDER TP SCH (10:21)
[2022-05-22] MEDS: LEVOTHYROXINE SODIUM 0.075 MG TABLET GT SCH (10:23)
[2022-05-22 11:30] VITALS: BP_SYST 101
--- NOTE | 2022-05-22 13:07 | NUR ---
Discharge Planning: DCP faxed pt referral to Heather gonzales [facility] [phone] chair time 4:45am TT, DCP faxed pt referral to [facility] [phone] dialysis transport can be arranged. DCP to follow up
--- NOTE | 2022-05-22 14:38 | NUR ---
CM: discharge barriers: requested dc reeval from dr. Márquez: stated " cant discharge pt with the white lung to anywhere until it is treated." CXR showed : No change in the pulmonary status. Persistent opacification of the majority of the left hemithorax which may be associated pleural fluid. Underlying parenchymal density including atelectasis and/or consolidation cannot be excluded.
[2022-05-22] MEDS: EPOETIN ALFA-EPBX 4,000 UNITS/ML VIAL SUBCUT SCH (16:42)
[2022-05-22 16:55] VITALS: BP_SYST 95
[2022-05-22] MEDS: FUROSEMIDE 100 MG in D5W 90 ML IV SCH (18:21)
[2022-05-22] MEDS: ACETAMINOPHEN 650 MG/20.3 ML UDC GT PRN ×2 (18:23→23:56)
[2022-05-22] MEDS: METHYLPREDNISOLONE SOD SUCC 40 MG/ML VIAL IVP SCH (19:00)
--- NOTE | 2022-05-22 19:00 | NUR ---
Received sick patient awake and drowsy.does not respond to commands.vitals done awaits to have Dialysis
--- NOTE | 2022-05-22 19:00 | NUR ---
0800: TOTAL CARE, G-TUBE FOR FEEDING F/C AND RECTAL TUBE IN PLACE, PATENT. IV LASIX @ 5MG/HR THRU RIGHT UPPER ARM PICC LINE. MULTIPLE SKIN PROBLEM WITH ONGOING TX. 1300: CONTINUE TO TOLERATED FEEDING WELL NO ADVERSE REACTION FROM ANTIBIOTIC NOTED. 1700: GOOD WOUND CARE RENDERED COCCYX AREA. RECTAL TUBE SLIPPED OUT, ATTEMPTED TO PLACE NEW TUBE, PATIENT KEPT PUSHING AND BEARING DOWN. UNABLE TO REPLACE, PATIENT EVENTUALLY REFUSED RECTAL TUBE WITH @ BEDSIDE. CONTINUE WITH IV LASIX DRIP AND FEEDING BEFORE. GOOD ORAL CARE PERFORMED. 1900: ENDORSED PATIENT TO PM SHIFT NURSE,
[2022-05-22 20:00] VITALS: BP_SYST 100
[2022-05-22] MEDS: FLUCONAZOLE 100 mg/ NS 50 ML IV SCH (20:00)
[2022-05-22] MEDS ORDERED: ALBUMIN HUMAN 25% 100 ML IV ONE ×3 (21:15→21:30)
[2022-05-22] MEDS ORDERED: ALBUMIN HUMAN 25% 150 ML IV ONE (21:32)
--- NOTE | 2022-05-22 22:00 | NUR ---
PT GIVEN HUMAN ALBUMIN FOR LOW BPS
[2022-05-23] VITALS (7 sets, daily range): BP systolic 98–125
[2022-05-23] MEDS: PIPERACILLIN/TAZO 2.25G/DEX-IS 50 ML IV SCH ×3 (00:16→12:34)
[2022-05-23] MEDS: BISACODYL 5 MG TABLET.DR (DULCOLAX) PO SCH ×3 (00:27→20:12)
[2022-05-23] MEDS: NYSTATIN 15 GM TOPICAL POWDER TP SCH ×3 (00:39→20:15)
[2022-05-23] MEDS: HEPARIN SODIUM,PORCINE 5,000 UNITS/ML VIAL SUBCUT SCH ×3 (00:43→20:14)
[2022-05-23] MEDS: IPRATROPIUM/ALBUTEROL SULFATE 3 ML AMPUL.NEB (DUONEB) INH SCH ×3 (00:58→19:38)
--- NOTE | 2022-05-23 06:00 | NUR ---
wound cleaned and dressed .
[2022-05-23] MEDS: METHYLPREDNISOLONE SOD SUCC 40 MG/ML VIAL IVP SCH ×2 (06:58→18:44)
[2022-05-23] MEDS: LEVOTHYROXINE SODIUM 0.1 MG TABLET GT SCH (06:59)
[2022-05-23 07:55] LABS: BASOPHILS % (AUTO) 0.1 % (0.0-2.0); EOSINOPHILS % (AUTO) 0.1 % (0.0-4.0); HEMOGLOBIN 8.1 g/dL (14.0-18.0); LYMPHOCYTES # (AUTO) 0.2 K/uL (1.0-5.5); MEAN CORPUSCULAR HEMOGLOBIN 33 pg (27-31); MEAN CORPUSCULAR HGB CONC 31 % (32-36); MEAN CORPUSCULAR VOLUME 105 fL (79.0-98.0); MONOCYTES # (AUTO) 0.2 K/uL (0.0-1.0); MONOCYTES % (AUTO) 2.1 % (1.7-9.3); NEUTROPHILS # (AUTO) 10.8 K/uL (1.8-7.7); NEUTROPHILS % (AUTO) 95.7 % (40.0-70.0); PLATELET COUNT (AUTO) 223 K/uL (130-430); RED BLOOD CELL COUNT(AUTO) 2.48 MIL/uL (4.2-6.2); RED CELL DISTRIBUTION WIDTH 19.5 % (9.0-15.0); WHITE BLOOD COUNT (AUTO) 11.2 K/uL (4.8-10.8)
[2022-05-23] MEDS: MEGESTROL ACETATE 400 MG/10 ML UDC GT SCH (08:26)
[2022-05-23] MEDS: DOCUSATE SODIUM 100 MG/10 ML UDC PO SCH ×2 (08:26→20:12)
[2022-05-23] MEDS: TAMSULOSIN HCL 0.4 MG CAP PO SCH (08:27)
[2022-05-23] MEDS: PANTOPRAZOLE SODIUM 40 MG TAB PO SCH (08:27)
[2022-05-23] MEDS: THIAMINE HCL 100 MG TABLET GT SCH (08:28)
[2022-05-23] MEDS: LACTOBACILLUS RHAMNOSUS GG 1 CAP CAPSULE PO SCH ×3 (08:28→20:12)
[2022-05-23] MEDS: CHOLECALCIFEROL (VITAMIN D3) 2,000 UNIT TABLET PO SCH (08:28)
[2022-05-23] MEDS: NEPHROVITE, (FOLIC ACID/VITAMIN B COMP W-C 1 TAB) PO SCH (08:28)
[2022-05-23] MEDS: FOLIC ACID 1 MG TABLET GT SCH (08:28)
[2022-05-23] MEDS: AMIODARONE HCL 200 MG TABLET GT SCH (08:41)
[2022-05-23] MEDS: MIDODRINE HCL 5 MG TABLET (PROAMATINE) PO SCH ×3 (08:42→20:12)
[2022-05-23 09:06] LABS: ALANINE AMINOTRANSFERASE 9 U/L (12-78); ALBUMIN 2.5 g/dL (3.4-4.8); ANION GAP 10 (5-15); ASPARTATE AMINOTRANSFERASE 30 U/L (10-37); CALCIUM 9.6 mg/dL (8.4-11.0); CHLORIDE 102 mmol/L (98-107); CREATININE 3.02 mg/dL (0.55-1.30); GLUCOSE 143 mg/dL (70-99); PHOSPHORUS 4.4 mg/dL (2.7-4.5); POTASSIUM 4.5 mmol/L (3.5-5.1); TOTAL BILIRUBIN 0.8 mg/dL (0.0-1.0); UREA NITROGEN, BLOOD 67 mg/dL (8-21)
[2022-05-23] MEDS: FUROSEMIDE 100 MG in D5W 90 ML IV SCH (18:42)
[2022-05-23] MEDS: FLUCONAZOLE 100 mg/ NS 50 ML IV SCH (20:15)
[2022-05-23] MEDS: LINEZOLID 300 ML IV SCH (20:15)
--- NOTE | 2022-05-23 23:21 | NUR ---
Patient in bed. Turned repositioned q2. HOB elevated. Gtube patent and intact. No residual noted. Will continue to monitor.
[2022-05-24] MEDS: IPRATROPIUM/ALBUTEROL SULFATE 3 ML AMPUL.NEB (DUONEB) INH SCH ×4 (00:36→20:11)
[2022-05-24 01:02] VITALS: BP_SYST 107
[2022-05-24] MEDS: LEVOTHYROXINE SODIUM 0.1 MG TABLET GT SCH (03:37)
[2022-05-24] MEDS: METHYLPREDNISOLONE SOD SUCC 40 MG/ML VIAL IVP SCH ×2 (03:38→18:15)
[2022-05-24 04:06] LABS: FOLATE (FOLIC ACID) >20.0 ng/mL (>3.0)
--- NOTE | 2022-05-24 06:41 | NUR ---
Patient had emesis x1. No acute distress noted. Will continue to monitor.
[2022-05-24 07:08] LABS: BASOPHILS % (AUTO) 0.3 % (0.0-2.0); HEMATOCRIT 25.7 % (36-54); HEMOGLOBIN 8.3 g/dL (14.0-18.0); LYMPHOCYTES # (AUTO) 0.3 K/uL (1.0-5.5); LYMPHOCYTES % (AUTO) 1.8 % (20.5-51.5); MEAN CORPUSCULAR HEMOGLOBIN 33 pg (27-31); MEAN CORPUSCULAR HGB CONC 32 % (32-36); MEAN CORPUSCULAR VOLUME 103 fL (79.0-98.0); MONOCYTES # (AUTO) 0.3 K/uL (0.0-1.0); MONOCYTES % (AUTO) 2.3 % (1.7-9.3); NEUTROPHILS # (AUTO) 14.4 K/uL (1.8-7.7); NEUTROPHILS % (AUTO) 95.6 % (40.0-70.0); PLATELET COUNT (AUTO) 254 K/uL (130-430); RED BLOOD CELL COUNT(AUTO) 2.49 MIL/uL (4.2-6.2); RED CELL DISTRIBUTION WIDTH 19.4 % (9.0-15.0); WHITE BLOOD COUNT (AUTO) 15.1 K/uL (4.8-10.8)
[2022-05-24 08:38] LABS: ALANINE AMINOTRANSFERASE 10 U/L (12-78); ALBUMIN 2.4 g/dL (3.4-4.8); ANION GAP 15 (5-15); ASPARTATE AMINOTRANSFERASE 21 U/L (10-37); CALCIUM 9.7 mg/dL (8.4-11.0); CHLORIDE 98 mmol/L (98-107); CREATININE 3.62 mg/dL (0.55-1.30); GLUCOSE 142 mg/dL (70-99); POTASSIUM 3.9 mmol/L (3.5-5.1); TOTAL BILIRUBIN 0.7 mg/dL (0.0-1.0); UREA NITROGEN, BLOOD 78 mg/dL (8-21)
[2022-05-24] MEDS: DOCUSATE SODIUM 100 MG/10 ML UDC PO SCH (08:46)
[2022-05-24] MEDS: PANTOPRAZOLE SODIUM 40 MG TAB PO SCH (08:47)
[2022-05-24] MEDS: NEPHROVITE, (FOLIC ACID/VITAMIN B COMP W-C 1 TAB) PO SCH (08:47)
[2022-05-24] MEDS: THIAMINE HCL 100 MG TABLET GT SCH (08:47)
[2022-05-24] MEDS: FOLIC ACID 1 MG TABLET GT SCH (08:47)
[2022-05-24] MEDS: MEGESTROL ACETATE 400 MG/10 ML UDC GT SCH (08:47)
[2022-05-24] MEDS: LACTOBACILLUS RHAMNOSUS GG 1 CAP CAPSULE PO SCH ×2 (08:47→14:25)
[2022-05-24] MEDS: MIDODRINE HCL 5 MG TABLET (PROAMATINE) PO SCH ×2 (08:48→14:25)
[2022-05-24] MEDS: LINEZOLID 300 ML IV SCH (08:48)
[2022-05-24] MEDS: NYSTATIN 15 GM TOPICAL POWDER TP SCH (08:49)
[2022-05-24] MEDS: CHOLECALCIFEROL (VITAMIN D3) 2,000 UNIT TABLET PO SCH (08:50)
[2022-05-24] MEDS: HEPARIN SODIUM,PORCINE 5,000 UNITS/ML VIAL SUBCUT SCH (08:51)
[2022-05-24] MEDS: AMIODARONE HCL 200 MG TABLET GT SCH (09:00)
[2022-05-24] MEDS ORDERED: ALBUMIN HUMAN 25% 200 ML IV ONE (09:15)
[2022-05-24 09:28] VITALS: BP_SYST 89
[2022-05-24 12:51] VITALS: BP_SYST 98
--- NOTE | 2022-05-24 13:07 | NUR ---
Patient is unavailable for treatment due to receiving dialysis treatment.
[2022-05-24] MEDS: TAMSULOSIN HCL 0.4 MG CAP PO SCH (13:29)
[2022-05-24] MEDS ORDERED: LINEZOLID 300 ML IV SCH (14:00)
--- NOTE | 2022-05-24 15:23 | NUR ---
PLEURAL FLUID FROM THORACENTESIS SENT TO LAB FOR TESTING.
[2022-05-24 16:00] VITALS: BP_SYST 99
[2022-05-24] MEDS: EPOETIN ALFA-EPBX 4,000 UNITS/ML VIAL SUBCUT SCH (16:18)
[2022-05-24] MEDS: FUROSEMIDE 100 MG in D5W 90 ML IV SCH (17:10)
--- NOTE | 2022-05-24 18:16 | NUR ---
181 TF RESTARTED PER ,WILL MONITOR PT CLOSELY FOR ANY EPISODE OF VOMITING.PT RESTING COMFORTABLY AT THIS TIME,NO DISTRESS NOTED. AT BEDSIDE.
[2022-05-24 19:48] LABS: APPEARANCE,SPUN,BODY FLUID HAZY (CLEAR); BF APPEARANCE UNSPUN HAZY (CLEAR); BODY FLUID COLOR YELLOW (LT YELLOW); BODY FLUID SOURCE/ TYPE PLEURAL; BODY FLUID TOTAL VOLUME 725 mL; RBC, BODY FLUID 1037 /uL; SOURCE/TYPE ,BODY FLUID PLEURAL; WBC, BODY FLUID 788 /uL
[2022-05-24 19:49] LABS: LYMPHOCYTES, BODY FLUID 58 %; NEUTROPHIL, BODY FLUID 42 %
[2022-05-24] MEDS ORDERED: BISACODYL 5 MG TABLET.DR (DULCOLAX) PO SCH (21:00)
--- NOTE | 2022-05-25 00:35 | NUR ---
LATE ENTRY: NOTICED PT HAVING PACED RHYTHM ON THE 40 S ,WENT TO THE PT ROOM , NOTICED PT HAS NO PULSE OR BREATHING ,CODE BLUE CALLED , PT IS MODIFIED CODE -ACLS DRUGS AND BIPAP ONLY ; VERNON(RUSLAN)CALLED TO NOTIFY THE PT CONDITION AND NOTIFIED THAT CODE IS GOING ON , SHE STATED SHE WILL BE COMING IN FEW MIN . PT PRONOUNCED BY ER DOCTOR DR PARKER TEE AT 2108 ; DR SILVER NOTIFIED AT 2119, CALLED AND NOTIFIED SHE STATED SHE "IS OUTSIDE THE HOSPITAL AND COMING IN ".JOB DEVELOPER CALLED TALKED WITH JACQUELINE AT 2131 ,SHE STATED "ITS NOT A JOB DEVELOPER CASE".BODY RELEASED BY JOB DEVELOPER ,[facility] CALLED AND TALKED WITH GIOVANI AT 2142 CASE NO [id number] .ADMITTING MADE AWARE AT 2124 .GUTIÉRREZJames BERRY SUP. WAS AT BEDSIDE DURING CODE, SO SHE IS AWARE TOO. REQUESTED TO NOTIFY DR ISIDRO AND NOTIFIED HIM TOO .
[2022-05-25] MEDS ORDERED: CYANOCOBALAMIN 1000 mCg TABLET GT SCH (09:00)
[2022-05-25] MEDS ORDERED: CHOLECALCIFEROL (VITAMIN D3) 2,000 UNIT TABLET PO SCH (09:00)
[2022-05-25] MEDS ORDERED: NEPHROVITE, (FOLIC ACID/VITAMIN B COMP W-C 1 TAB) PO SCH (09:00)
[2022-05-25 11:41] LABS: BODY FLUID GLUCOSE 136 mg/dL; BODY FLUID TOTAL PROTEIN 2.7 g/dL
--- NOTE | 2022-05-25 15:41 | NUR ---
Dispo code 20
[2022-05-29 09:41] LABS: FERRITIN 1045 ng/mL (30-400)
== END 2022-05-24 21:09 | DRG 870 ==
LOC: SED 14:26 → SIC 16:51 → STU 04-15 15:41 → SMU 04-17 00:20 → SIC 04-19 10:27 → STU 04-24 23:35
PROVIDERS: ADMIT Internal Medicine; ATTEND Internal Medicine
PROC: 5A1955Z Respiratory Ventilation, Greater than 96 Consecutive Hours (ICD-10-PCS; principal; 2022-03-26)
PROC: 30233K1 Transfusion of Nonautologous Frozen Plasma into Peripheral Vein, Percutaneous Approach (ICD-10-PCS; 2022-03-26)
PROC: 30233N1 Transfusion of Nonautologous Red Blood Cells into Peripheral Vein, Percutaneous Approach (ICD-10-PCS; 2022-03-26)
PROC: 30233R1 Transfusion of Nonautologous Platelets into Peripheral Vein, Percutaneous Approach (ICD-10-PCS; 2022-03-26)
PROC: 5A1D70Z Performance of Urinary Filtration, Intermittent, Less than 6 Hours Per Day (ICD-10-PCS; 2022-03-26)
PROC: 5A1D70Z Performance of Urinary Filtration, Intermittent, Less than 6 Hours Per Day (ICD-10-PCS; 2022-03-28)
PROC: 02HV33Z Insertion of Infusion Device into Superior Vena Cava, Percutaneous Approach (ICD-10-PCS; 2022-03-29)
PROC: B548ZZA Ultrasonography of Superior Vena Cava, Guidance (ICD-10-PCS; 2022-03-29)
PROC: 5A1D70Z Performance of Urinary Filtration, Intermittent, Less than 6 Hours Per Day (ICD-10-PCS; 2022-03-30)
PROC: 5A1D70Z Performance of Urinary Filtration, Intermittent, Less than 6 Hours Per Day (ICD-10-PCS; 2022-04-01)
PROC: 5A1D70Z Performance of Urinary Filtration, Intermittent, Less than 6 Hours Per Day (ICD-10-PCS; 2022-04-03)
PROC: 5A1D70Z Performance of Urinary Filtration, Intermittent, Less than 6 Hours Per Day (ICD-10-PCS; 2022-04-04)
PROC: 5A1D70Z Performance of Urinary Filtration, Intermittent, Less than 6 Hours Per Day (ICD-10-PCS; 2022-04-05)
PROC: 5A1D70Z Performance of Urinary Filtration, Intermittent, Less than 6 Hours Per Day (ICD-10-PCS; 2022-04-07)
PROC: 5A1D70Z Performance of Urinary Filtration, Intermittent, Less than 6 Hours Per Day (ICD-10-PCS; 2022-04-08)
PROC: 5A1D70Z Performance of Urinary Filtration, Intermittent, Less than 6 Hours Per Day (ICD-10-PCS; 2022-04-10)
PROC: 5A1D70Z Performance of Urinary Filtration, Intermittent, Less than 6 Hours Per Day (ICD-10-PCS; 2022-04-12)
PROC: 5A1D70Z Performance of Urinary Filtration, Intermittent, Less than 6 Hours Per Day (ICD-10-PCS; 2022-04-14)
PROC: 5A1D70Z Performance of Urinary Filtration, Intermittent, Less than 6 Hours Per Day (ICD-10-PCS; 2022-04-17)
PROC: 5A1D70Z Performance of Urinary Filtration, Intermittent, Less than 6 Hours Per Day (ICD-10-PCS; 2022-04-19)
PROC: 5A1D70Z Performance of Urinary Filtration, Intermittent, Less than 6 Hours Per Day (ICD-10-PCS; 2022-04-21)
PROC: 5A1D70Z Performance of Urinary Filtration, Intermittent, Less than 6 Hours Per Day (ICD-10-PCS; 2022-04-21)
PROC: 5A1D70Z Performance of Urinary Filtration, Intermittent, Less than 6 Hours Per Day (ICD-10-PCS; 2022-04-22)
PROC: 0DH63UZ Insertion of Feeding Device into Stomach, Percutaneous Approach (ICD-10-PCS; 2022-05-17)
PROC: 0JH63XZ Insertion of Tunneled Vascular Access Device into Chest Subcutaneous Tissue and Fascia, Percutaneous Approach (ICD-10-PCS; 2022-05-21)
PROC: 02HV33Z Insertion of Infusion Device into Superior Vena Cava, Percutaneous Approach (ICD-10-PCS; 2022-05-21)
PROC: 0W9B3ZZ Drainage of Left Pleural Cavity, Percutaneous Approach (ICD-10-PCS; 2022-05-24)
DX: A41.9 Sepsis, unspecified organism (principal); L89.154 Pressure ulcer of sacral region, stage 4; E43 Unspecified severe protein-calorie malnutrition; G93.41 Metabolic encephalopathy; J69.0 Pneumonitis due to inhalation of food and vomit; K72.00 Acute and subacute hepatic failure without coma; R65.21 Severe sepsis with septic shock; N17.0 Acute kidney failure with tubular necrosis; I50.43 Acute on chronic combined systolic (congestive) and diastolic (congestive) heart failure; J96.01 Acute respiratory failure with hypoxia; B49 Unspecified mycosis; E87.20 Acidosis, unspecified; I42.0 Dilated cardiomyopathy; I48.20 Chronic atrial fibrillation, unspecified; N39.0 Urinary tract infection, site not specified; Z16.24 Resistance to multiple antibiotics; A04.72 Enterocolitis due to Clostridium difficile, not specified as recurrent; J91.8 Pleural effusion in other conditions classified elsewhere; S37.39XA Other injury of urethra, initial encounter; R57.1 Hypovolemic shock; D63.8 Anemia in other chronic diseases classified elsewhere; E66.01 Morbid (severe) obesity due to excess calories; E83.51 Hypocalcemia; E86.0 Dehydration; E87.5 Hyperkalemia; K80.20 Calculus of gallbladder without cholecystitis without obstruction; N18.9 Chronic kidney disease, unspecified; R13.10 Dysphagia, unspecified; L89.152 Pressure ulcer of sacral region, stage 2; Z96.653 Presence of artificial knee joint, bilateral; R62.7 Adult failure to thrive; Z79.01 Long term (current) use of anticoagulants; Z79.02 Long term (current) use of antithrombotics/antiplatelets; Z87.01 Personal history of pneumonia (recurrent); Z95.810 Presence of automatic (implantable) cardiac defibrillator; R31.9 Hematuria, unspecified; X58.XXXA Exposure to other specified factors, initial encounter; Y93.89 Activity, other specified; Y92.89 Other specified places as the place of occurrence of the external cause; Y99.8 Other external cause status
CPT/HCPCS: 32555; 36415; 36430; 36600; 43246; 70450-TC; 71045; 74018; 76376; 76604; 76700-TC; 78226; 80048; 80053; 80074; 81000; 82140; 82150; 82575; 82607; 82728; 82746; 82803-TC; 82947; 82962; 83540; 83550; 83605; 83690; 83735; 83880; 84100; 84134; 84156; 84157; 84439; 84443; 84478; 84484; 85007; 85025; 85027; 85044; 85379; 85384; 85610-TC; 85730-TC; 86022; 86480; 86886; 86900; 86901; 86920; 87040; 87070-TC; 87075-TC; 87081; 87086; 87116; 87186-TC; 87205-TC; 88108; 88305; 89051-TC; 89060-TC; 90935; 90937; 92610-GN; 92950; 93005; 93306; 93970; 94002; 94003; 94640; 94760; 95816; 96374; 96375; 97110-GP; 97112-GP; 97530-GP; 99291; A9537; C9113; G0378; J0171; J0690; J0692; J0696; J0770; J0885; J1030; J1160; J1200; J1265; J1450; J1644; J1815; J1940; J1956; J2020; J2175; J2248; J2250; J2370; J2405; J2543; J2704; J2765; J2916; J2997; J3243; J3370; J3430; J3475; J3480; J3490; J7030; J7050; J7060; J7131; P9021; P9034; P9046; P9059; Q5106